=== PATIENT | male | born 1955 | race African-American/Black ===

== ENCOUNTER 2018-04-22 20:51 | Inpatient (IN) | payer OTHER ==
[~2018-04-22] VITALS: Ht 175.3 cm; Wt 61.2 kg
[~2018-04-22 20:51] MED LIST: METOPROLOL TART25 MG ORAL; UNOBMED
[2018-04-22 21:05] VITALS: BP 149/92
--- NOTE | 2018-04-22 21:06 | Emergency Room Report ---
History of Present Illness General Chief Complaint: Chest Pain Source: Medical Record, EMS Present Illness HPI This is a 63-year-old male with history of alcohol abuse. He is a very poor historian because of his intoxication. He said is not on any medication. Looking through medical records, he has a history of rapid A. fib before. He presents with chief complaint of chest pain. Said his been ongoing for a long time. Also complaining of diffuse body pain. Friends called 911. EMS gave him aspirin and nitroglycerin. No relief. Pain is 10 out of 10. Denies any nausea vomiting. Has been drinking heavily today. Denies any other complaint. Again history is limited because of his intoxication. Allergies: Coded Allergies: PENICILLIN (Verified Allergy, Severe, 06/19/17) NO KNOWN ALLERGIES (Unverified Allergy, Unknown, 04/02/15) Patient History Past Medical History: see triage record, old chart reviewed, AFib Past Surgical History: other Pertinent Family History: none Social History: Reports: alcohol use Immunizations: other Reviewed Nursing Documentation: PMH: Agreed; PSxH: Agreed Nursing Documentation-PMH Hx Cardiac Problems: Yes - chf Hx Hypertension: Yes Hx Diabetes: Yes Hx Seizures: Yes Review of Systems Cardiovascular: Reports: chest pain All Other Systems: limited - Secondary to intoxication Physical Exam Vital Signs Date Time Temp Pulse Resp B/P (MAP) Pulse Ox O2 Delivery O2 Flow Rate FiO2 04/22/18 20:48 98.6 144 26 137/107 98 Room Air vitals with tachycardia Sp02 EP Interpretation: reviewed, normal General Appearance: well appearing, no apparent distress, alert, other - Strong smell of alcoholic beverage on breath Head: normocephalic, atraumatic Eyes: bilateral eye PERRL, bilateral eye EOMI ENT: hearing grossly normal, normal pharynx Neck: full range of motion, supple, no meningismus Respiratory: chest non-tender, lungs clear, normal breath sounds Cardiovascular #1: no murmur, tachycardia Gastrointestinal: normal bowel sounds, non tender, no mass, no organomegaly, no bruit, non-distended Musculoskeletal: back normal, normal range of motion Neurologic: alert, oriented x3, grossly normal Psychiatric: anxious - Crying Skin: warm/dry Procedures Critical Care Time Critical Care Time Critical care is mandated in this patient who presented with rapid A. fib. Patient require my urgent intervention to attenuate the risks of metabolic collapse which may lead to cardiovascular collapse and . Critical care time is 35 minutes excluding any reportable procedure. Critical care time included evaluation, multiple reevaluation, looking at old charts, interpreting laboratory and diagnostic data, discussing case with patient and family and consultants, and charting. Medical Decision Making Diagnostic Impression: Primary Impression: Acute alcoholic intoxication Qualified Codes: F10.929 - Alcohol use, unspecified with intoxication, unspecified Additional Impressions: Chest pain Qualified Codes: R07.9 - Chest pain, unspecified Rapid atrial fibrillation Anxiety ER Course Patient presents with chest pain. This is most likely secondary to anxiety and alcohol intoxication. Is also chronic in nature. His A. fib is also chronic in nature. Patient is not on medication. Controlled with Cardizem. Troponin is negative. We'll admit for further workup. [facility] so he is approved for here. I discussed the case with and Sergo who will admit. Lab Results Impression labs with elevated alcohol level EKG Diagnostic Results Rate: tachycardiac Rhythm: other - Rapid atrial fibrillation ST Segments: other - Nonspecific changes Rhythm Strip Diag. Results Rhythm Strip Time: 21:06 EP Interpretation: yes Rate: 94 Rhythm: no PVC's, no ectopy, other - A. fib Chest X-Ray Diagnostic Results Chest X-Ray Diagnostic Results : Chest X-Ray Ordered: Yes # of Views/Limited/Complete: 1 View Indication: Chest Pain EP Interpretation: Yes Interpretation: no consolidation, no effusion, no pneumothorax, no acute cardiopulmonary disease Impression: No acute disease Electronically Signed by: Alex Larson MD Last Vital Signs Date Time Temp Pulse Resp B/P (MAP) Pulse Ox O2 Delivery O2 Flow Rate FiO2 04/22/18 20:48 98.6 144 26 137/107 98 Room Air Status: improved Disposition: ADMITTED INPATIENT Condition: Serious Alex Larson MD Apr 22, 2018 21:06
[2018-04-22] MEDS ORDERED: dilTIAZem HCl 25mg/5ml Inj IVP ONE ×2 (21:15→21:45)
[2018-04-22 21:16] VITALS: BP 121/72
[2018-04-22 21:24] LABS: BASOPHILS % (AUTO) 2.5 % (0.0-2.0); EOSINOPHILS % (AUTO) 1.2 % (0.0-3.0); HEMATOCRIT 51.8 % (42.0-52.0); HEMOGLOBIN 17.5 G/DL (14.2-18.0); LYMPHOCYTES % (AUTO) 48.9 % (20.0-45.0); MEAN CORPUSCULAR VOLUME 95 FL (80-99); MONOCYTES % (AUTO) 13.1 % (1.0-10.0); NEUTROPHILS % (AUTO) 34.4 % (45.0-75.0); PLATELET COUNT 294 K/UL (150-450); RED BLOOD COUNT 5.46 M/UL (4.70-6.10); RED CELL DISTRIBUTION WIDTH 12.4 % (11.6-14.8); WHITE BLOOD COUNT 5.8 K/UL (4.8-10.8)
[2018-04-22 21:34] LABS: INR 1.2 (0.9-1.1)
[2018-04-22 21:38] LABS: APPEARANCE,URINE CLEAR; BILIRUBIN, URINE NEGATIVE (NEGATIVE); COLOR,URINE PALE YELLOW; GLUCOSE, URINE (UA) NEGATIVE (NEGATIVE); KETONES,URINE NEGATIVE (NEGATIVE); LEUKOCYTE ESTERASE ,URINE NEGATIVE (NEGATIVE); NITRITE,URINE NEGATIVE (NEGATIVE); PH,URINE 5 (4.5-8.0); PROTEIN,URINE 4+ (NEGATIVE); UROBILINOGEN,URINE NORMAL MG/DL (0.0-1.0)
[2018-04-22 21:39] LABS: ANION GAP 14 mmol/L (5-15); BLOOD UREA NITROGEN 8 mg/dL (7-18); CALCIUM 8.9 MG/DL (8.5-10.1); CARBON DIOXIDE 23 MMOL/L (21-32); CHLORIDE 103 MMOL/L (98-107); CREATININE 1.3 MG/DL (0.55-1.30); POTASSIUM 4.3 MMOL/L (3.5-5.1); SODIUM 139 MMOL/L (136-145)
[2018-04-22 21:52] LABS: ALANINE AMINOTRANSFERASE 18 U/L (12-78); ALBUMIN 3.8 G/DL (3.4-5.0); ALBUMIN/GLOBULIN RATIO 0.6 (1.0-2.7); ALKALINE PHOSPHATASE 102 U/L (46-116); ASPARTATE AMINO TRANSFERASE 28 U/L (15-37); BILIRUBIN,TOTAL 0.3 MG/DL (0.2-1.0); CKMB 1.9 NG/ML (0.0-3.6); CREATINE KINASE 214 U/L (26-308)
[2018-04-22 22:03] VITALS: BP 128/83
[2018-04-23] VITALS (7 sets, daily range): BP systolic 100–151; BP diastolic 56–97
[2018-04-23] MEDS ORDERED: LORazepam Inj 2mg/ml 1ml IV PRN (01:45)
[2018-04-23] MEDS ORDERED: LORazepam 1mg tab ORAL PRN (01:45)
[2018-04-23] MEDS ORDERED: LORazepam 1mg tab ORAL ONE (02:00)
[2018-04-23] MEDS ORDERED: Metoprolol 25mg tab ORAL SCH (06:00)
[2018-04-23 06:40] LABS: BASOPHILS % (AUTO) 1.7 % (0.0-2.0); EOSINOPHILS % (AUTO) 1.4 % (0.0-3.0); HEMOGLOBIN 15.7 G/DL (14.2-18.0); MEAN CORPUSCULAR VOLUME 95 FL (80-99); MONOCYTES % (AUTO) 10.5 % (1.0-10.0); NEUTROPHILS % (AUTO) 52.4 % (45.0-75.0); PLATELET COUNT 225 K/UL (150-450); RED BLOOD COUNT 4.85 M/UL (4.70-6.10); RED CELL DISTRIBUTION WIDTH 12.5 % (11.6-14.8); WHITE BLOOD COUNT 4.8 K/UL (4.8-10.8)
[2018-04-23 07:01] LABS: ALANINE AMINOTRANSFERASE 11 U/L (12-78); ALBUMIN 3.3 G/DL (3.4-5.0); ALBUMIN/GLOBULIN RATIO 0.6 (1.0-2.7); ALKALINE PHOSPHATASE 89 U/L (46-116); ANION GAP 15 mmol/L (5-15); ASPARTATE AMINO TRANSFERASE 28 U/L (15-37); BILIRUBIN,TOTAL 0.3 MG/DL (0.2-1.0); BLOOD UREA NITROGEN 6 mg/dL (7-18); CALCIUM 8.4 MG/DL (8.5-10.1); CARBON DIOXIDE 22 MMOL/L (21-32); CHLORIDE 105 MMOL/L (98-107); CREATININE 1.1 MG/DL (0.55-1.30); PHOSPHORUS 3.2 MG/DL (2.5-4.9); POTASSIUM 4.3 MMOL/L (3.5-5.1); SODIUM 142 MMOL/L (136-145)
[2018-04-23 07:03] LABS: AMMONIA 20 umol/L (11-32)
[2018-04-23] MEDS: Heparin 5000 units/ml inj SUBQ SCH ×2 (08:20→20:58)
[2018-04-23] MEDS ORDERED: Metoprolol 5mg/5ml Inj IVP SCH (11:00)
--- NOTE | 2018-04-23 11:17 | Diagnostic Imaging Report ---
Indication: Chest pain Technique: One view of the chest Comparison: 12/15/2015 Findings: Calcific scarring is seen in the upper lungs bilaterally, left greater than right. There is associated volume loss in the left upper lobe, with upper retraction of the left pulmonary hilum. There is also pleural scarring on the left. The lungs are hyperinflated. Lungs and pleural spaces are otherwise clear. No acute infiltrates, effusions, or congestion. The heart size is normal. No significant interim change Impression: Chronic findings as described. No acute process
[2018-04-23] MEDS ORDERED: Digoxin 0.5mg/2ml Inj IVP SCH (12:40)
--- NOTE | 2018-04-23 12:44 | Consultation ---
History of Present Illness General Date patient seen: Apr 23, 2018 Chief Complaint: Chest Pain Present Illness HPI 63-year-old male with history of alcohol abuse, seizures, afib presented to ER with chief complaint of chest pain, ongoing for a long time. Also complaining of diffuse body pain. Friends called 911. EMS gave him aspirin and nitroglycerin. No relief. Pain is 10 out of 10. He has been drinking heavily today. His ETOH level turned out > 400. He is admitted to telemetry to rule out ACS and for rapid Afib. Currently pt is awake, at time crying because he missed the Thanksgiving dinner with his family. Allergies: Coded Allergies: PENICILLIN (Verified Allergy, Severe, 06/19/17) Medication History Scheduled Metoprolol Tartrate* (Metoprolol Tartrate*), Unknown Dose ORAL EVERY 12 HOURS, ( Reported) Miscellaneous Medications Unable to Obtain Medications (Unable To Obtain Meds), (Reported) Patient History Healthcare decision maker Resuscitation status Full Code Advanced Directive on File No Past Medical/Surgical History Past Medical/Surgical History: (1) ETOH abuse (2) Atrial fibrillation Review of Systems All Other Systems: negative except mentioned in HPI Physical Exam General Appearance: WD/WN Lines, tubes and drains: peripheral HEENT: normocephalic, atraumatic Neck: non-tender, normal alignment Respiratory/Chest: chest wall non-tender, lungs clear Breasts: no masses Cardiovascular/Chest: normal peripheral pulses, regular rhythm Abdomen: normal bowel sounds, non tender Genitourinary/Rectal: normal rectal exam Extremities: normal range of motion, non-tender Last 24 Hour Vital Signs Date Time Temp Pulse Resp B/P (MAP) Pulse Ox O2 Delivery O2 Flow Rate FiO2 04/23/18 11:19 150 157/84 04/23/18 09:00 Room Air 04/23/18 08:00 99.0 82 16 136/73 (94) 98 04/23/18 04:00 96 04/23/18 04:00 97.5 82 19 151/88 (109) 98 04/23/18 00:45 Room Air 04/23/18 00:12 98.6 86 20 117/79 (92) 96 04/23/18 00:05 98.2 90 16 100/56 92 Room Air 04/23/18 00:05 98.2 90 16 100/56 92 Room Air 04/23/18 00:00 95 04/22/18 22:03 98.2 83 21 128/83 99 Room Air 04/22/18 21:52 120 121/72 04/22/18 21:16 155 140/94 04/22/18 21:16 98.0 100 18 121/72 98 Room Air 04/22/18 21:05 155 24 04/22/18 21:05 98.0 155 16 149/92 98 Room Air 04/22/18 20:48 98.6 144 26 137/107 98 Room Air Intake and Output 04/22/18 04/23/18 19:00 07:00 Intake Total 500 ml Output Total 1000 ml Balance -500 ml IV Total 500 ml Output Urine Total 1000 ml # Voids 3 Laboratory Tests Test 04/22/18 21:12 04/23/18 05:20 White Blood Count 5.8 K/UL (4.8-10.8) 4.8 K/UL (4.8-10.8) Red Blood Count 5.46 M/UL (4.70-6.10) 4.85 M/UL (4.70-6.10) Hemoglobin 17.5 G/DL (14.2-18.0) 15.7 G/DL (14.2-18.0) Hematocrit 51.8 % (42.0-52.0) 46.0 % (42.0-52.0) Mean Corpuscular Volume 95 FL (80-99) 95 FL (80-99) Mean Corpuscular Hemoglobin 32.0 PG (27.0-31.0) H 32.3 PG (27.0-31.0) H Mean Corpuscular Hemoglobin Concent 33.7 G/DL (32.0-36.0) 34.2 G/DL (32.0-36.0) Red Cell Distribution Width 12.4 % (11.6-14.8) 12.5 % (11.6-14.8) Platelet Count 294 K/UL (150-450) 225 K/UL (150-450) Mean Platelet Volume 5.6 FL (6.5-10.1) L 5.4 FL (6.5-10.1) L Neutrophils (%) (Auto) 34.4 % (45.0-75.0) L 52.4 % (45.0-75.0) Lymphocytes (%) (Auto) 48.9 % (20.0-45.0) H 34.0 % (20.0-45.0) Monocytes (%) (Auto) 13.1 % (1.0-10.0) H 10.5 % (1.0-10.0) H Eosinophils (%) (Auto) 1.2 % (0.0-3.0) 1.4 % (0.0-3.0) Basophils (%) (Auto) 2.5 % (0.0-2.0) H 1.7 % (0.0-2.0) Prothrombin Time 12.2 SEC (9.30-11.50) H Prothromb Time International Ratio 1.2 (0.9-1.1) H Activated Partial Thromboplast Time 32 SEC (23-33) Urine Color Pale yellow Urine Appearance Clear Urine pH 5 (4.5-8.0) Urine Specific [place] 1.010 (1.005-1.035) Urine Protein 4+ (NEGATIVE) H Urine Glucose (UA) Negative (NEGATIVE) Urine Ketones Negative (NEGATIVE) Urine Blood 3+ (NEGATIVE) H Urine Nitrite Negative (NEGATIVE) Urine Bilirubin Negative (NEGATIVE) Urine Urobilinogen Normal MG/DL (0.0-1.0) Urine Leukocyte Esterase Negative (NEGATIVE) Urine RBC 0-2 /HPF (0 - 0) H Urine WBC 0-2 /HPF (0 - 0) Urine Squamous Epithelial Cells None /LPF (NONE/OCC) Urine Bacteria Occasional /HPF (NONE) Sodium Level 139 MMOL/L (136-145) 142 MMOL/L (136-145) Potassium Level 4.3 MMOL/L (3.5-5.1) 4.3 MMOL/L (3.5-5.1) Chloride Level 103 MMOL/L (98-107) 105 MMOL/L (98-107) Carbon Dioxide Level 23 MMOL/L (21-32) 22 MMOL/L (21-32) Anion Gap 14 mmol/L (5-15) 15 mmol/L (5-15) Blood Urea Nitrogen 8 mg/dL (7-18) 6 mg/dL (7-18) L Creatinine 1.3 MG/DL (0.55-1.30) 1.1 MG/DL (0.55-1.30) Estimat Glomerular Filtration Rate > 60 mL/min (>60) > 60 mL/min (>60) Glucose Level 98 MG/DL (74-106) 59 MG/DL (74-106) L Calcium Level 8.9 MG/DL (8.5-10.1) 8.4 MG/DL (8.5-10.1) L Total Bilirubin 0.3 MG/DL (0.2-1.0) 0.3 MG/DL (0.2-1.0) Aspartate Amino Transf (AST/SGOT) 28 U/L (15-37) 28 U/L (15-37) Alanine Aminotransferase (ALT/SGPT) 18 U/L (12-78) 11 U/L (12-78) L Alkaline Phosphatase 102 U/L (46-116) 89 U/L (46-116) Total Creatine Kinase 214 U/L (26-308) Creatine Kinase MB 1.9 NG/ML (0.0-3.6) Creatine Kinase MB Relative Index 0.8 Troponin I 0.000 ng/mL (0.000-0.056) Pro-B-Type Natriuretic Peptide 350 pg/mL (0-125) H Total Protein 9.9 G/DL (6.4-8.2) H 8.4 G/DL (6.4-8.2) H Albumin 3.8 G/DL (3.4-5.0) 3.3 G/DL (3.4-5.0) L Globulin 6.1 g/dL 5.1 g/dL Albumin/Globulin Ratio 0.6 (1.0-2.7) L 0.6 (1.0-2.7) L Lipase 230 U/L (73-393) Urine Opiates Screen Negative (NEGATIVE) Urine Barbiturates Screen Negative (NEGATIVE) Phencyclidine (PCP) Screen Negative (NEGATIVE) Urine Amphetamines Screen Negative (NEGATIVE) Urine Benzodiazepines Screen Negative (NEGATIVE) Urine Cocaine Screen Negative (NEGATIVE) Urine Marijuana (THC) Screen Positive (NEGATIVE) H Serum Alcohol 456 mg/dL Phosphorus Level 3.2 MG/DL (2.5-4.9) Magnesium Level 1.4 MG/DL (1.8-2.4) L Ammonia 20 umol/L (11-32) Height (Feet): 5 Height (Inches): 9.00 Weight (Pounds): 160 Medications Current Medications Medications (Trade) Dose Ordered Sig/Yara Route PRN Reason Start Time Stop Time Status Last Admin Dose Admin Digoxin (Lanoxin) 0.25 mg DAILY IVP 04/24/18 09:00 05/24/18 08:59 UNV Digoxin (Lanoxin) 0.5 mg ONCE ONCE IVP 04/23/18 12:30 04/23/18 12:31 UNV Famotidine (Pepcid) 20 mg BID ORAL 04/23/18 09:00 05/23/18 08:59 04/23/18 08:17 Folic Acid 1 mg/ Magnesium Sulfate 2000 mg/ Multivitamins 10 ml/Thiamine HCl 100 mg/Sodium Chloride 1,015.2 ml @ 125 mls/ hr Q24H IV 04/23/18 12:45 05/23/18 12:44 UNV Heparin Sodium (Porcine) (Heparin 5000 units/ml) 5,000 units EVERY 12 HOURS SUBQ 04/23/18 09:00 05/23/18 08:59 04/23/18 08:20 Lorazepam (Ativan 2mg/ml 1ml) 1 mg Q4H PRN IV For Seizures 04/23/18 01:45 04/30/18 01:44 Lorazepam (Ativan) 1 mg Q6H PRN ORAL Agitation 04/23/18 01:45 04/30/18 01:44 Metoprolol Tartrate (Lopressor) 25 mg Q6HR ORAL 04/23/18 06:00 05/23/18 05:59 UNV Assessment/Plan Problem List: (1) ACS (acute coronary syndrome) ICD Codes: I24.9 - Acute ischemic heart disease, unspecified SNOMED: 025170608 (2) Rapid atrial fibrillation ICD Codes: I48.91 - Unspecified atrial fibrillation SNOMED: 641682380 (3) Acute alcoholic intoxication ICD Codes: F10.129 - Alcohol abuse with intoxication, unspecified SNOMED: 13648697 Qualifiers: Qualified Codes: F10.929 - Alcohol use, unspecified with intoxication, unspecified Assessment/Plan serial ekg, troponin, cardiology to see\ Digoxin IV to control heart rate Banana bag echocardiogram might need anticoagulation, Ruy Trotter MD Apr 23, 2018 12:44
[2018-04-23] MEDS: Thiamine 100mg in D5W 55ml IVPB SCH (13:26)
--- NOTE | 2018-04-23 13:37 | History & Physical ---
History and Physical History & Physicial Dictated for Int Med-Dr Peng no. [id number]. John Harris MD Apr 23, 2018 13:37
[2018-04-23] MEDS: Folic Acid 1 MG, Magnesium Sulfate 2,000 MG, Multivitamin - 12 Injection 10 ML in NS 10... IV SCH (15:00)
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
--- NOTE | 2018-04-23 15:58 | Cardiac Electrophysiology PN ---
Subjective Subjective [id number] Objective Last 24 Hour Vital Signs Date Time Temp Pulse Resp B/P (MAP) Pulse Ox O2 Delivery O2 Flow Rate FiO2 04/23/18 13:25 129 04/23/18 11:19 150 157/84 04/23/18 09:00 Room Air 04/23/18 08:00 99.0 82 16 136/73 (94) 98 04/23/18 04:00 96 04/23/18 04:00 97.5 82 19 151/88 (109) 98 04/23/18 00:45 Room Air 04/23/18 00:12 98.6 86 20 117/79 (92) 96 04/23/18 00:05 98.2 90 16 100/56 92 Room Air 04/23/18 00:05 98.2 90 16 100/56 92 Room Air 04/23/18 00:00 95 04/22/18 22:03 98.2 83 21 128/83 99 Room Air 04/22/18 21:52 120 121/72 04/22/18 21:16 155 140/94 04/22/18 21:16 98.0 100 18 121/72 98 Room Air 04/22/18 21:05 155 24 04/22/18 21:05 98.0 155 16 149/92 98 Room Air 04/22/18 20:48 98.6 144 26 137/107 98 Room Air Intake and Output 04/22/18 04/23/18 19:00 07:00 Intake Total 500 ml Output Total 1000 ml Balance -500 ml IV Total 500 ml Output Urine Total 1000 ml # Voids 3 Laboratory Tests Test 04/22/18 21:12 04/23/18 05:20 04/23/18 13:20 White Blood Count 5.8 K/UL (4.8-10.8) 4.8 K/UL (4.8-10.8) Red Blood Count 5.46 M/UL (4.70-6.10) 4.85 M/UL (4.70-6.10) Hemoglobin 17.5 G/DL (14.2-18.0) 15.7 G/DL (14.2-18.0) Hematocrit 51.8 % (42.0-52.0) 46.0 % (42.0-52.0) Mean Corpuscular Volume 95 FL (80-99) 95 FL (80-99) Mean Corpuscular Hemoglobin 32.0 PG (27.0-31.0) H 32.3 PG (27.0-31.0) H Mean Corpuscular Hemoglobin Concent 33.7 G/DL (32.0-36.0) 34.2 G/DL (32.0-36.0) Red Cell Distribution Width 12.4 % (11.6-14.8) 12.5 % (11.6-14.8) Platelet Count 294 K/UL (150-450) 225 K/UL (150-450) Mean Platelet Volume 5.6 FL (6.5-10.1) L 5.4 FL (6.5-10.1) L Neutrophils (%) (Auto) 34.4 % (45.0-75.0) L 52.4 % (45.0-75.0) Lymphocytes (%) (Auto) 48.9 % (20.0-45.0) H 34.0 % (20.0-45.0) Monocytes (%) (Auto) 13.1 % (1.0-10.0) H 10.5 % (1.0-10.0) H Eosinophils (%) (Auto) 1.2 % (0.0-3.0) 1.4 % (0.0-3.0) Basophils (%) (Auto) 2.5 % (0.0-2.0) H 1.7 % (0.0-2.0) Prothrombin Time 12.2 SEC (9.30-11.50) H Prothromb Time International Ratio 1.2 (0.9-1.1) H Activated Partial Thromboplast Time 32 SEC (23-33) Urine Color Pale yellow Urine Appearance Clear Urine pH 5 (4.5-8.0) Urine Specific [place] 1.010 (1.005-1.035) Urine Protein 4+ (NEGATIVE) H Urine Glucose (UA) Negative (NEGATIVE) Urine Ketones Negative (NEGATIVE) Urine Blood 3+ (NEGATIVE) H Urine Nitrite Negative (NEGATIVE) Urine Bilirubin Negative (NEGATIVE) Urine Urobilinogen Normal MG/DL (0.0-1.0) Urine Leukocyte Esterase Negative (NEGATIVE) Urine RBC 0-2 /HPF (0 - 0) H Urine WBC 0-2 /HPF (0 - 0) Urine Squamous Epithelial Cells None /LPF (NONE/OCC) Urine Bacteria Occasional /HPF (NONE) Sodium Level 139 MMOL/L (136-145) 142 MMOL/L (136-145) Potassium Level 4.3 MMOL/L (3.5-5.1) 4.3 MMOL/L (3.5-5.1) Chloride Level 103 MMOL/L (98-107) 105 MMOL/L (98-107) Carbon Dioxide Level 23 MMOL/L (21-32) 22 MMOL/L (21-32) Anion Gap 14 mmol/L (5-15) 15 mmol/L (5-15) Blood Urea Nitrogen 8 mg/dL (7-18) 6 mg/dL (7-18) L Creatinine 1.3 MG/DL (0.55-1.30) 1.1 MG/DL (0.55-1.30) Estimat Glomerular Filtration Rate > 60 mL/min (>60) > 60 mL/min (>60) Glucose Level 98 MG/DL (74-106) 59 MG/DL (74-106) L Calcium Level 8.9 MG/DL (8.5-10.1) 8.4 MG/DL (8.5-10.1) L Total Bilirubin 0.3 MG/DL (0.2-1.0) 0.3 MG/DL (0.2-1.0) Aspartate Amino Transf (AST/SGOT) 28 U/L (15-37) 28 U/L (15-37) Alanine Aminotransferase (ALT/SGPT) 18 U/L (12-78) 11 U/L (12-78) L Alkaline Phosphatase 102 U/L (46-116) 89 U/L (46-116) Total Creatine Kinase 214 U/L (26-308) Creatine Kinase MB 1.9 NG/ML (0.0-3.6) Creatine Kinase MB Relative Index 0.8 Troponin I 0.000 ng/mL (0.000-0.056) 0.003 ng/mL (0.000-0.056) Pro-B-Type Natriuretic Peptide 350 pg/mL (0-125) H Total Protein 9.9 G/DL (6.4-8.2) H 8.4 G/DL (6.4-8.2) H Albumin 3.8 G/DL (3.4-5.0) 3.3 G/DL (3.4-5.0) L Globulin 6.1 g/dL 5.1 g/dL Albumin/Globulin Ratio 0.6 (1.0-2.7) L 0.6 (1.0-2.7) L Lipase 230 U/L (73-393) Urine Opiates Screen Negative (NEGATIVE) Urine Barbiturates Screen Negative (NEGATIVE) Phencyclidine (PCP) Screen Negative (NEGATIVE) Urine Amphetamines Screen Negative (NEGATIVE) Urine Benzodiazepines Screen Negative (NEGATIVE) Urine Cocaine Screen Negative (NEGATIVE) Urine Marijuana (THC) Screen Positive (NEGATIVE) H Serum Alcohol 456 mg/dL 100 mg/dL Phosphorus Level 3.2 MG/DL (2.5-4.9) Magnesium Level 1.4 MG/DL (1.8-2.4) L Ammonia 20 umol/L (11-32) Jose Carrasco MD Apr 23, 2018 15:58
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
[2018-04-23] MEDS: Metoprolol Tartrate 50mg tab ORAL SCH (20:57)
[2018-04-23] MEDS ORDERED: Zolpidem 5mg tab ORAL PRN (23:15)
[2018-04-24] VITALS: BP 140/84
[2018-04-24 04:00] VITALS: BP 132/85
[2018-04-24 07:52] LABS: BASOPHILS % (AUTO) 1.7 % (0.0-2.0); EOSINOPHILS % (AUTO) 2.2 % (0.0-3.0); HEMATOCRIT 45.5 % (42.0-52.0); HEMOGLOBIN 15.9 G/DL (14.2-18.0); LYMPHOCYTES % (AUTO) 21.8 % (20.0-45.0); MEAN CORPUSCULAR VOLUME 94 FL (80-99); MONOCYTES % (AUTO) 12.3 % (1.0-10.0); PLATELET COUNT 192 K/UL (150-450); RED BLOOD COUNT 4.85 M/UL (4.70-6.10); RED CELL DISTRIBUTION WIDTH 12.5 % (11.6-14.8); WHITE BLOOD COUNT 5.1 K/UL (4.8-10.8)
[2018-04-24 08:04] LABS: INR 1.1 (0.9-1.1)
[2018-04-24 08:12] VITALS: BP 126/92
[2018-04-24] MEDS: Heparin 5000 units/ml inj SUBQ SCH ×2 (08:23→20:57)
[2018-04-24] MEDS: Metoprolol Tartrate 50mg tab ORAL SCH ×2 (08:24→20:57)
[2018-04-24 08:36] LABS: ALANINE AMINOTRANSFERASE 13 U/L (12-78); ALBUMIN 3.4 G/DL (3.4-5.0); ALBUMIN/GLOBULIN RATIO 0.7 (1.0-2.7); ALKALINE PHOSPHATASE 98 U/L (46-116); ANION GAP 12 mmol/L (5-15); ASPARTATE AMINO TRANSFERASE 35 U/L (15-37); BILIRUBIN,TOTAL 0.9 MG/DL (0.2-1.0); BLOOD UREA NITROGEN 7 mg/dL (7-18); CALCIUM 9.2 MG/DL (8.5-10.1); CARBON DIOXIDE 25 MMOL/L (21-32); CHLORIDE 101 MMOL/L (98-107); CREATININE 1.2 MG/DL (0.55-1.30); PHOSPHORUS 2.5 MG/DL (2.5-4.9); POTASSIUM 4.1 MMOL/L (3.5-5.1); SODIUM 138 MMOL/L (136-145)
[2018-04-24] MEDS ORDERED: Digoxin 0.5mg/2ml Inj IVP SCH (09:00)
[2018-04-24 12:29] VITALS: BP 126/88
[2018-04-24] MEDS: Thiamine 100mg in D5W 55ml IVPB SCH (13:39)
--- NOTE | 2018-04-24 13:47 | Cardiology Report ---
APPROVED REPORT EXAM: Two-dimensional and M-mode echocardiogram with Doppler and color Doppler. INDICATION Chest Pain M-Mode DIMENSIONS IVSd1.1 (0.7-1.1cm)Left Atrium (MM)2.3 (1.6-4.0cm) LVDd4.2 (3.5-5.6cm)Aortic Root3.0 (2.0-3.7cm) PWd1.1 (0.7-1.1cm)Aortic Cusp Exc.1.8 (1.5-2.0cm) LVDs2.6 (2.5-4.0cm) PWs1.6 cm Technically difficult study due to poor acoustic windows. Study quality precludes accurate assessment of regional wall motion. Normal left ventricular chamber size and function to the extent visulaized Left ventricular ejection fraction estimated to be55-60% Borderline left ventricular hypertrophy. No evidence of pericardial effusion. All other cardiac chamber sizes are within normal limits. Mild focal aortic valve sclerosis with adequate cusp excursion. Mildly thickened mitral valve leaflets with normal excursion. Mild mitral annulus and aortic root calcification. Pulmonic valve not well visualized. Normal tricuspid valve structure. IVC is normal in size with physiological collapse. A color flow and spectral Doppler study was performed and revealed: No aortic insufficiency. Mild mitral regurgitation. Mitral diastolic velocities suggest mild left ventricular diastolic dysfunction (Grade I). Mild tricuspid regurgitation. Tricuspid systolic velocities suggests peak right ventricular systolic pressure of 21 mmHg. No pulmonic regurgitation present.
[2018-04-24] MEDS: Folic Acid 1 MG, Magnesium Sulfate 2,000 MG, Multivitamin - 12 Injection 10 ML in NS 10... IV SCH (14:22)
--- NOTE | 2018-04-24 14:39 | Internal Med Progress Note ---
Subjective Date of Service: Apr 24, 2018 Physician Name John Harris Attending Physician Rafael Peng MD Current Medications Medications (Trade) Dose Ordered Sig/Yara Route PRN Reason Start Time Stop Time Status Last Admin Dose Admin Digoxin (Lanoxin) 0.25 mg DAILY ORAL 04/24/18 09:00 05/24/18 08:59 04/24/18 08:23 Famotidine (Pepcid) 20 mg BID ORAL 04/23/18 09:00 05/23/18 08:59 04/24/18 08:23 Folic Acid 1 mg/ Magnesium Sulfate 2000 mg/ Multivitamins 10 ml/Sodium Chloride 1,014.2 ml @ 125 mls/ hr Q24H IV 04/23/18 14:00 05/23/18 13:59 04/24/18 14:22 Heparin Sodium (Porcine) (Heparin 5000 units/ml) 5,000 units EVERY 12 HOURS SUBQ 04/23/18 09:00 05/23/18 08:59 04/24/18 08:23 Levetiracetam (Keppra) 1,000 mg Q12HR ORAL 04/23/18 21:00 05/23/18 20:59 04/24/18 08:23 Lorazepam (Ativan 2mg/ml 1ml) 1 mg Q4H PRN IV For Seizures 04/23/18 01:45 04/30/18 01:44 Lorazepam (Ativan) 1 mg Q6H PRN ORAL Agitation 04/23/18 01:45 04/30/18 01:44 Metoprolol Tartrate (Lopressor) 50 mg Q12HR ORAL 04/23/18 21:00 05/23/18 20:59 04/24/18 08:24 Thiamine HCl 100 mg/Dextrose 56 ml @ 112 mls/hr Q24H IVPB 04/23/18 13:00 05/23/18 12:59 04/24/18 13:39 Zolpidem Tartrate (Ambien) 5 mg HSPRN PRN ORAL Insomnia 04/23/18 23:15 04/30/18 23:14 04/23/18 23:38 Allergies: Coded Allergies: PENICILLIN (Verified Allergy, Severe, 06/19/17) ROS Limited/Unobtainable: No Constitutional: Reports: no symptoms HEENT: Reports: no symptoms Cardiovascular: Reports: chest pain Respiratory: Reports: no symptoms Gastrointestinal/Abdominal: Reports: no symptoms Genitourinary: Reports: no symptoms Neurologic/Psychiatric: Reports: no symptoms Subjective 63 YO M admitted with chest pain. Now atrial fibrillation with rapid rate. Cover for Int [facility]-Dr Peng Objective Last Vital Signs Date Time Temp Pulse Resp B/P (MAP) Pulse Ox O2 Delivery O2 Flow Rate FiO2 04/24/18 12:29 98.8 76 18 126/88 (101) 98 04/24/18 09:00 Room Air General Appearance: no apparent distress, alert, thin EENT: PERRL/EOMI, normal ENT inspection Neck: non-tender, normal alignment, supple, normal inspection Cardiovascular: normal peripheral pulses, normal rate, regularly irregular, no gallop/murmur, irregularly irregular Respiratory/Chest: chest wall non-tender, lungs clear, normal breath sounds, no respiratory distress, no accessory muscle use Abdomen: normal bowel sounds, non tender, soft, no organomegaly, no mass Extremities: normal range of motion, non-tender 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, no motor/sensory deficits Skin: normal pigmentation, warm/dry Laboratory Tests Test 04/23/18 19:00 04/24/18 07:15 04/24/18 12:45 Troponin I 0.006 ng/mL (0.000-0.056) 0.007 ng/mL (0.000-0.056) 0.004 ng/mL (0.000-0.056) White Blood Count 5.1 K/UL (4.8-10.8) Red Blood Count 4.85 M/UL (4.70-6.10) Hemoglobin 15.9 G/DL (14.2-18.0) Hematocrit 45.5 % (42.0-52.0) Mean Corpuscular Volume 94 FL (80-99) Mean Corpuscular Hemoglobin 32.8 PG (27.0-31.0) H Mean Corpuscular Hemoglobin Concent 35.0 G/DL (32.0-36.0) Red Cell Distribution Width 12.5 % (11.6-14.8) Platelet Count 192 K/UL (150-450) Mean Platelet Volume 5.8 FL (6.5-10.1) L Neutrophils (%) (Auto) 62.0 % (45.0-75.0) Lymphocytes (%) (Auto) 21.8 % (20.0-45.0) Monocytes (%) (Auto) 12.3 % (1.0-10.0) H Eosinophils (%) (Auto) 2.2 % (0.0-3.0) Basophils (%) (Auto) 1.7 % (0.0-2.0) Erythrocyte Sedimentation Rate 15 MM/HR (0-20) Prothrombin Time 11.8 SEC (9.30-11.50) H Prothromb Time International Ratio 1.1 (0.9-1.1) Sodium Level 138 MMOL/L (136-145) Potassium Level 4.1 MMOL/L (3.5-5.1) Chloride Level 101 MMOL/L (98-107) Carbon Dioxide Level 25 MMOL/L (21-32) Anion Gap 12 mmol/L (5-15) Blood Urea Nitrogen 7 mg/dL (7-18) Creatinine 1.2 MG/DL (0.55-1.30) Estimat Glomerular Filtration Rate > 60 mL/min (>60) Glucose Level 80 MG/DL (74-106) Calcium Level 9.2 MG/DL (8.5-10.1) Phosphorus Level 2.5 MG/DL (2.5-4.9) Magnesium Level 1.9 MG/DL (1.8-2.4) Total Bilirubin 0.9 MG/DL (0.2-1.0) Aspartate Amino Transf (AST/SGOT) 35 U/L (15-37) Alanine Aminotransferase (ALT/SGPT) 13 U/L (12-78) Alkaline Phosphatase 98 U/L (46-116) Pro-B-Type Natriuretic Peptide 1191 pg/mL (0-125) H Total Protein 8.5 G/DL (6.4-8.2) H Albumin 3.4 G/DL (3.4-5.0) Globulin 5.1 g/dL Albumin/Globulin Ratio 0.7 (1.0-2.7) L Thyroid Stimulating Hormone (TSH) 1.829 uiU/mL (0.358-3.740) Free Thyroxine 1.03 NG/DL (0.76-1.46) Intake and Output 04/23/18 04/24/18 19:00 07:00 Intake Total 1092 ml Output Total 200 ml Balance 892 ml Intake Oral 480 ml IV Total 612 ml Output Urine Total 200 ml # Voids 1 3 Assessment/Plan Problem List: (1) Seizure disorder Assessment & Plan: continue keppra (2) Alcohol dependence Assessment & Plan: Conitnue prn ativan (3) Chest pain (4) Atrial fibrillation Assessment & Plan: Continue digoxin per cardiology (5) TACHYCARDIA (6) Acute alcoholic intoxication (7) Alcohol withdrawal John Harris MD Apr 24, 2018 14:39
--- NOTE | 2018-04-24 15:31 | Cardiac Electrophysiology PN ---
Assessment/Plan Assessment/Plan 1. Atrial fibrillation with rapid ventricular response. Digoxin level is less than0.2. Continue digoxin 0.25 mg daily and metoprolol 50 b.i.d. At this time, hold off on anticoagulation in view of the patient's syncope and risk of fall as well as seizure disorder. 2. Hypertension, on metoprolol. 3. Seizure disorder, on Keppra. Subjective Subjective Wants to go home. No CP or SOB Objective Last 24 Hour Vital Signs Date Time Temp Pulse Resp B/P (MAP) Pulse Ox O2 Delivery O2 Flow Rate FiO2 04/24/18 12:29 98.8 76 18 126/88 (101) 98 04/24/18 11:52 88 04/24/18 09:00 Room Air 04/24/18 08:24 90 126/92 04/24/18 08:23 88 04/24/18 08:12 98.8 90 18 126/92 (103) 98 04/24/18 07:53 89 04/24/18 04:00 77 04/24/18 04:00 96.9 76 18 132/85 (101) 98 04/24/18 00:00 67 04/24/18 00:00 97.9 77 18 140/84 (102) 97 04/23/18 21:00 Room Air 04/23/18 20:57 92 127/62 04/23/18 20:00 98.8 85 18 149/97 (114) 98 04/23/18 20:00 90 04/23/18 16:00 99.0 72 16 114/84 (94) 100 04/23/18 16:00 87 Intake and Output 04/23/18 04/24/18 19:00 07:00 Intake Total 1092 ml Output Total 200 ml Balance 892 ml Intake Oral 480 ml IV Total 612 ml Output Urine Total 200 ml # Voids 1 3 Laboratory Tests Test 04/23/18 19:00 04/24/18 07:15 04/24/18 12:45 Troponin I 0.006 ng/mL (0.000-0.056) 0.007 ng/mL (0.000-0.056) 0.004 ng/mL (0.000-0.056) White Blood Count 5.1 K/UL (4.8-10.8) Red Blood Count 4.85 M/UL (4.70-6.10) Hemoglobin 15.9 G/DL (14.2-18.0) Hematocrit 45.5 % (42.0-52.0) Mean Corpuscular Volume 94 FL (80-99) Mean Corpuscular Hemoglobin 32.8 PG (27.0-31.0) H Mean Corpuscular Hemoglobin Concent 35.0 G/DL (32.0-36.0) Red Cell Distribution Width 12.5 % (11.6-14.8) Platelet Count 192 K/UL (150-450) Mean Platelet Volume 5.8 FL (6.5-10.1) L Neutrophils (%) (Auto) 62.0 % (45.0-75.0) Lymphocytes (%) (Auto) 21.8 % (20.0-45.0) Monocytes (%) (Auto) 12.3 % (1.0-10.0) H Eosinophils (%) (Auto) 2.2 % (0.0-3.0) Basophils (%) (Auto) 1.7 % (0.0-2.0) Erythrocyte Sedimentation Rate 15 MM/HR (0-20) Prothrombin Time 11.8 SEC (9.30-11.50) H Prothromb Time International Ratio 1.1 (0.9-1.1) Sodium Level 138 MMOL/L (136-145) Potassium Level 4.1 MMOL/L (3.5-5.1) Chloride Level 101 MMOL/L (98-107) Carbon Dioxide Level 25 MMOL/L (21-32) Anion Gap 12 mmol/L (5-15) Blood Urea Nitrogen 7 mg/dL (7-18) Creatinine 1.2 MG/DL (0.55-1.30) Estimat Glomerular Filtration Rate > 60 mL/min (>60) Glucose Level 80 MG/DL (74-106) Calcium Level 9.2 MG/DL (8.5-10.1) Phosphorus Level 2.5 MG/DL (2.5-4.9) Magnesium Level 1.9 MG/DL (1.8-2.4) Total Bilirubin 0.9 MG/DL (0.2-1.0) Aspartate Amino Transf (AST/SGOT) 35 U/L (15-37) Alanine Aminotransferase (ALT/SGPT) 13 U/L (12-78) Alkaline Phosphatase 98 U/L (46-116) Pro-B-Type Natriuretic Peptide 1191 pg/mL (0-125) H Total Protein 8.5 G/DL (6.4-8.2) H Albumin 3.4 G/DL (3.4-5.0) Globulin 5.1 g/dL Albumin/Globulin Ratio 0.7 (1.0-2.7) L Thyroid Stimulating Hormone (TSH) 1.829 uiU/mL (0.358-3.740) Free Thyroxine 1.03 NG/DL (0.76-1.46) Objective HEAD AND NECK: Showed no JVD. LUNGS: Clear. CARDIOVASCULAR: Irregular S1 and S2 with no gallop or murmur. ABDOMEN: Soft. EXTREMITIES: No pitting edema. Jose Carrasco MD Apr 24, 2018 15:31
[2018-04-24 16:26] VITALS: BP 133/89
[2018-04-24 20:00] VITALS: BP 144/87
[2018-04-25] VITALS: BP 128/70
[2018-04-25 04:00] VITALS: BP 116/74
[2018-04-25 07:15] LABS: BASOPHILS % (AUTO) 1.2 % (0.0-2.0); EOSINOPHILS % (AUTO) 3.9 % (0.0-3.0); HEMOGLOBIN 14.6 G/DL (14.2-18.0); LYMPHOCYTES % (AUTO) 27.2 % (20.0-45.0); MEAN CORPUSCULAR VOLUME 94 FL (80-99); MONOCYTES % (AUTO) 9.6 % (1.0-10.0); NEUTROPHILS % (AUTO) 58.1 % (45.0-75.0); PLATELET COUNT 145 K/UL (150-450); RED BLOOD COUNT 4.56 M/UL (4.70-6.10); RED CELL DISTRIBUTION WIDTH 12.3 % (11.6-14.8); WHITE BLOOD COUNT 5.4 K/UL (4.8-10.8)
[2018-04-25 07:17] LABS: ANION GAP 7 mmol/L (5-15); BLOOD UREA NITROGEN 6 mg/dL (7-18); CALCIUM 8.9 MG/DL (8.5-10.1); CARBON DIOXIDE 25 MMOL/L (21-32); CHLORIDE 103 MMOL/L (98-107); CREATININE 1.1 MG/DL (0.55-1.30); POTASSIUM 3.8 MMOL/L (3.5-5.1); SODIUM 135 MMOL/L (136-145)
[2018-04-25 08:17] VITALS: BP 119/72
[2018-04-25] MEDS: Metoprolol Tartrate 50mg tab ORAL SCH (08:20)
[2018-04-25] MEDS: Heparin 5000 units/ml inj SUBQ SCH (08:23)
--- NOTE | 2018-04-25 11:59 | Cardiology Report ---
APPROVED REPORT EKG Measurement Heart [id number] Atrial fibrillation with rapid ventricular response Abnormal ECG
[2018-04-25 12:30] VITALS: BP 120/72
[2018-04-25] MEDS: Thiamine 100mg in D5W 55ml IVPB SCH (13:00)
--- NOTE | 2018-04-25 13:55 | Cardiac Electrophysiology PN ---
Assessment/Plan Assessment/Plan 1. Atrial fibrillation with rapid ventricular response. On digoxin 0.25 mg daily and metoprolol 50 b.i.d. Off anticoagulation in view of the patient's syncope and seizure disorder. 2. Hypertension, on metoprolol. 3. Seizure disorder, on Keppra. Patient eloped without signing AMA Subjective Subjective Remained in Atrial fib. Leaving AMA without signing paper Objective Last 24 Hour Vital Signs Date Time Temp Pulse Resp B/P (MAP) Pulse Ox O2 Delivery O2 Flow Rate FiO2 04/25/18 12:30 98.8 70 18 120/72 (88) 98 04/25/18 08:20 75 119/72 04/25/18 08:20 75 04/25/18 08:17 98.8 75 18 119/72 (88) 98 04/25/18 08:06 69 04/25/18 07:31 Room Air 04/25/18 04:00 98.2 90 20 116/74 (88) 98 04/25/18 04:00 66 04/25/18 00:00 62 04/25/18 00:00 98.7 61 20 128/70 (89) 98 04/24/18 21:00 Room Air 04/24/18 20:57 80 144/87 04/24/18 20:00 98.5 80 20 144/87 (106) 100 04/24/18 20:00 69 04/24/18 16:26 98.8 67 18 133/89 (104) 98 04/24/18 15:40 85 Intake and Output 04/24/18 04/25/18 19:00 07:00 Intake Total 892 ml 754.2 ml Balance 892 ml 754.2 ml Intake Oral 280 ml 240 ml IV Total 612 ml 514.2 ml # Voids 3 3 Laboratory Tests Test 04/25/18 06:40 04/25/18 12:50 White Blood Count 5.4 K/UL (4.8-10.8) Red Blood Count 4.56 M/UL (4.70-6.10) L Hemoglobin 14.6 G/DL (14.2-18.0) Hematocrit 43.0 % (42.0-52.0) Mean Corpuscular Volume 94 FL (80-99) Mean Corpuscular Hemoglobin 32.0 PG (27.0-31.0) H Mean Corpuscular Hemoglobin Concent 33.9 G/DL (32.0-36.0) Red Cell Distribution Width 12.3 % (11.6-14.8) Platelet Count 145 K/UL (150-450) L Mean Platelet Volume 6.5 FL (6.5-10.1) Neutrophils (%) (Auto) 58.1 % (45.0-75.0) Lymphocytes (%) (Auto) 27.2 % (20.0-45.0) Monocytes (%) (Auto) 9.6 % (1.0-10.0) Eosinophils (%) (Auto) 3.9 % (0.0-3.0) H Basophils (%) (Auto) 1.2 % (0.0-2.0) Sodium Level 135 MMOL/L (136-145) L Potassium Level 3.8 MMOL/L (3.5-5.1) Chloride Level 103 MMOL/L (98-107) Carbon Dioxide Level 25 MMOL/L (21-32) Anion Gap 7 mmol/L (5-15) Blood Urea Nitrogen 6 mg/dL (7-18) L Creatinine 1.1 MG/DL (0.55-1.30) Estimat Glomerular Filtration Rate > 60 mL/min (>60) Glucose Level 78 MG/DL (74-106) Calcium Level 8.9 MG/DL (8.5-10.1) Troponin I 0.003 ng/mL (0.000-0.056) 0.000 ng/mL (0.000-0.056) Jose Carrasco MD Apr 25, 2018 13:55
--- NOTE | 2018-04-25 14:14 | Internal Med Progress Note ---
Subjective Date of Service: Apr 25, 2018 Physician Name John Harris Attending Physician Rafael Peng MD Allergies: Coded Allergies: PENICILLIN (Verified Allergy, Severe, 06/19/17) ROS Limited/Unobtainable: No Subjective 63 YO M admitted with chest pain. Now atrial fibrillation with rapid rate. Cover for Int Med-Dr Peng Objective Last Vital Signs Date Time Temp Pulse Resp B/P (MAP) Pulse Ox O2 Delivery O2 Flow Rate FiO2 04/25/18 12:30 98.8 70 18 120/72 (88) 98 04/25/18 07:31 Room Air Laboratory Tests Test 04/25/18 06:40 04/25/18 12:50 White Blood Count 5.4 K/UL (4.8-10.8) Red Blood Count 4.56 M/UL (4.70-6.10) L Hemoglobin 14.6 G/DL (14.2-18.0) Hematocrit 43.0 % (42.0-52.0) Mean Corpuscular Volume 94 FL (80-99) Mean Corpuscular Hemoglobin 32.0 PG (27.0-31.0) H Mean Corpuscular Hemoglobin Concent 33.9 G/DL (32.0-36.0) Red Cell Distribution Width 12.3 % (11.6-14.8) Platelet Count 145 K/UL (150-450) L Mean Platelet Volume 6.5 FL (6.5-10.1) Neutrophils (%) (Auto) 58.1 % (45.0-75.0) Lymphocytes (%) (Auto) 27.2 % (20.0-45.0) Monocytes (%) (Auto) 9.6 % (1.0-10.0) Eosinophils (%) (Auto) 3.9 % (0.0-3.0) H Basophils (%) (Auto) 1.2 % (0.0-2.0) Sodium Level 135 MMOL/L (136-145) L Potassium Level 3.8 MMOL/L (3.5-5.1) Chloride Level 103 MMOL/L (98-107) Carbon Dioxide Level 25 MMOL/L (21-32) Anion Gap 7 mmol/L (5-15) Blood Urea Nitrogen 6 mg/dL (7-18) L Creatinine 1.1 MG/DL (0.55-1.30) Estimat Glomerular Filtration Rate > 60 mL/min (>60) Glucose Level 78 MG/DL (74-106) Calcium Level 8.9 MG/DL (8.5-10.1) Troponin I 0.003 ng/mL (0.000-0.056) 0.000 ng/mL (0.000-0.056) Intake and Output 04/24/18 04/25/18 19:00 07:00 Intake Total 892 ml 754.2 ml Balance 892 ml 754.2 ml Intake Oral 280 ml 240 ml IV Total 612 ml 514.2 ml # Voids 3 3 Objective General Appearance: no apparent distress, alert, thin EENT: PERRL/EOMI, normal ENT inspection Neck: non-tender, normal alignment, supple, normal inspection Cardiovascular: normal peripheral pulses, normal rate, regularly irregular, no gallop/murmur, irregularly irregular Respiratory/Chest: chest wall non-tender, lungs clear, normal breath sounds, no respiratory distress, no accessory muscle use Abdomen: normal bowel sounds, non tender, soft, no organomegaly, no mass Extremities: normal range of motion, non-tender 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 John Harris MD Apr 25, 2018 14:14
--- NOTE | 2018-04-26 08:36 | Discharge Summary ---
Discharge Summary Discharge Summary _ DATE OF ADMISSION: 04/22/2018 DATE OF DISCHARGE: 04/25/2018 . Patient left achiness medical advice REASON FOR ADMISSION: 63 years old male with history of alcohol abuse, hypertension, seizure disorder, presented to emergency room with the complaint of chest pain. Patient was intoxicated and unable to provide information. He complained of chest pain and diffuse body pain, and his friends called paramedics . Paramedics gave him aspirin and nitroglycerin without significant relief . No shortness of breath. No nausea, no vomiting . Patient apparently was drinking heavily on these days. Vital signs revealed tachycardia with heart rate 144, tachypnea with respiratory rate 26 ,blood pressure 137/107. Patient was afebrile, and pulse oximetry was stable on room air. Laboratory workup revealed no leukocytosis ,stable hemoglobin and hematocrit , troponin was negative. TSH within normal limits . Stable renal parameters and electrolytes. Serum alcohol 456. Urine toxicology screen was positive for marijuana. EKG revealed rapid atrial fibrillation. Chest x-ray revealed chronic findings, but no acute process. Patient admitted with diagnoses of acute alcohol intoxication ,chest pain , rapid atrial fibrillation, anxiety. CONSULTANTS: pointer machine operator Dr. Carrasco pulmonary Dr. Trotter [facility]: Patient admitted to telemetry floor. Patient started on IV fluids with vitamins supplements/ banana bag. Anxiolytics were on board as needed for anxiety and possible withdrawal symptoms. Initially IV Digoxin given for control of heart rate. Serial troponin were negative. Cardiology and pulmonology closely followed. Echocardiogram revealed preserved ejection fraction 55-60%. Normal left ventricular chamber size and function to the extent visualized. Patient continued to be in atrial fibrillation, however rate was controlled with current regimen/Digoxin and beta becky were started as per pointer machine operator recommendations. Cardiology did not recommend anticoagulation, given seizure disorder and history of heavy alcohol use. Blood pressure was managed with beta becky. DVT and GI prophylaxis provided. Seizure precautions were maintained. Patient was on Keppra. Chest pain resolved, likely was due to anxiety probably associated with alcohol withdrawal. Patient was counseled on abstinence from ETOH. Patient clinically improved and wanted to go home, but did not want to wait for attending physician to discharge him . Patient left AGAINST MEDICAL ADVICE. The risks and consequences of signing AGAINST MEDICAL ADVICE were discussed with patient in detail. Patient verbalized understanding, nevertheless left/ was picked up in a private vehicle. FINAL DIAGNOSES: Acute alcohol intoxication Atrial fibrillation with rapid ventricular response Alcohol dependency Hypertension Chest pain , likely secondary to anxiety probably due to alcohol withdrawal Seizure disorder I have been assigned to dictate discharge summary for this account. I was not involved in the patient's management. Faviola Khalil NP Apr 26, 2018 08:36
== END 2018-04-25 13:39 | disposition home or self-care (01) | DRG 897 ==
LOC: EDBD 20:51 → EMR 21:19 → 2E 22:52 → EDBEDREQ 23:18
DX: F10.239 Alcohol dependence with withdrawal, unspecified (principal); F10.229 Alcohol dependence with intoxication, unspecified; I48.91 Unspecified atrial fibrillation; I10 Essential (primary) hypertension; F41.9 Anxiety disorder, unspecified; R07.89 Other chest pain; G40.909 Epilepsy, unspecified, not intractable, without status epilepticus; T14.90XS Injury, unspecified, sequela; Y09 Assault by unspecified means; Z88.0 Allergy status to penicillin
CPT/HCPCS: 36415; 71045; 80048; 80053; 80162; 80299; 80307; 80329; 81003; 82140; 82550; 82553; 82962; 83690; 83735; 83880; 84100; 84439; 84443; 84484; 85025; 85610; 85651; 85730; 93005; 93306; 96374; 96375; 99291

== ENCOUNTER 2019-07-17 14:26 | Inpatient (IN) | payer OTHER ==
[~2019-07-17] VITALS: Ht 172.7 cm; Wt 63.0 kg
[~2019-07-17 14:26] MED LIST changes: +DIGOXIN250 MCG ORAL; +KEPPRA500 MG ORAL; +MELATONIN10 M2 ORAL; +METOPROLOL TAR100 M1 ORAL
--- NOTE | 2019-07-17 14:34 | Emergency Room Report ---
History of Present Illness General Chief Complaint: Chest Pain Source: EMS Present Illness HPI Disclaimer: Please note that this report is being documented using [employer] technology. This can lead to erroneous entry secondary to incorrect interpretation by the dictating instrument. HPI: 64-year-old male history of alcohol abuse and reported CAD presents for evaluation of chest pain alcohol intoxication. He arrives by EMS. EMS states that they know this patient while he does have some heart disease they are unsure of his actual diagnoses or medications he is taking. The patient does not provide any significant history because he is very emotional, tearful and visibly intoxicated. He states he has been on a "drinking binge" for many days. Cannot recall how much she has been drinking but states "a lot." Denies any drug use. Denies SI/HI. He is reporting diffuse chest wall pain. Denies difficulty breathing, cough. He is tangential and emotional and is difficult to obtain a full history. PMH: CAD, alcohol use PSH: Unknown Allergies: Penicillin listed Social Hx: Alcohol abuse Allergies: Coded Allergies: PENICILLIN (Verified Allergy, Severe, 06/19/17) PENICILLINS (Unverified Allergy, Unknown, 07/17/19) Nursing Documentation-PMH Hx Cardiac Problems: Yes - A FIB Hx Hypertension: Yes Hx Diabetes: Yes Hx Cancer: No Hx Gastrointestinal Problems: No Hx Neurological Problems: Yes - Seizures, ETOH Hx Seizures: Yes Review of Systems All Other Systems: limited - Due to intoxication Physical Exam Vital Signs Date Time Temp Pulse Resp B/P (MAP) Pulse Ox O2 Delivery O2 Flow Rate FiO2 07/17/19 14:22 98.4 145 24 140/84 (102) 100 Room Air General: Awake, appears intoxicated, tearful and emotional, crying HEENT: NC/AT. EOMI. injected sclera bilaterally. Moist mucous membranes Neck: Supple, trachea midline Chest Wall: No tenderness, no deformity Cardiovascular: Tachycardic. S1 and S2 normal. No murmur appreciated Resp: Normal work of breathing. No cough, wheezing or crackles appreciated Abdomen: Abdomen is soft, nondistended. Nontender Skin: Intact. No abrasions, laceration or rash over the exposed skin MSK: Normal tone and bulk. Moving all extremities. No obvious deformity. Neuro: Awake, appears intoxicated. Slurring his words. Moving all extremities. Tearful and emotional Medical Decision Making ER Course This is a 64-year-old male history of CAD, hypertension and alcohol abuse presenting for alcohol intoxication and complaining of chest pain. Review his medical chart shows that he has a history of rapid atrial fibrillation, seizure disorder and is supposed to be taking Keppra, digoxin and Lopressor. Patient is noncompliant with medication. He is vague about symptom onset of chest pain , quality, other symptoms. He is visibly intoxicated. Will obtain broad labs including troponins, EKG, chest x-ray and full toxicologic screen. Will order Keppra and other home medications. Laboratory Tests Test 07/17/19 15:00 07/17/19 16:48 White Blood Count 5.1 K/UL (4.8-10.8) Red Blood Count 4.40 M/UL (4.70-6.10) L Hemoglobin 13.0 G/DL (14.2-18.0) L Hematocrit 37.8 % (42.0-52.0) L Mean Corpuscular Volume 86 FL (80-99) Mean Corpuscular Hemoglobin 29.6 PG (27.0-31.0) Mean Corpuscular Hemoglobin Concent 34.5 G/DL (32.0-36.0) Red Cell Distribution Width 24.5 % (11.6-14.8) H Platelet Count 273 K/UL (150-450) Mean Platelet Volume 5.4 FL (6.5-10.1) L Neutrophils (%) (Auto) 50.0 % (45.0-75.0) Lymphocytes (%) (Auto) 35.1 % (20.0-45.0) Monocytes (%) (Auto) 10.8 % (1.0-10.0) H Eosinophils (%) (Auto) 1.0 % (0.0-3.0) Basophils (%) (Auto) 3.1 % (0.0-2.0) H Sodium Level 144 MMOL/L (136-145) Potassium Level 4.2 MMOL/L (3.5-5.1) Chloride Level 106 MMOL/L (98-107) Carbon Dioxide Level 19 MMOL/L (21-32) L Anion Gap 19 mmol/L (5-15) H Blood Urea Nitrogen 7 mg/dL (7-18) Creatinine 1.2 MG/DL (0.55-1.30) Estimate Glomerular Filtration Rate > 60 mL/min (>60) Glucose Level 95 MG/DL (74-106) Calcium Level 8.5 MG/DL (8.5-10.1) Total Bilirubin 0.2 MG/DL (0.2-1.0) Aspartate Amino Transferase (AST) 35 U/L (15-37) Alanine Aminotransferase (ALT) 22 U/L (12-78) Alkaline Phosphatase 96 U/L (46-116) Troponin I 0.003 ng/mL (0.000-0.056) Pro-B-Type Natriuretic Peptide 474 pg/mL (0-125) H Total Protein 8.1 G/DL (6.4-8.2) Albumin 3.7 G/DL (3.4-5.0) Globulin 4.4 g/dL Albumin/Globulin Ratio 0.8 (1.0-2.7) L Digoxin Level < 0.2 NG/ML (0.5-2.0) L Serum Alcohol 413 mg/dL Urine Color Pale yellow Urine Appearance Clear Urine pH 5 (4.5-8.0) Urine Specific [place] 1.010 (1.005-1.035) Urine Protein 2+ (NEGATIVE) H Urine Glucose (UA) Negative (NEGATIVE) Urine Ketones Negative (NEGATIVE) Urine Blood 1+ (NEGATIVE) H Urine Nitrite Negative (NEGATIVE) Urine Bilirubin Negative (NEGATIVE) Urine Urobilinogen Normal MG/DL (0.0-1.0) Urine Leukocyte Esterase Negative (NEGATIVE) Urine RBC 0-2 /HPF (0 - 0) H Urine WBC 0-2 /HPF (0 - 0) Urine Squamous Epithelial Cells None /LPF (NONE/OCC) Urine Bacteria Occasional /HPF (NONE) Urine Opiates Screen Negative (NEGATIVE) Urine Barbiturates Screen Negative (NEGATIVE) Phencyclidine (PCP) Screen Negative (NEGATIVE) Urine Amphetamines Screen Negative (NEGATIVE) Urine Benzodiazepines Screen Negative (NEGATIVE) Urine Cocaine Screen Negative (NEGATIVE) Urine Marijuana (THC) Screen Positive (NEGATIVE) H EKG Diagnostic Results EKG Time: 14:51 Rate: tachycardiac Other Impression Rapid atrial fibrillation, rate measured 134, irregularly irregular rhythm, rightward axis Rhythm Strip Diag. Results Rhythm Strip Time: 14:51 EP Interpretation: yes Rate: 130s Rhythm: other - Atrial fibrillation Chest X-Ray Diagnostic Results Chest X-Ray Diagnostic Results : Chest X-Ray Ordered: Yes # of Views/Limited/Complete: 1 View Indication: Chest Pain EP Interpretation: Yes Impression: No acute disease Electronically Signed by: Electronically signed by Dr. Kelton Donald Reevaluation Time: 17:00 Last Vital Signs Date Time Temp Pulse Resp B/P (MAP) Pulse Ox O2 Delivery O2 Flow Rate FiO2 07/17/19 14:22 98.4 145 24 140/84 (102) 100 Room Air Reevaluation Impression Labs including troponin are within normal limits. Alcohol elevated consistent with the patient's history. He is now rate controlled and was given oral Cardizem. He will be admitted for further care to panel physician. Disposition: ADMITTED INPATIENT Condition: Serious Kelton Donald MD Jul 17, 2019 14:33
[2019-07-17] MEDS ORDERED: Metoprolol Tartrate 100mg tab ORAL SCH (14:45)
[2019-07-17] MEDS ORDERED: levETIRAcetam 1,000mg/NS100ml 100 ML IVPB ONE (14:45)
[2019-07-17] MEDS ORDERED: Metoprolol Succinate XL 50mg tab ORAL ONE (14:45)
[2019-07-17] MEDS ORDERED: dilTIAZem HCl 25mg/5ml Inj IVP ONE (15:00)
[2019-07-17] MEDS ORDERED: dilTIAZem HCl 60mg tab ORAL ONE (15:30)
[2019-07-17 15:39] LABS: BASOPHILS % (AUTO) 3.1 % (0.0-2.0); HEMATOCRIT 37.8 % (42.0-52.0); LYMPHOCYTES % (AUTO) 35.1 % (20.0-45.0); MEAN CORPUSCULAR VOLUME 86 FL (80-99); MONOCYTES % (AUTO) 10.8 % (1.0-10.0); PLATELET COUNT 273 K/UL (150-450); RED CELL DISTRIBUTION WIDTH 24.5 % (11.6-14.8); WHITE BLOOD COUNT 5.1 K/UL (4.8-10.8)
--- NOTE | 2019-07-17 15:40 | NUR ---
ED Nurse Note:pt. was BIBA from home with c/o ETOH and chest incomfort, blood was sentm to labs, given IV meds, pt. was placed on diagnostic cardiac sonographer and resting now
[2019-07-17 15:41] VITALS: BP 127/80
[2019-07-17 15:48] LABS: ANION GAP 19 mmol/L (5-15); BLOOD UREA NITROGEN 7 mg/dL (7-18); CALCIUM 8.5 MG/DL (8.5-10.1); CARBON DIOXIDE 19 MMOL/L (21-32); CHLORIDE 106 MMOL/L (98-107); CREATININE 1.2 MG/DL (0.55-1.30); POTASSIUM 4.2 MMOL/L (3.5-5.1); SODIUM 144 MMOL/L (136-145)
[2019-07-17 16:01] LABS: ALANINE AMINOTRANSFERASE 22 U/L (12-78); ALBUMIN 3.7 G/DL (3.4-5.0); ALBUMIN/GLOBULIN RATIO 0.8 (1.0-2.7); ALKALINE PHOSPHATASE 96 U/L (46-116); ASPARTATE AMINO TRANSFERASE 35 U/L (15-37); BILIRUBIN,TOTAL 0.2 MG/DL (0.2-1.0)
[2019-07-17] MEDS: dilTIAZem HCl 25mg/5ml Inj IVP ONE ×2 (16:13→16:29)
[2019-07-17 16:14] VITALS: BP 102/64
[2019-07-17] MEDS ORDERED: Digoxin 0.125mg tab ORAL ONE (17:00)
[2019-07-17 17:20] LABS: APPEARANCE,URINE CLEAR; BILIRUBIN, URINE NEGATIVE (NEGATIVE); COLOR,URINE PALE YELLOW; GLUCOSE, URINE (UA) NEGATIVE (NEGATIVE); KETONES,URINE NEGATIVE (NEGATIVE); LEUKOCYTE ESTERASE ,URINE NEGATIVE (NEGATIVE); NITRITE,URINE NEGATIVE (NEGATIVE); PH,URINE 5 (4.5-8.0); PROTEIN,URINE 2+ (NEGATIVE); UROBILINOGEN,URINE NORMAL MG/DL (0.0-1.0)
[2019-07-17 18:16] VITALS: BP 96/68
--- NOTE | 2019-07-17 19:05 | NUR ---
ED Nurse Note: Report recieved from ENEIDA Westbrook. Pt resting in bed, VSS, no s/s of distress noted.
--- NOTE | 2019-07-17 19:10 | NUR ---
ED Nurse Note: Pt aao x 2-3, able to ambulate with steady gait.
[2019-07-17] MEDS ORDERED: Albuterol/Ipratropium 3ml neb HHN PRN (19:15)
[2019-07-17] MEDS ORDERED: Milk of Magnesia 30ml Ud ORAL PRN (19:15)
[2019-07-17] MEDS ORDERED: Nitroglycerin Subl 0.4mg tab SL PRN (19:15)
[2019-07-17] MEDS ORDERED: DiphenhydrAMINE 25mg Tab ORAL PRN (19:15)
[2019-07-17 19:27] VITALS: BP 105/77
[2019-07-17] MEDS ORDERED: LORazepam Inj 2mg/ml 1ml IVP PRN (19:30)
[2019-07-17] MEDS ORDERED: chlordiazePOXIDE 25mg Cap ORAL PRN (19:45)
[2019-07-17 21:35] VITALS: BP 107/76
--- NOTE | 2019-07-17 22:38 | History & Physical ---
History of Present Illness General Date patient seen: Jul 17, 2019 Time patient seen: 04:00 Reason for Hospitalization: Chest Pain Present Illness HPI This is a 64-year-old male with a past medical history of alcohol abuse and alcohol dependence who presents emergency room brought in by ambulance. Patient is very tearful during interview, keeps talking about the PTSD he experienced from being in the [employer] and witnessing his friends be killed and duty. Chart review reveals the patient was recently admitted to the hospital at which point he had an echocardiogram that showed an EF of 50%, and patient has a known history of atrial fibrillation l seizures. Today he presents again in atrial fibrillation with RVR was treated with digoxin and Cardizem the emergency room. Patient has no major lab abnormalities only anemia of chronic disease and an elevated lactic acid from alcohol abuse and intoxication, currently patient has an elevated blood alcohol level. He denies other symptoms, denies abdominal pain. It appears that during last hospital visit anticoagulation was considered however patient is definitely not a good candidate, and atrial fibrillation is likely all related to alcohol. Patient also was prescribed Keppra, however at this point patient is not clear if patient has an underlying epilepsy disorder or if these are all related to alcohol withdrawal seizures. He will be put on seizure protocol and monitored here in the hospital Allergies: Coded Allergies: PENICILLIN (Verified Allergy, Severe, 06/19/17) PENICILLINS (Unverified Allergy, Unknown, 07/17/19) Medication History Scheduled Digoxin* (Digoxin*), 0.25 MG ORAL DAILY Levetiracetam (Keppra), 750 MG ORAL Q12HR Metoprolol Tartrate* (Metoprolol Tartrate*), 100 MG ORAL EVERY 12 HOURS Patient History History Provided By: Patient Healthcare decision maker Resuscitation status Advanced Directive on File Review of Systems Review of Symptoms Review of systems is limited to patient's emotional state however he just states that he does not feel great and he feels tired and he is very emotional. He denies chest pain and abdominal pain to me when I interview him Physical Exam Physical Exam General appearance: Patient is emotional and crying Head: Normocephalic, without obvious abnormality, atraumatic Eyes: conjunctivae/corneas clear. PERRL, EOM's intact. Fundi benign Throat: Lips, mucosa, and tongue normal. Teeth and gums normal Neck: supple, symmetrical, trachea midline, no adenopathy, thyroid: not enlarged, symmetric, no tenderness/mass/nodules, no carotid bruit and no JVD Lungs: clear to auscultation bilaterally Heart: Currently in atrial fibrillation with rapid ventricular response Abdomen: soft, non-tender. Bowel sounds normal. No masses, no organomegaly Extremities: extremities normal, atraumatic, no cyanosis or edema Pulses: 2+ and symmetric Skin: Skin color, texture, turgor normal. No rashes or lesions Neurologic: Grossly normal, intoxicated Last 24 Hour Vital Signs Date Time Temp Pulse Resp B/P (MAP) Pulse Ox O2 Delivery O2 Flow Rate FiO2 07/17/19 19:27 98.4 76 20 105/77 97 Room Air 07/17/19 18:16 98.4 76 19 96/68 100 Room Air 07/17/19 17:00 76 07/17/19 16:29 130 102/64 07/17/19 16:15 79 24 Room Air 07/17/19 16:14 98.4 79 24 102/64 100 Room Air 07/17/19 15:41 98.4 93 24 127/80 100 Room Air 07/17/19 15:41 93 127/80 07/17/19 15:20 145 140/84 07/17/19 14:22 98.4 145 24 140/84 (102) 100 Room Air Laboratory Tests Test 07/17/19 15:00 07/17/19 16:48 07/17/19 21:15 White Blood Count 5.1 K/UL (4.8-10.8) Red Blood Count 4.40 M/UL (4.70-6.10) L Hemoglobin 13.0 G/DL (14.2-18.0) L Hematocrit 37.8 % (42.0-52.0) L Mean Corpuscular Volume 86 FL (80-99) Mean Corpuscular Hemoglobin 29.6 PG (27.0-31.0) Mean Corpuscular Hemoglobin Concent 34.5 G/DL (32.0-36.0) Red Cell Distribution Width 24.5 % (11.6-14.8) H Platelet Count 273 K/UL (150-450) Mean Platelet Volume 5.4 FL (6.5-10.1) L Neutrophils (%) (Auto) 50.0 % (45.0-75.0) Lymphocytes (%) (Auto) 35.1 % (20.0-45.0) Monocytes (%) (Auto) 10.8 % (1.0-10.0) H Eosinophils (%) (Auto) 1.0 % (0.0-3.0) Basophils (%) (Auto) 3.1 % (0.0-2.0) H Sodium Level 144 MMOL/L (136-145) Potassium Level 4.2 MMOL/L (3.5-5.1) Chloride Level 106 MMOL/L (98-107) Carbon Dioxide Level 19 MMOL/L (21-32) L Anion Gap 19 mmol/L (5-15) H Blood Urea Nitrogen 7 mg/dL (7-18) Creatinine 1.2 MG/DL (0.55-1.30) Estimat Glomerular Filtration Rate > 60 mL/min (>60) Glucose Level 95 MG/DL (74-106) Calcium Level 8.5 MG/DL (8.5-10.1) Total Bilirubin 0.2 MG/DL (0.2-1.0) Aspartate Amino Transf (AST/SGOT) 35 U/L (15-37) Alanine Aminotransferase (ALT/SGPT) 22 U/L (12-78) Alkaline Phosphatase 96 U/L (46-116) Troponin I 0.003 ng/mL (0.000-0.056) Pro-B-Type Natriuretic Peptide 474 pg/mL (0-125) H Total Protein 8.1 G/DL (6.4-8.2) Albumin 3.7 G/DL (3.4-5.0) Globulin 4.4 g/dL Albumin/Globulin Ratio 0.8 (1.0-2.7) L Digoxin Level < 0.2 NG/ML (0.5-2.0) L Serum Alcohol 413 mg/dL Urine Color Pale yellow Urine Appearance Clear Urine pH 5 (4.5-8.0) Urine Specific [place] 1.010 (1.005-1.035) Urine Protein 2+ (NEGATIVE) H Urine Glucose (UA) Negative (NEGATIVE) Urine Ketones Negative (NEGATIVE) Urine Blood 1+ (NEGATIVE) H Urine Nitrite Negative (NEGATIVE) Urine Bilirubin Negative (NEGATIVE) Urine Urobilinogen Normal MG/DL (0.0-1.0) Urine Leukocyte Esterase Negative (NEGATIVE) Urine RBC 0-2 /HPF (0 - 0) H Urine WBC 0-2 /HPF (0 - 0) Urine Squamous Epithelial Cells None /LPF (NONE/OCC) Urine Bacteria Occasional /HPF (NONE) Urine Opiates Screen Negative (NEGATIVE) Urine Barbiturates Screen Negative (NEGATIVE) Phencyclidine (PCP) Screen Negative (NEGATIVE) Urine Amphetamines Screen Negative (NEGATIVE) Urine Benzodiazepines Screen Negative (NEGATIVE) Urine Cocaine Screen Negative (NEGATIVE) Urine Marijuana (THC) Screen Positive (NEGATIVE) H Lactic Acid Level 3.70 mmol/L (0.4-2.0) H Height (Feet): 5 Height (Inches): 8.00 Weight (Pounds): 165 Medications Current Medications Medications (Trade) Dose Ordered Sig/Yara Route PRN Reason Start Time Stop Time Status Last Admin Dose Admin Acetaminophen (Tylenol) 650 mg Q4H PRN ORAL Mild Pain (Pain Scale 1-3) 07/17/19 19:15 08/16/19 19:14 Albuterol/ Ipratropium (Albuterol/ Ipratropium) 3 ml Q6H PRN HHN Shortness of Breath 07/17/19 19:15 07/22/19 19:14 Chlordiazepoxide (Librium) 25 mg Q6H PRN ORAL Agitation 07/17/19 19:45 07/24/19 19:44 Dextrose (Dextrose 50%) 25 ml Q30M PRN IV Hypoglycemia 07/17/19 19:15 08/16/19 19:14 Dextrose (Dextrose 50%) 50 ml Q30M PRN IV Hypoglycemia 07/17/19 19:15 08/16/19 19:14 Diltiazem HCl (Cardizem) 10 mg Q6HR PRN IVP Per rx protocol 07/17/19 19:30 08/16/19 19:29 UNV Diphenhydramine HCl (Benadryl) 25 mg Q6H PRN ORAL Itching/Pruritis 07/17/19 19:15 08/16/19 19:14 Docusate Sodium (Colace) 100 mg EVERY 12 HOURS ORAL 07/17/19 21:00 08/16/19 20:59 UNV Enoxaparin Sodium (Lovenox) 30 mg Q24H SUBQ 07/17/19 20:15 08/16/19 20:14 UNV Famotidine (Pepcid) 20 mg BID ORAL 07/18/19 09:00 08/17/19 08:59 UNV Folic Acid 1 mg/ Magnesium Sulfate 2000 mg/ Multivitamins 10 ml/Thiamine HCl 100 mg/Sodium Chloride 1,015.2 ml @ 100 mls/ hr [id number] ONCE IV 07/17/19 19:30 07/18/19 05:39 UNV Lorazepam (Ativan 2mg/ml 1ml) 2 mg Q1H PRN IVP Seizure 07/17/19 19:30 07/24/19 19:29 Magnesium Hydroxide (Mom) 30 ml HSPRN PRN ORAL Constipation 07/17/19 19:15 08/16/19 19:14 Nitroglycerin (Ntg) 0.4 mg Q5M PRN SL Prn Chest Pain 07/17/19 19:15 08/16/19 19:14 Ondansetron HCl (Zofran) 4 mg Q6H PRN IVP Nausea & Vomiting 07/17/19 19:15 08/16/19 19:14 Assessment/Plan Assessment/Plan: Assessment #Atrial fibrillation with rapid ventricular response, pending magnesium and phosphorus levels, patient is treated with digoxin and Cardizem in the emergency room #Alcohol intoxication, patient reportedly has a history of PTSD related to events 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 [employer]--> patient endorses drinking daily #Anemia of chronic disease #History of seizures, unclear patient has not had an epilepsy or alcohol withdrawal seizures Plan Status post Cardizem and digoxin, echocardiogram from past visit reveals an ejection fraction of 50%, do not feel patient is a good anticoagulation candidate Ativan as needed signs of withdrawal seizures, seizure protocol, chart review states the patient was seen by neurology during last hospital visit Librium 25 mg 4 times daily as needed signs of alcohol withdrawal, may need to be increased to 50 2/2 high tolerance Follow-up a.m. CMP to assess liver enzymes, consider abdominal ultrasound however at this point patient has no signs of ascites advanced liver disease Banana bag at 100 cc/h DVT and GI prophylaxis Diet as tolerated Patient would benefit from social work consult, counseling. He seems to have a good idea of what PTSD is and how it affects a person; sounds as though he is self-medicating [facility] Hospital declaration I spent 70 minutes on this patient's case, and 40 minutes was dedicated to counseling and/or care coordination. Tiffany Reyes D.O. Jul 17, 2019 22:38
--- NOTE | 2019-07-17 22:38 | NUR ---
ED Nurse Note: Pt resting in bed, VSS no s/s of distress noted.
[2019-07-17 23:46] VITALS: BP 105/72
[2019-07-18] VITALS (8 sets, daily range): BP systolic 107–146; BP diastolic 71–91
--- NOTE | 2019-07-18 00:02 | NUR ---
ED Nurse Note: Pt resting in bed, vss no s/s of distress noted.
[2019-07-18] MEDS ORDERED: dilTIAZem HCl 25mg/5ml Inj IVP PRN (01:30)
[2019-07-18 02:24] LABS: ALANINE AMINOTRANSFERASE 17 U/L (12-78); ALBUMIN 3.3 G/DL (3.4-5.0); ALBUMIN/GLOBULIN RATIO 0.8 (1.0-2.7); ALKALINE PHOSPHATASE 88 U/L (46-116); ANION GAP 15 mmol/L (5-15); ASPARTATE AMINO TRANSFERASE 32 U/L (15-37); BILIRUBIN,TOTAL 0.3 MG/DL (0.2-1.0); BLOOD UREA NITROGEN 6 mg/dL (7-18); CALCIUM 8.3 MG/DL (8.5-10.1); CARBON DIOXIDE 22 MMOL/L (21-32); CHLORIDE 108 MMOL/L (98-107); PHOSPHORUS 3.3 MG/DL (2.5-4.9); POTASSIUM 4.3 MMOL/L (3.5-5.1); SODIUM 145 MMOL/L (136-145)
--- NOTE | 2019-07-18 02:30 | NUR ---
ED Nurse Note: Report given to Dona Henaolaser machine operator unit.
[2019-07-18 02:37] LABS: HEMOGLOBIN 13.2 G/DL (14.2-18.0); MEAN CORPUSCULAR VOLUME 91 FL (80-99); RED BLOOD COUNT 4.18 M/UL (4.70-6.10); WHITE BLOOD COUNT 3.7 K/UL (4.8-10.8)
[2019-07-18 02:38] LABS: PLATELET COUNT 225 K/UL (150-450); RED CELL DISTRIBUTION WIDTH 13.8 % (11.6-14.8)
[2019-07-18] MEDS ORDERED: Morphine Sulfate 4mg/ml Inj (IV USE ONLY) IVP ONE (02:45)
--- NOTE | 2019-07-18 02:50 | NUR ---
ER DISCHARGE NOTE: Patient is cleared to be discharged to telemetry unit per ERMD, pt is aox4, on room air, with stable vital signs. pt was able to verbalize understanding. pt is able to ambulate with steady gait. pt took all belongings. Pt transferred to unit with MYRIAM guido and one RN; report given to ENEIDA Henao.
[2019-07-18] MEDS ORDERED: Folic Acid 1 MG, Magnesium Sulfate 2,000 MG, Multivitamin - 12 Injection 10 ML in Sodiu... IV ONE (03:00)
[2019-07-18] MEDS ORDERED: Thiamine 100mg in D5W 55ml IVPB SCH (03:00)
--- NOTE | 2019-07-18 03:00 | NUR ---
NURSE NOTES: Pt arrived via gurney from ER. Got report from Macario MONIQUE. Initial Assessment done. Pt is here for ETOH/Afib. Pt is A+Ox2-3 Confused. Pt denies any pain. Denies any n/v or SOB. Pt is unsteady gait. VSS BP:121/71 HR:83 T:97.9 R:18 O2:97% on room air. No skin issues noted. Pt is seizure precaution siderails padded. threat monitoring analyst placed on pt running afib on the monitor. Belongings list verified. Pt has R FA 18g patent. Pt resting in bed comfortably. Bed in low and locked position, call light within reach, bedside table within reach. Continue to monitor.
[2019-07-18] MEDS ORDERED: Folic Acid 1 MG, Magnesium Sulfate 2,000 MG, Multivitamin - 12 Injection 10 ML, Thiamin... IV ONE ×10 (04:15→08:00)
--- NOTE | 2019-07-18 07:16 | NUR ---
HAND-OFF: Report given to Min RN.
--- NOTE | 2019-07-18 07:17 | NUR ---
NURSE NOTES: Received report from Juliano MONIQUE. Pt in bed awake and orientedx1 and able to follow the simple direction. IV site in RFA 18G SL patent and asymptomatic. Bed in lowest position and locked. Side railsx3 up and padded for safety. Will continue plan of care.
[2019-07-18] MEDS ORDERED: Enoxaparin 40mg Inj SUBQ SCH (09:00)
[2019-07-18] MEDS ORDERED: Folic Acid 1 MG, Magnesium Sulfate 2,000 MG, Multivitamin - 12 Injection 10 ML in Sodiu... IV SCH (09:00)
[2019-07-18] MEDS: Thiamine 100mg in D5W 55ml IVPB SCH (09:04)
[2019-07-18] MEDS: Docusate 100mg cap ORAL SCH ×2 (09:04→20:35)
--- NOTE | 2019-07-18 10:15 | Diagnostic Imaging Report ---
Indication: Chest pain Technique: One view of the chest Comparison: 06/05/2019 Findings: Patient hand obscures left lung base. There are some calcifications in the left lung apex. There is also one in the right lung apex. There is a nodular opacity in the right midlung . There may be some smaller nodules well. The heart size is normal. No infiltrates. No definite effusions Impression: Limited exam, as described Right midlung nodule, not definitely calcified. Consider further evaluation with CT. This finding was discussed with patient's attending physician at approximately 9:30 AM Evidence of old granulomatous disease in the apices. No definite acute process
[2019-07-18] MEDS ORDERED: Metoprolol Tartrate 100mg tab ORAL SCH (10:45)
[2019-07-18] MEDS ORDERED: Omnipaque-300 100ml vial INJ SCH (10:45)
[2019-07-18] MEDS ORDERED: Heparin 5000 units/ml inj IV SCH (12:54)
[2019-07-18] MEDS ORDERED: Heparin 25,000u/D5W 500ml 500 ML IV SCH (12:55)
--- NOTE | 2019-07-18 14:21 | Cardiac Electrophysiology PN ---
Subjective Subjective [id number] Objective Last 24 Hour Vital Signs Date Time Temp Pulse Resp B/P (MAP) Pulse Ox O2 Delivery O2 Flow Rate FiO2 07/18/19 12:00 97.3 92 20 133/91 (105) 98 07/18/19 09:00 Room Air 07/18/19 08:00 81 07/18/19 08:00 98.0 88 18 129/91 (104) 99 07/18/19 04:16 Room Air 07/18/19 03:36 Room Air 07/18/19 03:30 77 07/18/19 03:30 97.9 83 16 121/71 (88) 97 07/18/19 03:23 98.4 07/18/19 03:00 97.9 83 16 121/71 (88) 97 07/18/19 02:50 98.4 78 14 120/77 97 Room Air 07/18/19 02:22 98.4 78 14 120/77 97 Room Air 07/18/19 01:45 98.4 80 16 107/74 97 Room Air 07/17/19 23:46 98.4 66 14 105/72 97 Room Air 07/17/19 21:35 98.4 72 14 107/76 97 Room Air 07/17/19 19:27 98.4 76 20 105/77 97 Room Air 07/17/19 18:16 98.4 76 19 96/68 100 Room Air 07/17/19 17:00 76 07/17/19 16:29 130 102/64 07/17/19 16:15 79 24 Room Air 07/17/19 16:14 98.4 79 24 102/64 100 Room Air 07/17/19 15:41 98.4 93 24 127/80 100 Room Air 07/17/19 15:41 93 127/80 07/17/19 15:20 145 140/84 07/17/19 14:22 98.4 145 24 140/84 (102) 100 Room Air Intake and Output 07/17/19 07/18/19 19:00 07:00 Intake Total 100 ml Balance 100 ml Intake Oral 100 ml # Voids 1 # Bowel Movements 2 Laboratory Tests Test 07/17/19 15:00 07/17/19 16:48 07/17/19 21:15 07/17/19 23:05 White Blood Count 5.1 K/UL (4.8-10.8) Red Blood Count 4.40 M/UL (4.70-6.10) L Hemoglobin 13.0 G/DL (14.2-18.0) L Hematocrit 37.8 % (42.0-52.0) L Mean Corpuscular Volume 86 FL (80-99) Mean Corpuscular Hemoglobin 29.6 PG (27.0-31.0) Mean Corpuscular Hemoglobin Concent 34.5 G/DL (32.0-36.0) Red Cell Distribution Width 24.5 % (11.6-14.8) H Platelet Count 273 K/UL (150-450) Mean Platelet Volume 5.4 FL (6.5-10.1) L Neutrophils (%) (Auto) 50.0 % (45.0-75.0) Lymphocytes (%) (Auto) 35.1 % (20.0-45.0) Monocytes (%) (Auto) 10.8 % (1.0-10.0) H Eosinophils (%) (Auto) 1.0 % (0.0-3.0) Basophils (%) (Auto) 3.1 % (0.0-2.0) H Sodium Level 144 MMOL/L (136-145) Potassium Level 4.2 MMOL/L (3.5-5.1) Chloride Level 106 MMOL/L (98-107) Carbon Dioxide Level 19 MMOL/L (21-32) L Anion Gap 19 mmol/L (5-15) H Blood Urea Nitrogen 7 mg/dL (7-18) Creatinine 1.2 MG/DL (0.55-1.30) Estimat Glomerular Filtration Rate > 60 mL/min (>60) Glucose Level 95 MG/DL (74-106) Calcium Level 8.5 MG/DL (8.5-10.1) Total Bilirubin 0.2 MG/DL (0.2-1.0) Aspartate Amino Transf (AST/SGOT) 35 U/L (15-37) Alanine Aminotransferase (ALT/SGPT) 22 U/L (12-78) Alkaline Phosphatase 96 U/L (46-116) Troponin I 0.003 ng/mL (0.000-0.056) Pro-B-Type Natriuretic Peptide 474 pg/mL (0-125) H Total Protein 8.1 G/DL (6.4-8.2) Albumin 3.7 G/DL (3.4-5.0) Globulin 4.4 g/dL Albumin/Globulin Ratio 0.8 (1.0-2.7) L Digoxin Level < 0.2 NG/ML (0.5-2.0) L Serum Alcohol 413 mg/dL Urine Color Pale yellow Urine Appearance Clear Urine pH 5 (4.5-8.0) Urine Specific [place] 1.010 (1.005-1.035) Urine Protein 2+ (NEGATIVE) H Urine Glucose (UA) Negative (NEGATIVE) Urine Ketones Negative (NEGATIVE) Urine Blood 1+ (NEGATIVE) H Urine Nitrite Negative (NEGATIVE) Urine Bilirubin Negative (NEGATIVE) Urine Urobilinogen Normal MG/DL (0.0-1.0) Urine Leukocyte Esterase Negative (NEGATIVE) Urine RBC 0-2 /HPF (0 - 0) H Urine WBC 0-2 /HPF (0 - 0) Urine Squamous Epithelial Cells None /LPF (NONE/OCC) Urine Bacteria Occasional /HPF (NONE) Urine Opiates Screen Negative (NEGATIVE) Urine Barbiturates Screen Negative (NEGATIVE) Phencyclidine (PCP) Screen Negative (NEGATIVE) Urine Amphetamines Screen Negative (NEGATIVE) Urine Benzodiazepines Screen Negative (NEGATIVE) Urine Cocaine Screen Negative (NEGATIVE) Urine Marijuana (THC) Screen Positive (NEGATIVE) H Lactic Acid Level 3.70 mmol/L (0.4-2.0) H 3.50 mmol/L (0.66-2.22) H Test 07/18/19 01:26 07/18/19 12:10 White Blood Count 3.7 K/UL (4.8-10.8) L Red Blood Count 4.18 M/UL (4.70-6.10) L Hemoglobin 13.2 G/DL (14.2-18.0) L Hematocrit 38.0 % (42.0-52.0) L Mean Corpuscular Volume 91 FL (80-99) Mean Corpuscular Hemoglobin 31.4 PG (27.0-31.0) H Mean Corpuscular Hemoglobin Concent 34.6 G/DL (32.0-36.0) Red Cell Distribution Width 13.8 % (11.6-14.8) Platelet Count 225 K/UL (150-450) Mean Platelet Volume 4.8 FL (6.5-10.1) L Neutrophils (%) (Auto) % (45.0-75.0) Lymphocytes (%) (Auto) % (20.0-45.0) Monocytes (%) (Auto) % (1.0-10.0) Eosinophils (%) (Auto) % (0.0-3.0) Basophils (%) (Auto) % (0.0-2.0) Sodium Level 145 MMOL/L (136-145) Potassium Level 4.3 MMOL/L (3.5-5.1) Chloride Level 108 MMOL/L (98-107) H Carbon Dioxide Level 22 MMOL/L (21-32) Anion Gap 15 mmol/L (5-15) Blood Urea Nitrogen 6 mg/dL (7-18) L Creatinine 1.0 MG/DL (0.55-1.30) Estimat Glomerular Filtration Rate > 60 mL/min (>60) Glucose Level 72 MG/DL (74-106) L Calcium Level 8.3 MG/DL (8.5-10.1) L Phosphorus Level 3.3 MG/DL (2.5-4.9) Magnesium Level 1.3 MG/DL (1.8-2.4) L Total Bilirubin 0.3 MG/DL (0.2-1.0) Aspartate Amino Transf (AST/SGOT) 32 U/L (15-37) Alanine Aminotransferase (ALT/SGPT) 17 U/L (12-78) Alkaline Phosphatase 88 U/L (46-116) Total Protein 7.3 G/DL (6.4-8.2) Albumin 3.3 G/DL (3.4-5.0) L Globulin 4.0 g/dL Albumin/Globulin Ratio 0.8 (1.0-2.7) L Activated Partial Thromboplast Time 34 SEC (23-33) H Lactic Acid Level 1.60 mmol/L (0.4-2.0) Troponin I 0.000 ng/mL (0.000-0.056) Jose Carrasco MD Jul 18, 2019 14:21
--- NOTE | 2019-07-18 14:29 | Diagnostic Imaging Report ---
Clinical Indication: Reason For Exam: MASS Technique: IV administration nonionic contrast. Spiral acquisition obtained through the chest. Multiplanar reconstructions generated. Total dose length product 177 mGycm. CTDIvol(s) 2, 94, 3 mGy. Dose reduction achieved using automated exposure control Comparison: No comparison CT scans. Reference made to chest radiograph 07/17/2019 Findings: The patient's right nipple corresponds in size and position to the nodular opacity demonstrated on recent chest radiograph. No definite pulmonary nodules are seen at the corresponding location. There are 2 calcified tiny nodules in the right lung apex.. Calcified nodules are seen in the inferior right upper lobe. There is a 3 mm diameter noncalcified nodule in the inferior right upper lobe, image 29 series 7, inferior to which is another calcified nodule. A noncalcified nodule is seen within the minor fissure on the right and presumably represents and intrafissural node. There is some scarring adjacent to the minor fissure. There is some scarring in the lateral right lower lobe. The right upper lobe demonstrates an area of cicatrization with traction bronchiectasis and some calcification extending from the hilum to the medial apex. There is another area of calcific scarring in the lateral apex, as well as multiple irregular calcified nodules. There is considerable left upper lobe volume loss. The left lower lobe demonstrates compensatory hyperinflation. No noncalcified nodules are seen in the left lung. Bilaterally, no infiltrates, effusions, or congestion. There is generalized mild hyperinflation. The heart size is normal. No pericardial effusion. No mediastinal or hilar mass or adenopathy. Unremarkable thyroid. No evidence of thoracic aortic aneurysm or dissection. No axillary or chest wall mass or adenopathy. There is gynecomastia bilaterally. The included upper abdominal anatomy demonstrates what appears to be left renal atrophy, with an eggshell calcification in the region of the residual upper pole. Impression: No definite right lung nodule seen to correspond to findings reported on recent chest radiograph. Most likely, this radiographic finding represented a right nipple shadow There is a noncalcified nodule in the anterior right upper lobe, probably not corresponding to the radiographic abnormality which measures 3 mm in diameter. If there is significant smoking history or other risk factors for lung carcinoma, this should be followed up in 6-12 months. Evidence of old granulomatous disease, with multiple calcified nodules bilaterally, cicatrization and scarring in the left upper lobe Mild COPD changes No definite acute pulmonary process Gynecomastia. Structure in the region of the left renal fossa, incompletely included, possibly representing an atrophic left kidney. There appears to be some dystrophic calcification at the superior aspect of this Incidental finding of degenerative spondylosis The CT scanner at [facility] is accredited by the [employer] and the scans are performed using protocols designed to limit radiation exposure to as low as reasonably achievable to attain images of sufficient resolution adequate for diagnostic evaluation.
--- NOTE | 2019-07-18 14:30 | NUR ---
*-* NO INSURANCE INFORMATION IN THE BAR UNABLE TO SEND CLINICALS OR REVIEWS *-*
--- NOTE | 2019-07-18 15:51 | General Progress Note ---
Assessment/Plan Assessment/Plan: Assessment #Atrial fibrillation with rapid ventricular response likely triggered by alcohol abuse. -Appreciate cardiology consultation: Dr. Carrasco -Start heparin drip -Replete mag and phosphorus and potassium -continue lopressor 100mg PO Q12hr -Holding home digoxin -Dilt PRN -Iv hydration - TTE - trend troponins #lactic acidosis, suspect 2/2 dehydration and alcohol abuse - IV fluids as above -No signs or symptoms of infection currently. 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 Patient is a poor historian and unclear if this is related to alcohol withdrawal or an underlying seizure disorder. #Alcohol withdrawal seizures -Appreciate psychiatry consult: Dr. Mejia -Neurology consult: Dr. Espinal -Keppra 750 mg p.o. twice daily -Seizure precautions -Avoid alcohol #Alcohol abuse -Social work consult -Banana bag -IV hydration #Hypomagnesemia -replete PRN #Anemia of chronic disease No signs of bleeding CTM #suspected pulmonary nodule -CT chest with contrast. D/w radiology FENPPX DVTPPX: lovenox Lines: none PT/OT: pending Code status: Full Dispo: 3-4 days Reason for Continued Hospitalization: Atrial fibrillation with RVR DVT and GI prophylaxis Diet as tolerated 39 minutes spent on this encounter. Discussed with Cardiology and RN. > 50% spent on counseling and care coordination. I spent an additional 32 minutes reviewing medical records including prior hospitalization notes, clinic notes, consultation notes, prior labs, and prior imaging. Time of note may not reflect time patient was seen. Subjective Date patient seen: Jul 18, 2019 Constitutional: Denies: chills, diaphoresis, fever, malaise, weakness, other HEENT: Denies: eye pain, blurred vision, tearing, double vision, ear pain, ear discharge, nose pain, nose congestion, throat pain, throat swelling, mouth pain , mouth swelling, other Cardiovascular: Reports: irregular heart rate; Denies: chest pain, edema, lightheadedness, palpitations, syncope, other Respiratory: Denies: cough, orthopnea, shortness of breath, SOB with excertion , SOB at rest, sputum, stridor, wheezing, other Gastrointestinal/Abdominal: Denies: abdomen distended, abdominal pain, black stools, tarry stools, blood in stool, constipated, diarrhea, difficulty swallowing, nausea, poor appetite, poor fluid intake, rectal bleeding, vomiting , other Genitourinary: Denies: burning, discharge, frequency, flank pain, hematuria, incontinence, pain, urgency, other Neurologic/Psychiatric: Denies: anxiety, depressed, emotional problems, headache, numbness, paresthesia, pre-existing deficit, seizure, tingling, tremors, weakness, other Endocrine: Denies: excessive sweating, flushing, intolerance to cold, intolerance to heat, increased hunger, increased thirst, increased urine, unexplained weight gain, unexplained weight loss, other Hematologic/Lymphatic: Denies: anemia, easy bleeding, easy bruising, other Allergies: Coded Allergies: PENICILLIN (Verified Allergy, Severe, 06/19/17) PENICILLINS (Unverified Allergy, Unknown, 07/17/19) Subjective No acute events overnight per nursing. Patient without signs of alcohol withdrawal. Heart rate better controlled. Patient states that last seizure was 2 days ago. States that he has a history of seizures dating back to 2009. He is not sure if he takes seizure medication. Chest x-ray showed pulmonary nodule, radiology recommended CT chest. Denies any cough, shortness of breath, fever, chills. Objective Last 24 Hour Vital Signs Date Time Temp Pulse Resp B/P (MAP) Pulse Ox O2 Delivery O2 Flow Rate FiO2 07/18/19 12:00 81 07/18/19 12:00 97.3 92 20 133/91 (105) 98 07/18/19 09:00 Room Air 07/18/19 08:00 81 07/18/19 08:00 98.0 88 18 129/91 (104) 99 07/18/19 04:16 Room Air 07/18/19 03:36 Room Air 07/18/19 03:30 77 07/18/19 03:30 97.9 83 16 121/71 (88) 97 07/18/19 03:23 98.4 07/18/19 03:00 97.9 83 16 121/71 (88) 97 07/18/19 02:50 98.4 78 14 120/77 97 Room Air 07/18/19 02:22 98.4 78 14 120/77 97 Room Air 07/18/19 01:45 98.4 80 16 107/74 97 Room Air 07/17/19 23:46 98.4 66 14 105/72 97 Room Air 07/17/19 21:35 98.4 72 14 107/76 97 Room Air 07/17/19 19:27 98.4 76 20 105/77 97 Room Air 07/17/19 18:16 98.4 76 19 96/68 100 Room Air 07/17/19 17:00 76 07/17/19 16:29 130 102/64 07/17/19 16:15 79 24 Room Air 07/17/19 16:14 98.4 79 24 102/64 100 Room Air 07/17/19 15:41 98.4 93 24 127/80 100 Room Air 07/17/19 15:41 93 127/80 Intake and Output 07/17/19 07/18/19 19:00 07:00 Intake Total 100 ml Balance 100 ml Intake Oral 100 ml # Voids 1 # Bowel Movements 2 Laboratory Tests 07/17/19 16:48: Urine Color Pale yellow, Urine Appearance Clear, Urine pH 5, Urine Specific Mar Lin 1.010, Urine Protein 2+H, Urine Glucose (UA) Negative, Urine Ketones Negative, Urine Blood 1+H, Urine Nitrite Negative, Urine Bilirubin Negative, Urine Urobilinogen Normal, Urine Leukocyte Esterase Negative, Urine RBC 0-2H, Urine WBC 0-2, Urine Squamous Epithelial Cells None, Urine Bacteria Occasional, Urine Opiates Screen Negative, Urine Barbiturates Screen Negative, Phencyclidine (PCP) Screen Negative, Urine Amphetamines Screen Negative, Urine Benzodiazepines Screen Negative, Urine Cocaine Screen Negative, Urine Marijuana (THC) Screen PositiveH 07/17/19 21:15: Lactic Acid Level 3.70H 07/17/19 23:05: Lactic Acid Level 3.50H 07/18/19 01:26: White Blood Count 3.7L, Red Blood Count 4.18L, Hemoglobin 13.2L, Hematocrit 38.0L, Mean Corpuscular Volume 91, Mean Corpuscular Hemoglobin 31.4H, Mean Corpuscular Hemoglobin Concent 34.6, Red Cell Distribution Width 13.8, Platelet Count 225, Mean Platelet Volume 4.8L, Neutrophils (%) (Auto) , Lymphocytes (%) ( Auto) , Monocytes (%) (Auto) , Eosinophils (%) (Auto) , Basophils (%) (Auto) , Sodium Level 145, Potassium Level 4.3, Chloride Level 108H, Carbon Dioxide Level 22, Anion Gap 15, Blood Urea Nitrogen 6L, Creatinine 1.0, Estimat Glomerular Filtration Rate > 60, Glucose Level 72L, Calcium Level 8.3L, Phosphorus Level 3.3, Magnesium Level 1.3L, Total Bilirubin 0.3, Aspartate Amino Transf (AST/SGOT) 32, Alanine Aminotransferase (ALT/SGPT) 17, Alkaline Phosphatase 88, Total Protein 7.3, Albumin 3.3L, Globulin 4.0, Albumin/Globulin Ratio 0.8L 07/18/19 12:10: Activated Partial Thromboplast Time 34H, Lactic Acid Level 1.60, Troponin I 0.000 Height (Feet): 5 Height (Inches): 8.00 Weight (Pounds): 136 Objective General: WDWN male in NAD, A&O x 4 HEENT: Normocephalic. Cephalic atraumatic, pupils equal round reactive to light and accommodation, nares patent and no symmetrical, no tonsillar exudates , mucous membranes moist CV: Regular rate regular rhythm, no murmurs, rubs, or gallops Pulm: Lungs clear to auscultation bilaterally. No wheezes, rhonchi, or rales GI: Soft, nontender, nondistended, bowel sounds present Neuro: CN 2-12 intact bilaterally, no focal signs. Ext: No lower extremity edema bilaterally Skin: no rashes lesions or ulcers Msk: Joints symmetrical in upper extremity and lower extremity bilaterally, no joint swelling. Lymph: No lymphadenopathy in upper extremity and lower extremity Irving Johnson D.O. Jul 18, 2019 15:51
--- NOTE | 2019-07-18 18:57 | NUR ---
CASE MANAGEMENT: REVIEW 64 YEAR OLD MALE BIBA FROM HOME CC: CHEST PAIN . ALCOHOL INTOXICATION . HX SEIZURE DISORDER SI: A-FIB w/RVR . CAD T 98.4 HR 145 RR 24 BP 140/84 SAT 100% ROOM AIR BNP 474 LACTIC ACID 3.70 DIG LEVEL <0.2 TOX SCREEN: +THC IS: NS IVF BOLUS X1 TOPROL XL 50MG X1 CARDIZEM 0.25MG IV X1 DIGOXIN 0.25 PO X1 PATIENT ADMITTED TO TELEMETRY UNIT 07/17/2019 DCP: PATIENT IS FROM HOME
--- NOTE | 2019-07-18 19:32 | NUR ---
HAND-OFF: Report given to ENEIDA Uribe. Endorsed plan of care.
--- NOTE | 2019-07-18 19:42 | NUR ---
NURSE NOTES: RECEIVED PATIENT RESTING IN BED, NO COMPLAINTS OF PAIN AT THIS TIME. HEPARIN DRIP AT 22.212 ML/HR. FALL AND SEIZURE PRECAUTIONS IN PLACE: CALL LIGHT, BEDSIDE TABLE AND URINAL WITHIN REACH, BED IN LOW POSITION AND BED ALARM ON; SIDE RAILS PADDED. PLAN OF CARE REVIEWED.
--- NOTE | 2019-07-18 20:03 | NUR ---
NURSE NOTES: PTT>150. HEPARIN DRIP STOPPED PER PHARMACIST AND HEPARIN DRIP PROTOCOL. WILL RESTART IN 1 OUR.
[2019-07-18] MEDS: LORazepam 1mg tab ORAL PRN (20:30)
[2019-07-18] MEDS: Metoprolol Tartrate 100mg tab ORAL SCH (20:30)
--- NOTE | 2019-07-18 20:45 | Consultation ---
DATE OF CONSULTATION: 07/18/2019 CARDIOLOGY CONSULTATION CONSULTING PHYSICIAN: Jose Carrasco M.D. REFERRING PHYSICIAN: Sean Houser M.D. REASON FOR CONSULTATION: Atrial fibrillation with rapid ventricular response. 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 The patient had an echocardiogram with EF of 50% when he was recently admitted a month ago. The patient also has history of atrial fibrillation as well as seizures. The patient presented to the emergency room with palpitation and was found again with atrial fibrillation with rapid ventricular response. The patient is treated with digoxin and Cardizem. The patient also had lactic acidosis, likely from alcohol abuse and intoxication. The patient was admitted and a Cardiology consultation was obtained for further evaluation. REVIEW OF SYSTEMS: Review of systems was negative other than what was mentioned in the history of present illness. PAST MEDICAL HISTORY: As mentioned above. FAMILY HISTORY: Noncontributory. SOCIAL HISTORY: He continues to drink alcohol, but does not use street drugs. PHYSICAL EXAMINATION: VITAL SIGNS: Blood pressure 132/91, pulse 92, respirations 18, and temperature 97.3. HEAD AND NECK: Shows no JVD. LUNGS: Decreased breath sounds. CARDIOVASCULAR: Shows irregular S1 and S2 with no gallop or murmur. ABDOMEN: Soft. EXTREMITIES: No pitting edema. LABORATORY DATA: Labs show white count of 3.7, hemoglobin of 13.2, hematocrit of 38, and platelets of 225,000. Sodium 141, potassium 4.3, BUN of 6, creatinine 1, and glucose of 72. Lactic acid was 3.7. Troponin is negative. ASSESSMENT AND PLAN: 1. Atrial fibrillation with rapid ventricular response. Likely due to noncompliance. The patient has not been taking his medication regularly. He is already ruled out for myocardial infarction. Digoxin level is less than 0.2. We will resume his digoxin and metoprolol and start him on anticoagulation if okay from Neurology perspective in view of his seizures. 2. History of hypertension. Continue metoprolol 25 mg b.i.d. 3. Heavy alcohol use, on thiamine and folate. 4. Seizures. On Keppra. Thank you very much for allowing me to participate in the care of this patient. Please do not hesitate to contact me for any questions regarding my evaluation. Jose Carrasco M.D. DR: SUPRIYA JOB#: [id number] CC:
[2019-07-18] MEDS: Heparin 25,000u/D5W 500ml 500 ML IV SCH (21:03)
--- NOTE | 2019-07-18 21:20 | NUR ---
NURSE NOTES: LACTIC ACID 3.[address] CHAMORRO.
--- NOTE | 2019-07-18 21:25 | NUR ---
NURSE NOTES: DR. WILL HART CALLED BACK, NO NEW ORDERS.
[2019-07-19] VITALS: BP 147/83
[2019-07-19 03:15] LABS: BASOPHILS % (AUTO) 1.4 % (0.0-2.0); EOSINOPHILS % (AUTO) 1.5 % (0.0-3.0); HEMATOCRIT 38.3 % (42.0-52.0); LYMPHOCYTES % (AUTO) 20.1 % (20.0-45.0); MEAN CORPUSCULAR VOLUME 92 FL (80-99); MONOCYTES % (AUTO) 9.6 % (1.0-10.0); NEUTROPHILS % (AUTO) 67.5 % (45.0-75.0); PLATELET COUNT 173 K/UL (150-450); RED BLOOD COUNT 4.18 M/UL (4.70-6.10); RED CELL DISTRIBUTION WIDTH 13.5 % (11.6-14.8); WHITE BLOOD COUNT 4.6 K/UL (4.8-10.8)
[2019-07-19 03:29] LABS: ANION GAP 8 mmol/L (5-15); BLOOD UREA NITROGEN 5 mg/dL (7-18); CALCIUM 8.5 MG/DL (8.5-10.1); CARBON DIOXIDE 25 MMOL/L (21-32); CHLORIDE 106 MMOL/L (98-107); PHOSPHORUS 2.1 MG/DL (2.5-4.9); POTASSIUM 4.1 MMOL/L (3.5-5.1); SODIUM 139 MMOL/L (136-145)
[2019-07-19 04:00] VITALS: BP 138/82
--- NOTE | 2019-07-19 04:48 | NUR ---
NURSE NOTES: PTT 94. PER HEPARIN DRIP PROTOCOL NO CHANGE IN PRESENT RATE. NEXT PTT TOMORROW AT 0400
--- NOTE | 2019-07-19 07:04 | NUR ---
NURSE NOTES: Received report from Jojo MONIQUE. Pt in bed awake and oriented x4 and able to make needs known. IV site RFA 18G running with NS @100ml/hr and LFA 22G running with Heparin drip with 14u/kg/hr @17.276ml/hr patent and asymptomatic. BED in lowest position and locked. Side rails x2 padded and up for safety. Urinal and call light easy to reach. Will continue to plan of care.
--- NOTE | 2019-07-19 07:04 | NUR ---
HAND-OFF: Report given to Marco STEIN RN. PATIENT RESTING IN BED, NO SIGNS OF DISTRESS NOTED.
[2019-07-19 08:00] VITALS: BP 129/77
[2019-07-19] MEDS ORDERED: Folic Acid 1 MG, Magnesium Sulfate 2,000 MG, Multivitamin - 12 Injection 10 ML in Sodiu... IV SCH (09:00)
[2019-07-19] MEDS: Docusate 100mg cap ORAL SCH ×2 (09:00→21:26)
[2019-07-19] MEDS: Aspirin Baby 81mg ORAL SCH (09:16)
[2019-07-19] MEDS: Metoprolol Tartrate 100mg tab ORAL SCH ×2 (09:16→21:29)
--- NOTE | 2019-07-19 09:23 | Cardiac Electrophysiology PN ---
Assessment/Plan Assessment/Plan 1. Atrial fibrillation with rapid ventricular response. Likely due to noncompliance. The patient has not been taking his medication regularly. He is already ruled out for myocardial infarction. Digoxin level is less than 0.2. On metoprolol 100 bid and heparin drip. Start Eliquis if okay from Neurology and Psych perspective EF 55-60% 2. History of hypertension. Continue metoprolol 100 mg b.i.d. 3. Heavy alcohol use, on thiamine and folate. 4. Seizures. On Keppra. GABRIELLA RN Subjective Subjective In atrial fib with controlled rate Objective Last 24 Hour Vital Signs Date Time Temp Pulse Resp B/P (MAP) Pulse Ox O2 Delivery O2 Flow Rate FiO2 07/19/19 09:16 81 129/77 07/19/19 09:00 Room Air 07/19/19 08:00 97.9 81 20 129/77 (94) 98 07/19/19 04:00 61 07/19/19 04:00 98.4 81 18 138/82 (100) 97 07/19/19 00:00 70 07/19/19 00:00 98.4 75 20 147/83 (104) 98 07/18/19 20:50 Room Air 07/18/19 20:30 77 146/89 07/18/19 20:00 79 07/18/19 20:00 98.4 77 18 146/89 (108) 100 07/18/19 16:00 97.9 100 20 128/76 (93) 98 07/18/19 16:00 83 07/18/19 12:00 81 07/18/19 12:00 97.3 92 20 133/91 (105) 98 Intake and Output 07/18/19 07/19/19 19:00 07:00 Intake Total 691.484 ml 1634.972 ml Output Total 450 ml 500 ml Balance 241.484 ml 1134.972 ml Intake Oral 436 ml 240 ml IV Total 255.484 ml 1394.972 ml Output Urine Total 450 ml 500 ml # Voids 2 3 # Bowel Movements 1 Laboratory Tests Test 07/18/19 12:10 07/18/19 18:50 07/18/19 23:10 07/19/19 03:00 Activated Partial Thromboplast Time 34 SEC (23-33) H > 150 SEC (23-33) *H 94 SEC (23-33) H Lactic Acid Level 1.60 mmol/L (0.4-2.0) 3.00 mmol/L (0.4-2.0) H 3.00 mmol/L (0.66-2.22) H 1.50 mmol/L (0.4-2.0) Troponin I 0.000 ng/mL (0.000-0.056) 0.009 ng/mL (0.000-0.056) White Blood Count 4.6 K/UL (4.8-10.8) L Red Blood Count 4.18 M/UL (4.70-6.10) L Hemoglobin 13.0 G/DL (14.2-18.0) L Hematocrit 38.3 % (42.0-52.0) L Mean Corpuscular Volume 92 FL (80-99) Mean Corpuscular Hemoglobin 31.1 PG (27.0-31.0) H Mean Corpuscular Hemoglobin Concent 34.0 G/DL (32.0-36.0) Red Cell Distribution Width 13.5 % (11.6-14.8) Platelet Count 173 K/UL (150-450) Mean Platelet Volume 5.5 FL (6.5-10.1) L Neutrophils (%) (Auto) 67.5 % (45.0-75.0) Lymphocytes (%) (Auto) 20.1 % (20.0-45.0) Monocytes (%) (Auto) 9.6 % (1.0-10.0) Eosinophils (%) (Auto) 1.5 % (0.0-3.0) Basophils (%) (Auto) 1.4 % (0.0-2.0) Sodium Level 139 MMOL/L (136-145) Potassium Level 4.1 MMOL/L (3.5-5.1) Chloride Level 106 MMOL/L (98-107) Carbon Dioxide Level 25 MMOL/L (21-32) Anion Gap 8 mmol/L (5-15) Blood Urea Nitrogen 5 mg/dL (7-18) L Creatinine 1.0 MG/DL (0.55-1.30) Estimat Glomerular Filtration Rate > 60 mL/min (>60) Glucose Level 96 MG/DL (74-106) Calcium Level 8.5 MG/DL (8.5-10.1) Phosphorus Level 2.1 MG/DL (2.5-4.9) L Magnesium Level 2.0 MG/DL (1.8-2.4) Objective HEAD AND NECK: no JVD. LUNGS: Decreased breath sounds. CARDIOVASCULAR: irregular S1 and S2 with no gallop or murmur. ABDOMEN: Soft. EXTREMITIES: No pitting edema. Jose Carrasco MD Jul 19, 2019 09:23
[2019-07-19] MEDS: Thiamine 100mg in D5W 55ml IVPB SCH (09:29)
--- NOTE | 2019-07-19 10:35 | NUR ---
*-* NO INSURANCE INFORMATION ON THE BAR UNABLE TO SEND CLINICALS OR REVIEWS *-*
[2019-07-19] MEDS ORDERED: Sodium Phosphate 15 MM in NS 275 ML IVPB ONE (11:00)
[2019-07-19 12:00] VITALS: BP 128/89
--- NOTE | 2019-07-19 12:20 | NUR ---
NURSE NOTES: Pt went to CT scan
[2019-07-19] MEDS: D5W IVPB SCH ×2 (12:23→21:40)
[2019-07-19] MEDS: THIAMINE HCL IVPB SCH ×2 (12:23→21:40)
--- NOTE | 2019-07-19 13:10 | NUR ---
NURSE NOTES: Pt returned back from CT
--- NOTE | 2019-07-19 13:16 | Diagnostic Imaging Report ---
Indications: Altered level of consciousness Technique: Spiral acquisitions obtained through the brain. Angled axial and coronal 5 x 5 mm slices were reconstructed. Total dose length product 1018 mGycm. CTDI vol(s) 53 mGy. Dose reduction achieved using automated exposure control Comparison: 06/05/2019 Findings: There is age-related enlargement of the ventricles and extra-axial CSF spaces. There is periventricular deep white matter low-attenuation, consistent with chronic microvascular ischemic changes. No acute intracranial hemorrhage or edema. No mass effect nor midline shift. The sinuses and mastoids are clear. The orbits are unremarkable. The calvarium is intact. No significant interim change Impression: Chronic and age-related changes. Negative for acute intracranial bleed or mass effect The CT scanner at [facility] is accredited by the [employer] and the scans are performed using protocols designed to limit radiation exposure to as low as reasonably achievable to attain images of sufficient resolution adequate for diagnostic evaluation.
--- NOTE | 2019-07-19 14:07 | NUR ---
NEUROSURGERY SPINE PHYSICIANHOOP MAKER HELPER MACHINE SI: AFIB WITH RVR T. 98.2 HR 75 RR 20 B/P 129/77 WBC 4.6 IS: THIAMINE IV IVF NS @ 100ML/HR HEPARIN GTT BANANA BAG IV NA PHOS IV SEIZURE PRECAUTIONS TELE STATUS
--- NOTE | 2019-07-19 14:09 | NUR ---
TECHNICAL PHOTOGRAPHER NOTES SPOKE WITH [facility] JODEE MADE AWARE OF PT TO BE TRANSFERRED INTO NETWORK. CLINICALS FAXED. WAITING FOR CALL BACK. PROVIDED ERFAIN WITH DR RUELAS-ROSSY NUMBER. [facility] [phone] (P) [phone] (F)
[2019-07-19] MEDS: Heparin 25,000u/D5W 500ml 500 ML IV SCH (15:35)
[2019-07-19 16:00] VITALS: BP 110/80
--- NOTE | 2019-07-19 16:30 | Consultation ---
DATE OF CONSULTATION: 07/19/2019 NEUROLOGIC EVALUATION CONSULTING PHYSICIAN: Desmond Espinal M.D. CHIEF COMPLAINT: This is at least the third [facility] admission for this 64-year-old right-handed man with a longstanding history of alcoholism. Also smoked for years, but only about 4 to 5 cigarettes a day according to him. He has a history of seizures. The patient was admitted on 07/17/2019 with a chief complaint of atrial fibrillation with rapid ventricular response. I was asked to see the patient because of withdrawal seizures. The patient was seen in the emergency room, was admitted to this hospital two other times for either alcoholic intoxication and/or seizure. He also has a history of rapid atrial fibrillation going back to 12/14/2015. The patient was admitted on 04/02/2015 for acute alcoholic intoxication. The patient was also admitted on 04/22/2018 with alcohol abuse and seizure and a chief complaint of chest pain. The patient was possibly discharged on 04/25/2018 with chest pain thought to be due to anxiety. He had atrial fibrillation with rapid ventricular response on that admission. The patient was again admitted on 06/05/2019 with atrial fibrillation with rapid ventricular response, uncontrolled hypertension and had a witnessed seizure and atypical chest pain. He admitted to ICU for telemetry. I saw the patient on 06/07/2019 for seizure probably alcohol withdrawal seizure. He therefore was started on Keppra and continued him on Keppra. Thought that he might go off on Keppra when he got out of the hospital. The patient had a head injury in either 1998 or 1994 he is unsure. He thinks his seizures started after that. His last seizure he tells me was 10 days ago. The patient was admitted to the hospital. His last CT scan of the brain was on 06/05/2019 revealing chronic and age-related changes. He has not had a CT on admission. The patient states that seizures only occurred at night when he is asleep. He has shaking all over before his seizure occurs and he is unconscious for an unknown amount of time. The longest he was unconscious was "for two days." He complains of past memory loss, but recently is "good." There is no headaches. There is a history of stroke. The language is . Denies any loss of smell or taste. No history of delirium tremens. He probably has alcohol addiction in the past. He complains of blurred vision. No diplopia. No hearing loss or tinnitus, but he has dizzy spells, which he cannot describe dysphagia. He smoked 4 to 5 cigarettes a day at least 30 years. He denies any illegal drug use. He is "weak all over" and has numbness in his feet, but no burning except in his stomach. He has some urinary frequency and urgency. He complains of leg, back, and shoulder pain after the seizures. The patient is adopted. PAST MEDICAL HISTORY/PAST MEDICAL ILLNESSES: 1. Hypertension. 2. Organic heart disease. 3. Drug dependent personality with alcoholism. SURGERIES: He has no surgeries. FAMILY HISTORY: Unavailable. ALLERGIES: Allergic to oxacillin and penicillin. MEDICATIONS: He is unsure of what medications he is on. SOCIAL HISTORY: He is still unmarried. He has no children. REVIEW OF SYSTEMS: He has lost weight losing 27 pounds over 5 years. He now states he is 143 pounds and 5 feet 8.5 inches tall.GASTROINTESTINAL: He complains of abdominal pain. PHYSICAL EXAMINATION: GENERAL: He is a well-developed, thin man, sitting on the toilet, trying to go to the bathroom, in no obvious distress. VITAL SIGNS: Blood pressure is 129/77, temperature is 97.9 degrees, pulse is 81 and regular, respiration rate is 20. HEENT: Examination of his head revealed he has arcus senilis and poor dentition. NECK: Supple. Carotids are +1. No bruits were appreciated. LUNGS: His breath sounds are decreased, but clear. CARDIOVASCULAR: PMI could not be felt. JVP was not visualized. The patient had an irregularly irregular heart beats. His heart tones were distant. ABDOMEN: He had diffuse tenderness in the abdomen. BACK: He has tenderness diffusely over his back. EXTREMITIES: Intact. NEUROLOGIC EXAMINATION: MENTAL STATUS: He was awake, basically alert. Judgment could not be tested. Affect was appropriate to his mood, which was irritable. Memory, past memory was intact to his birthday 1955. Immediate recall is 3/3 objects. Recent recall is 0/3 objects in 5 minutes. Intellect, similarities could not be done. Language function, spoken speech was fluent without paraphasias. There was no right left confusion or finger agnosia. He could spell world backwards and forwards. CRANIAL NERVE EXAMINATION: CRANIAL NERVE II: Visual garcía are difficult to test. CRANIAL NERVES III, IV, AND : Extraocular motility was full. Pupils are approximately 6 mm, round, light reactive. CRANIAL NERVE V: Facial and corneal sensation were intact to fine touch. CRANIAL NERVE VII: Facial strength was 5/5 bilaterally. CRANIAL NERVE VIII: Auditory acuity was intact bilaterally to whisper. CRANIAL NERVES IX AND X: Gag was intact bilaterally. CRANIAL NERVE XI: Sternocleidomastoid strength is 5/5. CRANIAL NERVE XII: Tongue protrudes in the midline without fasciculations or atrophy. MUSCLE EXAMINATION: Muscle bulk symmetrically decreased. Tone is normal to mild paratonia. Strength is 5/5 as best could be tested. There is no asterixis. There is a slight tremor in the right hand and arm with the hands extended. REFLEXES: +1 in the upper extremities, +2 at the knees, 0 at the ankles. COORDINATION: Trechd-dvbrvn-mthl was intact. GAIT AND STATION: Could not be tested. SENSORY EXAMINATION: Could not be tested at this time. IMPRESSION: This patient has alcohol withdrawal seizure. As far as putting him on anticoagulation is concerned, he will obviously at an increased risk for falls. He states his seizures only occur at night when he asleep, which is probably doubtful. The patient also states he has had seizures after 10 days of abstinence. This still could be a alcohol withdrawal seizures as well. However, I am not sure. The patient just had a propensity to fall, so it would be safer to leave him on anticoagulation and when falling getting subcutaneous hematoma. However, his risk is probably increased because of his alcohol abuse. Therefore, judgment. He states he had atrial fibrillation since his youth. Aspirin or other antiplatelet drugs may be an acceptable substitute. PLAN: 1. Continue Keppra as above. 2. Workup anemia. 3. I will speak to you about this case. Thank you for this interesting case. Desmond Espinal MD DR: GREGORY JOB#: [id number] CC:
--- NOTE | 2019-07-19 16:39 | General Progress Note ---
Assessment/Plan Assessment/Plan: Assessment #Atrial fibrillation with rapid ventricular response likely triggered by alcohol abuse. -Appreciate cardiology consultation: Dr. Carrasco -Continue heparin drip. Cardiology recommending anticoagulation if okay with neurology. Neurology recommending CT head to rule out cranial hemorrhage or subdural hematoma prior to initiating anticoagulation. CT head -Replete mag and phosphorus and potassium -continue lopressor 100mg PO Q12hr -Holding home digoxin -Dilt PRN -Iv hydration - TTE: EF 55-60% - trend troponins #lactic acidosis, suspect 2/2 dehydration and alcohol abuse - IV fluids as above -No signs or symptoms of infection currently. 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 #Deconditioning -Per physical therapy patient would benefit from SNF. Agreeable to SNF. [facility] only cover [facility] #Reported history of seizures since 2009. Patient is a poor historian and unclear if this is related to alcohol withdrawal or an underlying seizure disorder. #Alcohol withdrawal seizures -Appreciate psychiatry consult: Dr. Mejia -Neurology consult: Dr. Espinal -Keppra 750 mg p.o. twice daily -Seizure precautions -Avoid alcohol #Alcohol abuse -Social work consult -Banana bag -IV hydration #Hypomagnesemia -replete PRN #Anemia of chronic disease No signs of bleeding CTM #suspected pulmonary nodule #Tobacco dependence -CT chest with contrast. D/w radiology: Showed RUL nodule -Needs repeat imaging in 6 to 12 months (around 12/2019 or 07/2020) FENPPX DVTPPX: heparing GTT Lines: none PT/OT: pending Code status: Full Dispo: 3-4 days Reason for Continued Hospitalization: Atrial fibrillation with RVR DVT and GI prophylaxis Diet as tolerated 38 minutes spent on this encounter. Discussed with Cardiology and RN. > 50% spent on counseling and care coordination. Time of note may not reflect time patient was seen. Subjective Allergies: Coded Allergies: PENICILLIN (Verified Allergy, Severe, 06/19/17) PENICILLINS (Unverified Allergy, Unknown, 07/17/19) Subjective No acute events overnight per nursing. Patient without signs of alcohol withdrawal. Denies any cough, shortness of breath, fever, chills. Objective Last 24 Hour Vital Signs Date Time Temp Pulse Resp B/P (MAP) Pulse Ox O2 Delivery O2 Flow Rate FiO2 07/19/19 12:00 98.2 82 20 128/89 (102) 100 07/19/19 12:00 75 07/19/19 09:16 81 129/77 07/19/19 09:00 Room Air 07/19/19 08:00 97.9 81 20 129/77 (94) 98 07/19/19 08:00 89 07/19/19 04:00 61 07/19/19 04:00 98.4 81 18 138/82 (100) 97 07/19/19 00:00 70 07/19/19 00:00 98.4 75 20 147/83 (104) 98 07/18/19 20:50 Room Air 07/18/19 20:30 77 146/89 07/18/19 20:00 79 07/18/19 20:00 98.4 77 18 146/89 (108) 100 Intake and Output 07/18/19 07/19/19 19:00 07:00 Intake Total 691.484 ml 1634.972 ml Output Total 450 ml 500 ml Balance 241.484 ml 1134.972 ml Intake Oral 436 ml 240 ml IV Total 255.484 ml 1394.972 ml Output Urine Total 450 ml 500 ml # Voids 2 3 # Bowel Movements 1 Laboratory Tests 07/18/19 18:50: Activated Partial Thromboplast Time > 150*H, Lactic Acid Level 3.00H, Troponin I 0.009 07/18/19 23:10: Lactic Acid Level 3.00H 07/19/19 03:00: Activated Partial Thromboplast Time 94H, Lactic Acid Level 1.50, White Blood Count 4.6L, Red Blood Count 4.18L, Hemoglobin 13.0L, Hematocrit 38.3L, Mean Corpuscular Volume 92, Mean Corpuscular Hemoglobin 31.1H, Mean Corpuscular Hemoglobin Concent 34.0, Red Cell Distribution Width 13.5, Platelet Count 173, Mean Platelet Volume 5.5L, Neutrophils (%) (Auto) 67.5, Lymphocytes (%) (Auto) 20.1, Monocytes (%) (Auto) 9.6, Eosinophils (%) (Auto) 1.5, Basophils (%) (Auto ) 1.4, Sodium Level 139, Potassium Level 4.1, Chloride Level 106, Carbon Dioxide Level 25, Anion Gap 8, Blood Urea Nitrogen 5L, Creatinine 1.0, Estimat Glomerular Filtration Rate > 60, Glucose Level 96, Calcium Level 8.5, Phosphorus Level 2.1L, Magnesium Level 2.0, Methylmalonic Acid [Pending] Height (Feet): 5 Height (Inches): 8.00 Weight (Pounds): 136 Objective General: WDWN male in NAD, A&O x 4 HEENT: Normocephalic. Cephalic atraumatic, pupils equal round reactive to light and accommodation, nares patent and no symmetrical, no tonsillar exudates , mucous membranes moist CV: Irregular rate regular rhythm, no murmurs, rubs, or gallops Pulm: Lungs clear to auscultation bilaterally. No wheezes, rhonchi, or rales GI: Soft, nontender, nondistended, bowel sounds present Neuro: CN 2-12 intact bilaterally, no focal signs. Ext: No lower extremity edema bilaterally Skin: no rashes lesions or ulcers Msk: Joints symmetrical in upper extremity and lower extremity bilaterally, no joint swelling. Lymph: No lymphadenopathy in upper extremity and lower extremity Irving Johnson D.O. Jul 19, 2019 16:38
--- NOTE | 2019-07-19 19:30 | NUR ---
NURSE NOTES: Received patient from Min, patient AOx3, denies pain, IV sites on L FA and right FA g 22, asymptomatic, intact, patent, on heparin drip,bed low&locked, side rails upx3, call light within reach, will continue to monitor and reassess
--- NOTE | 2019-07-19 19:30 | NUR ---
HAND-OFF: Report given to Natalie MONIQUE. Pt remains stable.
[2019-07-19 20:00] VITALS: BP 140/98
--- NOTE | 2019-07-19 21:15 | Consultation ---
DATE OF CONSULTATION: 07/19/2019 CONSULTING PHYSICIAN: Melchor Mejia M.D. HISTORY OF PRESENT ILLNESS: The patient is a 64-year-old male with a history of AFib as well as alcohol dependence, PTSD, has been admitted to the hospital for medical stabilization. The patient presents with anxiety, depressed mood, difficulty sleeping, withdrawal symptoms. No suicidal or homicidal ideation. No psychotic or manic symptoms. PAST PSYCHIATRIC HISTORY: PTSD, anxiety, on psychotropic medication. PAST MEDICAL HISTORY: AFib as well as seizures, chest pain, hypertension. ALLERGIES: Penicillin. SUBSTANCE ABUSE HISTORY: As above. alcohol. MENTAL STATUS EXAMINATION: Alert, oriented times self, place, situation. Mood is anxious. Affect is constricted, congruent with mood. Thought process is concrete. Thought content, no suicidal or homicidal ideation. Cognition is intact. Insight and judgment is fair. ASSESSMENT: Slater I PTSD. Alcohol dependence. Alcohol withdrawal. Slater II Deferred. Slater III As above. Slater IV Low. Slater V 20. PLAN: 1. Ativan p.r.n. 2. Increase the Keppra to 750 mg b.i.d. 3. We will continue to follow and readjust the medications. Melchor Mejia M.D. DR: KAI JOB#: [id number] CC:
[2019-07-20] VITALS: BP 155/80
[2019-07-20] MEDS: LORazepam 1mg tab ORAL PRN (03:13)
[2019-07-20 04:00] VITALS: BP 137/84
[2019-07-20 04:23] LABS: BASOPHILS % (AUTO) 0.9 % (0.0-2.0); EOSINOPHILS % (AUTO) 2.4 % (0.0-3.0); HEMATOCRIT 36.2 % (42.0-52.0); LYMPHOCYTES % (AUTO) 17.9 % (20.0-45.0); MEAN CORPUSCULAR VOLUME 93 FL (80-99); MONOCYTES % (AUTO) 6.9 % (1.0-10.0); NEUTROPHILS % (AUTO) 71.8 % (45.0-75.0); PLATELET COUNT 140 K/UL (150-450); RED BLOOD COUNT 3.89 M/UL (4.70-6.10); RED CELL DISTRIBUTION WIDTH 13.8 % (11.6-14.8); WHITE BLOOD COUNT 6.4 K/UL (4.8-10.8)
[2019-07-20 04:42] LABS: ANION GAP 11 mmol/L (5-15); BLOOD UREA NITROGEN 5 mg/dL (7-18); CALCIUM 9.1 MG/DL (8.5-10.1); CARBON DIOXIDE 24 MMOL/L (21-32); CHLORIDE 104 MMOL/L (98-107); CREATININE 1.1 MG/DL (0.55-1.30); POTASSIUM 3.6 MMOL/L (3.5-5.1); SODIUM 139 MMOL/L (136-145)
[2019-07-20] MEDS ORDERED: Heparin 5000 units/ml inj IV ONE (04:45)
[2019-07-20] MEDS ORDERED: Heparin 25,000u/D5W 500ml 500 ML IV SCH ×2 (05:00→14:10)
[2019-07-20] MEDS: D5W IVPB SCH ×3 (05:53→22:31)
[2019-07-20] MEDS: THIAMINE HCL IVPB SCH ×3 (05:53→22:31)
--- NOTE | 2019-07-20 07:53 | NUR ---
HAND-OFF: Report given to Min RN, patient in stable condition,plan of care endorsed..
--- NOTE | 2019-07-20 07:53 | NUR ---
NURSE NOTES: Pt in bed awake and orientedx3 and able to make needs known. IV site in RFA 22G running with Heparin drip and LFA 22G running with NS 100ml/hr patent and asymptomatic. Side railsx2 and padded for seizure precaution. Denied SOB. Bed in lowest position and locked. Will continue to plan of care,
[2019-07-20 08:00] VITALS: BP 153/69
[2019-07-20] MEDS: Aspirin Baby 81mg ORAL SCH (08:30)
[2019-07-20] MEDS: Folic Acid 1 MG, Magnesium Sulfate 2,000 MG, Multivitamin - 12 Injection 10 ML in Sodiu... IV SCH (08:30)
[2019-07-20] MEDS: Metoprolol Tartrate 100mg tab ORAL SCH ×2 (08:30→22:40)
[2019-07-20] MEDS: Docusate 100mg cap ORAL SCH (08:31)
--- NOTE | 2019-07-20 10:58 | NUR ---
*-* DISCHARGE PLANNING *-* PATIENT HAS BEEN REFERRED TO: [facility] P: [phone] F; [phone] & [facility] P: [phone] F: [phone] EFAX: [phone]
--- NOTE | 2019-07-20 11:03 | Cardiac Electrophysiology PN ---
Assessment/Plan Assessment/Plan 1. Atrial fibrillation with rapid ventricular response. Likely due to noncompliance. The patient has not been taking his medication regularly. He is already ruled out for myocardial infarction. Digoxin level is less than 0.2. On metoprolol 100 bid and heparin drip. Change heparin to Eliquis if okay from Neurology and Psych perspective in view of seizure and ETOH use EF 55-60% 2. History of hypertension. Continue metoprolol 100 mg b.i.d. 3. Heavy alcohol use, on thiamine and folate. 4. Seizures. On Keppra. GABRIELLA RN Subjective Subjective In atrial fib with controlled rate but lowest 50. Objective Last 24 Hour Vital Signs Date Time Temp Pulse Resp B/P (MAP) Pulse Ox O2 Delivery O2 Flow Rate FiO2 07/20/19 09:00 Room Air 07/20/19 08:30 105 137/84 07/20/19 08:00 58 07/20/19 08:00 97.9 67 20 153/69 (97) 99 07/20/19 04:00 97.9 105 18 137/84 (101) 99 07/20/19 04:00 105 07/20/19 00:00 104 07/20/19 00:00 97.9 66 19 155/80 (105) 100 07/19/19 21:29 74 140/98 07/19/19 21:00 Room Air 07/19/19 20:00 76 07/19/19 20:00 97.3 74 20 140/98 (112) 99 07/19/19 16:00 102 07/19/19 16:00 98.0 90 20 110/80 (90) 100 07/19/19 12:00 98.2 82 20 128/89 (102) 100 07/19/19 12:00 75 Intake and Output 07/19/19 07/20/19 19:00 07:00 Intake Total 51675.760 ml 209.780 ml Output Total 800 ml Balance 68461.760 ml 209.780 ml Intake Oral 600 ml IV Total 76641.760 ml 209.780 ml Output Urine Total 800 ml # Voids 4 3 # Bowel Movements 4 1 Laboratory Tests Test 07/20/19 04:06 White Blood Count 6.4 K/UL (4.8-10.8) Red Blood Count 3.89 M/UL (4.70-6.10) L Hemoglobin 12.0 G/DL (14.2-18.0) L Hematocrit 36.2 % (42.0-52.0) L Mean Corpuscular Volume 93 FL (80-99) Mean Corpuscular Hemoglobin 30.8 PG (27.0-31.0) Mean Corpuscular Hemoglobin Concent 33.1 G/DL (32.0-36.0) Red Cell Distribution Width 13.8 % (11.6-14.8) Platelet Count 140 K/UL (150-450) L Mean Platelet Volume 6.7 FL (6.5-10.1) Neutrophils (%) (Auto) 71.8 % (45.0-75.0) Lymphocytes (%) (Auto) 17.9 % (20.0-45.0) L Monocytes (%) (Auto) 6.9 % (1.0-10.0) Eosinophils (%) (Auto) 2.4 % (0.0-3.0) Basophils (%) (Auto) 0.9 % (0.0-2.0) Activated Partial Thromboplast Time 55 SEC (23-33) H Sodium Level 139 MMOL/L (136-145) Potassium Level 3.6 MMOL/L (3.5-5.1) Chloride Level 104 MMOL/L (98-107) Carbon Dioxide Level 24 MMOL/L (21-32) Anion Gap 11 mmol/L (5-15) Blood Urea Nitrogen 5 mg/dL (7-18) L Creatinine 1.1 MG/DL (0.55-1.30) Estimat Glomerular Filtration Rate > 60 mL/min (>60) Glucose Level 83 MG/DL (74-106) Calcium Level 9.1 MG/DL (8.5-10.1) Phosphorus Level 3.0 MG/DL (2.5-4.9) Magnesium Level 1.6 MG/DL (1.8-2.4) L Vitamin B12 Level 492 PG/ML (193-986) Thyroid Stimulating Hormone (TSH) 1.804 uiU/mL (0.358-3.740) Objective HEAD AND NECK: No JVD. LUNGS: Decreased breath sounds. CARDIOVASCULAR: irregular S1 and S2 with no gallop or murmur. ABDOMEN: Soft. EXTREMITIES: No pitting edema. Jose Carrasco MD Jul 20, 2019 11:03
[2019-07-20 12:00] VITALS: BP 124/72
--- NOTE | 2019-07-20 12:33 | NUR ---
NURSE NOTES: [email or web address] aware of STAT PTT for heparin drip
--- NOTE | 2019-07-20 12:48 | NUR ---
NURSE NOTES: Made Saúl pharmacist aware of PTT not drawn by lab
--- NOTE | 2019-07-20 13:40 | NUR ---
NURSE NOTES: Heparin drip 16u/kr/hr stopped for APTT results. Will restart at 13u/kg/hr at 2:10pm
--- NOTE | 2019-07-20 13:51 | NUR ---
*-* INSURANCE *-* ALL CLINICALS AND REVIEWS HAVE BEEN FAXED TO: [place] FA[place] TO: [phone]
[2019-07-20] MEDS ORDERED: MELATONIN3 MG ORAL (15:13)
[2019-07-20] MEDS ORDERED: VENTOLIN HFA18 GM INH (15:13)
[2019-07-20] MEDS ORDERED: LISINOPRIL20 MG ORAL (15:13)
[2019-07-20] MEDS ORDERED: ERGOCALCIF8000 UNIT1 PO (15:13)
[2019-07-20] MEDS ORDERED: METOPROLOL TART25 MG ORAL (15:13)
[2019-07-20] MEDS ORDERED: FOLIC ACID1 MG ORAL (15:13)
[2019-07-20] MEDS ORDERED: MIRTAZAPINE15 M3 ORAL (15:18)
[2019-07-20 16:00] VITALS: BP 107/52
--- NOTE | 2019-07-20 16:30 | Progress Note ---
DATE: 07/20/2019 SUBJECTIVE: He is doing well. He denies any seizures. His last fall was before he came into the hospital. His CT scan of the brain reveals no bleeding. There is no evidence of old stroke on the CT scan. PHYSICAL EXAMINATION: MENTAL STATUS: The patient is alert and awake. Speech is fluent. IMPRESSION: As far as anticoagulation is concerned, there is a recent study showing low level falls in patients with a newer anticoagulants to not increase morbidity or mortality in older patients. Obviously, I cannot exclude the fact that he could have a head injury with a bleed. The patient's echocardiogram does not show an increased size in the left atrium. Therefore, it possibly could get away with using aspirin; however, I do not see that he has a total contraindication to the use of newer anticoagulants like Eliquis. PLAN: I will speak to you about the case. Desmond Espinal MD DR: GREGORY JOB#: [id number] CC:
--- NOTE | 2019-07-20 18:45 | NUR ---
HEARING AID SPECIALIST: REVIEW SI: A- FIB w/ RVR T 97.9 HR 105 RR 20 BP 107/52 SAT 97% ROOM AIR MAG 1.6 APTT 119 IS: THIAMINE IV @280ML/HR NS IVF @ 100ML/HR BANANA BAG IV @100ML/HR SEIZURE PRECAUTIONS TELEMETRY UNIT STATUS DCP: PATIENT IS FROM HOME
--- NOTE | 2019-07-20 19:15 | NUR ---
NURSE NOTES: Received patient from Min, patient AOx3, denies pain, IV sites on L FA and right FA g 22, asymptomatic, intact, patent, bed low&locked, side rails upx3, call light within reach, will continue to monitor and reassess
--- NOTE | 2019-07-20 19:15 | NUR ---
HAND-OFF: Report given to Natalie MONIQUE. Pt remains stable.
--- NOTE | 2019-07-20 19:51 | General Progress Note ---
Assessment/Plan Assessment/Plan: Assessment #Atrial fibrillation with rapid ventricular response likely triggered by alcohol abuse. -Appreciate cardiology consultation: Dr. Carrasco -Continue heparin drip. Cardiology recommending anticoagulation if okay with neurology. Neurology recommending CT head to rule out cranial hemorrhage or subdural hematoma prior to initiating anticoagulation. CT head negative. OK to start A/C per neurology and Cardiology - Start Eliquis 5mg PO BID. D continueiscussed risks/benefits with patient. All questions answered. 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 Agreeable to SNF. [facility] #lactic acidosis, suspect 2/2 dehydration and alcohol abuse- resolved - IV fluids as above -No signs or symptoms of infection currently. -Monitor off antibiotics -Continue to trend lactate #Reported history of seizures since 2009. Patient is a poor historian and unclear if this is related to alcohol withdrawal or an underlying seizure disorder. #Alcohol withdrawal seizures -Appreciate psychiatry consult: Dr. Mejia -Neurology consult: Dr. Espinal -Keppra 750 mg p.o. twice daily -Seizure precautions -Avoid alcohol #Alcohol abuse -Social work consult -Banana bag -IV hydration #Hypomagnesemia -replete PRN #Anemia of chronic disease No signs of bleeding CTM #suspected pulmonary nodule #Tobacco dependence -CT chest with contrast. D/w radiology: Showed RUL nodule -Needs repeat imaging in 6 to 12 months (around 12/2019 or 07/2020) FENPPX DVTPPX: eliquis Lines: none PT/OT: pending Code status: Full Dispo: 1-[address]. D/w case management. Currently looking for SNF Reason for Continued Hospitalization: Atrial fibrillation with RVR DVT and GI prophylaxis Diet as tolerated 40 minutes spent on this encounter. Discussed with Cardiology and RN. > 50% spent on counseling and care coordination. Time of note may not reflect time patient was seen. Subjective Allergies: Coded Allergies: PENICILLIN (Verified Allergy, Severe, 06/19/17) PENICILLINS (Unverified Allergy, Unknown, 07/17/19) Subjective No acute events overnight per nursing. Patient without signs of alcohol withdrawal or delerium tremens. Patient feels well overall. Denies any cough, shortness of breath, fever, chills. Review of systems: Constitutional: Denies: chills, diaphoresis, fever, malaise, weakness, other HEENT: Denies: eye pain, blurred vision, tearing, double vision, ear pain, ear discharge, nose pain, nose congestion, throat pain, throat swelling, mouth pain , mouth swelling, Cardiovascular: Denies: chest pain, edema, lightheadedness, palpitations, syncope, Respiratory: Denies: cough, orthopnea, shortness of breath, SOB with excertion , SOB at rest, sputum, stridor, wheezing, other Gastrointestinal/Abdominal: Denies: abdomen distended, abdominal pain, black stools, tarry stools, blood in stool, constipated, diarrhea, difficulty swallowing, nausea, poor appetite, poor fluid intake, rectal bleeding, vomiting , other Genitourinary: Denies: burning, discharge, frequency, flank pain, hematuria, incontinence, pain, urgency, other Neurologic/Psychiatric: Denies: anxiety, depressed, emotional problems, headache, numbness, paresthesia, pre-existing deficit, seizure, tingling, tremors, weakness, other Endocrine: Denies: excessive sweating, flushing, intolerance to cold, intolerance to heat, increased hunger, increased thirst, increased urine, unexplained weight gain, unexplained weight loss, other MSK: denies joint pains, swelling, stiffness Hematologic/Lymphatic: Denies: anemia, easy bleeding, easy bruising, other Objective Last 24 Hour Vital Signs Date Time Temp Pulse Resp B/P (MAP) Pulse Ox O2 Delivery O2 Flow Rate FiO2 07/20/19 16:00 97.9 67 18 107/52 (70) 97 07/20/19 16:00 65 07/20/19 12:00 65 07/20/19 12:00 97.9 91 20 124/72 (89) 99 07/20/19 09:00 Room Air 07/20/19 08:30 105 137/84 07/20/19 08:00 58 07/20/19 08:00 97.9 67 20 153/69 (97) 99 07/20/19 04:00 97.9 105 18 137/84 (101) 99 07/20/19 04:00 105 07/20/19 00:00 104 07/20/19 00:00 97.9 66 19 155/80 (105) 100 07/19/19 21:29 74 140/98 07/19/19 21:00 Room Air 07/19/19 20:00 76 07/19/19 20:00 97.3 74 20 140/98 (112) 99 Intake and Output 07/19/19 07/20/19 19:00 07:00 Intake Total 97362.760 ml 209.780 ml Output Total 800 ml Balance 73477.760 ml 209.780 ml Intake Oral 600 ml IV Total 98470.760 ml 209.780 ml Output Urine Total 800 ml # Voids 4 3 # Bowel Movements 4 1 Laboratory Tests 07/20/19 04:06: White Blood Count 6.4, Red Blood Count 3.89L, Hemoglobin 12.0L, Hematocrit 36.2L , Mean Corpuscular Volume 93, Mean Corpuscular Hemoglobin 30.8, Mean Corpuscular Hemoglobin Concent 33.1, Red Cell Distribution Width 13.8, Platelet Count 140L, Mean Platelet Volume 6.7, Neutrophils (%) (Auto) 71.8, Lymphocytes ( %) (Auto) 17.9L, Monocytes (%) (Auto) 6.9, Eosinophils (%) (Auto) 2.4, Basophils (%) (Auto) 0.9, Activated Partial Thromboplast Time 55H, Sodium Level 139, Potassium Level 3.6, Chloride Level 104, Carbon Dioxide Level 24, Anion Gap 11, Blood Urea Nitrogen 5L, Creatinine 1.1, Estimat Glomerular Filtration Rate > 60, Glucose Level 83, Calcium Level 9.1, Phosphorus Level 3.0, Magnesium Level 1.6L, Vitamin B12 Level 492, Thyroid Stimulating Hormone (TSH) 1.804 07/20/19 12:45: Activated Partial Thromboplast Time 119H Height (Feet): 5 Height (Inches): 8.00 Weight (Pounds): 135 Objective As of 07/20/19 General: WDWN male in NAD, A&O x 4 HEENT: Normocephalic. Cephalic atraumatic, pupils equal round reactive to light and accommodation, nares patent and no symmetrical, no tonsillar exudates , mucous membranes moist CV: Irregular rate regular rhythm, no murmurs, rubs, or gallops Pulm: Lungs clear to auscultation bilaterally. No wheezes, rhonchi, or rales GI: Soft, nontender, nondistended, bowel sounds present Neuro: CN 2-12 intact bilaterally, no focal signs. Ext: No lower extremity edema bilaterally Skin: no rashes lesions or ulcers Msk: Joints symmetrical in upper extremity and lower extremity bilaterally, no joint swelling. Lymph: No lymphadenopathy in upper extremity and lower extremity Irving Johnson D.O. Jul 20, 2019 19:51
[2019-07-20 20:00] VITALS: BP 150/91
[2019-07-20] MEDS: Eliquis 5mg tablet ORAL SCH (22:41)
[2019-07-21] VITALS: BP 155/80
--- NOTE | 2019-07-21 02:17 | Progress Note ---
DATE: 07/20/2019 SUBJECTIVE: The patient is not having anxiety. No behavior issues noted. The patient was seen by Neurology. No seizure, no anxiety, stable. Withdrawn. Depressed. MENTAL STATUS EXAMINATION: The patient is alert and oriented times, self, place, and situation. Mood is dysphoric. Affect is constricted. Congruent mood. Thought process is concrete. Thought content, no suicidal or homicidal ideation. ASSESSMENT: Stable. PLAN: 1. We will continue current medications. 2. Provide the patient with reality orientation and supportive therapy. Melchor Mejia M.D. DR: SHI JOB#: [id number] CC:
[2019-07-21 04:08] VITALS: BP 144/93
[2019-07-21] MEDS: Folic Acid 1 MG, Magnesium Sulfate 2,000 MG, Multivitamin - 12 Injection 10 ML in Sodiu... IV SCH (05:26)
[2019-07-21] MEDS: D5W IVPB SCH (05:27)
[2019-07-21] MEDS: THIAMINE HCL IVPB SCH (05:27)
--- NOTE | 2019-07-21 07:25 | NUR ---
HAND-OFF: Report given to ENEIDA Agarwal, patient in stable condition, plan of care endorsed.
[2019-07-21 07:34] LABS: BASOPHILS % (AUTO) 0.7 % (0.0-2.0); EOSINOPHILS % (AUTO) 4.1 % (0.0-3.0); HEMOGLOBIN 11.9 G/DL (14.2-18.0); LYMPHOCYTES % (AUTO) 23.1 % (20.0-45.0); MEAN CORPUSCULAR VOLUME 93 FL (80-99); MONOCYTES % (AUTO) 7.4 % (1.0-10.0); NEUTROPHILS % (AUTO) 64.7 % (45.0-75.0); PLATELET COUNT 106 K/UL (150-450); RED BLOOD COUNT 3.87 M/UL (4.70-6.10); RED CELL DISTRIBUTION WIDTH 13.8 % (11.6-14.8); WHITE BLOOD COUNT 6.4 K/UL (4.8-10.8)
--- NOTE | 2019-07-21 07:44 | NUR ---
NURSE NOTES: Pt in bed in low position, pt calm and cooperative and expressed wishes to go home, IV running banana bag, asymptomatic IV, no pain or redness or swelling, Ox4, denies pain, no s/s of distress or sob noted, call light at bedside, pt is able to use call light and makes wishes known.
[2019-07-21 08:05] VITALS: BP 144/82
[2019-07-21 08:25] LABS: ANION GAP 11 mmol/L (5-15); BLOOD UREA NITROGEN 4 mg/dL (7-18); CALCIUM 8.8 MG/DL (8.5-10.1); CARBON DIOXIDE 25 MMOL/L (21-32); CHLORIDE 105 MMOL/L (98-107); CREATININE 1.1 MG/DL (0.55-1.30); PHOSPHORUS 3.3 MG/DL (2.5-4.9); POTASSIUM 3.1 MMOL/L (3.5-5.1); SODIUM 140 MMOL/L (136-145)
[2019-07-21] MEDS: Eliquis 5mg tablet ORAL SCH ×2 (09:45→17:06)
[2019-07-21] MEDS: Metoprolol Tartrate 100mg tab ORAL SCH ×2 (09:46→21:08)
[2019-07-21 10:41] LABS: HEMATOCRIT 35.9 % (42.0-52.0); HEMOGLOBIN 11.9 G/DL (14.2-18.0); MEAN CORPUSCULAR VOLUME 93 FL (80-99); PLATELET COUNT 99 K/UL (150-450); RED BLOOD COUNT 3.84 M/UL (4.70-6.10); RED CELL DISTRIBUTION WIDTH 13.9 % (11.6-14.8); WHITE BLOOD COUNT 7.4 K/UL (4.8-10.8)
--- NOTE | 2019-07-21 11:05 | NUR ---
PT EVALUATION NOTE Patient seen for initial evaluation. Patient presents with generalized weakness and decreased balance which impairs patient's ability to perform mobility tasks safely. Patient requires SBA for bed mobility and transfers. Patient able to ambulate 60 ft with SBA, no assistive device. Gait ataxic, patient unsteady during ambulation however no loss of balance. Patient will benefit from skilled inpatient PT intervention to address strength, balance and safety for increased level of independence with functional mobility. Recommend discharge home with home PT once medically cleared by MD. DME needs to be determined based on patient's progress. Addendum: 07/21/19 at 1333 by CLYDE SCHNEIDER PT Amended: Links added.
[2019-07-21 12:00] VITALS: BP 143/76
--- NOTE | 2019-07-21 12:52 | Consultation ---
History of Present Illness General Chief Complaint: Chest Pain Present Illness Allergies: Coded Allergies: PENICILLIN (Verified Allergy, Severe, 06/19/17) PENICILLINS (Unverified Allergy, Unknown, 07/17/19) Medication History Scheduled Ergocalciferol (Vitamin D2) (Ergocalciferol), 5,000 UNIT PO ONCE A WEEK, ( Reported) Folic Acid* (Folic Acid*), 1 MG ORAL DAILY, (Reported) Lisinopril (Lisinopril*), 20 MG ORAL DAILY, (Reported) Melatonin (Melatonin), 6 MG ORAL BEDTIME, (Reported) Metoprolol Tartrate* (Metoprolol Tartrate*), 25 MG ORAL EVERY 12 HOURS, ( Reported) Scheduled PRN Albuterol Sulfate (Ventolin Hfa), 2 PUFFS INH EVERY 4 HOURS PRN for Shortness of Breath, (Reported) Mirtazapine* (Mirtazapine*), 15 MG ORAL BEDTIME PRN for INSOMNIA, (Reported) Patient History Healthcare decision maker Resuscitation status Advanced Directive on File Physical Exam Last 24 Hour Vital Signs Date Time Temp Pulse Resp B/P (MAP) Pulse Ox O2 Delivery O2 Flow Rate FiO2 07/21/19 12:00 98.2 62 22 143/76 (98) 100 62 07/21/19 09:46 59 144/82 07/21/19 08:12 Room Air 07/21/19 08:05 98.1 59 20 144/82 (102) 100 59 07/21/19 07:26 60 07/21/19 04:08 97.8 74 16 144/93 (110) 100 07/21/19 04:00 56 07/21/19 00:00 73 07/21/19 00:00 97.6 70 16 155/80 (105) 100 07/20/19 22:40 63 150/91 07/20/19 21:00 Room Air 07/20/19 20:00 97.6 63 16 150/91 (110) 100 07/20/19 20:00 78 07/20/19 16:00 97.9 67 18 107/52 (70) 97 07/20/19 16:00 65 Intake and Output 07/20/19 07/21/19 19:00 07:00 Intake Total 1981.960 ml Balance 1981.960 ml Intake Oral 600 ml IV Total 1381.960 ml # Voids 4 5 # Bowel Movements 2 Laboratory Tests Test 07/20/19 12:45 07/21/19 06:06 07/21/19 10:00 Activated Partial Thromboplast Time 119 SEC (23-33) H White Blood Count 6.4 K/UL (4.8-10.8) 7.4 K/UL (4.8-10.8) Red Blood Count 3.87 M/UL (4.70-6.10) L 3.84 M/UL (4.70-6.10) L Hemoglobin 11.9 G/DL (14.2-18.0) L 11.9 G/DL (14.2-18.0) L Hematocrit 36.0 % (42.0-52.0) L 35.9 % (42.0-52.0) L Mean Corpuscular Volume 93 FL (80-99) 93 FL (80-99) Mean Corpuscular Hemoglobin 30.7 PG (27.0-31.0) 31.1 PG (27.0-31.0) H Mean Corpuscular Hemoglobin Concent 33.0 G/DL (32.0-36.0) 33.3 G/DL (32.0-36.0) Red Cell Distribution Width 13.8 % (11.6-14.8) 13.9 % (11.6-14.8) Platelet Count 106 K/UL (150-450) L 99 K/UL (150-450) L Mean Platelet Volume 7.9 FL (6.5-10.1) 7.5 FL (6.5-10.1) Neutrophils (%) (Auto) 64.7 % (45.0-75.0) % (45.0-75.0) Lymphocytes (%) (Auto) 23.1 % (20.0-45.0) % (20.0-45.0) Monocytes (%) (Auto) 7.4 % (1.0-10.0) % (1.0-10.0) Eosinophils (%) (Auto) 4.1 % (0.0-3.0) H % (0.0-3.0) Basophils (%) (Auto) 0.7 % (0.0-2.0) % (0.0-2.0) Sodium Level 140 MMOL/L (136-145) Potassium Level 3.1 MMOL/L (3.5-5.1) L Chloride Level 105 MMOL/L (98-107) Carbon Dioxide Level 25 MMOL/L (21-32) Anion Gap 11 mmol/L (5-15) Blood Urea Nitrogen 4 mg/dL (7-18) L Creatinine 1.1 MG/DL (0.55-1.30) Estimat Glomerular Filtration Rate > 60 mL/min (>60) Glucose Level 87 MG/DL (74-106) Calcium Level 8.8 MG/DL (8.5-10.1) Phosphorus Level 3.3 MG/DL (2.5-4.9) Magnesium Level 1.7 MG/DL (1.8-2.4) L Differential Total Cells Counted 100 Neutrophils % (Manual) 75 % (45-75) Lymphocytes % (Manual) 16 % (20-45) L Monocytes % (Manual) 7 % (1-10) Eosinophils % (Manual) 2 % (0-3) Basophils % (Manual) 0 % (0-2) Band Neutrophils 0 % (0-8) Platelet Estimate Decreased L Platelet Morphology Normal Red Blood Cell Morphology Normal Height (Feet): 5 Height (Inches): 8.00 Weight (Pounds): 135 Medications Current Medications Medications (Trade) Dose Ordered Sig/Yara Route PRN Reason Start Time Stop Time Status Last Admin Dose Admin Acetaminophen (Tylenol) 650 mg Q4H PRN ORAL Mild Pain (Pain Scale 1-3) 07/17/19 19:15 08/16/19 19:14 07/19/19 02:27 Albuterol/ Ipratropium (Albuterol/ Ipratropium) 3 ml Q6H PRN HHN Shortness of Breath 07/17/19 19:15 07/22/19 19:14 Apixaban (Eliquis) 5 mg BID ORAL 07/20/19 21:00 08/19/19 20:59 07/21/19 09:45 Dextrose (Dextrose 50%) 25 ml Q30M PRN IV Hypoglycemia 07/17/19 19:15 08/16/19 19:14 Dextrose (Dextrose 50%) 50 ml Q30M PRN IV Hypoglycemia 07/17/19 19:15 08/16/19 19:14 Diltiazem HCl (Cardizem) 10 mg Q6HR PRN IVP Per rx protocol 07/18/19 01:30 08/17/19 01:29 Diphenhydramine HCl (Benadryl) 25 mg Q6H PRN ORAL Itching/Pruritis 07/17/19 19:15 08/16/19 19:14 07/20/19 22:30 Escitalopram Oxalate (Lexapro) 10 mg DAILY ORAL 07/20/19 09:00 08/19/19 08:59 07/21/19 09:46 Famotidine (Pepcid) 20 mg BID ORAL 07/18/19 09:00 08/17/19 08:59 07/21/19 09:46 Folic Acid 1 mg/ Magnesium Sulfate 2000 mg/ Multivitamins 10 ml/Sodium Chloride 1,014.2 ml @ 100 mls/ hr Q20H IV 07/20/19 09:00 08/19/19 08:59 07/21/19 05:26 Levetiracetam (Keppra) 750 mg Q12HR ORAL 07/18/19 10:45 08/17/19 10:44 07/21/19 09:46 Lorazepam (Ativan) 2 mg Q6H PRN ORAL For Anxiety 07/18/19 14:30 07/25/19 14:29 07/20/19 03:13 Magnesium Hydroxide (Mom) 30 ml HSPRN PRN ORAL Constipation 07/17/19 19:15 08/16/19 19:14 Metoprolol Tartrate (Lopressor) 100 mg EVERY 12 HOURS ORAL 07/18/19 21:00 08/17/19 20:59 07/21/19 09:46 Nitroglycerin (Ntg) 0.4 mg Q5M PRN SL Prn Chest Pain 07/17/19 19:15 08/16/19 19:14 Ondansetron HCl (Zofran) 4 mg Q6H PRN IVP Nausea & Vomiting 07/17/19 19:15 08/16/19 19:14 Potassium Chloride (K-Dur) 40 meq ONCE ORAL 07/21/19 13:30 07/21/19 14:30 Sodium Chloride 1,000 ml @ 100 mls/hr Q10H IV 07/20/19 23:00 08/18/19 18:00 Thiamine HCl 250 mg/Dextrose 112.5 ml @ 225 mls/hr Q24H IVPB 07/22/19 09:00 08/21/19 08:59 Assessment/Plan Assessment/Plan: Hematology Consultation RERodolfo SOLOMON: Elizabeth Houser Reason for Hospitalization: Chest Pain RFC: Thrombocytopenia, rapid development DOS: 07/21/19 Present Illness 64-year-old male with a past medical history of alcohol abuse and alcohol dependence who presents emergency room brought in by ambulance. Patient is very tearful during interview, keeps talking about the PTSD he experienced from being in the [employer] and witnessing his friends be killed and duty. Chart review reveals the patient was recently admitted to the hospital at which point he had an echocardiogram that showed an EF of 50%, and patient has a known history of atrial fibrillation l seizures. He presents again in atrial fibrillation with RVR was treated with digoxin and Cardizem the emergency room. Patient has no major lab abnormalities only anemia of chronic disease and an elevated lactic acid from alcohol abuse and intoxication, currently patient has an elevated blood alcohol level. He denies other symptoms, denies abdominal pain. It appears that during last hospital visit anticoagulation was considered however patient is definitely not a good candidate, and atrial fibrillation is likely all related to alcohol. Patient also was prescribed Keppra, however at this point patient is not clear if patient has an underlying epilepsy disorder or if these are all related to alcohol withdrawal seizures. He will be put on seizure protocol and monitored here in the hospital Allergies: PENICILLIN (Verified Allergy, Severe, 06/19/17) PENICILLINS (Unverified Allergy, Unknown, 07/17/19) Medication History Scheduled Digoxin* (Digoxin*), 0.25 MG ORAL DAILY Levetiracetam (Keppra), 750 MG ORAL Q12HR Metoprolol Tartrate* (Metoprolol Tartrate*), 100 MG ORAL EVERY 12 HOURS Patient History History Provided By: Patient Healthcare decision maker Resuscitation status Advanced Directive on File Review of Symptoms Review of systems is limited to patient's emotional state however he just states that he does not feel great and he feels tired and he is very emotional. Physical Exam General appearance: Patient is emotional and crying Head: Normocephalic, without obvious abnormality, atraumatic Eyes: conjunctivae/corneas clear. PERRL, EOM's intact. Fundi benign Throat: Lips, mucosa, and tongue normal. Teeth and gums normal Neck: supple, symmetrical, trachea midline, no adenopathy, thyroid Lungs: clear to auscultation bilaterally Heart: Currently in atrial fibrillation with rapid ventricular response Abdomen: soft, non-tender. Bowel sounds normal. No masses, no organomegaly Extremities: extremities normal, atraumatic, no cyanosis or edema Pulses: 2+ and symmetric Skin: Skin color, texture, turgor normal. No rashes or lesions Neurologic: Grossly normal, intoxicated Labs: noted Imaging: reviewed Assessment/Recs # Thrombocytopenia - potential causes multifactorial, in this case very likely is related to etoh cirrhosis and hsm --> will need a us to confirm also heparin gtt has been discontinued --> Hep panel and HIV ordered --> US abd to evaluate for cirrhosis and hsm ordered --> Peripheral smear ordered to evaluate for blasts /schistocytes -> none noted --> abx and other meds have been reviewed --> ok for ppx if plt >50k w/ either heparin or lovenox --> Transfuse if Plt < 20k and fever, or if Plt < 10k without fever # Hypercoagulable disorder -- atrial fibrillation with rapid ventricular response likely triggered by alcohol abuse. --> Appreciate cardiology consultation: Dr. Carrasco --> before on heparin gtt --> cardiology recommending anticoagulation if okay with neurology. Neurology recommending CT head negative. OK to start A/C per neurology and Cardiology --> Continue Eliquis 5mg PO BID. D continueiscussed risks/benefits with patient. All questions answered. 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 Agreeable to SNF. # Lactic acidosis, suspect 2/2 dehydration and alcohol abuse- resolved --> IV fluids as above --> abx as needed Appreciate consultation and dw RN #Reported history of seizures since 2009. Patient is a poor historian and unclear if this is related to alcohol withdrawal or an underlying seizure disorder. #Alcohol withdrawal seizures -Appreciate psychiatry consult: Dr. Mejia -Neurology consult: Dr. Espinal -Keppra 750 mg p.o. twice daily -Seizure precautions -Avoid alcohol #Alcohol abuse -Social work consult -Banana bag -IV hydration #Hypomagnesemia -replete PRN #Anemia of chronic disease No signs of bleeding CTM #suspected pulmonary nodule #Tobacco dependence -CT chest with contrast. D/w radiology: Showed RUL nodule -Needs repeat imaging in 6 to 12 months (around 12/2019 or 07/2020) FENPPX DVTPPX: eliquis Lines: none PT/OT: pending Code status: Full Eulalio Rodney MD Jul 21, 2019 12:52
--- NOTE | 2019-07-21 13:12 | NUR ---
CASE MANAGEMENT: REVIEW 07/21/2019 SI:Atrial fibrillation with rapid ventricular response likely triggered by alcohol abuse T 98.2 HR 62 RR 22 B/P 143/76 SATS 100% ON RA LABS: K 3.1 BUN 4 MG 1.7 IS:NS @ 100 ML/HR LOPRESSOR PO Q12H ELIQUIS PO BID LEXAPRO PO QD KDUR PO X1 KEPPRA PO Q12H BANANA BAG IV @ 100 mL/HR THIAMINE IV Q24H TELE PLAN OF CARE: US ABD PT EVAL HEP PANEL
--- NOTE | 2019-07-21 13:21 | NUR ---
CASE MANAGEMENT: DC NOTE PATIENT IS NOT SERVICE CONNECTED WITH THE [facility] IS NOT ACCEPTING
--- NOTE | 2019-07-21 13:25 | NUR ---
INSURANCE CLINICALS [facility] FA[facility] CLINIC[facility] TO: [phone]
[2019-07-21 16:05] VITALS: BP 144/84
--- NOTE | 2019-07-21 16:52 | Cardiac Electrophysiology PN ---
Assessment/Plan Assessment/Plan 1. Atrial fibrillation with rapid ventricular response. Likely due to noncompliance. The patient has not been taking his medication regularly. He is already ruled out for myocardial infarction. Digoxin level is less than 0.2. Continue metoprolol 100 bid and Eliquis 5 bid. EF 55-60% 2. History of hypertension. Continue metoprolol 100 mg b.i.d. 3. Heavy alcohol use, on thiamine and folate. 4. Seizures. On Keppra. GABRIELLA RN Subjective Subjective Remained in atrial fib with controlled rate. On Thiamine and folate. No CP Objective Last 24 Hour Vital Signs Date Time Temp Pulse Resp B/P (MAP) Pulse Ox O2 Delivery O2 Flow Rate FiO2 07/21/19 16:05 98.4 62 20 144/84 (104) 99 07/21/19 12:00 98.2 62 22 143/76 (98) 100 62 07/21/19 11:36 83 07/21/19 09:46 59 144/82 07/21/19 08:12 Room Air 07/21/19 08:05 98.1 59 20 144/82 (102) 100 59 07/21/19 07:26 60 07/21/19 04:08 97.8 74 16 144/93 (110) 100 07/21/19 04:00 56 07/21/19 00:00 73 07/21/19 00:00 97.6 70 16 155/80 (105) 100 07/20/19 22:40 63 150/91 07/20/19 21:00 Room Air 07/20/19 20:00 97.6 63 16 150/91 (110) 100 07/20/19 20:00 78 Intake and Output 07/20/19 07/21/19 19:00 07:00 Intake Total 1981.960 ml Balance 1981.960 ml Intake Oral 600 ml IV Total 1381.960 ml # Voids 4 5 # Bowel Movements 2 Laboratory Tests Test 07/21/19 06:06 07/21/19 10:00 White Blood Count 6.4 K/UL (4.8-10.8) 7.4 K/UL (4.8-10.8) Red Blood Count 3.87 M/UL (4.70-6.10) L 3.84 M/UL (4.70-6.10) L Hemoglobin 11.9 G/DL (14.2-18.0) L 11.9 G/DL (14.2-18.0) L Hematocrit 36.0 % (42.0-52.0) L 35.9 % (42.0-52.0) L Mean Corpuscular Volume 93 FL (80-99) 93 FL (80-99) Mean Corpuscular Hemoglobin 30.7 PG (27.0-31.0) 31.1 PG (27.0-31.0) H Mean Corpuscular Hemoglobin Concent 33.0 G/DL (32.0-36.0) 33.3 G/DL (32.0-36.0) Red Cell Distribution Width 13.8 % (11.6-14.8) 13.9 % (11.6-14.8) Platelet Count 106 K/UL (150-450) L 99 K/UL (150-450) L Mean Platelet Volume 7.9 FL (6.5-10.1) 7.5 FL (6.5-10.1) Neutrophils (%) (Auto) 64.7 % (45.0-75.0) % (45.0-75.0) Lymphocytes (%) (Auto) 23.1 % (20.0-45.0) % (20.0-45.0) Monocytes (%) (Auto) 7.4 % (1.0-10.0) % (1.0-10.0) Eosinophils (%) (Auto) 4.1 % (0.0-3.0) H % (0.0-3.0) Basophils (%) (Auto) 0.7 % (0.0-2.0) % (0.0-2.0) Sodium Level 140 MMOL/L (136-145) Potassium Level 3.1 MMOL/L (3.5-5.1) L Chloride Level 105 MMOL/L (98-107) Carbon Dioxide Level 25 MMOL/L (21-32) Anion Gap 11 mmol/L (5-15) Blood Urea Nitrogen 4 mg/dL (7-18) L Creatinine 1.1 MG/DL (0.55-1.30) Estimat Glomerular Filtration Rate > 60 mL/min (>60) Glucose Level 87 MG/DL (74-106) Calcium Level 8.8 MG/DL (8.5-10.1) Phosphorus Level 3.3 MG/DL (2.5-4.9) Magnesium Level 1.7 MG/DL (1.8-2.4) L Hepatitis A IgM Antibody Pending Hepatitis B Surface Antigen Pending Hepatitis B Core IgM Antibody Pending Hepatitis C Antibody Pending HIV (1&2) Antibody Rapid Negative (NEGATIVE) Differential Total Cells Counted 100 Neutrophils % (Manual) 75 % (45-75) Lymphocytes % (Manual) 16 % (20-45) L Monocytes % (Manual) 7 % (1-10) Eosinophils % (Manual) 2 % (0-3) Basophils % (Manual) 0 % (0-2) Band Neutrophils 0 % (0-8) Platelet Estimate Decreased L Platelet Morphology Normal Red Blood Cell Morphology Normal Objective HEAD AND NECK: No JVD. LUNGS: Decreased breath sounds. CARDIOVASCULAR: irregular S1 and S2 with no gallop or murmur. ABDOMEN: Soft. EXTREMITIES: No pitting edema. Jose Carrasco MD Jul 21, 2019 16:52
--- NOTE | 2019-07-21 18:27 | General Progress Note ---
Assessment/Plan Assessment/Plan: Assessment #Atrial fibrillation with rapid ventricular response likely triggered by alcohol abuse. -Appreciate cardiology consultation: Dr. Carrasco -Continue heparin drip. Cardiology recommending anticoagulation if okay with neurology. Neurology recommending CT head to rule out cranial hemorrhage or subdural hematoma prior to initiating anticoagulation. CT head negative. OK to start A/C per neurology and Cardiology - Continue Eliquis 5mg PO BID. Discussed risks/benefits with patient. All questions answered. - Ok to stop aspirin per Cardiology -Replete mag and phosphorus and potassium -continue lopressor 100mg PO Q12hr -Holding home digoxin -Dilt PRN -Iv hydration - TTE: EF 55-60% - trend troponins #Thrombocytopenia >Downward trend since admission. no signs of bleeding - repeat in citrated tube still low -Heme/onc consult: Dr. 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 #lactic acidosis, suspect 2/2 dehydration and alcohol abuse- resolved - IV fluids as above -No signs or symptoms of infection currently. -Monitor off antibiotics -Continue to trend lactate #Reported history of seizures since 2009. Patient is a poor historian and unclear if this is related to alcohol withdrawal or an underlying seizure disorder. #Alcohol withdrawal seizures -Appreciate psychiatry consult: Dr. Mejia -Neurology consult: Dr. Espinal -Keppra 750 mg p.o. twice daily -Seizure precautions -Avoid alcohol #Alcohol abuse -Social work consult -Banana bag -IV hydration #Hypomagnesemia #hypoklalemia -replete PRN #Anemia of chronic disease No signs of bleeding CTM #suspected pulmonary nodule #Tobacco dependence -CT chest with contrast. D/w radiology: Showed RUL nodule -Needs repeat imaging in 6 to 12 months (around 12/2019 or 07/2020) FENPPX DVTPPX: eliquis Lines: none PT/OT: pending Code status: Full Dispo: Home with home health. Pending stabilization and workup of thrombocytopenia Reason for Continued Hospitalization: Atrial fibrillation with RVR DVT and GI prophylaxis Diet as tolerated 38 minutes spent on this encounter. Discussed with Cardiology and RN. > 50% spent on counseling and care coordination. Time of note may not reflect time patient was seen. Subjective Date patient seen: Jul 21, 2019 Allergies: Coded Allergies: PENICILLIN (Verified Allergy, Severe, 06/19/17) PENICILLINS (Unverified Allergy, Unknown, 07/17/19) Subjective No acute events overnight per nursing. Diarrhea has resolved. patient feels much better. More alert and stronger. Denies any cough, shortness of breath, fever, chills. Review of systems: As of 07/21/19 Constitutional: Denies: chills, diaphoresis, fever, malaise, weakness, other HEENT: Denies: eye pain, blurred vision, tearing, double vision, ear pain, ear discharge, nose pain, nose congestion, throat pain, throat swelling, mouth pain , mouth swelling, Cardiovascular: Denies: chest pain, edema, lightheadedness, palpitations, syncope, Respiratory: Denies: cough, orthopnea, shortness of breath, SOB with excertion , SOB at rest, sputum, stridor, wheezing, other Gastrointestinal/Abdominal: Denies: abdomen distended, abdominal pain, black stools, tarry stools, blood in stool, constipated, diarrhea, difficulty swallowing, nausea, poor appetite, poor fluid intake, rectal bleeding, vomiting , other Genitourinary: Denies: burning, discharge, frequency, flank pain, hematuria, incontinence, pain, urgency, other Neurologic/Psychiatric: Denies: anxiety, depressed, emotional problems, headache, numbness, paresthesia, pre-existing deficit, seizure, tingling, tremors, weakness, other Endocrine: Denies: excessive sweating, flushing, intolerance to cold, intolerance to heat, increased hunger, increased thirst, increased urine, unexplained weight gain, unexplained weight loss, other MSK: denies joint pains, swelling, stiffness Hematologic/Lymphatic: Denies: anemia, easy bleeding, easy bruising, other Objective Last 24 Hour Vital Signs Date Time Temp Pulse Resp B/P (MAP) Pulse Ox O2 Delivery O2 Flow Rate FiO2 07/21/19 16:05 98.4 62 20 144/84 (104) 99 07/21/19 12:00 98.2 62 22 143/76 (98) 100 62 07/21/19 11:36 83 07/21/19 09:46 59 144/82 07/21/19 08:12 Room Air 07/21/19 08:05 98.1 59 20 144/82 (102) 100 59 07/21/19 07:26 60 07/21/19 04:08 97.8 74 16 144/93 (110) 100 07/21/19 04:00 56 07/21/19 00:00 73 07/21/19 00:00 97.6 70 16 155/80 (105) 100 07/20/19 22:40 63 150/91 07/20/19 21:00 Room Air 07/20/19 20:00 97.6 63 16 150/91 (110) 100 07/20/19 20:00 78 Intake and Output 07/20/19 07/21/19 19:00 07:00 Intake Total 1981.960 ml Balance 1981.960 ml Intake Oral 600 ml IV Total 1381.960 ml # Voids 4 5 # Bowel Movements 2 Laboratory Tests 07/21/19 06:06: White Blood Count 6.4, Red Blood Count 3.87L, Hemoglobin 11.9L, Hematocrit 36.0L , Mean Corpuscular Volume 93, Mean Corpuscular Hemoglobin 30.7, Mean Corpuscular Hemoglobin Concent 33.0, Red Cell Distribution Width 13.8, Platelet Count 106L, Mean Platelet Volume 7.9, Neutrophils (%) (Auto) 64.7, Lymphocytes ( %) (Auto) 23.1, Monocytes (%) (Auto) 7.4, Eosinophils (%) (Auto) 4.1H, Basophils (%) (Auto) 0.7, Sodium Level 140, Potassium Level 3.1L, Chloride Level 105, Carbon Dioxide Level 25, Anion Gap 11, Blood Urea Nitrogen 4L, Creatinine 1.1, Estimat Glomerular Filtration Rate > 60, Glucose Level 87, Calcium Level 8.8, Phosphorus Level 3.3, Magnesium Level 1.7L, Hepatitis A IgM Antibody [Pending], Hepatitis B Surface Antigen [Pending], Hepatitis B Core IgM Antibody [Pending], Hepatitis C Antibody [Pending], HIV (1&2) Antibody Rapid Negative 07/21/19 10:00: White Blood Count 7.4, Red Blood Count 3.84L, Hemoglobin 11.9L, Hematocrit 35.9L , Mean Corpuscular Volume 93, Mean Corpuscular Hemoglobin 31.1H, Mean Corpuscular Hemoglobin Concent 33.3, Red Cell Distribution Width 13.9, Platelet Count 99L, Mean Platelet Volume 7.5, Neutrophils (%) (Auto) , Lymphocytes (%) ( Auto) , Monocytes (%) (Auto) , Eosinophils (%) (Auto) , Basophils (%) (Auto) , Differential Total Cells Counted 100, Neutrophils % (Manual) 75, Lymphocytes % ( Manual) 16L, Monocytes % (Manual) 7, Eosinophils % (Manual) 2, Basophils % ( Manual) 0, Band Neutrophils 0, Platelet Estimate DecreasedL, Platelet Morphology Normal, Red Blood Cell Morphology Normal Height (Feet): 5 Height (Inches): 8.00 Weight (Pounds): 135 Objective As of 07/21/19 General: WDWN male in NAD, A&O x 4 HEENT: Normocephalic. Cephalic atraumatic, pupils equal round reactive to light and accommodation, nares patent and no symmetrical, no tonsillar exudates , mucous membranes moist CV: Irregular rate regular rhythm, no murmurs, rubs, or gallops Pulm: Lungs clear to auscultation bilaterally. No wheezes, rhonchi, or rales GI: Soft, nontender, nondistended, bowel sounds present Neuro: CN 2-12 intact bilaterally, no focal signs. Ext: No lower extremity edema bilaterally Skin: no rashes lesions or ulcers Msk: Joints symmetrical in upper extremity and lower extremity bilaterally, no joint swelling. Lymph: No lymphadenopathy in upper extremity and lower extremity Irving Johnson D.O. Jul 21, 2019 18:27
--- NOTE | 2019-07-21 18:56 | NUR ---
HAND-OFF: Report given to Srinivasa Carcamo.
--- NOTE | 2019-07-21 19:00 | NUR ---
NURSE NOTES: Got report from Stefano MONIQUE. Pt in stable condition. Denies any pain. No s/s of distress or discomfort noted. Pt resting in bed comfortably. Bed in low and locked position, call light within reach, bedside table within reach. Continue to monitor.
--- NOTE | 2019-07-21 19:34 | Diagnostic Imaging Report ---
Indication: Abdominal pain Technique: Whitley-scale and duplex images of the upper abdomen were obtained Comparison: Findings: Gallbladder is unremarkable, without stones, wall thickening, nor pericholecystic fluid. Sonographic Shah's sign is negative. Common bile duct measures mm in diameter. No intrahepatic biliary ductal dilatation. Liver demonstrates normal echogenicity, no focal abnormality. Portal vein and hepatic veins are patent. Pancreas is unremarkable. Spleen is unremarkable. Left kidney could not be visualized. Right kidney measures 10.5 cm length. . Right kidney demonstrates normal echogenicity There is no hydronephrosis. No focal abnormality . Non-aneurysmal abdominal aorta . Impression: Nonvisualized left kidney. Recent chest CT indicates absence, possibly due to atrophy or prior inflammation Negative for gallstones, dilated ducts, or other acute or significant abnormality
[2019-07-21 20:00] VITALS: BP 149/97
[2019-07-22] VITALS: BP 141/90
[2019-07-22] MEDS: Folic Acid 1 MG, Magnesium Sulfate 2,000 MG, Multivitamin - 12 Injection 10 ML in Sodiu... IV SCH (01:09)
[2019-07-22 04:00] VITALS: BP 135/89
--- NOTE | 2019-07-22 07:15 | NUR ---
HAND-OFF: Report given to Bebeto MONIQUE.
[2019-07-22 07:19] LABS: HEMATOCRIT 36.6 % (42.0-52.0); HEMOGLOBIN 12.2 G/DL (14.2-18.0); MEAN CORPUSCULAR VOLUME 93 FL (80-99); PLATELET COUNT 89 K/UL (150-450); RED BLOOD COUNT 3.94 M/UL (4.70-6.10); RED CELL DISTRIBUTION WIDTH 13.7 % (11.6-14.8); WHITE BLOOD COUNT 7.4 K/UL (4.8-10.8)
[2019-07-22 07:47] LABS: ANION GAP 14 mmol/L (5-15); BLOOD UREA NITROGEN 5 mg/dL (7-18); CARBON DIOXIDE 19 MMOL/L (21-32); CHLORIDE 107 MMOL/L (98-107); CREATININE 1.1 MG/DL (0.55-1.30); PHOSPHORUS 2.7 MG/DL (2.5-4.9); POTASSIUM 3.7 MMOL/L (3.5-5.1); SODIUM 140 MMOL/L (136-145)
[2019-07-22 08:00] VITALS: BP 152/82
--- NOTE | 2019-07-22 08:00 | NUR ---
NURSE NOTES: Pt awake/alert in bed, breathing easily on room air, denies SOB and denies pain at this time. VS stable with Afib @ 83 on monitor. IV access left fa with banana bag running. Right forearm access flushed with 10 ml NS and locked. Side rails padded. Bed left in low position, side rails uup x 2 and call light left near pt's hand.
[2019-07-22] MEDS ORDERED: THIAMINE HCL IVPB SCH (09:00)
[2019-07-22] MEDS ORDERED: D5W IVPB SCH (09:00)
--- NOTE | 2019-07-22 09:12 | Cardiac Electrophysiology PN ---
Assessment/Plan Assessment/Plan 1. Atrial fibrillation with rapid ventricular response. Likely due to noncompliance. The patient has not been taking his medication regularly. He is already ruled out for myocardial infarction. Continue metoprolol 100 bid and Eliquis 5 bid. EF 55-60% 2. History of hypertension. Continue metoprolol 100 mg b.i.d. 3. Heavy alcohol use, on thiamine and folate. 4. Seizures. On Keppra. GABRIELLA RN DC tele Subjective Subjective Remained in atrial fib with controlled rate 70s. No CP Objective Last 24 Hour Vital Signs Date Time Temp Pulse Resp B/P (MAP) Pulse Ox O2 Delivery O2 Flow Rate FiO2 07/22/19 04:00 97.3 72 16 135/89 (104) 95 07/22/19 04:00 60 07/22/19 00:00 98.0 68 18 141/90 (107) 96 07/22/19 00:00 75 07/21/19 21:08 66 149/97 07/21/19 21:00 Room Air 07/21/19 20:00 98.4 66 18 149/97 (114) 95 07/21/19 20:00 52 07/21/19 16:41 59 07/21/19 16:05 98.4 62 20 144/84 (104) 99 07/21/19 12:00 98.2 62 22 143/76 (98) 100 62 07/21/19 11:36 83 07/21/19 09:46 59 144/82 Intake and Output 07/21/19 07/22/19 19:00 07:00 Intake Total 360 ml Output Total 1450 ml 1200 ml Balance -1090 ml -1200 ml Intake Oral 360 ml Output Urine Total 1450 ml 1200 ml # Bowel Movements 1 Laboratory Tests Test 07/21/19 10:00 07/22/19 05:29 White Blood Count 7.4 K/UL (4.8-10.8) 7.4 K/UL (4.8-10.8) Red Blood Count 3.84 M/UL (4.70-6.10) L 3.94 M/UL (4.70-6.10) L Hemoglobin 11.9 G/DL (14.2-18.0) L 12.2 G/DL (14.2-18.0) L Hematocrit 35.9 % (42.0-52.0) L 36.6 % (42.0-52.0) L Mean Corpuscular Volume 93 FL (80-99) 93 FL (80-99) Mean Corpuscular Hemoglobin 31.1 PG (27.0-31.0) H 30.9 PG (27.0-31.0) Mean Corpuscular Hemoglobin Concent 33.3 G/DL (32.0-36.0) 33.3 G/DL (32.0-36.0) Red Cell Distribution Width 13.9 % (11.6-14.8) 13.7 % (11.6-14.8) Platelet Count 99 K/UL (150-450) L 89 K/UL (150-450) L Mean Platelet Volume 7.5 FL (6.5-10.1) 7.2 FL (6.5-10.1) Neutrophils (%) (Auto) % (45.0-75.0) % (45.0-75.0) Lymphocytes (%) (Auto) % (20.0-45.0) % (20.0-45.0) Monocytes (%) (Auto) % (1.0-10.0) % (1.0-10.0) Eosinophils (%) (Auto) % (0.0-3.0) % (0.0-3.0) Basophils (%) (Auto) % (0.0-2.0) % (0.0-2.0) Differential Total Cells Counted 100 100 Neutrophils % (Manual) 75 % (45-75) 74 % (45-75) Lymphocytes % (Manual) 16 % (20-45) L 16 % (20-45) L Monocytes % (Manual) 7 % (1-10) 6 % (1-10) Eosinophils % (Manual) 2 % (0-3) 4 % (0-3) H Basophils % (Manual) 0 % (0-2) 0 % (0-2) Band Neutrophils 0 % (0-8) 0 % (0-8) Platelet Estimate Decreased L Decreased L Platelet Morphology Normal Normal Red Blood Cell Morphology Normal Normal Sodium Level 140 MMOL/L (136-145) Potassium Level 3.7 MMOL/L (3.5-5.1) Chloride Level 107 MMOL/L (98-107) Carbon Dioxide Level 19 MMOL/L (21-32) L Anion Gap 14 mmol/L (5-15) Blood Urea Nitrogen 5 mg/dL (7-18) L Creatinine 1.1 MG/DL (0.55-1.30) Estimat Glomerular Filtration Rate > 60 mL/min (>60) Glucose Level 79 MG/DL (74-106) Calcium Level 9.0 MG/DL (8.5-10.1) Phosphorus Level 2.7 MG/DL (2.5-4.9) Magnesium Level 1.9 MG/DL (1.8-2.4) Objective HEAD AND NECK: No JVD. LUNGS: Decreased breath sounds. CARDIOVASCULAR: irregular S1 and S2 with no gallop or murmur. ABDOMEN: Soft. EXTREMITIES: No pitting edema. Jose Carrasco MD Jul 22, 2019 09:12
[2019-07-22] MEDS: Eliquis 5mg tablet ORAL SCH ×3 (09:23→18:00)
[2019-07-22] MEDS: Metoprolol Tartrate 100mg tab ORAL SCH ×2 (09:25→20:43)
--- NOTE | 2019-07-22 11:00 | Hematology/Onc Progress Note ---
Assessment/Plan Assessment/Plan Assessment/Recs # Thrombocytopenia - potential causes multifactorial, in this case very likely is related to etoh cirrhosis and hsm --> will need a us to confirm also heparin gtt has been discontinued --> Hep panel and HIV ordered ==> NEG --> US abd to evaluate for cirrhosis and hsm ordered --> doesn't show cirrhosis --> Peripheral smear ordered to evaluate for blasts /schistocytes -> none noted --> abx and other meds have been reviewed --> ok for ppx if plt >50k w/ either heparin or lovenox --> Transfuse if Plt < 20k and fever, or if Plt < 10k without fever # Hypercoagulable disorder -- atrial fibrillation with rapid ventricular response likely triggered by alcohol abuse. --> Appreciate cardiology consultation: Dr. Carrasco --> before on heparin gtt --> cardiology recommending anticoagulation if okay with neurology. Neurology recommending CT head negative. OK to start A/C per neurology and Cardiology --> Continue Eliquis 5mg PO BID. D continueiscussed risks/benefits with patient. All questions answered. 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 Agreeable to SNF. # Lactic acidosis, suspect 2/2 dehydration and alcohol abuse- resolved --> IV fluids as above --> abx as needed # Dvt ppx eliquis Appreciate consultation and que RN Subjective Constitutional: Denies: no symptoms, chills, fever, malaise, weakness, other HEENT: Denies: no symptoms, eye pain, blurred vision, tearing, double vision, ear pain, ear discharge, nose pain, nose congestion, throat pain, throat swelling, mouth pain, mouth swelling, other Cardiovascular: Denies: no symptoms, chest pain, edema, irregular heart rate, lightheadedness, palpitations, syncope, other Gastrointestinal/Abdominal: Denies: no symptoms, abdomen distended, abdominal pain, black stools, tarry stools, blood in stool, constipated, diarrhea, difficulty swallowing, nausea, poor appetite, poor fluid intake, rectal bleeding , vomiting, other Genitourinary: Denies: no symptoms, burning, discharge, frequency, flank pain, hematuria, incontinence, pain, urgency, other Neurologic/Psychiatric: Denies: no symptoms, anxiety, depressed, emotional problems, headache, numbness, paresthesia, pre-existing deficit, seizure, tingling, tremors, weakness, other Endocrine: Denies: no symptoms, excessive sweating, flushing, intolerance to cold, intolerance to heat, increased hunger, increased thirst, increased urine, unexplained weight gain, unexplained weight loss, other Allergies: Coded Allergies: PENICILLIN (Verified Allergy, Severe, 06/19/17) PENICILLINS (Unverified Allergy, Unknown, 07/17/19) Subjective 07/22: no bleeding, labs noted, plts lower, dw pcp, seen by cards Objective Objective Current Medications Medications (Trade) Dose Ordered Sig/Yara Route PRN Reason Start Time Stop Time Status Last Admin Dose Admin Acetaminophen (Tylenol) 650 mg Q4H PRN ORAL Mild Pain (Pain Scale 1-3) 07/17/19 19:15 08/16/19 19:14 07/19/19 02:27 Albuterol/ Ipratropium (Albuterol/ Ipratropium) 3 ml Q6H PRN HHN Shortness of Breath 07/17/19 19:15 07/22/19 19:14 Apixaban (Eliquis) 5 mg BID ORAL 07/20/19 21:00 08/19/19 20:59 07/22/19 09:23 Dextrose (Dextrose 50%) 25 ml Q30M PRN IV Hypoglycemia 07/17/19 19:15 08/16/19 19:14 Dextrose (Dextrose 50%) 50 ml Q30M PRN IV Hypoglycemia 07/17/19 19:15 08/16/19 19:14 Diltiazem HCl (Cardizem) 10 mg Q6HR PRN IVP Per rx protocol 07/18/19 01:30 08/17/19 01:29 Diphenhydramine HCl (Benadryl) 25 mg Q6H PRN ORAL Itching/Pruritis 07/17/19 19:15 08/16/19 19:14 07/20/19 22:30 Escitalopram Oxalate (Lexapro) 10 mg DAILY ORAL 07/20/19 09:00 08/19/19 08:59 07/22/19 09:25 Famotidine (Pepcid) 20 mg BID ORAL 07/18/19 09:00 08/17/19 08:59 07/22/19 09:25 Folic Acid 1 mg/ Magnesium Sulfate 2000 mg/ Multivitamins 10 ml/Sodium Chloride 1,014.2 ml @ 100 mls/ hr Q20H IV 07/20/19 09:00 08/19/19 08:59 07/22/19 01:09 Levetiracetam (Keppra) 750 mg Q12HR ORAL 07/18/19 10:45 08/17/19 10:44 07/21/19 21:09 Lorazepam (Ativan) 2 mg Q6H PRN ORAL For Anxiety 07/18/19 14:30 07/25/19 14:29 07/20/19 03:13 Magnesium Hydroxide (Mom) 30 ml HSPRN PRN ORAL Constipation 07/17/19 19:15 08/16/19 19:14 Metoprolol Tartrate (Lopressor) 100 mg EVERY 12 HOURS ORAL 07/18/19 21:00 08/17/19 20:59 07/22/19 09:25 Nitroglycerin (Ntg) 0.4 mg Q5M PRN SL Prn Chest Pain 07/17/19 19:15 08/16/19 19:14 Ondansetron HCl (Zofran) 4 mg Q6H PRN IVP Nausea & Vomiting 07/17/19 19:15 08/16/19 19:14 Sodium Chloride 1,000 ml @ 100 mls/hr Q10H IV 07/20/19 23:00 08/18/19 18:00 07/21/19 17:59 Thiamine HCl 250 mg/Dextrose 112.5 ml @ 225 mls/hr Q24H IVPB 07/22/19 09:00 08/21/19 08:59 07/22/19 09:00 Last 24 Hour Vital Signs Date Time Temp Pulse Resp B/P (MAP) Pulse Ox O2 Delivery O2 Flow Rate FiO2 07/22/19 09:25 60 135/89 07/22/19 04:00 97.3 72 16 135/89 (104) 95 07/22/19 04:00 60 07/22/19 00:00 98.0 68 18 141/90 (107) 96 07/22/19 00:00 75 07/21/19 21:08 66 149/97 07/21/19 21:00 Room Air 07/21/19 20:00 98.4 66 18 149/97 (114) 95 07/21/19 20:00 52 07/21/19 16:41 59 07/21/19 16:05 98.4 62 20 144/84 (104) 99 07/21/19 12:00 98.2 62 22 143/76 (98) 100 62 07/21/19 11:36 83 07/21/19 09:46 59 144/82 07/21/19 08:12 Room Air 07/21/19 08:05 98.1 59 20 144/82 (102) 100 59 07/21/19 07:26 60 07/21/19 04:08 97.8 74 16 144/93 (110) 100 07/21/19 04:00 56 07/21/19 00:00 73 07/21/19 00:00 97.6 70 16 155/80 (105) 100 07/20/19 22:40 63 150/91 07/20/19 21:00 Room Air 07/20/19 20:00 97.6 63 16 150/91 (110) 100 07/20/19 20:00 78 07/20/19 16:00 97.9 67 18 107/52 (70) 97 07/20/19 16:00 65 07/20/19 12:00 65 07/20/19 12:00 97.9 91 20 124/72 (89) 99 Intake and Output 07/21/19 07/22/19 19:00 07:00 Intake Total 360 ml Output Total 1450 ml 1200 ml Balance -1090 ml -1200 ml Intake Oral 360 ml Output Urine Total 1450 ml 1200 ml # Bowel Movements 1 Labs Test 07/20/19 04:06 07/20/19 12:45 07/21/19 06:06 07/21/19 10:00 White Blood Count 6.4 K/UL (4.8-10.8) 6.4 K/UL (4.8-10.8) 7.4 K/UL (4.8-10.8) Red Blood Count 3.89 M/UL (4.70-6.10) 3.87 M/UL (4.70-6.10) 3.84 M/UL (4.70-6.10) Hemoglobin 12.0 G/DL (14.2-18.0) 11.9 G/DL (14.2-18.0) 11.9 G/DL (14.2-18.0) Hematocrit 36.2 % (42.0-52.0) 36.0 % (42.0-52.0) 35.9 % (42.0-52.0) Mean Corpuscular Volume 93 FL (80-99) 93 FL (80-99) 93 FL (80-99) Mean Corpuscular Hemoglobin 30.8 PG (27.0-31.0) 30.7 PG (27.0-31.0) 31.1 PG (27.0-31.0) Mean Corpuscular Hemoglobin Concent 33.1 G/DL (32.0-36.0) 33.0 G/DL (32.0-36.0) 33.3 G/DL (32.0-36.0) Red Cell Distribution Width 13.8 % (11.6-14.8) 13.8 % (11.6-14.8) 13.9 % (11.6-14.8) Platelet Count 140 K/UL (150-450) 106 K/UL (150-450) 99 K/UL (150-450) Mean Platelet Volume 6.7 FL (6.5-10.1) 7.9 FL (6.5-10.1) 7.5 FL (6.5-10.1) Neutrophils (%) (Auto) 71.8 % (45.0-75.0) 64.7 % (45.0-75.0) % (45.0-75.0) Lymphocytes (%) (Auto) 17.9 % (20.0-45.0) 23.1 % (20.0-45.0) % (20.0-45.0) Monocytes (%) (Auto) 6.9 % (1.0-10.0) 7.4 % (1.0-10.0) % (1.0-10.0) Eosinophils (%) (Auto) 2.4 % (0.0-3.0) 4.1 % (0.0-3.0) % (0.0-3.0) Basophils (%) (Auto) 0.9 % (0.0-2.0) 0.7 % (0.0-2.0) % (0.0-2.0) Activated Partial Thromboplast Time 55 SEC (23-33) 119 SEC (23-33) Sodium Level 139 MMOL/L (136-145) 140 MMOL/L (136-145) Potassium Level 3.6 MMOL/L (3.5-5.1) 3.1 MMOL/L (3.5-5.1) Chloride Level 104 MMOL/L (98-107) 105 MMOL/L (98-107) Carbon Dioxide Level 24 MMOL/L (21-32) 25 MMOL/L (21-32) Anion Gap 11 mmol/L (5-15) 11 mmol/L (5-15) Blood Urea Nitrogen 5 mg/dL (7-18) 4 mg/dL (7-18) Creatinine 1.1 MG/DL (0.55-1.30) 1.1 MG/DL (0.55-1.30) Estimat Glomerular Filtration Rate > 60 mL/min (>60) > 60 mL/min (>60) Glucose Level 83 MG/DL (74-106) 87 MG/DL (74-106) Calcium Level 9.1 MG/DL (8.5-10.1) 8.8 MG/DL (8.5-10.1) Phosphorus Level 3.0 MG/DL (2.5-4.9) 3.3 MG/DL (2.5-4.9) Magnesium Level 1.6 MG/DL (1.8-2.4) 1.7 MG/DL (1.8-2.4) Vitamin B12 Level 492 PG/ML (193-986) Thyroid Stimulating Hormone (TSH) 1.804 uiU/mL (0.358-3.740) Hepatitis A IgM Antibody Negative (Negative) Hepatitis B Surface Antigen Negative (Negative) Hepatitis B Core IgM Antibody Negative (Negative) Hepatitis C Antibody <0.1 s/co ratio HIV (1&2) Antibody Rapid Negative (NEGATIVE) Differential Total Cells Counted 100 Neutrophils % (Manual) 75 % (45-75) Lymphocytes % (Manual) 16 % (20-45) Monocytes % (Manual) 7 % (1-10) Eosinophils % (Manual) 2 % (0-3) Basophils % (Manual) 0 % (0-2) Band Neutrophils 0 % (0-8) Platelet Estimate Decreased Platelet Morphology Normal Red Blood Cell Morphology Normal Test 07/22/19 05:29 White Blood Count 7.4 K/UL (4.8-10.8) Red Blood Count 3.94 M/UL (4.70-6.10) Hemoglobin 12.2 G/DL (14.2-18.0) Hematocrit 36.6 % (42.0-52.0) Mean Corpuscular Volume 93 FL (80-99) Mean Corpuscular Hemoglobin 30.9 PG (27.0-31.0) Mean Corpuscular Hemoglobin Concent 33.3 G/DL (32.0-36.0) Red Cell Distribution Width 13.7 % (11.6-14.8) Platelet Count 89 K/UL (150-450) Mean Platelet Volume 7.2 FL (6.5-10.1) Neutrophils (%) (Auto) % (45.0-75.0) Lymphocytes (%) (Auto) % (20.0-45.0) Monocytes (%) (Auto) % (1.0-10.0) Eosinophils (%) (Auto) % (0.0-3.0) Basophils (%) (Auto) % (0.0-2.0) Differential Total Cells Counted 100 Neutrophils % (Manual) 74 % (45-75) Lymphocytes % (Manual) 16 % (20-45) Monocytes % (Manual) 6 % (1-10) Eosinophils % (Manual) 4 % (0-3) Basophils % (Manual) 0 % (0-2) Band Neutrophils 0 % (0-8) Platelet Estimate Decreased Platelet Morphology Normal Red Blood Cell Morphology Normal Sodium Level 140 MMOL/L (136-145) Potassium Level 3.7 MMOL/L (3.5-5.1) Chloride Level 107 MMOL/L (98-107) Carbon Dioxide Level 19 MMOL/L (21-32) Anion Gap 14 mmol/L (5-15) Blood Urea Nitrogen 5 mg/dL (7-18) Creatinine 1.1 MG/DL (0.55-1.30) Estimat Glomerular Filtration Rate > 60 mL/min (>60) Glucose Level 79 MG/DL (74-106) Calcium Level 9.0 MG/DL (8.5-10.1) Phosphorus Level 2.7 MG/DL (2.5-4.9) Magnesium Level 1.9 MG/DL (1.8-2.4) Height (Feet): 5 Height (Inches): 8.00 Weight (Pounds): 135 Objective Physical Exam General appearance: Patient is emotional and crying Head: Normocephalic, without obvious abnormality, atraumatic Eyes: conjunctivae/corneas clear. PERRL, EOM's intact. Fundi benign Throat: Lips, mucosa, and tongue normal. Teeth and gums normal Neck: supple, symmetrical, trachea midline, no adenopathy, thyroid Lungs: clear to auscultation bilaterally Heart: Currently in atrial fibrillation with rapid ventricular response Abdomen: soft, non-tender. Bowel sounds normal. No masses, no organomegaly Extremities: extremities normal, atraumatic, no cyanosis or edema Pulses: 2+ and symmetric Skin: Skin color, texture, turgor normal. No rashes or lesions Neurologic: Grossly normal, intoxicated Eulalio Rodney MD Jul 22, 2019 11:00
--- NOTE | 2019-07-22 11:12 | NUR ---
*-*DISCHARGE PLANNING*-* PATIENT HAS BEEN REFERRED TO: [facility] P: [phone] F: [phone] *-*CLINICALS FAXED*-*
[2019-07-22 12:00] VITALS: BP 118/55
--- NOTE | 2019-07-22 12:30 | NUR ---
CASE MANAGEMENT:NOTE CM INFORMED BY ENEIDA LAKE THAT PATIENT HAS REQUESTED A MEDICARE DISCHARGE APPEAL D/T PATIENT NOT FEELING WELL ENOUGH FOR DISCHARGE AND CONTINUED COUGH Addendum: 07/22/19 at 1232 by KIRSTEN RIZO LVN LVN DISREGARD WRONG PATIENT
--- NOTE | 2019-07-22 12:33 | NUR ---
CASE MANAGEMENT:REVIEW SI;A-FIB. THROMBOCYTOPENIA. LACTIC ACIDOSIS. 97.1 72 20 158/82 95% ON RA IS;IVF NS @ 100 ML/HR KEPPRA PO Q12 HRS DUO NEB HHN Q6 HRS TELE STATUS DCP; HOME WITH HOME HEALTH ([facility])
--- NOTE | 2019-07-22 12:45 | NUR ---
NURSE NOTES: Patient brought to unit in hospital bed. Report received from Jsoé MONIQUE. Patient is awake and alert x 4. Patient is not recognized as a high fall risk. Endorsed that patient will call for help and has a steady gait with the use of a walker. Bed locked and in lowest position. Call light within reach. Patient verbalized that he will call when he needs help. Patient noted to have two IVs. 22 uday in right forearm, and 22 uday in left ac. Both patent and running fluids per MD orders. Patient noted not to have skin issues. Skin dry and intact. Patients belongings list reviewed, everything was transferred with patient. Was endorsed by previous nurse that patient is not taking seizure medications. MD aware. Side rails noted to be padded due to seizure history. Patients vital signs are stable. Patient denies chest pain and SOB. Does not appear to be in respiratory distress. Patient does not have any complaints at this time. Will continue to follow plan of care.
[2019-07-22] MEDS ORDERED: Albuterol/Ipratropium 3ml neb HHN PRN (13:30)
[2019-07-22] MEDS ORDERED: DiphenhydrAMINE 25mg Tab ORAL PRN (13:30)
[2019-07-22] MEDS ORDERED: Nitroglycerin Subl 0.4mg tab SL PRN (13:30)
[2019-07-22] MEDS: LORazepam 1mg tab ORAL PRN (14:28)
--- NOTE | 2019-07-22 14:29 | NUR ---
NURSE NOTES: Patient refused to take Keppra. Stated he says things that he always regrets when he takes the medication. Educated the benefits of taking the medication. Patient verbalized understanding, however, still will not take medication.
[2019-07-22 16:00] VITALS: BP 150/88
--- NOTE | 2019-07-22 16:01 | Diagnostic Imaging Report ---
Indication: Bilateral leg pain Technique: Grayscale and duplex images of the bilateral lower extremity veins Comparison: Findings: Bilaterally, grayscale and duplex images demonstrate no evidence of intraluminal thrombus. Normal phasic Doppler waveforms, demonstrating normal augmentation response and no evidence of valvular insufficiency. Greater saphenous vein(s) and tibial veins are patent. Normal compressibility. Impression: Negative for evidence of lower extremity deep venous thrombosis bilaterally
--- NOTE | 2019-07-22 16:06 | NUR ---
*-* INSURANCE *-* ALL CLINICALS AND REVIEWS HAVE BEEN FAXED TO: [facility] FAX CLINICALS TO: [phone]
--- NOTE | 2019-07-22 16:15 | Progress Note ---
DATE: 07/22/2019 SUBJECTIVE: The patient is doing well. No behavioral issues noted. The patient has anxiety. Appears calm. No acute distress. MENTAL STATUS EXAMINATION: The patient is alert and oriented times self, place, situation. Mood is anxious. Affect is constricted, congruent with mood. Thought process is concrete. Thought content, no suicidal, homicidal ideation. ASSESSMENT: Stable. PLAN: 1. We will continue current medications. 2. Provide the patient with reality orientation and supportive therapy. Melchor Mejia M.D. DR: KAI JOB#: [id number] CC:
--- NOTE | 2019-07-22 17:43 | General Progress Note ---
Assessment/Plan Assessment/Plan: Assessment #Atrial fibrillation with rapid ventricular response likely triggered by alcohol abuse. -Appreciate cardiology consultation: Dr. Carrasco -Continue heparin drip. Cardiology recommending anticoagulation if okay with neurology. Neurology recommending CT head to rule out cranial hemorrhage or subdural hematoma prior to initiating anticoagulation. CT head negative. OK to start A/C per neurology and Cardiology - Continue Eliquis 5mg PO BID. Discussed risks/benefits with patient. All questions answered. - Ok to stop aspirin per Cardiology -Replete mag and phosphorus and potassium -continue lopressor 100mg PO Q12hr -Holding home digoxin -Dilt PRN -Iv hydration - TTE: EF 55-60% - trend troponins #Acute Thrombocytopenia. Suspect medication induced. Continues to drop. Doubt ABE >Downward trend since admission. no signs of bleeding > repeat in citrated tube still low -Heme/onc consult: Dr. 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 #lactic acidosis, suspect 2/2 dehydration and alcohol abuse- resolved - IV fluids as above -No signs or symptoms of infection currently. -Monitor off antibiotics -Continue to trend lactate #Reported history of seizures since 2009. Patient is a poor historian and unclear if this is related to alcohol withdrawal or an underlying seizure disorder. #Alcohol withdrawal seizures -Appreciate psychiatry consult: Dr. Mejia -Neurology consult: Dr. Espinal -Keppra 750 mg p.o. twice daily -Seizure precautions -Avoid alcohol #Alcohol abuse -Social work consult -Banana bag -IV hydration #Hypomagnesemia #hypoklalemia -replete PRN #Anemia of chronic disease No signs of bleeding CTM #suspected pulmonary nodule #Tobacco dependence -CT chest with contrast. D/w radiology: Showed RUL nodule -Needs repeat imaging in 6 to 12 months (around 12/2019 or 07/2020) FENPPX DVTPPX: eliquis Lines: none PT/OT: pending Code status: Full Dispo: Home with home health. Pending stabilization and workup of thrombocytopenia Reason for Continued Hospitalization: Atrial fibrillation with RVR DVT and GI prophylaxis Diet as tolerated 39 minutes spent on this encounter. Discussed with Cardiology and RN. > 50% spent on counseling and care coordination. Time of note may not reflect time patient was seen. Subjective Date patient seen: Jul 22, 2019 Allergies: Coded Allergies: PENICILLIN (Verified Allergy, Severe, 06/19/17) PENICILLINS (Unverified Allergy, Unknown, 07/17/19) Subjective No acute events overnight per nursing. Patient feels well. Platelets continue to drop. Needs to continue to be monitored per Heme/Onc. Denies any cough, shortness of breath, fever, chills. Review of systems: As of 07/22/19 Constitutional: Denies: chills, diaphoresis, fever, malaise, weakness, other HEENT: Denies: eye pain, blurred vision, tearing, double vision, ear pain, ear discharge, nose pain, nose congestion, throat pain, throat swelling, mouth pain , mouth swelling, Cardiovascular: Denies: chest pain, edema, lightheadedness, palpitations, syncope, Respiratory: Denies: cough, orthopnea, shortness of breath, SOB with excertion , SOB at rest, sputum, stridor, wheezing, other Gastrointestinal/Abdominal: Denies: abdomen distended, abdominal pain, black stools, tarry stools, blood in stool, constipated, diarrhea, difficulty swallowing, nausea, poor appetite, poor fluid intake, rectal bleeding, vomiting , other Genitourinary: Denies: burning, discharge, frequency, flank pain, hematuria, incontinence, pain, urgency, other Neurologic/Psychiatric: Denies: anxiety, depressed, emotional problems, headache, numbness, paresthesia, pre-existing deficit, seizure, tingling, tremors, weakness, other Endocrine: Denies: excessive sweating, flushing, intolerance to cold, intolerance to heat, increased hunger, increased thirst, increased urine, unexplained weight gain, unexplained weight loss, other MSK: denies joint pains, swelling, stiffness Hematologic/Lymphatic: Denies: anemia, easy bleeding, easy bruising, other Objective Last 24 Hour Vital Signs Date Time Temp Pulse Resp B/P (MAP) Pulse Ox O2 Delivery O2 Flow Rate FiO2 07/22/19 12:00 97.1 69 20 118/55 (76) 100 07/22/19 09:25 60 135/89 07/22/19 09:00 Room Air 07/22/19 08:00 97.5 63 20 152/82 (105) 97 07/22/19 08:00 73 07/22/19 04:00 97.3 72 16 135/89 (104) 95 07/22/19 04:00 60 07/22/19 00:00 98.0 68 18 141/90 (107) 96 07/22/19 00:00 75 07/21/19 21:08 66 149/97 07/21/19 21:00 Room Air 07/21/19 20:00 98.4 66 18 149/97 (114) 95 07/21/19 20:00 52 Intake and Output 07/21/19 07/22/19 19:00 07:00 Intake Total 360 ml Output Total 1450 ml 1200 ml Balance -1090 ml -1200 ml Intake Oral 360 ml Output Urine Total 1450 ml 1200 ml # Bowel Movements 1 Laboratory Tests 07/22/19 05:29: White Blood Count 7.4, Red Blood Count 3.94L, Hemoglobin 12.2L, Hematocrit 36.6L , Mean Corpuscular Volume 93, Mean Corpuscular Hemoglobin 30.9, Mean Corpuscular Hemoglobin Concent 33.3, Red Cell Distribution Width 13.7, Platelet Count 89L, Mean Platelet Volume 7.2, Neutrophils (%) (Auto) , Lymphocytes (%) ( Auto) , Monocytes (%) (Auto) , Eosinophils (%) (Auto) , Basophils (%) (Auto) , Differential Total Cells Counted 100, Neutrophils % (Manual) 74, Lymphocytes % ( Manual) 16L, Monocytes % (Manual) 6, Eosinophils % (Manual) 4H, Basophils % ( Manual) 0, Band Neutrophils 0, Platelet Estimate DecreasedL, Platelet Morphology Normal, Red Blood Cell Morphology Normal, Sodium Level 140, Potassium Level 3.7, Chloride Level 107, Carbon Dioxide Level 19L, Anion Gap 14 , Blood Urea Nitrogen 5L, Creatinine 1.1, Estimat Glomerular Filtration Rate > 60, Glucose Level 79, Calcium Level 9.0, Phosphorus Level 2.7, Magnesium Level 1.9 Height (Feet): 5 Height (Inches): 8.00 Weight (Pounds): 135 Objective As of 07/22/19 General: WDWN male in NAD, A&O x 4 HEENT: Normocephalic. Cephalic atraumatic, pupils equal round reactive to light and accommodation, nares patent and no symmetrical, no tonsillar exudates , mucous membranes moist CV: Irregular rate regular rhythm, no murmurs, rubs, or gallops Pulm: Lungs clear to auscultation bilaterally. No wheezes, rhonchi, or rales GI: Soft, nontender, nondistended, bowel sounds present Neuro: CN 2-12 intact bilaterally, no focal signs. Ext: No lower extremity edema bilaterally Skin: no rashes lesions or ulcers Msk: Joints symmetrical in upper extremity and lower extremity bilaterally, no joint swelling. Lymph: No lymphadenopathy in upper extremity and lower extremity Irving Johnson D.O. Jul 22, 2019 17:43
--- NOTE | 2019-07-22 19:28 | NUR ---
HAND-OFF: Report given to Toddu RN.
--- NOTE | 2019-07-22 19:37 | NUR ---
NURSE NOTES: Patient awake and alert, breathing unlabored on room air without distress. Denies pain or discomfort. Eating dinner at this time. Sitting up on a chair, steady. Reminded to use the call light whenever he needs anything. Call light within reach. Bed placed at the lowest with alarm, brake, and siderails up for safety. Will continue to monitor and provide care as ordered. Addendum: 07/22/19 at 1939 by Chauncey Ty RN Sitting up on a bed.
[2019-07-22 20:00] VITALS: BP 144/94
[2019-07-22] MEDS ORDERED: Milk of Magnesia 30ml Ud ORAL PRN (21:00)
[2019-07-22] MEDS ORDERED: Folic Acid 1 MG, Magnesium Sulfate 2,000 MG, Multivitamin - 12 Injection 10 ML in Sodiu... IV SCH (21:00)
--- NOTE | 2019-07-22 21:00 | NUR ---
NURSE NOTES: Risk and benefit explained and educated x 3 but patient continues to refuse keppra. will continue to monitor.
[2019-07-23] VITALS: BP 140/92
[2019-07-23 04:00] VITALS: BP 148/70
--- NOTE | 2019-07-23 07:07 | NUR ---
HAND-OFF: Report given to ENEIDA Bhatia. Plan of care endorsed.
--- NOTE | 2019-07-23 07:08 | NUR ---
NURSE NOTES: Report received from Minsu RN. Patient is awake and alert x 4 sitting at bedside eating breakfast. Was endorsed that patient has a steady gait and is able to ambulate to the bathroom. Patient noted to have 22 uday IV in right forearm and a 22 uday IV in left AC. Both patent and in tact. Patient does not have any complaints at this time. Will continue to follow plan of care.
[2019-07-23 08:00] VITALS: BP 130/76
[2019-07-23] MEDS: Eliquis 5mg tablet ORAL SCH ×3 (09:00→17:13)
[2019-07-23 09:24] LABS: HEMATOCRIT 36.7 % (42.0-52.0); MEAN CORPUSCULAR VOLUME 94 FL (80-99); PLATELET COUNT 86 K/UL (150-450); RED BLOOD COUNT 3.91 M/UL (4.70-6.10); RED CELL DISTRIBUTION WIDTH 14.1 % (11.6-14.8); WHITE BLOOD COUNT 7.1 K/UL (4.8-10.8)
[2019-07-23 09:34] LABS: ANION GAP 10 mmol/L (5-15); BLOOD UREA NITROGEN 5 mg/dL (7-18); CALCIUM 9.3 MG/DL (8.5-10.1); CARBON DIOXIDE 26 MMOL/L (21-32); CHLORIDE 104 MMOL/L (98-107); CREATININE 1.1 MG/DL (0.55-1.30); POTASSIUM 4.3 MMOL/L (3.5-5.1); SODIUM 140 MMOL/L (136-145)
[2019-07-23] MEDS: Metoprolol Tartrate 100mg tab ORAL SCH ×2 (09:53→21:03)
[2019-07-23] MEDS: D5W IVPB SCH (09:55)
[2019-07-23] MEDS: THIAMINE HCL IVPB SCH (09:55)
[2019-07-23 12:00] VITALS: BP 129/82
--- NOTE | 2019-07-23 12:21 | NUR ---
NURSE NOTES: Spoke with Doctor Dasilva regarding patient not taking Keppra. Doctor Dasilva aware. Doctor Dasilva will discuss with Doctor Roberto. No new orders at this time.
--- NOTE | 2019-07-23 13:28 | Cardiac Electrophysiology PN ---
Assessment/Plan Assessment/Plan 1. Atrial fibrillation with RVR due to noncompliance as has not been taking his medication regularly. Ruled out for myocardial infarction. Continue metoprolol 100 bid and Eliquis 5 bid. EF 55-60% 2. History of hypertension. Continue metoprolol 100 mg b.i.d. 3. Heavy alcohol use, on thiamine and folate. 4. Seizures. On Keppra. GABRIELLA RN Subjective Subjective Remained in atrial fib with stable rate off tele. No CP or SOB Objective Last 24 Hour Vital Signs Date Time Temp Pulse Resp B/P (MAP) Pulse Ox O2 Delivery O2 Flow Rate FiO2 07/23/19 12:00 98.2 68 20 129/82 (98) 97 07/23/19 09:53 85 130/76 07/23/19 09:00 Room Air 07/23/19 08:00 97.2 85 20 130/76 (94) 98 07/23/19 04:00 98.3 87 19 148/70 (96) 95 07/23/19 00:00 97.8 73 21 140/92 (108) 96 07/22/19 21:00 Room Air 07/22/19 20:43 64 163/94 07/22/19 20:00 97.6 66 19 144/94 (111) 100 07/22/19 16:00 98.8 65 20 150/88 (108) 99 Intake and Output 07/22/19 07/23/19 19:00 07:00 Intake Total 240 ml Output Total 400 ml 500 ml Balance -160 ml -500 ml Intake Oral 240 ml Output Urine Total 400 ml 500 ml # Voids 1 Laboratory Tests Test 07/23/19 06:32 White Blood Count 7.1 K/UL (4.8-10.8) Red Blood Count 3.91 M/UL (4.70-6.10) L Hemoglobin 12.0 G/DL (14.2-18.0) L Hematocrit 36.7 % (42.0-52.0) L Mean Corpuscular Volume 94 FL (80-99) Mean Corpuscular Hemoglobin 30.8 PG (27.0-31.0) Mean Corpuscular Hemoglobin Concent 32.8 G/DL (32.0-36.0) Red Cell Distribution Width 14.1 % (11.6-14.8) Platelet Count 86 K/UL (150-450) L Mean Platelet Volume 6.4 FL (6.5-10.1) L Neutrophils (%) (Auto) % (45.0-75.0) Lymphocytes (%) (Auto) % (20.0-45.0) Monocytes (%) (Auto) % (1.0-10.0) Eosinophils (%) (Auto) % (0.0-3.0) Basophils (%) (Auto) % (0.0-2.0) Differential Total Cells Counted 100 Neutrophils % (Manual) 59 % (45-75) Lymphocytes % (Manual) 22 % (20-45) Monocytes % (Manual) 11 % (1-10) H Eosinophils % (Manual) 8 % (0-3) H Basophils % (Manual) 0 % (0-2) Band Neutrophils 0 % (0-8) Platelet Estimate Decreased L Platelet Morphology Normal Hypochromasia 1+ Anisocytosis 1+ Sodium Level 140 MMOL/L (136-145) Potassium Level 4.3 MMOL/L (3.5-5.1) Chloride Level 104 MMOL/L (98-107) Carbon Dioxide Level 26 MMOL/L (21-32) Anion Gap 10 mmol/L (5-15) Blood Urea Nitrogen 5 mg/dL (7-18) L Creatinine 1.1 MG/DL (0.55-1.30) Estimat Glomerular Filtration Rate > 60 mL/min (>60) Glucose Level 73 MG/DL (74-106) L Calcium Level 9.3 MG/DL (8.5-10.1) Objective HEAD AND NECK: No JVD. LUNGS: Decreased breath sounds. CARDIOVASCULAR: Irregular S1 and S2 with no gallop or murmur. ABDOMEN: Soft. EXTREMITIES: No pitting edema. Jose Carrasco MD Jul 23, 2019 13:28
[2019-07-23 16:00] VITALS: BP 145/90
--- NOTE | 2019-07-23 16:50 | NUR ---
P.T. NOTES S/P: APPROACHED PATIENT'S ROOM IN THE PM. PATIENT FOUND LYING IN A SEMI-ZAMORA'S POSITION IN BED UPON ARRIVAL. U/A TO WAKE PATIENT UP. PATIENT SOUND ASLEEP. RN AWARE OF PATIENT'S STATUS. WILL F/U NEXT TX.TIME AND CONT WITH P.T. PLAN. RSABADO.
--- NOTE | 2019-07-23 18:21 | General Progress Note ---
Assessment/Plan Assessment/Plan: #Atrial fibrillation with rapid ventricular response likely triggered by alcohol abuse. -Appreciate cardiology consultation: Dr. Carrasco -Continue heparin drip. Cardiology recommending anticoagulation if okay with neurology. Neurology recommending CT head to rule out cranial hemorrhage or subdural hematoma prior to initiating anticoagulation. CT head negative. OK to start A/C per neurology and Cardiology - Continue Eliquis 5mg PO BID. Discussed risks/benefits with patient. All questions answered. - Ok to stop aspirin per Cardiology -Replete mag and phosphorus and potassium -continue lopressor 100mg PO Q12hr -Holding home digoxin -Dilt PRN -Iv hydration - TTE: EF 55-60% - trend troponins #Acute Thrombocytopenia. Suspect medication induced. Continues to drop. Doubt ABE >Downward trend since admission. no signs of bleeding > repeat in citrated tube still low -Heme/onc consult: Dr. Rodney -HIV and Hepatitis Panel negative -Abdominal US to rule out underlying liver disease: negative -continue to trend and monitor for s/s bleeding - venous duplex US bilatearlly: negative - Per Heme/Onc: ok for DVT ppx if platelets >50K with heparin or lovenox, transfuse if plts <20k + Fever, or <10K. 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 #lactic acidosis, suspect 2/2 dehydration and alcohol abuse- resolved - IV fluids as above -No signs or symptoms of infection currently. -Monitor off antibiotics -Continue to trend lactate #Reported history of seizures since 2009. Patient is a poor historian and unclear if this is related to alcohol withdrawal or an underlying seizure disorder. #Alcohol withdrawal seizures -Appreciate psychiatry consult: Dr. Mejia -Neurology consult: Dr. Espinal -Keppra 750 mg p.o. twice daily, however pt has been refusing -Seizure precautions -Avoid alcohol #Alcohol abuse -Social work consult -Banana bag -IV hydration #Hypomagnesemia #hypoklalemia -replete PRN #Anemia of chronic disease No signs of bleeding CTM #suspected pulmonary nodule #Tobacco dependence -CT chest with contrast. D/w radiology: Showed RUL nodule -Needs repeat imaging in 6 to 12 months (around 12/2019 or 07/2020) FENPPX DVTPPX: eliquis Lines: none PT/OT: pending Code status: Full Dispo: Home with home health. Pending stabilization and workup of thrombocytopenia Reason for Continued Hospitalization: Atrial fibrillation with RVR DVT and GI prophylaxis Diet as tolerated 55 minutes spent on this encounter. > 50% spent on counseling and care coordination. Time of note may not reflect time patient was seen. Subjective Constitutional: Denies: no symptoms, chills, diaphoresis, fever, malaise, weakness, other HEENT: Denies: no symptoms, eye pain, blurred vision, tearing, double vision, ear pain, ear discharge, nose pain, nose congestion, throat pain, throat swelling, mouth pain, mouth swelling, other Respiratory: Denies: no symptoms, cough, orthopnea, shortness of breath, SOB with excertion, SOB at rest, sputum, stridor, wheezing, other Gastrointestinal/Abdominal: Denies: no symptoms, abdomen distended, abdominal pain, black stools, tarry stools, blood in stool, constipated, diarrhea, difficulty swallowing, nausea, poor appetite, poor fluid intake, rectal bleeding , vomiting, other Genitourinary: Denies: no symptoms, burning, discharge, frequency, flank pain, hematuria, incontinence, pain, urgency, other Neurologic/Psychiatric: Denies: no symptoms, anxiety, depressed, emotional problems, headache, numbness, paresthesia, pre-existing deficit, seizure, tingling, tremors, weakness, other Endocrine: Denies: no symptoms, excessive sweating, flushing, intolerance to cold, intolerance to heat, increased hunger, increased thirst, increased urine, unexplained weight gain, unexplained weight loss, other Allergies: Coded Allergies: PENICILLIN (Verified Allergy, Severe, 06/19/17) PENICILLINS (Unverified Allergy, Unknown, 07/17/19) Subjective No acute events overnight, pt remains in afib but rate controlled, denies CP, SOB, dizziness at this time. Pt refusing keppra as it makes him "feel weird", no seizure activity noted by nursing. Objective Last 24 Hour Vital Signs Date Time Temp Pulse Resp B/P (MAP) Pulse Ox O2 Delivery O2 Flow Rate FiO2 07/23/19 16:00 97.6 65 20 145/90 (108) 97 07/23/19 12:00 98.2 68 20 129/82 (98) 97 07/23/19 09:53 85 130/76 07/23/19 09:00 Room Air 07/23/19 08:00 97.2 85 20 130/76 (94) 98 07/23/19 04:00 98.3 87 19 148/70 (96) 95 07/23/19 00:00 97.8 73 21 140/92 (108) 96 07/22/19 21:00 Room Air 07/22/19 20:43 64 163/94 07/22/19 20:00 97.6 66 19 144/94 (111) 100 Intake and Output 07/22/19 07/23/19 19:00 07:00 Intake Total 240 ml Output Total 400 ml 500 ml Balance -160 ml -500 ml Intake Oral 240 ml Output Urine Total 400 ml 500 ml # Voids 1 Laboratory Tests 07/23/19 06:32: White Blood Count 7.1, Red Blood Count 3.91L, Hemoglobin 12.0L, Hematocrit 36.7L , Mean Corpuscular Volume 94, Mean Corpuscular Hemoglobin 30.8, Mean Corpuscular Hemoglobin Concent 32.8, Red Cell Distribution Width 14.1, Platelet Count 86L, Mean Platelet Volume 6.4L, Neutrophils (%) (Auto) , Lymphocytes (%) ( Auto) , Monocytes (%) (Auto) , Eosinophils (%) (Auto) , Basophils (%) (Auto) , Differential Total Cells Counted 100, Neutrophils % (Manual) 59, Lymphocytes % ( Manual) 22, Monocytes % (Manual) 11H, Eosinophils % (Manual) 8H, Basophils % ( Manual) 0, Band Neutrophils 0, Platelet Estimate DecreasedL, Platelet Morphology Normal, Hypochromasia 1+, Anisocytosis 1+, Sodium Level 140, Potassium Level 4.3, Chloride Level 104, Carbon Dioxide Level 26, Anion Gap 10, Blood Urea Nitrogen 5L, Creatinine 1.1, Estimat Glomerular Filtration Rate > 60 , Glucose Level 73L, Calcium Level 9.3 Height (Feet): 5 Height (Inches): 8.00 Weight (Pounds): 135 Objective General: WDWN male in NAD, A&O x 4 HEENT: Normocephalic. Cephalic atraumatic, pupils equal round reactive to light and accommodation, nares patent and no symmetrical, no tonsillar exudates , mucous membranes moist CV: Irregular rate regular rhythm, no murmurs, rubs, or gallops Pulm: Lungs clear to auscultation bilaterally. No wheezes, rhonchi, or rales GI: Soft, nontender, nondistended, bowel sounds present Neuro: CN 2-12 intact bilaterally, no focal signs. Ext: No lower extremity edema bilaterally Skin: no rashes lesions or ulcers Msk: Joints symmetrical in upper extremity and lower extremity bilaterally, no joint swelling. Lymph: No lymphadenopathy in upper extremity and lower extremity Car Dasilva M.D. Jul 23, 2019 18:21
--- NOTE | 2019-07-23 19:29 | NUR ---
HAND-OFF: Report given to Devika MONIQUE. Patient in stable condition.
--- NOTE | 2019-07-23 19:39 | NUR ---
NURSE NOTES: Received patient in bed, awake, alert, oriented x 4, able to verbalize his needs, IV sites are clean dry and intact, call light is within reach, bed is lowered, locked and alarm is on, will continue to monitor for comfort and safety.
[2019-07-23 20:00] VITALS: BP 127/77
[2019-07-24] VITALS: BP 128/87
--- NOTE | 2019-07-24 01:52 | Progress Note ---
DATE: 07/23/2019 SUBJECTIVE: The patient is doing well, no behavior issues noted, has depressed mood, anhedonia, worthlessness, hopelessness, decreased energy, compliant with medication. MENTAL STATUS EXAMINATION: The patient is alert and oriented times self, place, situation. Mood is depressed. Affect is constricted. Congruent with mood. Thought process is linear and goal oriented. Thought content, no suicidal or homicidal ideation. ASSESSMENT: Stable. PLAN: We will continue current medications. Melchor Mejia M.D. DR: Neptali JOB#: [id number] CC:
[2019-07-24 04:00] VITALS: BP 150/74
--- NOTE | 2019-07-24 07:15 | NUR ---
HAND-OFF: Report given to Delfino MONIQUE.
--- NOTE | 2019-07-24 07:39 | NUR ---
NURSE NOTES: received report from ENEIDA Fortune. patient in bed.sleeping. no respiratory distress noted. no facial grimacing. IV on LAC 22 sline martha. RFA 22g saline lock intact. bed in the lowest position and locked. call light within reach. will provide plan of care.
[2019-07-24 08:00] VITALS: BP 129/84
--- NOTE | 2019-07-24 08:43 | Hematology/Onc Progress Note ---
Assessment/Plan Assessment/Plan Assessment/Recs # Thrombocytopenia - potential causes multifactorial, in this case very likely is related to etoh cirrhosis and hsm --> will need a us to confirm also heparin gtt has been discontinued --> Hep panel and HIV ordered ==> NEG --> US abd to evaluate for cirrhosis and hsm ordered --> doesn't show cirrhosis --> Peripheral smear ordered to evaluate for blasts /schistocytes -> none noted --> abx and other meds have been reviewed --> ok for ppx if plt >50k w/ either heparin or lovenox --> Transfuse if Plt < 20k and fever, or if Plt < 10k without fever --> plt trend 140-->106-->89-->86 # Hypercoagulable disorder -- atrial fibrillation with rapid ventricular response likely triggered by alcohol abuse. --> Appreciate cardiology consultation: Dr. Carrasco --> before on heparin gtt --> cardiology recommending anticoagulation if okay with neurology. Neurology recommending CT head negative. OK to start A/C per neurology and Cardiology --> Continue Eliquis 5mg PO BID. D continueiscussed risks/benefits with patient. All questions answered. 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 Agreeable to SNF. # Lactic acidosis, suspect 2/2 dehydration and alcohol abuse- resolved --> IV fluids as above --> abx as needed # Dvt ppx eliquis Appreciate consultation and que RN Subjective Constitutional: Denies: no symptoms, chills, fever, malaise, weakness, other HEENT: Denies: no symptoms, eye pain, blurred vision, tearing, double vision, ear pain, ear discharge, nose pain, nose congestion, throat pain, throat swelling, mouth pain, mouth swelling, other Cardiovascular: Denies: no symptoms, chest pain, edema, irregular heart rate, lightheadedness, palpitations, syncope, other Respiratory: Denies: no symptoms, cough, shortness of breath, SOB with excertion, SOB at rest, sputum, wheezing, other Neurologic/Psychiatric: Denies: no symptoms, anxiety, depressed, emotional problems, headache, numbness, paresthesia, pre-existing deficit, seizure, tingling, tremors, weakness, other Endocrine: Denies: no symptoms, excessive sweating, flushing, intolerance to cold, intolerance to heat, increased hunger, increased thirst, increased urine, unexplained weight gain, unexplained weight loss, other Allergies: Coded Allergies: PENICILLIN (Verified Allergy, Severe, 06/19/17) PENICILLINS (Unverified Allergy, Unknown, 07/17/19) Subjective 07/22: no bleeding, labs noted, plts lower, dw pcp, seen by cards 07/24: labs reviewed, plts remains low, no bleeding or chills, que Mejia Objective Objective Current Medications Medications (Trade) Dose Ordered Sig/Yara Route PRN Reason Start Time Stop Time Status Last Admin Dose Admin Acetaminophen (Tylenol) 650 mg Q4H PRN ORAL Mild Pain (Pain Scale 1-3) 07/22/19 13:30 08/16/19 13:29 07/23/19 17:13 Apixaban (Eliquis) 5 mg BID ORAL 07/22/19 18:00 08/19/19 20:59 Dextrose (Dextrose 50%) 25 ml Q30M PRN IV Hypoglycemia 07/22/19 13:30 08/16/19 13:29 Dextrose (Dextrose 50%) 50 ml Q30M PRN IV Hypoglycemia 07/22/19 13:30 08/16/19 13:29 Diphenhydramine HCl (Benadryl) 25 mg Q6H PRN ORAL Itching/Pruritis 07/22/19 13:30 08/16/19 13:29 Escitalopram Oxalate (Lexapro) 10 mg DAILY ORAL 07/23/19 09:00 08/19/19 08:59 07/23/19 09:55 Famotidine (Pepcid) 20 mg BID ORAL 07/22/19 18:00 08/17/19 08:59 07/23/19 17:13 Levetiracetam (Keppra) 750 mg Q12HR ORAL 07/22/19 13:30 08/17/19 13:29 Lorazepam (Ativan) 2 mg Q6H PRN ORAL For Anxiety 07/22/19 13:30 07/25/19 13:29 07/22/19 14:28 Magnesium Hydroxide (Mom) 30 ml HSPRN PRN ORAL Constipation 07/22/19 21:00 08/16/19 20:59 Metoprolol Tartrate (Lopressor) 100 mg EVERY 12 HOURS ORAL 07/22/19 21:00 08/17/19 20:59 07/23/19 21:03 Nitroglycerin (Ntg) 0.4 mg Q5M PRN SL Prn Chest Pain 07/22/19 13:30 08/16/19 13:29 Ondansetron HCl (Zofran) 4 mg Q6H PRN IVP Nausea & Vomiting 07/22/19 13:30 08/16/19 13:29 Temazepam (RestoriL) 7.5 mg HSPRN PRN ORAL Insomnia 07/22/19 21:00 07/29/19 20:59 Thiamine HCl 250 mg/Dextrose 112.5 ml @ 225 mls/hr Q24H IVPB 07/23/19 09:00 08/21/19 08:59 07/23/19 09:55 Last 24 Hour Vital Signs Date Time Temp Pulse Resp B/P (MAP) Pulse Ox O2 Delivery O2 Flow Rate FiO2 07/24/19 04:00 97.4 87 18 150/74 (99) 98 07/24/19 00:00 97.8 79 18 128/87 (101) 97 79 07/23/19 21:55 Room Air 07/23/19 21:03 78 127/78 07/23/19 20:00 98.7 78 20 127/77 (94) 98 78 07/23/19 16:00 97.6 65 20 145/90 (108) 97 07/23/19 12:00 98.2 68 20 129/82 (98) 97 07/23/19 09:53 85 130/76 2/22/20 09:00 Room Air 07/23/19 08:00 97.2 85 20 130/76 (94) 98 07/23/19 04:00 98.3 87 19 148/70 (96) 95 07/23/19 00:00 97.8 73 21 140/92 (108) 96 07/22/19 21:00 Room Air 07/22/19 20:43 64 163/94 07/22/19 20:00 97.6 66 19 144/94 (111) 100 07/22/19 16:00 98.8 65 20 150/88 (108) 99 07/22/19 12:00 97.1 69 20 118/55 (76) 100 07/22/19 09:25 60 135/89 07/22/19 09:00 Room Air Intake and Output 07/23/19 07/24/19 19:00 07:00 Intake Total 592.5 ml Output Total 900 ml Balance -307.5 ml Intake Oral 480 ml IV Total 112.5 ml Output Urine Total 900 ml Labs Test 07/21/19 10:00 07/22/19 05:29 07/23/19 06:32 White Blood Count 7.4 K/UL (4.8-10.8) 7.4 K/UL (4.8-10.8) 7.1 K/UL (4.8-10.8) Red Blood Count 3.84 M/UL (4.70-6.10) 3.94 M/UL (4.70-6.10) 3.91 M/UL (4.70-6.10) Hemoglobin 11.9 G/DL (14.2-18.0) 12.2 G/DL (14.2-18.0) 12.0 G/DL (14.2-18.0) Hematocrit 35.9 % (42.0-52.0) 36.6 % (42.0-52.0) 36.7 % (42.0-52.0) Mean Corpuscular Volume 93 FL (80-99) 93 FL (80-99) 94 FL (80-99) Mean Corpuscular Hemoglobin 31.1 PG (27.0-31.0) 30.9 PG (27.0-31.0) 30.8 PG (27.0-31.0) Mean Corpuscular Hemoglobin Concent 33.3 G/DL (32.0-36.0) 33.3 G/DL (32.0-36.0) 32.8 G/DL (32.0-36.0) Red Cell Distribution Width 13.9 % (11.6-14.8) 13.7 % (11.6-14.8) 14.1 % (11.6-14.8) Platelet Count 99 K/UL (150-450) 89 K/UL (150-450) 86 K/UL (150-450) Mean Platelet Volume 7.5 FL (6.5-10.1) 7.2 FL (6.5-10.1) 6.4 FL (6.5-10.1) Neutrophils (%) (Auto) % (45.0-75.0) % (45.0-75.0) % (45.0-75.0) Lymphocytes (%) (Auto) % (20.0-45.0) % (20.0-45.0) % (20.0-45.0) Monocytes (%) (Auto) % (1.0-10.0) % (1.0-10.0) % (1.0-10.0) Eosinophils (%) (Auto) % (0.0-3.0) % (0.0-3.0) % (0.0-3.0) Basophils (%) (Auto) % (0.0-2.0) % (0.0-2.0) % (0.0-2.0) Differential Total Cells Counted 100 100 100 Neutrophils % (Manual) 75 % (45-75) 74 % (45-75) 59 % (45-75) Lymphocytes % (Manual) 16 % (20-45) 16 % (20-45) 22 % (20-45) Monocytes % (Manual) 7 % (1-10) 6 % (1-10) 11 % (1-10) Eosinophils % (Manual) 2 % (0-3) 4 % (0-3) 8 % (0-3) Basophils % (Manual) 0 % (0-2) 0 % (0-2) 0 % (0-2) Band Neutrophils 0 % (0-8) 0 % (0-8) 0 % (0-8) Platelet Estimate Decreased Decreased Decreased Platelet Morphology Normal Normal Normal Red Blood Cell Morphology Normal Normal Sodium Level 140 MMOL/L (136-145) 140 MMOL/L (136-145) Potassium Level 3.7 MMOL/L (3.5-5.1) 4.3 MMOL/L (3.5-5.1) Chloride Level 107 MMOL/L (98-107) 104 MMOL/L (98-107) Carbon Dioxide Level 19 MMOL/L (21-32) 26 MMOL/L (21-32) Anion Gap 14 mmol/L (5-15) 10 mmol/L (5-15) Blood Urea Nitrogen 5 mg/dL (7-18) 5 mg/dL (7-18) Creatinine 1.1 MG/DL (0.55-1.30) 1.1 MG/DL (0.55-1.30) Estimat Glomerular Filtration Rate > 60 mL/min (>60) > 60 mL/min (>60) Glucose Level 79 MG/DL (74-106) 73 MG/DL (74-106) Calcium Level 9.0 MG/DL (8.5-10.1) 9.3 MG/DL (8.5-10.1) Phosphorus Level 2.7 MG/DL (2.5-4.9) Magnesium Level 1.9 MG/DL (1.8-2.4) Hypochromasia 1+ Anisocytosis 1+ Height (Feet): 5 Height (Inches): 8.00 Weight (Pounds): 135 Objective Physical Exam General appearance: Patient is emotional and crying Head: Normocephalic, without obvious abnormality, atraumatic Eyes: conjunctivae/corneas clear. PERRL, EOM's intact. Fundi benign Throat: Lips, mucosa, and tongue normal. Teeth and gums normal Neck: supple, symmetrical, trachea midline, no adenopathy, thyroid Lungs: clear to auscultation bilaterally Heart: Currently in atrial fibrillation with rapid ventricular response Abdomen: soft, non-tender. Bowel sounds normal. No masses, no organomegaly Extremities: extremities normal, atraumatic, no cyanosis or edema Pulses: 2+ and symmetric Skin: Skin color, texture, turgor normal. No rashes or lesions Neurologic: Grossly normal, intoxicated Eulalio Rodney MD Jul 24, 2019 08:43
[2019-07-24] MEDS: Metoprolol Tartrate 100mg tab ORAL SCH ×2 (08:45→20:22)
[2019-07-24] MEDS: Eliquis 5mg tablet ORAL SCH ×2 (08:50→17:04)
--- NOTE | 2019-07-24 09:00 | NUR ---
NURSE NOTES: Held andres d/t low Plt 86, held dane d/t patient refused. explained risks and benefits. patient said that the keppra makes him feel sick. MD is aware.
[2019-07-24] MEDS: THIAMINE HCL IVPB SCH (09:51)
[2019-07-24] MEDS: D5W IVPB SCH (09:51)
[2019-07-24 12:00] VITALS: BP 146/84
--- NOTE | 2019-07-24 15:27 | General Progress Note ---
Assessment/Plan Assessment/Plan: #Atrial fibrillation with rapid ventricular response likely triggered by alcohol abuse - improved -CT head negative for cranial hemorrhage or subdural hematoma -OK to start A/C per neurology and Cardiology - Continue Eliquis 5mg PO BID. Discussed risks/benefits with patient. All questions answered. - Ok to stop aspirin per Cardiology -continue lopressor 100mg PO Q12hr -Holding home digoxin -Dilt PRN - TTE: EF 55-60% -Appreciate cardiology consultation: Dr. Carrasco #Acute Thrombocytopenia. Suspect medication induced. Continues to drop. Doubt ABE >Downward trend since admission. no signs of bleeding > repeat in citrated tube still low -Heme/onc consult: Dr. Rodney -HIV and Hepatitis Panel negative -Abdominal US to rule out underlying liver disease: negative -continue to trend and monitor for s/s bleeding - venous duplex US bilatearlly: negative - Per Heme/Onc: ok for DVT ppx if platelets >50K with heparin or lovenox, transfuse if plts <20k + Fever, or <10K. 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 #lactic acidosis, suspect 2/2 dehydration and alcohol abuse- resolved -Monitor off antibiotics #Reported history of seizures since 2009. Patient is a poor historian and unclear if this is related to alcohol withdrawal or an underlying seizure disorder. #Alcohol withdrawal seizures -Appreciate psychiatry consult: Dr. Mejia -Neurology consult: Dr. Espinal -Keppra 750 mg p.o. twice daily, however pt has been refusing -Seizure precautions -Avoid alcohol -had d/w Dr. Espinal, pt refuses to take keppra and unsure if seizures are 2/2 ETOH w/drawl. [facility] as [facility]/p for seizure medications #Alcohol abuse -Social work consult -Banana bag -IV hydration #Hypomagnesemia #hypoklalemia -replete PRN #Anemia of chronic disease No signs of bleeding CTM #suspected pulmonary nodule #Tobacco dependence -CT chest with contrast. D/w radiology: Showed RUL nodule -Needs repeat imaging in 6 to 12 months (around 12/2019 or 07/2020) FENPPX DVTPPX: eliquis Lines: none PT/OT: pending Code status: Full Dispo: Home with home health. Pending stabilization and workup of thrombocytopenia Reason for Continued Hospitalization: Atrial fibrillation with RVR DVT and GI prophylaxis Diet as tolerated 45 minutes spent on this encounter. > 50% spent on counseling and care coordination. Time of note may not reflect time patient was seen. Subjective Constitutional: Denies: no symptoms, chills, diaphoresis, fever, malaise, weakness, other HEENT: Denies: no symptoms, eye pain, blurred vision, tearing, double vision, ear pain, ear discharge, nose pain, nose congestion, throat pain, throat swelling, mouth pain, mouth swelling, other Cardiovascular: Denies: no symptoms, chest pain, edema, irregular heart rate, lightheadedness, palpitations, syncope, other Respiratory: Denies: no symptoms, cough, orthopnea, shortness of breath, SOB with excertion, SOB at rest, sputum, stridor, wheezing, other Gastrointestinal/Abdominal: Denies: no symptoms, abdomen distended, abdominal pain, black stools, tarry stools, blood in stool, constipated, diarrhea, difficulty swallowing, nausea, poor appetite, poor fluid intake, rectal bleeding , vomiting, other Genitourinary: Denies: no symptoms, burning, discharge, frequency, flank pain, hematuria, incontinence, pain, urgency, other Neurologic/Psychiatric: Denies: no symptoms, anxiety, depressed, emotional problems, headache, numbness, paresthesia, pre-existing deficit, seizure, tingling, tremors, weakness, other Endocrine: Denies: no symptoms, excessive sweating, flushing, intolerance to cold, intolerance to heat, increased hunger, increased thirst, increased urine, unexplained weight gain, unexplained weight loss, other Hematologic/Lymphatic: Denies: no symptoms, anemia, easy bleeding, easy bruising, other Allergies: Coded Allergies: PENICILLIN (Verified Allergy, Severe, 06/19/17) PENICILLINS (Unverified Allergy, Unknown, 07/17/19) Subjective No acute events overnight, denies CP, SOB, dizziness at this time. Pt cont. to refuse keppra as it causes a "mood disorder", no seizure activity noted by nursing. Objective Last 24 Hour Vital Signs Date Time Temp Pulse Resp B/P (MAP) Pulse Ox O2 Delivery O2 Flow Rate FiO2 07/24/19 12:00 98.2 64 18 146/84 (104) 98 07/24/19 09:00 Room Air 07/24/19 08:45 75 129/84 07/24/19 08:00 98.4 75 18 129/84 (99) 100 07/24/19 04:00 97.4 87 18 150/74 (99) 98 07/24/19 00:00 97.8 79 18 128/87 (101) 97 79 07/23/19 21:55 Room Air 07/23/19 21:03 78 127/78 07/23/19 20:00 98.7 78 20 127/77 (94) 98 78 07/23/19 16:00 97.6 65 20 145/90 (108) 97 Intake and Output 07/23/19 07/24/19 19:00 07:00 Intake Total 592.5 ml Output Total 900 ml Balance -307.5 ml Intake Oral 480 ml IV Total 112.5 ml Output Urine Total 900 ml Height (Feet): 5 Height (Inches): 8.00 Weight (Pounds): 135 Objective General: WDWN male in NAD, A&O x 4 HEENT: Normocephalic. Cephalic atraumatic, pupils equal round reactive to light and accommodation, nares patent and no symmetrical, no tonsillar exudates , mucous membranes moist CV: Irregular rate regular rhythm, no murmurs, rubs, or gallops Pulm: Lungs clear to auscultation bilaterally. No wheezes, rhonchi, or rales GI: Soft, nontender, nondistended, bowel sounds present Neuro: CN 2-12 intact bilaterally, no focal signs. Ext: No lower extremity edema bilaterally Skin: no rashes lesions or ulcers Msk: Joints symmetrical in upper extremity and lower extremity bilaterally, no joint swelling. Lymph: No lymphadenopathy in upper extremity and lower extremity Car Dasilva M.D. Jul 24, 2019 15:27
[2019-07-24 16:00] VITALS: BP 136/77
--- NOTE | 2019-07-24 19:26 | NUR ---
HAND-OFF: Report given to ENEIDA mcghee.
--- NOTE | 2019-07-24 19:30 | NUR ---
NURSE NOTES: received report from ENEIDA Saleh. patient in bed.sleeping. no respiratory distress noted. no facial grimacing. IV's both occluded, will reinsert. bed in the lowest position and locked. call light within reach. will provide plan of care.
[2019-07-24 20:08] VITALS: BP 137/90
[2019-07-24] MEDS: LORazepam 1mg tab ORAL PRN (20:26)
[2019-07-25] VITALS: BP 145/92
[2019-07-25 04:00] VITALS: BP 129/87
[2019-07-25 06:31] LABS: BASOPHILS % (AUTO) 1.3 % (0.0-2.0); EOSINOPHILS % (AUTO) 5.3 % (0.0-3.0); HEMATOCRIT 37.3 % (42.0-52.0); HEMOGLOBIN 12.3 G/DL (14.2-18.0); LYMPHOCYTES % (AUTO) 26.5 % (20.0-45.0); MEAN CORPUSCULAR VOLUME 92 FL (80-99); MONOCYTES % (AUTO) 17.4 % (1.0-10.0); NEUTROPHILS % (AUTO) 49.5 % (45.0-75.0); PLATELET COUNT 139 K/UL (150-450); RED BLOOD COUNT 4.04 M/UL (4.70-6.10); WHITE BLOOD COUNT 5.5 K/UL (4.8-10.8)
--- NOTE | 2019-07-25 07:10 | NUR ---
nurse notes received patient resting comfortably in bed , patient awake alert , oriented x4,no sign of distress,denies pain or discomfort, HL patent , on fall precaution, plan of care was discussed verbalized understanding 4 P's in progress call light w/n reach , will continue to monitor patient condition noel mariano
[2019-07-25 08:00] VITALS: BP 129/77
--- NOTE | 2019-07-25 08:02 | NUR ---
HAND-OFF: Report given to Janett MONIQUE
[2019-07-25] MEDS: D5W IVPB SCH (08:54)
[2019-07-25] MEDS: THIAMINE HCL IVPB SCH (08:54)
[2019-07-25] MEDS: Metoprolol Tartrate 100mg tab ORAL SCH ×2 (08:55→21:12)
[2019-07-25] MEDS: Eliquis 5mg tablet ORAL SCH ×2 (08:56→17:27)
--- NOTE | 2019-07-25 09:42 | Hematology/Onc Progress Note ---
Assessment/Plan Assessment/Plan Assessment/Recs # Thrombocytopenia - potential causes multifactorial, in this case very likely is related to etoh cirrhosis and hsm --> will need a us to confirm also heparin gtt has been discontinued --> Hep panel and HIV ordered ==> NEG --> US abd to evaluate for cirrhosis and hsm ordered --> doesn't show cirrhosis --> Peripheral smear ordered to evaluate for blasts /schistocytes -> none noted --> abx and other meds have been reviewed --> ok for ppx if plt >50k w/ either heparin or lovenox --> Transfuse if Plt < 20k and fever, or if Plt < 10k without fever --> plt trend 140-->106-->89-->86 # Hypercoagulable disorder -- atrial fibrillation with rapid ventricular response likely triggered by alcohol abuse. --> Appreciate cardiology consultation: Dr. Carrasco --> before on heparin gtt --> cardiology recommending anticoagulation if okay with neurology. Neurology recommending CT head negative. OK to start A/C per neurology and Cardiology --> Continue Eliquis 5mg PO BID. D continueiscussed risks/benefits with patient. All questions answered. 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 Agreeable to SNF. # Lactic acidosis, suspect 2/2 dehydration and alcohol abuse- resolved --> IV fluids as above --> abx as needed # Dvt ppx eliquis po bid Appreciate consultation and que RN Subjective HEENT: Denies: no symptoms, eye pain, blurred vision, tearing, double vision, ear pain, ear discharge, nose pain, nose congestion, throat pain, throat swelling, mouth pain, mouth swelling, other Cardiovascular: Denies: no symptoms, chest pain, edema, irregular heart rate, lightheadedness, palpitations, syncope, other Gastrointestinal/Abdominal: Denies: no symptoms, abdomen distended, abdominal pain, black stools, tarry stools, blood in stool, constipated, diarrhea, difficulty swallowing, nausea, poor appetite, poor fluid intake, rectal bleeding , vomiting, other Genitourinary: Denies: no symptoms, burning, discharge, frequency, flank pain, hematuria, incontinence, pain, urgency, other Neurologic/Psychiatric: Denies: no symptoms, anxiety, depressed, emotional problems, headache, numbness, paresthesia, pre-existing deficit, seizure, tingling, tremors, weakness, other Endocrine: Denies: no symptoms, excessive sweating, flushing, intolerance to cold, intolerance to heat, increased hunger, increased thirst, increased urine, unexplained weight gain, unexplained weight loss, other Hematologic/Lymphatic: Denies: no symptoms, anemia, easy bleeding, easy bruising, adenopathy, other Allergies: Coded Allergies: PENICILLIN (Verified Allergy, Severe, 06/19/17) PENICILLINS (Unverified Allergy, Unknown, 07/17/19) Subjective 07/22: no bleeding, labs noted, plts lower, dw pcp, seen by cards 07/24: labs reviewed, plts remains low, no bleeding or chills, que Mejia 07/25: labs noted, no night sweats, plt is better, on dvt ppx Objective Objective Current Medications Medications (Trade) Dose Ordered Sig/Yara Route PRN Reason Start Time Stop Time Status Last Admin Dose Admin Acetaminophen (Tylenol) 650 mg Q4H PRN ORAL Mild Pain (Pain Scale 1-3) 07/22/19 13:30 08/16/19 13:29 07/24/19 20:26 Apixaban (Eliquis) 5 mg BID ORAL 07/22/19 18:00 08/19/19 20:59 Dextrose (Dextrose 50%) 25 ml Q30M PRN IV Hypoglycemia 07/22/19 13:30 08/16/19 13:29 Dextrose (Dextrose 50%) 50 ml Q30M PRN IV Hypoglycemia 07/22/19 13:30 08/16/19 13:29 Diphenhydramine HCl (Benadryl) 25 mg Q6H PRN ORAL Itching/Pruritis 07/22/19 13:30 08/16/19 13:29 Escitalopram Oxalate (Lexapro) 10 mg DAILY ORAL 07/23/19 09:00 08/19/19 08:59 07/25/19 08:54 Famotidine (Pepcid) 20 mg BID ORAL 07/22/19 18:00 08/17/19 08:59 07/24/19 17:04 Levetiracetam (Keppra) 750 mg Q12HR ORAL 07/22/19 13:30 08/17/19 13:29 Lorazepam (Ativan) 2 mg Q6H PRN ORAL For Anxiety 07/22/19 13:30 07/25/19 13:29 07/24/19 20:26 Magnesium Hydroxide (Mom) 30 ml HSPRN PRN ORAL Constipation 07/22/19 21:00 08/16/19 20:59 Metoprolol Tartrate (Lopressor) 100 mg EVERY 12 HOURS ORAL 07/22/19 21:00 08/17/19 20:59 07/25/19 08:55 Nitroglycerin (Ntg) 0.4 mg Q5M PRN SL Prn Chest Pain 07/22/19 13:30 08/16/19 13:29 Ondansetron HCl (Zofran) 4 mg Q6H PRN IVP Nausea & Vomiting 07/22/19 13:30 08/16/19 13:29 Temazepam (RestoriL) 7.5 mg HSPRN PRN ORAL Insomnia 07/22/19 21:00 07/29/19 20:59 07/24/19 20:27 Thiamine HCl 250 mg/Dextrose 112.5 ml @ 225 mls/hr Q24H IVPB 07/23/19 09:00 08/21/19 08:59 07/25/19 08:54 Last 24 Hour Vital Signs Date Time Temp Pulse Resp B/P (MAP) Pulse Ox O2 Delivery O2 Flow Rate FiO2 07/25/19 09:00 Room Air 07/25/19 08:55 78 129/87 07/25/19 08:00 98.5 76 18 129/77 (94) 99 07/25/19 04:00 98.0 78 20 129/87 (101) 100 07/25/19 00:00 98.1 68 20 145/92 (109) 98 07/24/19 21:00 Room Air 07/24/19 20:22 74 137/90 07/24/19 20:08 99.0 69 20 137/90 (106) 98 07/24/19 16:00 98.1 80 18 136/77 (96) 99 07/24/19 12:00 98.2 64 18 146/84 (104) 98 07/24/19 09:00 Room Air 07/24/19 08:45 75 129/84 07/24/19 08:00 98.4 75 18 129/84 (99) 100 07/24/19 04:00 97.4 87 18 150/74 (99) 98 07/24/19 00:00 97.8 79 18 128/87 (101) 97 79 07/23/19 21:55 Room Air 07/23/19 21:03 78 127/78 07/23/19 20:00 98.7 78 20 127/77 (94) 98 78 07/23/19 16:00 97.6 65 20 145/90 (108) 97 07/23/19 12:00 98.2 68 20 129/82 (98) 97 07/23/19 09:53 85 130/76 Intake and Output 07/24/19 07/25/19 19:00 07:00 Intake Total 600 ml Output Total 400 ml 400 ml Balance 200 ml -400 ml Intake Oral 600 ml Output Urine Total 400 ml 400 ml Labs Test 07/23/19 06:32 07/25/19 05:32 White Blood Count 7.1 K/UL (4.8-10.8) 5.5 K/UL (4.8-10.8) Red Blood Count 3.91 M/UL (4.70-6.10) 4.04 M/UL (4.70-6.10) Hemoglobin 12.0 G/DL (14.2-18.0) 12.3 G/DL (14.2-18.0) Hematocrit 36.7 % (42.0-52.0) 37.3 % (42.0-52.0) Mean Corpuscular Volume 94 FL (80-99) 92 FL (80-99) Mean Corpuscular Hemoglobin 30.8 PG (27.0-31.0) 30.5 PG (27.0-31.0) Mean Corpuscular Hemoglobin Concent 32.8 G/DL (32.0-36.0) 33.1 G/DL (32.0-36.0) Red Cell Distribution Width 14.1 % (11.6-14.8) 14.0 % (11.6-14.8) Platelet Count 86 K/UL (150-450) 139 K/UL (150-450) Mean Platelet Volume 6.4 FL (6.5-10.1) 5.9 FL (6.5-10.1) Neutrophils (%) (Auto) % (45.0-75.0) 49.5 % (45.0-75.0) Lymphocytes (%) (Auto) % (20.0-45.0) 26.5 % (20.0-45.0) Monocytes (%) (Auto) % (1.0-10.0) 17.4 % (1.0-10.0) Eosinophils (%) (Auto) % (0.0-3.0) 5.3 % (0.0-3.0) Basophils (%) (Auto) % (0.0-2.0) 1.3 % (0.0-2.0) Differential Total Cells Counted 100 Neutrophils % (Manual) 59 % (45-75) Lymphocytes % (Manual) 22 % (20-45) Monocytes % (Manual) 11 % (1-10) Eosinophils % (Manual) 8 % (0-3) Basophils % (Manual) 0 % (0-2) Band Neutrophils 0 % (0-8) Platelet Estimate Decreased Platelet Morphology Normal Hypochromasia 1+ Anisocytosis 1+ Sodium Level 140 MMOL/L (136-145) Potassium Level 4.3 MMOL/L (3.5-5.1) Chloride Level 104 MMOL/L (98-107) Carbon Dioxide Level 26 MMOL/L (21-32) Anion Gap 10 mmol/L (5-15) Blood Urea Nitrogen 5 mg/dL (7-18) Creatinine 1.1 MG/DL (0.55-1.30) Estimat Glomerular Filtration Rate > 60 mL/min (>60) Glucose Level 73 MG/DL (74-106) Calcium Level 9.3 MG/DL (8.5-10.1) Height (Feet): 5 Height (Inches): 8.00 Weight (Pounds): 135 Objective Physical Exam General appearance: Patient is emotional and crying Head: Normocephalic, without obvious abnormality, atraumatic Eyes: conjunctivae/corneas clear. PERRL, EOM's intact. Fundi benign Throat: Lips, mucosa, and tongue normal. Teeth and gums normal Neck: supple, symmetrical, trachea midline, no adenopathy, thyroid Lungs: clear to auscultation bilaterally Heart: Currently in atrial fibrillation with rapid ventricular response Abdomen: soft, non-tender. Bowel sounds normal. No masses, no organomegaly Extremities: extremities normal, atraumatic, no cyanosis or edema Pulses: 2+ and symmetric Skin: Skin color, texture, turgor normal. No rashes or lesions Neurologic: Grossly normal, intoxicated Eulalio Rodney MD Jul 25, 2019 09:42
--- NOTE | 2019-07-25 10:29 | Cardiac Electrophysiology PN ---
Assessment/Plan Assessment/Plan 1. Atrial fibrillation with RVR due to noncompliance as has not been taking his medication regularly. Ruled out for myocardial infarction. Continue metoprolol 100 bid and Eliquis 5 bid. EF 55-60% 2. History of hypertension. Continue metoprolol 100 mg b.i.d. 3. Heavy alcohol use, on thiamine and folate. 4. Seizures. On Keppra. 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 No CP or SOB Objective Last 24 Hour Vital Signs Date Time Temp Pulse Resp B/P (MAP) Pulse Ox O2 Delivery O2 Flow Rate FiO2 07/25/19 09:00 Room Air 07/25/19 08:55 78 129/87 07/25/19 08:00 98.5 76 18 129/77 (94) 99 07/25/19 04:00 98.0 78 20 129/87 (101) 100 07/25/19 00:00 98.1 68 20 145/92 (109) 98 07/24/19 21:00 Room Air 07/24/19 20:22 74 137/90 07/24/19 20:08 99.0 69 20 137/90 (106) 98 07/24/19 16:00 98.1 80 18 136/77 (96) 99 07/24/19 12:00 98.2 64 18 146/84 (104) 98 Intake and Output 07/24/19 07/25/19 19:00 07:00 Intake Total 600 ml Output Total 400 ml 400 ml Balance 200 ml -400 ml Intake Oral 600 ml Output Urine Total 400 ml 400 ml Laboratory Tests Test 07/25/19 05:32 White Blood Count 5.5 K/UL (4.8-10.8) Red Blood Count 4.04 M/UL (4.70-6.10) L Hemoglobin 12.3 G/DL (14.2-18.0) L Hematocrit 37.3 % (42.0-52.0) L Mean Corpuscular Volume 92 FL (80-99) Mean Corpuscular Hemoglobin 30.5 PG (27.0-31.0) Mean Corpuscular Hemoglobin Concent 33.1 G/DL (32.0-36.0) Red Cell Distribution Width 14.0 % (11.6-14.8) Platelet Count 139 K/UL (150-450) L Mean Platelet Volume 5.9 FL (6.5-10.1) L Neutrophils (%) (Auto) 49.5 % (45.0-75.0) Lymphocytes (%) (Auto) 26.5 % (20.0-45.0) Monocytes (%) (Auto) 17.4 % (1.0-10.0) H Eosinophils (%) (Auto) 5.3 % (0.0-3.0) H Basophils (%) (Auto) 1.3 % (0.0-2.0) Objective HEAD AND NECK: No JVD. LUNGS: Decreased breath sounds. CARDIOVASCULAR: Irregular S1 and S2 with no gallop or murmur. ABDOMEN: Soft. EXTREMITIES: No pitting edema. Jose Carrasco MD Jul 25, 2019 10:29
[2019-07-25 11:58] VITALS: BP 113/66
--- NOTE | 2019-07-25 13:03 | General Progress Note ---
Assessment/Plan Assessment/Plan: #Atrial fibrillation with rapid ventricular response likely triggered by alcohol abuse - improved -CT head negative for cranial hemorrhage or subdural hematoma -Continue Eliquis -Ok to stop aspirin per Cardiology -continue lopressor 100mg PO Q12hr -Holding home digoxin -Dilt PRN -TTE: EF 55-60% -Appreciate cardiology consultation: Dr. Carrasco #Acute Thrombocytopenia. Suspect medication induced. Continues to drop. Doubt ABE >Downward trend since admission. no signs of bleeding > repeat in citrated tube still low -Heme/onc consult: Dr. Rodney -HIV and Hepatitis Panel negative -Abdominal US to rule out underlying liver disease: negative -continue to trend and monitor for s/s bleeding - venous duplex US bilatearlly: negative - Per Heme/Onc: ok for DVT ppx if platelets >50K with heparin or lovenox, transfuse if plts <20k + Fever, or <10K. 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 #lactic acidosis, suspect 2/2 dehydration and alcohol abuse- resolved -Monitor off antibiotics #Reported history of seizures since 2009. Patient is a poor historian and unclear if this is related to alcohol withdrawal or an underlying seizure disorder. #Alcohol withdrawal seizures -Appreciate psychiatry consult: Dr. Mejia -Neurology consult: Dr. Espinal -Keppra 750 mg p.o. twice daily, however pt has been refusing -Seizure precautions -Avoid alcohol -had d/w Dr. Espinal, pt refuses to take keppra and unsure if seizures are 2/2 ETOH w/drawl. [facility] for seizure medications #Alcohol abuse -Social work consult #Hypomagnesemia #hypoklalemia -replete PRN #Anemia of chronic disease No signs of bleeding CTM #suspected pulmonary nodule #Tobacco dependence -CT chest with contrast. D/w radiology: Showed RUL nodule -Needs repeat imaging in 6 to 12 months (around 12/2019 or 07/2020) FENPPX DVTPPX: eliquis Lines: none PT/OT: pending Code status: Full Dispo: Home with home health. Pending stabilization and workup of thrombocytopenia Reason for Continued Hospitalization: Atrial fibrillation with RVR DVT and GI prophylaxis Diet as tolerated Time of note may not reflect time patient was seen. Subjective Date patient seen: Jul 25, 2019 Time patient seen: 08:55 ROS Limited/Unobtainable: Yes Allergies: Coded Allergies: PENICILLIN (Verified Allergy, Severe, 06/19/17) PENICILLINS (Unverified Allergy, Unknown, 07/17/19) Subjective Follow up for medical management Patient not willing to speak to me or be examined by me today No overnight events per nursing. Objective Last 24 Hour Vital Signs Date Time Temp Pulse Resp B/P (MAP) Pulse Ox O2 Delivery O2 Flow Rate FiO2 07/25/19 11:58 97.8 74 18 113/66 (82) 99 07/25/19 09:00 Room Air 07/25/19 08:55 78 129/87 07/25/19 08:00 98.5 76 18 129/77 (94) 99 07/25/19 04:00 98.0 78 20 129/87 (101) 100 07/25/19 00:00 98.1 68 20 145/92 (109) 98 07/24/19 21:00 Room Air 07/24/19 20:22 74 137/90 07/24/19 20:08 99.0 69 20 137/90 (106) 98 07/24/19 16:00 98.1 80 18 136/77 (96) 99 Intake and Output 07/24/19 07/25/19 19:00 07:00 Intake Total 600 ml Output Total 400 ml 400 ml Balance 200 ml -400 ml Intake Oral 600 ml Output Urine Total 400 ml 400 ml Laboratory Tests 07/25/19 05:32: White Blood Count 5.5, Red Blood Count 4.04L, Hemoglobin 12.3L, Hematocrit 37.3L , Mean Corpuscular Volume 92, Mean Corpuscular Hemoglobin 30.5, Mean Corpuscular Hemoglobin Concent 33.1, Red Cell Distribution Width 14.0, Platelet Count 139L, Mean Platelet Volume 5.9L, Neutrophils (%) (Auto) 49.5, Lymphocytes (%) (Auto) 26.5, Monocytes (%) (Auto) 17.4H, Eosinophils (%) (Auto) 5.3H, Basophils (%) (Auto) 1.3 Height (Feet): 5 Height (Inches): 8.00 Weight (Pounds): 135 Pelvis: bimanual exam normal Nabeel Arriaga MD Jul 25, 2019 13:03
--- NOTE | 2019-07-25 15:21 | NUR ---
RD ASSESSMENT & RECOMMENDATIONS SEE CARE ACTIVITY FOR COMPLETE ASSESSMENT DAILY ESTIMATED NEEDS: Needs based on cardiac/ 64kg 25-30 kcals/kg 5293-9392 total kcals 1-1.2 g protein/kg 64-76 g total protein 25-30 mL/kg 6503-0144 total fluid mLs NUTRITION DIAGNOSIS: Altered nutrition related lab values R/T H/o alcohol and substance abuse as evidenced by + serum alcohol (413) and +THC upon adm. CURRENT DIET:LOW NA PO DIET RECOMMENDATIONS: Maintain LOW NA ADDITIONAL RECOMMENDATIONS: * Standing wt for accurate CBW * Continue thiamine supplement. Add MVI + Folate * Rec HS snack to prevent hypoglycemia in the AM
--- NOTE | 2019-07-25 15:26 | NUR ---
*-*DISCHARGE PLANNING*-* PATIENT HAS BEEN REFERRED TO: [facility] P: [phone] F: [phone] [facility] P: [phone] F: [phone] *-*CLINICALS FAXED*-* Addendum: 07/27/19 at 0951 by KENTON PAREKH CM SPOKE TO REED AT [facility] SHE STATED THEY HAVE TO DECLINE THE PATIENT SHE HAS SPOKEN TO THE [place] PATIENT IS NOT SERVICE CONNECTED AND THE ONLY WAY THEY WILL GIVE AN ADENIKE IF THE PATIENT IS AT [facility]. PATIENT HAS NO MEDICARE OR MEDICAL.
[2019-07-25 16:10] VITALS: BP 121/69
--- NOTE | 2019-07-25 19:45 | NUR ---
HAND-OFF: Report given to Ms Koffi RN resting comfortably in bed, needs met and anticipated will continue ENEIDA Arellano.
[2019-07-25 20:00] VITALS: BP 153/87
--- NOTE | 2019-07-25 20:02 | NUR ---
NURSE NOTES: Received report from ENEIDA Rowland. Sleeping in bed, on room air. IV sites intact and patent. No acute distress noted. Bed locked, alarm on, side rails padded and up, call light within reach. Will continue to monitor.
[2019-07-26] VITALS: BP 146/81
[2019-07-26 04:00] VITALS: BP_SYST 121; BP_SYST 136; BP_DIAS 76; BP_DIAS 79
--- NOTE | 2019-07-26 07:12 | NUR ---
HAND-OFF: Report given to ENEIDA Rowland.
--- NOTE | 2019-07-26 07:20 | NUR ---
nurse notes received patient sitting on the edge of the bed eating , patient awake alert , oriented x4,no sign of distress,denies pain or discomfort, HL patent , on fall precaution, plan of care was discussed verbalized understanding 4 P's in progress call light w/n reach , will continue to monitor patient condition noel mariano
[2019-07-26 07:59] LABS: HEMOGLOBIN 13.2 G/DL (14.2-18.0); MEAN CORPUSCULAR VOLUME 92 FL (80-99); PLATELET COUNT 180 K/UL (150-450); RED BLOOD COUNT 4.35 M/UL (4.70-6.10); RED CELL DISTRIBUTION WIDTH 15.2 % (11.6-14.8); WHITE BLOOD COUNT 6.1 K/UL (4.8-10.8)
[2019-07-26 08:00] VITALS: BP 113/73
[2019-07-26] MEDS: Eliquis 5mg tablet ORAL SCH ×2 (08:39→17:11)
[2019-07-26] MEDS: Metoprolol Tartrate 100mg tab ORAL SCH ×2 (08:39→21:05)
[2019-07-26] MEDS: THIAMINE HCL IVPB SCH (08:39)
[2019-07-26] MEDS: D5W IVPB SCH (08:39)
--- NOTE | 2019-07-26 09:19 | NUR ---
*-* INSURANCE *-* ALL CLINICALS AND REVIEWS HAVE BEEN FAXED TO: [place] FA[place] TO: [phone]
[2019-07-26 12:00] VITALS: BP 119/81
--- NOTE | 2019-07-26 12:32 | Cardiac Electrophysiology PN ---
Assessment/Plan Assessment/Plan 1. Atrial fibrillation with RVR due to noncompliance Ruled out for myocardial infarction. Continue metoprolol 100 bid and Eliquis 5 bid. EF 55-60% 2. History of hypertension. Continue metoprolol 100 mg b.i.d. 3. Heavy alcohol use, on thiamine and folate. 4. Seizures. On Keppra. GABRIELLA MONIQUE t Subjective Subjective Comfortable in NAD. No CP or SOB. Placement issue. Off tele Objective Last 24 Hour Vital Signs Date Time Temp Pulse Resp B/P (MAP) Pulse Ox O2 Delivery O2 Flow Rate FiO2 07/26/19 12:00 97.8 78 18 119/81 (94) 100 07/26/19 08:45 Room Air 07/26/19 08:39 75 136/79 07/26/19 08:00 98.4 70 17 113/73 (86) 100 07/26/19 04:00 98.2 75 20 136/79 (98) 100 07/26/19 00:00 98.3 72 17 146/81 (102) 98 07/25/19 21:12 69 153/87 07/25/19 21:00 Room Air 07/25/19 20:00 98.2 69 17 153/87 (109) 98 07/25/19 16:10 98.3 79 19 121/69 (86) 99 Intake and Output 07/25/19 07/26/19 19:00 07:00 Intake Total 900 ml Output Total 700 ml Balance 200 ml Other 900 ml Output Urine Total 700 ml Laboratory Tests Test 07/26/19 05:54 White Blood Count 6.1 K/UL (4.8-10.8) Red Blood Count 4.35 M/UL (4.70-6.10) L Hemoglobin 13.2 G/DL (14.2-18.0) L Hematocrit 40.0 % (42.0-52.0) L Mean Corpuscular Volume 92 FL (80-99) Mean Corpuscular Hemoglobin 30.3 PG (27.0-31.0) Mean Corpuscular Hemoglobin Concent 33.0 G/DL (32.0-36.0) Red Cell Distribution Width 15.2 % (11.6-14.8) H Platelet Count 180 K/UL (150-450) Mean Platelet Volume 6.0 FL (6.5-10.1) L Neutrophils (%) (Auto) % (45.0-75.0) Lymphocytes (%) (Auto) % (20.0-45.0) Monocytes (%) (Auto) % (1.0-10.0) Eosinophils (%) (Auto) % (0.0-3.0) Basophils (%) (Auto) % (0.0-2.0) Neutrophils % (Manual) Pending Lymphocytes % (Manual) Pending Platelet Estimate Pending Platelet Morphology Pending Objective HEAD AND NECK: No JVD. LUNGS: Decreased breath sounds. CARDIOVASCULAR: Irregular S1 and S2 with no gallop or murmur. ABDOMEN: Soft. EXTREMITIES: No pitting edema. Jose Carrasco MD Jul 26, 2019 12:32
--- NOTE | 2019-07-26 14:05 | General Progress Note ---
Assessment/Plan Assessment/Plan: #Atrial fibrillation with rapid ventricular response likely triggered by alcohol abuse - improved -CT head negative for cranial hemorrhage or subdural hematoma -Continue Eliquis -Ok to stop aspirin per Cardiology -continue lopressor 100mg PO Q12hr -Holding home digoxin -Dilt PRN -TTE: EF 55-60% -Appreciate cardiology consultation: Dr. Carrasco #Acute Thrombocytopenia. 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 #lactic acidosis, suspect 2/2 dehydration and alcohol abuse- resolved -Monitor off antibiotics #Reported history of seizures since 2009. Patient is a poor historian and unclear if this is related to alcohol withdrawal or an underlying seizure disorder. #Alcohol withdrawal seizures -Appreciate psychiatry consult: Dr. Mejia -Neurology consult: Dr. Espinal -Keppra 750 mg p.o. twice daily, however pt has been refusing -Seizure precautions -Avoid alcohol -had d/w Dr. Espinal, pt refuses to take keppra and unsure if seizures are 2/2 ETOH w/drawl. [facility] [place] [facility] for seizure medications #Alcohol abuse -Social work consult #Hypomagnesemia #hypoklalemia -replete PRN #Anemia of chronic disease No signs of bleeding CTM #suspected pulmonary nodule #Tobacco dependence -CT chest with contrast. D/w radiology: Showed RUL nodule -Needs repeat imaging in 6 to 12 months (around 12/2019 or 07/2020) FENPPX DVTPPX: eliquis Lines: none PT/OT: pending Code status: Full Dispo: Anticipate discharge home tomorrow Subjective Date patient seen: Jul 26, 2019 Time patient seen: 08:11 ROS Limited/Unobtainable: No Constitutional: Denies: fever Cardiovascular: Denies: chest pain Respiratory: Denies: cough Gastrointestinal/Abdominal: Denies: abdominal pain Neurologic/Psychiatric: Denies: anxiety, depressed Allergies: Coded Allergies: PENICILLIN (Verified Allergy, Severe, 06/19/17) PENICILLINS (Unverified Allergy, Unknown, 07/17/19) Subjective Follow up for medical management Mood is better today. Denies any complaints. Will go home tomorrow morning, asking for taxi ride home. Objective Last 24 Hour Vital Signs Date Time Temp Pulse Resp B/P (MAP) Pulse Ox O2 Delivery O2 Flow Rate FiO2 07/26/19 12:00 97.8 78 18 119/81 (94) 100 07/26/19 08:45 Room Air 07/26/19 08:39 75 136/79 07/26/19 08:00 98.4 70 17 113/73 (86) 100 07/26/19 04:00 98.2 75 20 136/79 (98) 100 07/26/19 00:00 98.3 72 17 146/81 (102) 98 07/25/19 21:12 69 153/87 07/25/19 21:00 Room Air 07/25/19 20:00 98.2 69 17 153/87 (109) 98 07/25/19 16:10 98.3 79 19 121/69 (86) 99 Intake and Output 07/25/19 07/26/19 19:00 07:00 Intake Total 900 ml Output Total 700 ml Balance 200 ml Other 900 ml Output Urine Total 700 ml Laboratory Tests 07/26/19 05:54: White Blood Count 6.1, Red Blood Count 4.35L, Hemoglobin 13.2L, Hematocrit 40.0L , Mean Corpuscular Volume 92, Mean Corpuscular Hemoglobin 30.3, Mean Corpuscular Hemoglobin Concent 33.0, Red Cell Distribution Width 15.2H, Platelet Count 180, Mean Platelet Volume 6.0L, Neutrophils (%) (Auto) , Lymphocytes (%) (Auto) , Monocytes (%) (Auto) , Eosinophils (%) (Auto) , Basophils (%) (Auto) , Neutrophils % (Manual) [Pending], Lymphocytes % (Manual) [Pending], Platelet Estimate [Pending], Platelet Morphology [Pending] Height (Feet): 5 Height (Inches): 8.00 Weight (Pounds): 135 General Appearance: no apparent distress, alert Neck: normal alignment, supple Cardiovascular: normal rate, regular rhythm Respiratory/Chest: lungs clear, normal breath sounds Abdomen: non tender, soft Nabeel Arriaga MD Jul 26, 2019 14:05
--- NOTE | 2019-07-26 14:40 | NUR ---
CASE MANAGEMENT:REVIEW 07/25/2019 SI;A-FIB W/RVR. TTE=EF 55-60%. 98.5 78 20 145/92 98% ON RA IS;LOPRESSOR PO Q12 HRS THIAMINE IV Q24 HRS ELIQUIS PO BID KEPPRA PO Q12 HRS DCP;FROM HOME
[2019-07-26 16:10] VITALS: BP 140/87
--- NOTE | 2019-07-26 16:57 | Hematology/Onc Progress Note ---
Assessment/Plan Assessment/Plan Assessment/Recs # Thrombocytopenia - potential causes multifactorial, in this case very likely is related to etoh cirrhosis and hsm --> will need a us to confirm also heparin gtt has been discontinued --> Hep panel and HIV ordered ==> NEG --> US abd to evaluate for cirrhosis and hsm ordered --> doesn't show cirrhosis --> Peripheral smear ordered to evaluate for blasts /schistocytes -> none noted --> abx and other meds have been reviewed --> ok for ppx if plt >50k w/ either heparin or lovenox --> Transfuse if Plt < 20k and fever, or if Plt < 10k without fever --> plt trend 140-->106-->89-->80-->180 # Hypercoagulable disorder -- atrial fibrillation with rapid ventricular response likely triggered by alcohol abuse. --> Appreciate cardiology consultation: Dr. Carrasco --> before on heparin gtt --> cardiology recommending anticoagulation if okay with neurology. Neurology recommending CT head negative. OK to start A/C per neurology and Cardiology --> Continue Eliquis 5mg PO BID. D continueiscussed risks/benefits with patient. All questions answered. 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 Agreeable to SNF. # Lactic acidosis, suspect 2/2 dehydration and alcohol abuse- resolved --> IV fluids as above --> abx as needed # Dvt ppx eliquis po bid Appreciate consultation and que RN Subjective Allergies: Coded Allergies: PENICILLIN (Verified Allergy, Severe, 06/19/17) PENICILLINS (Unverified Allergy, Unknown, 07/17/19) Subjective 07/22: no bleeding, labs noted, plts lower, dw pcp, seen by cards 07/24: labs reviewed, plts remains low, no bleeding or chills, que Mejia 07/25: labs noted, no night sweats, plt is better, on dvt ppx 07/26: awake and alert, no acute events, on room air, dc planning Objective Objective Current Medications Medications (Trade) Dose Ordered Sig/Yara Route PRN Reason Start Time Stop Time Status Last Admin Dose Admin Acetaminophen (Tylenol) 650 mg Q4H PRN ORAL Mild Pain (Pain Scale 1-3) 07/22/19 13:30 08/16/19 13:29 07/24/19 20:26 Apixaban (Eliquis) 5 mg BID ORAL 07/22/19 18:00 08/19/19 20:59 07/26/19 08:39 Dextrose (Dextrose 50%) 25 ml Q30M PRN IV Hypoglycemia 07/22/19 13:30 08/16/19 13:29 Dextrose (Dextrose 50%) 50 ml Q30M PRN IV Hypoglycemia 07/22/19 13:30 08/16/19 13:29 Diphenhydramine HCl (Benadryl) 25 mg Q6H PRN ORAL Itching/Pruritis 07/22/19 13:30 08/16/19 13:29 Escitalopram Oxalate (Lexapro) 10 mg DAILY ORAL 07/23/19 09:00 08/19/19 08:59 07/26/19 08:40 Famotidine (Pepcid) 20 mg BID ORAL 07/22/19 18:00 08/17/19 08:59 07/26/19 08:39 Levetiracetam (Keppra) 750 mg Q12HR ORAL 07/22/19 13:30 08/17/19 13:29 Magnesium Hydroxide (Mom) 30 ml HSPRN PRN ORAL Constipation 07/22/19 21:00 08/16/19 20:59 Metoprolol Tartrate (Lopressor) 100 mg EVERY 12 HOURS ORAL 07/22/19 21:00 08/17/19 20:59 07/26/19 08:39 Nitroglycerin (Ntg) 0.4 mg Q5M PRN SL Prn Chest Pain 07/22/19 13:30 08/16/19 13:29 Ondansetron HCl (Zofran) 4 mg Q6H PRN IVP Nausea & Vomiting 07/22/19 13:30 08/16/19 13:29 Temazepam (RestoriL) 7.5 mg HSPRN PRN ORAL Insomnia 07/22/19 21:00 07/29/19 20:59 07/24/19 20:27 Thiamine HCl 250 mg/Dextrose 112.5 ml @ 225 mls/hr Q24H IVPB 07/23/19 09:00 08/21/19 08:59 07/26/19 08:39 Last 24 Hour Vital Signs Date Time Temp Pulse Resp B/P (MAP) Pulse Ox O2 Delivery O2 Flow Rate FiO2 07/26/19 16:10 97.9 71 19 140/87 (104) 100 07/26/19 12:00 97.8 78 18 119/81 (94) 100 07/26/19 08:45 Room Air 07/26/19 08:39 75 136/79 07/26/19 08:00 98.4 70 17 113/73 (86) 100 07/26/19 04:00 98.2 75 20 136/79 (98) 100 07/26/19 00:00 98.3 72 17 146/81 (102) 98 07/25/19 21:12 69 153/87 07/25/19 21:00 Room Air 07/25/19 20:00 98.2 69 17 153/87 (109) 98 07/25/19 16:10 98.3 79 19 121/69 (86) 99 07/25/19 11:58 97.8 74 18 113/66 (82) 99 07/25/19 09:00 Room Air 07/25/19 08:55 78 129/87 07/25/19 08:00 98.5 76 18 129/77 (94) 99 07/25/19 04:00 98.0 78 20 129/87 (101) 100 07/25/19 00:00 98.1 68 20 145/92 (109) 98 07/24/19 21:00 Room Air 07/24/19 20:22 74 137/90 07/24/19 20:08 99.0 69 20 137/90 (106) 98 Intake and Output 2/24/20 2/25/20 19:00 07:00 Intake Total 900 ml Output Total 700 ml Balance 200 ml Other 900 ml Output Urine Total 700 ml Labs Test 07/25/19 05:32 07/26/19 05:54 White Blood Count 5.5 K/UL (4.8-10.8) 6.1 K/UL (4.8-10.8) Red Blood Count 4.04 M/UL (4.70-6.10) 4.35 M/UL (4.70-6.10) Hemoglobin 12.3 G/DL (14.2-18.0) 13.2 G/DL (14.2-18.0) Hematocrit 37.3 % (42.0-52.0) 40.0 % (42.0-52.0) Mean Corpuscular Volume 92 FL (80-99) 92 FL (80-99) Mean Corpuscular Hemoglobin 30.5 PG (27.0-31.0) 30.3 PG (27.0-31.0) Mean Corpuscular Hemoglobin Concent 33.1 G/DL (32.0-36.0) 33.0 G/DL (32.0-36.0) Red Cell Distribution Width 14.0 % (11.6-14.8) 15.2 % (11.6-14.8) Platelet Count 139 K/UL (150-450) 180 K/UL (150-450) Mean Platelet Volume 5.9 FL (6.5-10.1) 6.0 FL (6.5-10.1) Neutrophils (%) (Auto) 49.5 % (45.0-75.0) % (45.0-75.0) Lymphocytes (%) (Auto) 26.5 % (20.0-45.0) % (20.0-45.0) Monocytes (%) (Auto) 17.4 % (1.0-10.0) % (1.0-10.0) Eosinophils (%) (Auto) 5.3 % (0.0-3.0) % (0.0-3.0) Basophils (%) (Auto) 1.3 % (0.0-2.0) % (0.0-2.0) Differential Total Cells Counted 100 Neutrophils % (Manual) 49 % (45-75) Lymphocytes % (Manual) 28 % (20-45) Monocytes % (Manual) 17 % (1-10) Eosinophils % (Manual) 3 % (0-3) Basophils % (Manual) 3 % (0-2) Band Neutrophils 0 % (0-8) Platelet Estimate Adequate Platelet Morphology Normal Red Blood Cell Morphology Normal Height (Feet): 5 Height (Inches): 8.00 Weight (Pounds): 135 Objective Physical Exam General appearance: Patient is emotional and crying Head: Normocephalic, without obvious abnormality, atraumatic Eyes: conjunctivae/corneas clear. PERRL, EOM's intact. Fundi benign Throat: Lips, mucosa, and tongue normal. Teeth and gums normal Neck: supple, symmetrical, trachea midline, no adenopathy, thyroid Lungs: clear to auscultation bilaterally Heart: Currently in atrial fibrillation with rapid ventricular response Abdomen: soft, non-tender. Bowel sounds normal. No masses, no organomegaly Extremities: extremities normal, atraumatic, no cyanosis or edema Pulses: 2+ and symmetric Skin: Skin color, texture, turgor normal. No rashes or lesions Neurologic: Grossly normal, intoxicated Eulalio Rodney MD Jul 26, 2019 16:57
--- NOTE | 2019-07-26 19:24 | NUR ---
HAND-OFF: Report given to Mr Satinder RN Resting comfortably in bed, needs met and anticipated noel mariano
--- NOTE | 2019-07-26 19:30 | NUR ---
NURSE NOTES: Pt. received from ENEIDA Rowland. Pt. AAOx4, on room air, breathing is even and unlabored, no complaints of pain at this time. IV site right forearm 20g asymptomatic, intact, and patent; saline locked. IV site left forearm 22g, asymptomatic, intact, and patent; saline locked. Bed is low and locked, side rails x2 up and padded, and call light is in reach. Will continue to monitor.
--- NOTE | 2019-07-26 19:37 | NUR ---
NURSE NOTES: Discussed plan of care with pt. When reviewing upcoming medication, pt. stated "I don't take seizure medication. It messes with my head." Discussed risks and benefits of pt.'s scheduled medication, pt. acknowledged. Will continue plan of care.
[2019-07-26 20:00] VITALS: BP 126/76
[2019-07-27] VITALS: BP 132/74
[2019-07-27] MEDS ORDERED: Metoprolol Tartrate 100mg tab ORAL SCH
[2019-07-27 04:00] VITALS: BP 126/76
--- NOTE | 2019-07-27 04:15 | Progress Note ---
DATE: 07/27/2019 SUBJECTIVE: The patient is doing well. No behavior issues noted. The patient is having depressed mood, anhedonia, worthlessness, hopelessness, responding to antidepressant. No side effects noted. Compliant with medication. No behavior issues. MENTAL STATUS EXAMINATION: The patient is alert, oriented times self, place, situation. Mood is depressed. Affect is constricted, congruent with mood. Thought process, linear. Thought content, no suicidal or homicidal ideation. ASSESSMENT: 1. Major depressive disorder. 2. Anxiety disorder. PLAN: We will continue current medications. Melchor Mejia M.D. DR: ANTIONETTE JOB#: [id number] CC:
--- NOTE | 2019-07-27 07:18 | NUR ---
HAND-OFF: Report given to ENEDIA Melo.
[2019-07-27 07:24] LABS: BASOPHILS % (AUTO) 1.1 % (0.0-2.0); EOSINOPHILS % (AUTO) 4.4 % (0.0-3.0); HEMATOCRIT 39.3 % (42.0-52.0); HEMOGLOBIN 12.9 G/DL (14.2-18.0); LYMPHOCYTES % (AUTO) 23.8 % (20.0-45.0); MEAN CORPUSCULAR VOLUME 94 FL (80-99); MONOCYTES % (AUTO) 19.6 % (1.0-10.0); NEUTROPHILS % (AUTO) 51.2 % (45.0-75.0); PLATELET COUNT 203 K/UL (150-450); RED BLOOD COUNT 4.17 M/UL (4.70-6.10); RED CELL DISTRIBUTION WIDTH 14.5 % (11.6-14.8); WHITE BLOOD COUNT 6.3 K/UL (4.8-10.8)
[2019-07-27 08:00] VITALS: BP 129/71
[2019-07-27] MEDS: Eliquis 5mg tablet ORAL SCH (08:32)
[2019-07-27] MEDS: Metoprolol Tartrate 100mg tab ORAL SCH (08:33)
[2019-07-27] MEDS ORDERED: METOPROLOL TAR100 M1 ORAL (08:43)
[2019-07-27] MEDS ORDERED: LEXAPRO10 MG ORAL ×2 (08:43)
[2019-07-27] MEDS ORDERED: ELIQUIS5 MG ORAL (08:43)
--- NOTE | 2019-07-27 08:53 | Discharge Summary ---
Discharge Summary Hospital Course Date of Admission Jul 17, 2019 at 16:31 Date of Discharge 07/27/19 Admitting Diagnosis rapid AF HPI Tom Romero is a 64 year old male who was admitted on Jul 17, 2019 at 16: 31 for Rapid Atrial Fibrilation Consultations Cardiology Psychiatry Neurology Hematology Procedures None Hospital Course Patient was admitted to the medical service with acute alcohol intoxication with resultant rapid atrial fibrillation. Placed on monitor tech, seen by cardiology and metop increased to 100 mg bid with good rate control Also started on Eliquis for styroke prophylaxis. Seen by psychiatry, treated with Ativan as per CIWA for alcohol withdrawal. Question of history of seizure activity - seen by Neurology however it was unclear if he has epilepsy or withdrawal seizures. Patient declined to continue Keppra. He will be discharge home in good condition, [facility]. Time spent in preparin discharge including coordination with RN, welfare case worker, consulting MD was 38 minutes #Atrial fibrillation with rapid ventricular response likely triggered by alcohol abuse - improved -CT head negative for cranial hemorrhage or subdural hematoma -Continue Eliquis -Ok to stop aspirin per Cardiology -continue lopressor 100mg PO Q12hr -Holding home digoxin -Dilt PRN -TTE: EF 55-60% -Appreciate cardiology consultation: Dr. Carrasco #Acute Thrombocytopenia. 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 #lactic acidosis, suspect 2/2 dehydration and alcohol abuse- resolved -Monitor off antibiotics #Reported history of seizures since 2009. Patient is a poor historian and unclear if this is related to alcohol withdrawal or an underlying seizure disorder. #Alcohol withdrawal seizures -Appreciate psychiatry consult: Dr. Mejia -Neurology consult: Dr. Espinal -Keppra 750 mg p.o. twice daily, however pt has been refusing -Seizure precautions -Avoid alcohol -had d/w Dr. Espinal, pt refuses to take keppra and unsure if seizures are 2/2 ETOH w/drawl. [facility] #Alcohol abuse -Social work consult #Hypomagnesemia #hypoklalemia -replete PRN #Anemia of chronic disease No signs of bleeding #suspected pulmonary nodule #Tobacco dependence -CT chest with contrast. D/w radiology: Showed RUL nodule -Needs repeat imaging in 6 to 12 months (around 12/2019 or 07/2020) Discharge Medications New Medications: Apixaban (Eliquis) 5 Mg Tablet 5 MG ORAL BID for 30 Days, #60 TAB Escitalopram Oxalate* (Lexapro*) 10 Mg Tablet 10 MG ORAL DAILY for 30 Days, #30 TAB Metoprolol Tartrate* (Metoprolol Tartrate*) 100 Mg Tablet 100 MG ORAL EVERY 12 HOURS for 30 Days, #60 TAB Continued Medications: Albuterol Sulfate (Ventolin Hfa) 18 Gm Hfa.aer.ad 2 PUFFS INH EVERY 4 HOURS PRN for Shortness of Breath, #18 GM 0 Refills Ergocalciferol (Vitamin D2) (Ergocalciferol) 8,000 Unit/1 Ml Drops 5000 UNIT PO ONCE A WEEK for supplement, ML Folic Acid* (Folic Acid*) 1 Mg Tablet 1 MG ORAL DAILY for supplement, TAB Lisinopril (Lisinopril*) 20 Mg Tablet 20 MG ORAL DAILY for HTN, TAB Melatonin (Melatonin) 3 Mg Tablet 6 MG ORAL BEDTIME for SUPPLEMENT, TAB Mirtazapine* (Mirtazapine*) 15 Mg Tablet 15 MG ORAL BEDTIME PRN for INSOMNIA, TAB Discontinued Medications: Metoprolol Tartrate* (Metoprolol Tartrate*) 25 Mg Tablet 25 MG ORAL EVERY 12 HOURS for a-fib, TAB Discharge Condition Upon Discharge: stable Discharge Vital Signs Last Vital Signs Date Time Temp Pulse Resp B/P (MAP) Pulse Ox O2 Delivery O2 Flow Rate FiO2 07/27/19 08:33 67 129/71 07/27/19 08:00 98.5 18 99 07/26/19 21:00 Room Air Discharge Disposition Patient was discharged to home Discharge Diagnoses: (1) Acute alcoholic intoxication (2) Rapid atrial fibrillation (3) Alcohol dependence Nabeel Arriaga MD Jul 27, 2019 08:53
--- NOTE | 2019-07-27 09:03 | Cardiac Electrophysiology PN ---
Assessment/Plan Assessment/Plan 1. Atrial fibrillation with RVR due to noncompliance Ruled out for myocardial infarction. Continue metoprolol 100 bid and Eliquis 5 bid. EF 55-60% 2. History of hypertension. Continue metoprolol 100 mg b.i.d. 3. Heavy alcohol use, on thiamine and folate. 4. Seizures. On Keppra. GABRIELLA MONIQUE DC home today Subjective Subjective Comfortable in NAD. No CP or SOB. DC home today pending Objective Last 24 Hour Vital Signs Date Time Temp Pulse Resp B/P (MAP) Pulse Ox O2 Delivery O2 Flow Rate FiO2 07/27/19 08:33 67 129/71 07/27/19 08:00 98.5 67 18 129/71 (90) 99 07/27/19 04:00 97.5 63 20 126/76 (93) 99 07/27/19 00:00 97.7 72 21 132/74 (93) 100 07/26/19 21:05 79 126/76 07/26/19 21:00 Room Air 07/26/19 20:00 98.2 79 20 126/76 (93) 99 07/26/19 16:10 97.9 71 19 140/87 (104) 100 07/26/19 12:00 97.8 78 18 119/81 (94) 100 Intake and Output 07/26/19 07/27/19 19:00 07:00 Intake Total 1112.5 ml Output Total 750 ml Balance 1112.5 ml -750 ml Intake Oral 1000 ml IV Total 112.5 ml Output Urine Total 750 ml Laboratory Tests Test 07/27/19 05:54 White Blood Count 6.3 K/UL (4.8-10.8) Red Blood Count 4.17 M/UL (4.70-6.10) L Hemoglobin 12.9 G/DL (14.2-18.0) L Hematocrit 39.3 % (42.0-52.0) L Mean Corpuscular Volume 94 FL (80-99) Mean Corpuscular Hemoglobin 30.9 PG (27.0-31.0) Mean Corpuscular Hemoglobin Concent 32.7 G/DL (32.0-36.0) Red Cell Distribution Width 14.5 % (11.6-14.8) Platelet Count 203 K/UL (150-450) Mean Platelet Volume 5.8 FL (6.5-10.1) L Neutrophils (%) (Auto) 51.2 % (45.0-75.0) Lymphocytes (%) (Auto) 23.8 % (20.0-45.0) Monocytes (%) (Auto) 19.6 % (1.0-10.0) H Eosinophils (%) (Auto) 4.4 % (0.0-3.0) H Basophils (%) (Auto) 1.1 % (0.0-2.0) Objective HEAD AND NECK: No JVD. LUNGS: Decreased breath sounds. CARDIOVASCULAR: Irregular S1 and S2 with no gallop or murmur. ABDOMEN: Soft. EXTREMITIES: No pitting edema. Jose Carrasco MD Jul 27, 2019 09:03
[2019-07-27] MEDS: THIAMINE HCL IVPB SCH (09:46)
[2019-07-27] MEDS: D5W IVPB SCH (09:46)
--- NOTE | 2019-07-27 10:21 | NUR ---
NURSE NOTES: DISCHARGE ORDER NOTED. RN CLARIFIED WITH DR QUEZADA REGARDING DISCHARGE DISPOSITION. PER MD, HE WILL BE DISCHARGED HOME. PT STATES HE HAS IN HOME SUPPORTIVE SERVICES, [facility] TO HELP WITH DAILY ACTIVITIES. SENT ELECTRONIC FAX OF PRESCRIPTIONS TO [facility]. PER CRN, SHE CONFIRMED RECEIPT OF ELECTRONIC PRESCRIPTIONS RECEIVED BY PHARMACY. PT MADE AWARE AND AGREES TO DISCHARGE. PT IN NO APPARENT DISTRESS AT THIS TIME. WILL CONTINUE TO MONITOR.
--- NOTE | 2019-07-27 11:15 | NUR ---
NURSE NOTES: RN SPOKE TO DISCHARGE RN AT [facility]. WITHOUT PT'S INSURANCE CARD, UNABLE TO FIND COVERAGE FOR MEDICATIONS. PT CAN GET FREE TRIAL OF ELIQUIS. RN SPOKE WITH PT AND PT DOES NOT HAVE HIS INSURANCE CARD AND YELLS "[facility]!". PT UNABLE TO TELL RN WHICH VA. PT YELLS, "I GO TO ANY [facility]!". PT STATES HE CANNOT PAY $50 FOR THE METOPROLOL AND LEXAPRO PRESCRIPTIONS. RN SPOKE TO DR QUEZADA AND MADE AWARE. PER MD, SPEAK TO CASE MANAGEMENT TO SEE IF THEY CAN HELP WITH PRESCRIPTIONS. RN LEFT MESSAGE FOR [facility]. PT ANXIOUS TO GO HOME.
--- NOTE | 2019-07-27 11:32 | NUR ---
NURSE NOTES: PT CALLED RN TO THE ROOM. PT IS IRRITATED AND ANGRY. PER PT, HE JUST WANTS TO GO HOME AND DOESN'T WANT THE PRESCRIPTIONS ANYMORE. PT THEN STATED "I HAVE THE RIGHT TO CHOOSE WHETHER I WANT TO TAKE THESE MEDICATIONS". RN EDUCATED PT ON THE REASONS WHY MD ORDERED NEW PRESCRIPTIONS AND RISKS OF NOT TKAING THEM. RN RECOMMENDED THAT PT FOLLOW UP WITH HIS PRIMARY MD SOON POSSIBLE AND DISCUSS THE NEW PRESCRIPTIONS THAT WERE ORDERED AND SEE IF PRIMARY MD WOULD LIKE TO CONTINUE THEM. PRESCRIPTIONS ARE AT [facility] AND THEY CAN BE TRANSFERRED TO THE PHARMACY PT VISITS. PT VERBALIZED UNDERSTANDING. RN PROVIDED PT WITH [facility]S CONTACT INFORMATION. RN REQUESTED FOR [facility] FOR TRANSPORTATION HOME.
[2019-07-27 12:00] VITALS: BP 103/70
--- NOTE | 2019-07-27 12:49 | NUR ---
NURSE NOTES: DR QUEZADA MADE AWARE PT UNABLE TO OBTAIN NEW PRESCRIPTIONS. PER MD, CANCEL DISCHARGE IF PT UNABLE TO HAVE MEDS BEFORE HE LEAVES. MD ORDERED FOR RN TO HAVE HOSPITAL PROVIDE MEDICATIONS UPON DISCHARGE. CRN MADE AWARE. RN SPOKE TO KIRSTEN PT IS NOT COVERED BY [place]. RN SPOKE TO JIM EDWARD, TO SEE IF HOSPITAL CAN PROVIDE DISCHARGE MEDICATIONS. CHEYANNE WILL ASK REYNA (PHARMACIST) AND CALL RN. PT MADE AWARE AND PT BECAME VERY ANGRY AND STARTED YELLING AT RN. PT YELLED "I DON'T HAVE TO TAKE THE MEDICATION. THE DOCTOR CAN'T FORCE ME TO TAKE IT!".
--- NOTE | 2019-07-27 13:14 | NUR ---
NURSE NOTES: PT STATED "I'M GONNA GT OUT OF HERE! YOU CAN'T FORCE ME TO STAY HERE!". PT DEMANDED TO PROVIDE HIM WITH TRANSPORTATION. RN BROUGHT PT AGAINST MEDICAL ADVICE FORM AND INFORMED PT WE ARE UNABLE TO PROVIDE TRANSPORTATION IF PT SIGNS OUT AMA. PT STATES HE NEEDS TRANSPORTATION AND YELLED AT NURSE TO FIND WHAT IS NEEDED TO GET HIM OUT OF THE HOSPITAL. RN INFORMED PT [employer] RECEIVER ARE WORKING ON TRYING TO GET PRESCRIBED MEDICATIONS TO PT. PT PROVIDED NUMBERS TO HIS SOCIAL WORKERS: TOR FISHMAN EDDIE SINGH , [id number]
--- NOTE | 2019-07-27 16:01 | NUR ---
NURSE NOTES: PHARMACY PROVIDED 3 DAY SUPPLY OF METOPROLOL TARTRATE AND LEXAPRO. PT WAS EDUCATED ON NEW PRESCRIPTIONS AT BEDSIDE, INCLUDING USE, FREQUENCY, AND SIDE EFFECTS. PT VERBALIZED UNDERSTANDING. RN SPOKE TO DR QUEZADA AND MADE AWARE HOSPITAL WAS ONLY ABLE TO SUPPLY 3 DAY SUPPLY OF METOPROLOL AND LEXAPRO. PT HAS 30 DAY SUPPLY OF ELIQUIS. PER DR QUEZADA WITH ORDER OK TO DISCHARGE. PT EDUCATED TO FOLLOW UP WITH PRIMARY MD ANDREWS DUE TO ONLY 3 DAY SUPPLY OF NEW MEDICATIONS. PT VERBALIZED UNDERSTANDING. PT WAS DISCHARGED VIA [facility]. BELONGINGS CHECKED AT BEDSIDE AND ALL ACCOUNTED. IV ACCESSES DISCONTINUED. PT WAS DISCHARGED IN STABLE CONDITION.
--- NOTE | 2019-07-27 18:25 | Hematology/Onc Progress Note ---
Assessment/Plan Assessment/Plan Assessment/Recs # Thrombocytopenia - potential causes multifactorial, in this case very likely is related to etoh cirrhosis and hsm --> will need a us to confirm also heparin gtt has been discontinued --> Hep panel and HIV ordered ==> NEG --> US abd to evaluate for cirrhosis and hsm ordered --> doesn't show cirrhosis --> Peripheral smear ordered to evaluate for blasts /schistocytes -> none noted --> abx and other meds have been reviewed --> ok for ppx if plt >50k w/ either heparin or lovenox --> Transfuse if Plt < 20k and fever, or if Plt < 10k without fever --> plt trend 140-->106-->89-->80-->180 # Hypercoagulable disorder -- atrial fibrillation with rapid ventricular response likely triggered by alcohol abuse. --> Appreciate cardiology consultation: Dr. Carrasco --> before on heparin gtt --> cardiology recommending anticoagulation if okay with neurology. Neurology recommending CT head negative. OK to start A/C per neurology and Cardiology --> Continue Eliquis 5mg PO BID. D continueiscussed risks/benefits with patient. All questions answered. 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 Agreeable to SNF. # Lactic acidosis, suspect 2/2 dehydration and alcohol abuse- resolved --> IV fluids as above --> abx as needed # Dvt ppx eliquis po bid Appreciate consultation and que RN Subjective Allergies: Coded Allergies: PENICILLIN (Verified Allergy, Severe, 06/19/17) PENICILLINS (Unverified Allergy, Unknown, 07/17/19) Subjective 07/22: no bleeding, labs noted, plts lower, dw pcp, seen by cards 07/24: labs reviewed, plts remains low, no bleeding or chills, que Mejia 07/25: labs noted, no night sweats, plt is better, on dvt ppx 07/26: awake and alert, no acute events, on room air, dc planning 07/27: alert, no overnight events, stable for dc Objective Objective Last 24 Hour Vital Signs Date Time Temp Pulse Resp B/P (MAP) Pulse Ox O2 Delivery O2 Flow Rate FiO2 07/27/19 12:00 97.3 73 18 103/70 (81) 100 07/27/19 09:00 Room Air 07/27/19 08:33 67 129/71 07/27/19 08:00 98.5 67 18 129/71 (90) 99 07/27/19 04:00 97.5 63 20 126/76 (93) 99 07/27/19 00:00 97.7 72 21 132/74 (93) 100 07/26/19 21:05 79 126/76 07/26/19 21:00 Room Air 07/26/19 20:00 98.2 79 20 126/76 (93) 99 07/26/19 16:10 97.9 71 19 140/87 (104) 100 07/26/19 12:00 97.8 78 18 119/81 (94) 100 07/26/19 08:45 Room Air 07/26/19 08:39 75 136/79 07/26/19 08:00 98.4 70 17 113/73 (86) 100 07/26/19 04:00 98.2 75 20 136/79 (98) 100 07/26/19 00:00 98.3 72 17 146/81 (102) 98 07/25/19 21:12 69 153/87 07/25/19 21:00 Room Air 07/25/19 20:00 98.2 69 17 153/87 (109) 98 Intake and Output 07/26/19 07/27/19 19:00 07:00 Intake Total 1112.5 ml Output Total 750 ml Balance 1112.5 ml -750 ml Intake Oral 1000 ml IV Total 112.5 ml Output Urine Total 750 ml Labs Test 07/25/19 05:32 07/26/19 05:54 07/27/19 05:54 White Blood Count 5.5 K/UL (4.8-10.8) 6.1 K/UL (4.8-10.8) 6.3 K/UL (4.8-10.8) Red Blood Count 4.04 M/UL (4.70-6.10) 4.35 M/UL (4.70-6.10) 4.17 M/UL (4.70-6.10) Hemoglobin 12.3 G/DL (14.2-18.0) 13.2 G/DL (14.2-18.0) 12.9 G/DL (14.2-18.0) Hematocrit 37.3 % (42.0-52.0) 40.0 % (42.0-52.0) 39.3 % (42.0-52.0) Mean Corpuscular Volume 92 FL (80-99) 92 FL (80-99) 94 FL (80-99) Mean Corpuscular Hemoglobin 30.5 PG (27.0-31.0) 30.3 PG (27.0-31.0) 30.9 PG (27.0-31.0) Mean Corpuscular Hemoglobin Concent 33.1 G/DL (32.0-36.0) 33.0 G/DL (32.0-36.0) 32.7 G/DL (32.0-36.0) Red Cell Distribution Width 14.0 % (11.6-14.8) 15.2 % (11.6-14.8) 14.5 % (11.6-14.8) Platelet Count 139 K/UL (150-450) 180 K/UL (150-450) 203 K/UL (150-450) Mean Platelet Volume 5.9 FL (6.5-10.1) 6.0 FL (6.5-10.1) 5.8 FL (6.5-10.1) Neutrophils (%) (Auto) 49.5 % (45.0-75.0) % (45.0-75.0) 51.2 % (45.0-75.0) Lymphocytes (%) (Auto) 26.5 % (20.0-45.0) % (20.0-45.0) 23.8 % (20.0-45.0) Monocytes (%) (Auto) 17.4 % (1.0-10.0) % (1.0-10.0) 19.6 % (1.0-10.0) Eosinophils (%) (Auto) 5.3 % (0.0-3.0) % (0.0-3.0) 4.4 % (0.0-3.0) Basophils (%) (Auto) 1.3 % (0.0-2.0) % (0.0-2.0) 1.1 % (0.0-2.0) Differential Total Cells Counted 100 Neutrophils % (Manual) 49 % (45-75) Lymphocytes % (Manual) 28 % (20-45) Monocytes % (Manual) 17 % (1-10) Eosinophils % (Manual) 3 % (0-3) Basophils % (Manual) 3 % (0-2) Band Neutrophils 0 % (0-8) Platelet Estimate Adequate Platelet Morphology Normal Red Blood Cell Morphology Normal Height (Feet): 5 Height (Inches): 8.00 Weight (Pounds): 139 Objective Physical Exam General appearance: Patient is emotional and crying Head: Normocephalic, without obvious abnormality, atraumatic Eyes: conjunctivae/corneas clear. PERRL, EOM's intact. Fundi benign Throat: Lips, mucosa, and tongue normal. Teeth and gums normal Neck: supple, symmetrical, trachea midline, no adenopathy, thyroid Lungs: clear to auscultation bilaterally Heart: Currently in atrial fibrillation with rapid ventricular response Abdomen: soft, non-tender. Bowel sounds normal. No masses, no organomegaly Extremities: extremities normal, atraumatic, no cyanosis or edema Pulses: 2+ and symmetric Skin: Skin color, texture, turgor normal. No rashes or lesions Neurologic: Grossly normal, intoxicated Eulalio Rodney MD Jul 27, 2019 18:25
--- NOTE | 2019-07-28 01:45 | Progress Note ---
DATE: 07/27/2019 SUBJECTIVE: The patient is doing well. No behavior issues noted. Depressed, anhedonia, worthlessness, and hopelessness. The patient being discharged today. The patient is not having any suicidal or homicidal ideation. Compliant with medications. MENTAL STATUS EXAMINATION: Alert and oriented times self, place, and situation. Mood is depressed. Affect is constricted, congruent with mood. Thought process is linear and goal oriented. Thought content, no suicidal or homicidal ideation. ASSESSMENT: Stable. PLAN: 1. We will continue current medications. 2. Provide the patient with reality orientation and supportive therapy. Melchor Mejia M.D. DR: MARY JOB#: [id number] CC:
--- NOTE | 2019-07-28 16:45 | NUR ---
*-* INSURANCE *-* ALL CLINICALS AND REVIEWS HAVE BEEN FAXED TO: [place] FAX CLINICALS TO: [phone]
--- NOTE | 2019-07-29 13:27 | NUR ---
*-* INSURANCE *-* UNABLE TO SEND DISCHARGE SUMMARY NOT IN SYSTEM
== END 2019-07-27 15:36 | disposition home or self-care (01) | DRG 309 ==
LOC: EDBD 14:26 → EMR 16:30 → OBSVTOIN 16:31 → INTOOBSV 16:31 → 2E 16:31 → EDBEDREQ 07-18 02:14 → 4E 07-22 12:38
DX: I48.91 Unspecified atrial fibrillation (principal); F10.239 Alcohol dependence with withdrawal, unspecified; E87.2 Acidosis; G40.89 Other seizures; N18.9 Chronic kidney disease, unspecified; D63.1 Anemia in chronic kidney disease; Z88.0 Allergy status to penicillin; F43.10 Post-traumatic stress disorder, unspecified; D63.8 Anemia in other chronic diseases classified elsewhere; D69.6 Thrombocytopenia, unspecified; E83.42 Hypomagnesemia; R91.1 Solitary pulmonary nodule; I10 Essential (primary) hypertension; I51.9 Heart disease, unspecified; Z91.14 Patient's other noncompliance with medication regimen; E86.0 Dehydration; E87.6 Hypokalemia; F17.200 Nicotine dependence, unspecified, uncomplicated; F32.9 Major depressive disorder, single episode, unspecified; F41.9 Anxiety disorder, unspecified
CPT/HCPCS: 36415; 70450; 71045; 71260; 76700; 80048; 80053; 80162; 80299; 80307; 81003; 82607; 83605; 83735; 83880; 83921; 84100; 84443; 84484; 85007; 85025; 85730; 86703; 86705; 86709; 86803; 87340; 93005; 93306; 93970; 96374; 96375; 96376; 99285; G0480; J7030; J8499

== ENCOUNTER 2019-08-15 02:47 | Inpatient (IN) | payer OTHER ==
[~2019-08-15] VITALS: Ht 175.3 cm; Wt 64.4 kg
[2019-08-15] VITALS (8 sets, daily range): BP systolic 112–152; BP diastolic 61–99
[~2019-08-15 02:47] MED LIST changes: +ELIQUIS5 MG ORAL; +ERGOCALCIF8000 UNIT1 PO; +FOLIC ACID1 MG ORAL; +LEXAPRO10 MG ORAL; +LISINOPRIL20 MG ORAL; +MELATONIN3 MG ORAL; +MIRTAZAPINE15 M3 ORAL; +VENTOLIN HFA18 GM INH
[2019-08-15] MEDS ORDERED: LORazepam Inj 2mg/ml 1ml IV ONE (03:00)
--- NOTE | 2019-08-15 03:00 | NUR ---
ED Nurse Note: Recieved pt BIBA from home, here with c/o chest pain with palpitations, pt also has been drinking alcohol, is oriented x 3 and awake, pt has no sob or labored breathing, has hx f afib and placed on cardiac monitoring, heart rate is 146, MD immediately informed, pt was given nitro in ambulance, not effective, willr esume care as ordered and closely monitor.
[2019-08-15] MEDS ORDERED: Morphine Sulfate 4mg/ml Inj (IV USE ONLY) IVP ONE (03:15)
[2019-08-15] MEDS ORDERED: dilTIAZem HCl 25mg/5ml Inj IVP ONE ×2 (03:30→05:30)
[2019-08-15 03:35] LABS: BASOPHILS % (AUTO) 1.7 % (0.0-2.0); EOSINOPHILS % (AUTO) 1.1 % (0.0-3.0); HEMATOCRIT 41.2 % (42.0-52.0); LYMPHOCYTES % (AUTO) 43.4 % (20.0-45.0); MEAN CORPUSCULAR VOLUME 88 FL (80-99); MONOCYTES % (AUTO) 12.6 % (1.0-10.0); NEUTROPHILS % (AUTO) 41.2 % (45.0-75.0); PLATELET COUNT 232 K/UL (150-450); RED BLOOD COUNT 4.69 M/UL (4.70-6.10); RED CELL DISTRIBUTION WIDTH 14.2 % (11.6-14.8); WHITE BLOOD COUNT 5.4 K/UL (4.8-10.8)
[2019-08-15 03:44] LABS: ANION GAP 15 mmol/L (5-15); BLOOD UREA NITROGEN 9 mg/dL (7-18); CALCIUM 7.8 MG/DL (8.5-10.1); CARBON DIOXIDE 20 MMOL/L (21-32); CHLORIDE 105 MMOL/L (98-107); CREATININE 1.1 MG/DL (0.55-1.30); POTASSIUM 4.6 MMOL/L (3.5-5.1); SODIUM 140 MMOL/L (136-145)
[2019-08-15 03:49] LABS: ALANINE AMINOTRANSFERASE 21 U/L (12-78); ALBUMIN 3.3 G/DL (3.4-5.0); ALBUMIN/GLOBULIN RATIO 0.8 (1.0-2.7); ALKALINE PHOSPHATASE 83 U/L (46-116); ASPARTATE AMINO TRANSFERASE 45 U/L (15-37); BILIRUBIN,TOTAL 0.3 MG/DL (0.2-1.0); CREATINE KINASE 374 U/L (26-308)
[2019-08-15] MEDS ORDERED: Digoxin 0.5mg/2ml Inj IVP ONE (04:15)
--- NOTE | 2019-08-15 04:15 | NUR ---
ED Nurse Note: Pt medicated x 2 for pain, meds effective after morphine, heart rate remains elevated, pt being medicated for rate, IV site patent, pt being admitted, will continue to closely monitor and prepare for hospital admission.
--- NOTE | 2019-08-15 04:19 | NUR ---
exchange contacted-left our call back number.
--- NOTE | 2019-08-15 04:22 | Emergency Room Report ---
History of Present Illness General Chief Complaint: Chest Pain Source: Patient Present Illness HPI Patient presents with complaints of chest pain and palpitations reports that he has history of irregular heart rate otherwise appears inebriated and cannot Provide significant input Patient denies any vomiting or diarrhea he does also complain of palpitation sensation Reports that he has been noncompliant with his medications however he does take a blood thinner denies any recent travel or trauma COVID-19 risk:Travel to affect: No Allergies: Coded Allergies: PENICILLIN (Verified Allergy, Severe, 06/19/17) PENICILLINS (Unverified Allergy, Unknown, 07/17/19) Patient History Past Medical History: see triage record Reviewed Nursing Documentation: PMH: Agreed; PSxH: Agreed Nursing Documentation-PMH Hx Cardiac Problems: Yes - A FIB Hx Hypertension: Yes Hx Diabetes: Yes Hx Cancer: No Hx Gastrointestinal Problems: No History Of Psychiatric Problem: Yes Hx Neurological Problems: Yes - Seizures, ETOH Hx Seizures: Yes Review of Systems All Other Systems: negative except mentioned in HPI Physical Exam Vital Signs Date Time Temp Pulse Resp B/P (MAP) Pulse Ox O2 Delivery O2 Flow Rate FiO2 08/15/19 02:49 98.4 148 18 141/100 (114) 97 Room Air Sp02 EP Interpretation: reviewed, normal General Appearance: mild distress - Appears uncomfortable tearful Head: normocephalic, atraumatic Eyes: bilateral eye PERRL, bilateral eye EOMI ENT: hearing grossly normal, EOM grossly intact Neck: supple Respiratory: lungs clear, no respiratory distress, no retraction Cardiovascular #1: tachycardia, irregularly irregular Gastrointestinal: non tender, soft Musculoskeletal: normal inspection Neurologic: alert, oriented x3 Psychiatric: other - Tearful Skin: no rash Lymphatic: no adenopathy Procedures Critical Care Time Critical Care Time 40 minutes for multiple re-evaluations critical presentation concerning for cardiopulmonary arrest not including any procedural times Medical Decision Making Diagnostic Impression: Primary Impression: Rapid atrial fibrillation Additional Impression: Alcohol dependence ER Course Patient is a fairly complex patient with multiple differential to consideration including but not limited to cardiac cardiopulmonary and vascular emergencies Patient remained fairly tachycardic received IV hydration Ativan on review of medical records patient does have history of atrial fibrillation And had recent hospitalization for similar Patient was given further medications for rate control continues to do significantly better and heart rate has improved down to 70-80 heart rate With blood pressure of 120 patient's alcohol level was also elevated X-ray was normal and patient admitted for further inpatient care Labs Test 08/15/19 03:30 White Blood Count 5.4 K/UL (4.8-10.8) Red Blood Count 4.69 M/UL (4.70-6.10) Hemoglobin 14.0 G/DL (14.2-18.0) Hematocrit 41.2 % (42.0-52.0) Mean Corpuscular Volume 88 FL (80-99) Mean Corpuscular Hemoglobin 29.8 PG (27.0-31.0) Mean Corpuscular Hemoglobin Concent 34.0 G/DL (32.0-36.0) Red Cell Distribution Width 14.2 % (11.6-14.8) Platelet Count 232 K/UL (150-450) Mean Platelet Volume 4.8 FL (6.5-10.1) Neutrophils (%) (Auto) 41.2 % (45.0-75.0) Lymphocytes (%) (Auto) 43.4 % (20.0-45.0) Monocytes (%) (Auto) 12.6 % (1.0-10.0) Eosinophils (%) (Auto) 1.1 % (0.0-3.0) Basophils (%) (Auto) 1.7 % (0.0-2.0) Prothrombin Time 10.9 SEC (9.30-11.50) Prothromb Time International Ratio 1.0 (0.9-1.1) Sodium Level 140 MMOL/L (136-145) Potassium Level 4.6 MMOL/L (3.5-5.1) Chloride Level 105 MMOL/L (98-107) Carbon Dioxide Level 20 MMOL/L (21-32) Anion Gap 15 mmol/L (5-15) Blood Urea Nitrogen 9 mg/dL (7-18) Creatinine 1.1 MG/DL (0.55-1.30) Estimat Glomerular Filtration Rate > 60 mL/min (>60) Glucose Level 87 MG/DL (74-106) Calcium Level 7.8 MG/DL (8.5-10.1) Total Bilirubin 0.3 MG/DL (0.2-1.0) Aspartate Amino Transf (AST/SGOT) 45 U/L (15-37) Alanine Aminotransferase (ALT/SGPT) 21 U/L (12-78) Alkaline Phosphatase 83 U/L (46-116) Total Creatine Kinase 374 U/L (26-308) Troponin I 0.018 ng/mL (0.000-0.056) Total Protein 7.7 G/DL (6.4-8.2) Albumin 3.3 G/DL (3.4-5.0) Globulin 4.4 g/dL Albumin/Globulin Ratio 0.8 (1.0-2.7) Lipase 175 U/L (73-393) Serum Alcohol 372 mg/dL EKG Diagnostic Results Rate: tachycardiac Rhythm: other - Irregularly irregular ST Segments: other - nonspecific ST changes Rhythm Strip Diag. Results EP Interpretation: yes Rate: 110 Rhythm: no PVC's, no ectopy, other - Atrial fibrillation rapid ventricular rate nonspecific ST changes Chest X-Ray Diagnostic Results Chest X-Ray Diagnostic Results : Chest X-Ray Ordered: Yes # of Views/Limited/Complete: 1 View Indication: Chest Pain EP Interpretation: Yes Interpretation: no consolidation, no effusion, no pneumothorax Impression: No acute disease Electronically Signed by: Antonella Collier DO Last Vital Signs Date Time Temp Pulse Resp B/P (MAP) Pulse Ox O2 Delivery O2 Flow Rate FiO2 08/15/19 03:33 140 132/89 08/15/19 03:15 98.4 18 97 Room Air Status: improved Disposition: ADMITTED INPATIENT Condition: Serious Referrals: NOT CHOSEN IPA/,REFERRING (PCP) Antonella Collier DO Aug 15, 2019 04:22
[2019-08-15] MEDS ORDERED: Metoprolol Succinate XL 50mg tab ORAL ONE (04:45)
[2019-08-15] MEDS ORDERED: Enoxaparin 80mg Inj SUBQ ONE (05:30)
--- NOTE | 2019-08-15 05:55 | NUR ---
ED Nurse Note: Pt has room for admission, report called to floor nurse ENEIDA Nunez, all pertinent info given, pt is awake and alert, IV site patent, belongings list completed, pt being taken to unit via gurchristiana and ACLS protocols with RN and ER-Tech.
--- NOTE | 2019-08-15 06:51 | NUR ---
NURSE NOTES: Received patient report from ENEIDA Acosta from ER. Patient transported without incident. Shows no signs of distress or pain. Patient still shows signs of intoxication. IV checked no signs of infiltration, erythema, or bleeding. Patient on amf mechanic. Bed in the lowest position, seizure precaution implemented, bed alarm on, brakes on, and call light within reach.
--- NOTE | 2019-08-15 07:20 | NUR ---
NURSE NOTES: Nurse report given by ENEIDA Nunez. Patient's in stable condition, no s/s of distress or SOB, no s/s of pain, AO x 2, patient could not complete answering nurse questions and stated he's tired and wanted to sleep. Unable to obtain medical records. Bed low and locked, call light within reach, side rails x 3, bed alarm's armed, side rails padded for seizure precaution, suction equipment present. IV is saline locked, patent and asymptomatic. Called Dr. Houser's office and asked for admission orders. Spoke to Irineo, office staff and he stated he will page admitting doctor regarding the admission. Awaiting for response. Will continue to monitor closely.
--- NOTE | 2019-08-15 07:29 | NUR ---
HAND-OFF: Report given to ENEIDA Young. Patient asleep. No signs of distress noted at this time. Endorsed plan of care.
--- NOTE | 2019-08-15 08:20 | Diagnostic Imaging Report ---
Indication: Chest pain Technique: One view of the chest Comparison: 07/17/2019 Findings: Persistent left apical pleural and parenchymal scarring, retraction of the left hilum, left upper lobe calcific densities. No acute infiltrates, effusions, or congestion. Normal heart size. Impression: Unchanged findings as described. No definite acute process
--- NOTE | 2019-08-15 08:46 | Consultation ---
History of Present Illness General Date patient seen: Aug 15, 2019 Time patient seen: 20:47 Chief Complaint: Chest Pain Present Illness ESTEFANI Romero is a 64 year old, homeless male, with hx of HTN, DM, a fib, alcoholism , alcohol-related seizure disorder, presenting with palpitations, recent seizures, found to have a fib RVR. Last seizure 3 days ago. He is uncertain what medications he takes. No chest pain or SOB no fevers no hx of NE. Allergies: Coded Allergies: PENICILLIN (Verified Allergy, Severe, 06/19/17) PENICILLINS (Unverified Allergy, Unknown, 07/17/19) Medication History Scheduled Apixaban (Eliquis), 5 MG ORAL BID Ergocalciferol (Vitamin D2) (Ergocalciferol), 5,000 UNIT PO ONCE A WEEK, ( Reported) Escitalopram Oxalate* (Lexapro*), 10 MG ORAL DAILY Folic Acid* (Folic Acid*), 1 MG ORAL DAILY, (Reported) Lisinopril (Lisinopril*), 20 MG ORAL DAILY, (Reported) Melatonin (Melatonin), 6 MG ORAL BEDTIME, (Reported) Metoprolol Tartrate* (Metoprolol Tartrate*), 100 MG ORAL EVERY 12 HOURS Scheduled PRN Albuterol Sulfate (Ventolin Hfa), 2 PUFFS INH EVERY 4 HOURS PRN for Shortness of Breath, (Reported) Mirtazapine* (Mirtazapine*), 15 MG ORAL BEDTIME PRN for INSOMNIA, (Reported) Patient History Healthcare decision maker Resuscitation status Advanced Directive on File Review of Systems Constitutional: Reports: no symptoms Eye: Reports: no symptoms ENT: Reports: no symptoms Respiratory: Reports: no symptoms Cardiovascular: Reports: palpitations Gastrointestinal: Reports: no symptoms Genitourinary: Reports: no symptoms Musculoskeletal: Reports: no symptoms Skin: Reports: no symptoms Psychiatric: Reports: no symptoms Neurological: Reports: seizure Endocrine: Reports: no symptoms Hematologic/Lymphatic: Reports: no symptoms Physical Exam General Appearance: no apparent distress, alert Lines, tubes and drains: peripheral HEENT: normocephalic, atraumatic, anicteric, mucous membranes moist, PERRL Neck: non-tender, normal alignment, supple, normal inspection Respiratory/Chest: chest wall non-tender, lungs clear, normal breath sounds, no respiratory distress, no accessory muscle use, respiratory distress Cardiovascular/Chest: regularly irregular, tachycardia Abdomen: normal bowel sounds, non tender, no organomegaly, no mass Extremities: normal range of motion, non-tender, normal inspection, no calf tenderness, normal capillary refill, non-pitting Skin Exam: normal pigmentation, warm/dry, cyanotic Neurologic: overlock operator II-XII grossly normal, no motor/sensory deficits Last 24 Hour Vital Signs Date Time Temp Pulse Resp B/P (MAP) Pulse Ox O2 Delivery O2 Flow Rate FiO2 08/15/19 06:48 77 08/15/19 06:45 97.2 113 20 128/99 (109) 96 08/15/19 06:10 98.4 82 16 112/61 100 Room Air 08/15/19 06:00 98.4 82 16 112/61 100 Room Air 08/15/19 05:14 140 132/89 08/15/19 05:00 98.4 96 16 129/67 98 Room Air 08/15/19 04:21 140 08/15/19 04:00 98.4 126 16 141/79 99 Room Air 08/15/19 03:56 98.4 08/15/19 03:33 140 132/89 08/15/19 03:15 98.4 140 18 132/89 97 Room Air 08/15/19 03:00 148 18 Room Air 08/15/19 02:49 98.4 148 18 141/100 (114) 97 Room Air Laboratory Tests Test 08/15/19 03:30 08/15/19 05:20 White Blood Count 5.4 K/UL (4.8-10.8) Red Blood Count 4.69 M/UL (4.70-6.10) L Hemoglobin 14.0 G/DL (14.2-18.0) L Hematocrit 41.2 % (42.0-52.0) L Mean Corpuscular Volume 88 FL (80-99) Mean Corpuscular Hemoglobin 29.8 PG (27.0-31.0) Mean Corpuscular Hemoglobin Concent 34.0 G/DL (32.0-36.0) Red Cell Distribution Width 14.2 % (11.6-14.8) Platelet Count 232 K/UL (150-450) Mean Platelet Volume 4.8 FL (6.5-10.1) L Neutrophils (%) (Auto) 41.2 % (45.0-75.0) L Lymphocytes (%) (Auto) 43.4 % (20.0-45.0) Monocytes (%) (Auto) 12.6 % (1.0-10.0) H Eosinophils (%) (Auto) 1.1 % (0.0-3.0) Basophils (%) (Auto) 1.7 % (0.0-2.0) Prothrombin Time 10.9 SEC (9.30-11.50) Prothromb Time International Ratio 1.0 (0.9-1.1) Sodium Level 140 MMOL/L (136-145) Potassium Level 4.6 MMOL/L (3.5-5.1) Chloride Level 105 MMOL/L (98-107) Carbon Dioxide Level 20 MMOL/L (21-32) L Anion Gap 15 mmol/L (5-15) Blood Urea Nitrogen 9 mg/dL (7-18) Creatinine 1.1 MG/DL (0.55-1.30) Estimat Glomerular Filtration Rate > 60 mL/min (>60) Glucose Level 87 MG/DL (74-106) Calcium Level 7.8 MG/DL (8.5-10.1) L Total Bilirubin 0.3 MG/DL (0.2-1.0) Aspartate Amino Transf (AST/SGOT) 45 U/L (15-37) H Alanine Aminotransferase (ALT/SGPT) 21 U/L (12-78) Alkaline Phosphatase 83 U/L (46-116) Total Creatine Kinase 374 U/L (26-308) H Troponin I 0.018 ng/mL (0.000-0.056) Total Protein 7.7 G/DL (6.4-8.2) Albumin 3.3 G/DL (3.4-5.0) L Globulin 4.4 g/dL Albumin/Globulin Ratio 0.8 (1.0-2.7) L Lipase 175 U/L (73-393) Serum Alcohol 372 mg/dL Urine Opiates Screen Negative (NEGATIVE) Urine Barbiturates Screen Negative (NEGATIVE) Phencyclidine (PCP) Screen Negative (NEGATIVE) Urine Amphetamines Screen Negative (NEGATIVE) Urine Benzodiazepines Screen Negative (NEGATIVE) Urine Cocaine Screen Negative (NEGATIVE) Urine Marijuana (THC) Screen Positive (NEGATIVE) H Height (Feet): 5 Height (Inches): 11.00 Weight (Pounds): 150 Medications Current Medications Medications (Trade) Dose Ordered Sig/Yara Route PRN Reason Start Time Stop Time Status Last Admin Dose Admin Apixaban (Eliquis) 5 mg BID ORAL 08/15/19 09:00 09/14/19 08:59 UNV Dextrose (Dextrose 50%) 25 ml Q30M PRN IV Hypoglycemia 08/15/19 08:00 09/14/19 07:59 Dextrose (Dextrose 50%) 50 ml Q30M PRN IV Hypoglycemia 08/15/19 08:00 09/14/19 07:59 Heparin Sodium (Porcine) (Heparin 5000 units/ml) 5,000 units EVERY 12 HOURS SUBQ 08/15/19 09:00 09/29/19 08:59 UNV Ondansetron HCl (Zofran) 4 mg Q6H PRN IVP Nausea & Vomiting 08/15/19 08:00 09/14/19 07:59 Sodium Chloride 1,000 ml @ 75 mls/hr [id number] IVLG 08/15/19 08:30 09/14/19 08:29 Assessment/Plan Status: stable Assessment/Plan: Assessment/Plan Hypertension Alcohol Abuse Atrial fibrillation paroxysmal Seizures PLAN: ECHOCARDIOGRAM Anticoagulation with eliquis (CHADS score 1) Continue metoprolol Hold amiodarone given hx of alcohol abuse, monitor LFT Monitor telemetry D/c with [facility] Outpatient stress test EEG per neurology Marino Davidson MD Aug 15, 2019 08:46
[2019-08-15] MEDS ORDERED: Heparin 5000 units/ml inj SUBQ SCH (09:00)
--- NOTE | 2019-08-15 10:04 | NUR ---
*-* NO INSURANCE INFORMATION ON THE BAR UNABLE TO SEND CLINICALS OR REVIEWS *-*
[2019-08-15] MEDS: Eliquis 5mg tablet ORAL SCH ×2 (10:48→17:28)
--- NOTE | 2019-08-15 10:53 | Consultation ---
Consult Note Consult Note NEUROLOGY CONSULTATION HISTORY: Mr. Sami Romero is a 64-year-old, right-handed, black gentleman, who does have a past history of hypertension, diabetes mellitus, atrial fibrillation, alcoholism, alcohol- related seizure disorder, and possibly depression. He recently reduced his alcoholic intake and started to feel anxious, short of breath, and had palpitations. As a result of that he was brought into the [facility] emergency room and has since been admitted. He tells me that he has had problems with alcohol since he was 9 years old. He has tried to stop drinking numerous times but is unable to do so. With regards to his seizures he tells me that he has generalized tonic-clonic seizures without any warning. The seizures usually occur when he is coming off alcohol. His last seizure was approximately 3 days ago. He is unable to tell me if he takes any medicine for his seizures. He denies any weakness on one side of the other, numbness on one side or the other, problems with speech, problems with language, problems with vision. PAST HISTORY: Hypertension, diabetes mellitus, atrial fibrillation, alcoholism, alcohol-related seizure disorder, and possibly depression. FAMILY HISTORY: There is no family history of seizures or other neurological problems but high blood pressure and diabetes run in the family. PERSONAL HISTORY: Home: He lives alone at home but his girlfriend lives close to him. 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 He has not worked for numerous years. Habits: He smokes approximately half a pack of cigarettes per day and in the past used to smoke large quantities. He drinks 3 cans of 32 ounces of beer almost every day. He smokes marijuana whenever he can get it. PHYSICAL EXAMINATION: GENERAL: He is a well-developed, well-nourished, tearful, black gentleman, sitting up at the edge of his bed in no acute distress. VITAL SIGNS: Pulse 77/min Blood pressure 128/99 mmHg. Respirations 20/min. Temperature 97.2 degrees. HEAD: Normocephalic and atraumatic. NECK: No neck rigidity was observed. EENT: Benign. NEUROLOGICAL EXAMINATION: MENTAL STATUS EXAMINATION: The patient was alert and awake. The patient was oriented to self and July 2019. He did not know the exact date of the name of the hospital. The patient was able to recall 3/3 words immediately after 1 minute and after 3 minutes on the second trial.. The patient was able to remember Presidents Keri to Iyer Dipak. The patient's mathematical skills were impaired. His visuospatial function was preserved. SPEECH: No dysarthria was noted. LANGUAGE: He had an anomia for low-frequency words. CRANIAL NERVE EXAMINATION: II: The visual garcía were intact on confrontation testing. III, IV, and : Extraocular movements were full. Pupils were 3 mm in diameter equal, round, regular, and reactive to light. V: Facial sensations were normal, and the temporales, masseters, and pterygoids functioned normally. VII: Facial expressions were normal and no facial asymmetry was noted. VIII: Hearing was normal bilaterally and no nystagmus was observed. IX: The palate moved symmetrically on phonation. X: No hoarseness of voice was observed. XI: The sternocleidomastoids and trapezii functioned normally. XII: The tongue was in the midline without any fasciculations or atrophy. MOTOR SYSTEM: The tone was normal in all four extremities. Examination of muscle mass revealed no focal wasting. Examination of power revealed G 5/5 power in all muscle groups. SENSORY EXAMINATION: Sensations to pin prick, light touch, and graphesthesia were normal. REFLEXES: 1+ and bilaterally symmetrical at the biceps, triceps, brachioradialis and knees. 0 at both ankles. The plantar responses were flexor bilaterally. COORDINATION: Cyyllm-gx-ddan and sznu-zt-[id number] testing were performed well. On Romberg test he swayed but did not fall to one side of the other. STANCE: He had a wide-based stance with contact-guard. GAIT: He walks with a wide-based gait with contact-guard. DIAGNOSTIC IMPRESSION: 1. Mr. Sami Romero is a 64-year-old, right-handed, black gentleman, who does have a past history of hypertension, diabetes mellitus, atrial fibrillation, alcoholism, alcohol- related seizure disorder, and possibly depression. 2. He recently reduced his alcoholic intake and started to feel anxious, short of breath, and had palpitations. As a result of that he was brought into the [facility] emergency room and has since been admitted. 3. With regards to his seizures he tells me that he has generalized tonic-clonic seizures without any warning. The seizures usually occur when he is coming off alcohol. His last seizure was approximately 3 days ago. He is unable to tell me if he takes any medicine for his seizures. 4. On neurological examination, at this time, he is disoriented to the name of the hospital and exact date. He also has mild problems with recent and remote memory and higher cognitive function. He does not demonstrate any focal or lateralizing neurological findings but his deep tendon reflexes are globally diminished. He stands and walks with a wide-based stance and gait. 5. The patient's seizure disorder is most probably an alcohol-related seizure disorder with both alcohol associated seizures and alcohol withdrawal seizures. RECOMMENDATIONS: 1. An EEG will be ordered to evaluate the patient for the underlying propensity to have seizures. 2. The patient was instructed on the basics of seizure hygiene and was told to follow the rules to prevent further seizures. 3. The patient is interested in getting into a detoxification program to help him with his alcoholism. 4. The patient will be observed closely and depending on how he fares further recommendations will be given. Thank you for entrusting me with the care of Mr. Romero. I shall follow him with you. Yovanny Ramos M.D., M.S.P.H. Neurologist & Clinical Neurophysiologist Yovanny Ramos MD Aug 15, 2019 10:53
--- NOTE | 2019-08-15 12:14 | NUR ---
NURSE NOTES: patient's off to MRI. Patient's stable, off tele ordered.
[2019-08-15] MEDS ORDERED: LORazepam 1mg tab ORAL SCH (12:30)
--- NOTE | 2019-08-15 12:46 | NUR ---
NURSE NOTES: Patient came back from MRI. Patient tolerated well.
--- NOTE | 2019-08-15 13:27 | Diagnostic Imaging Report ---
Indication: Seizures Technique: sagittal T1 fast spin echo, axial T1 FLAIR, axial T2 FLAIR, axial T2 FS PROPELLER, axial T2* GRE, axial diffusion weighted images. ADC and exponential ADC maps generated Comparison: No comparison MRI scans. Reference made to brain CT dated 07/19/2019 Findings: No abnormal areas of restricted diffusion to suggest acute infarction. No acute hemorrhage or edema. No mass effect nor midline shift. There is mild age-related enlargement of ventricles and extra-axial CSF spaces. There is some periventricular deep white matter high T2 signal, consistent with chronic microvascular ischemic change. Visualized orbits and sinuses are unremarkable. Impression: Chronic and age-related changes. Negative for acute intracranial bleed, mass effect, or infarct. Given stated clinical history of seizure disorder, post contrast images should be considered if this has not been worked up previously.
[2019-08-15] MEDS ORDERED: HYDROcodone/Acetamin 5/325 tab ORAL PRN (13:30)
[2019-08-15] MEDS: HYDROcodone/Acetamin 10/325 tab ORAL PRN ×2 (13:42→19:41)
--- NOTE | 2019-08-15 14:12 | NUR ---
*-*DISCHARGE PLANN*-* PATIENT HAS BEEN REFERRED TO: [facility] P: [phone] F: [phone]
--- NOTE | 2019-08-15 16:22 | NUR ---
CASE MANAGEMENT:REVIEW 64 YR OLD MALE BIBA FROM HOME CC: CHEST AND BODY PAIN SI: AFIB W/RVR. ALCOHOL DEPENDENCE 98.4 148 18 141/100 97% ON RA TCK+374 URINE(+) POSITIVE IS: 1L NS BOLUS IV ATIVAN IV CARDIZEM IV MORPHINE IV ZOFRAN : TO TELEMETRY
--- NOTE | 2019-08-15 17:22 | History and Physical ---
History of Present Illness General Date patient seen: Aug 15, 2019 Reason for Hospitalization: Chest Pain Present Illness HPI Mr. Romero is a 64 year old, homeless male, with hx of HTN, DM, a fib, alcoholism, alcohol-related seizure disorder, presenting with palpitations, recent seizures, found to have a fib RVR. Last seizure 3 days ago Allergies: Coded Allergies: PENICILLIN (Verified Allergy, Severe, 06/19/17) PENICILLINS (Unverified Allergy, Unknown, 07/17/19) Medication History Scheduled Apixaban (Eliquis), 5 MG ORAL BID Ergocalciferol (Vitamin D2) (Ergocalciferol), 5,000 UNIT PO ONCE A WEEK, ( Reported) Escitalopram Oxalate* (Lexapro*), 10 MG ORAL DAILY Folic Acid* (Folic Acid*), 1 MG ORAL DAILY, (Reported) Lisinopril (Lisinopril*), 20 MG ORAL DAILY, (Reported) Melatonin (Melatonin), 6 MG ORAL BEDTIME, (Reported) Metoprolol Tartrate* (Metoprolol Tartrate*), 100 MG ORAL EVERY 12 HOURS Scheduled PRN Albuterol Sulfate (Ventolin Hfa), 2 PUFFS INH EVERY 4 HOURS PRN for Shortness of Breath, (Reported) Mirtazapine* (Mirtazapine*), 15 MG ORAL BEDTIME PRN for INSOMNIA, (Reported) Patient History Healthcare decision maker Resuscitation status Full Code Advanced Directive on File Review of Systems Constitutional: Denies: no symptoms, see HPI, chills, sweats, fever, malaise, weakness, other Eye: Denies: no symptoms, see HPI, eye pain, blurred vision, tearing, double vision, nose pain, nose congestion, acuity changes, discharge, other ENT: Denies: no symptoms, see HPI, ear pain, ear discharge, nose pain, nose congestion, throat pain, throat swelling, mouth pain, hearing loss, nasal discharge, other Respiratory: Denies: no symptoms, see HPI, cough, orthopnea, shortness of breath, stridor, wheezing, AARON, sputum, other Cardiovascular: Denies: no symptoms, see HPI, chest pain, edema, palpitations, syncope, PND, other Gastrointestinal: Denies: no symptoms, see HPI, abdominal pain, constipation, diarrhea, nausea, vomiting, melena, hematemesis, other Genitourinary: Denies: no symptoms, see HPI, discharge, dysuria, frequency, hematuria, pain, retention, incontinence, urgency, vag bleed/dc, other Musculoskeletal: Denies: no symptoms, see HPI, back pain, gout, joint pain, joint swelling, muscle pain, muscle stiffness, other Skin: Denies: no symptoms, see HPI, rash, change in color, change in hair/nails , dryness, lesions, other Psychiatric: Denies: no symptoms, see HPI, prior hx, anxiety, depressed feelings, emotional problems, SI, HI, hallucinations, other Neurological: Denies: no symptoms, see HPI, headache, numbness, paresthesia, seizure, tingling, tremors, focal weakness, syncope, dizziness, other Endocrine: Denies: no symptoms, see HPI, excessive sweating, flushing, intolerance to temperature, increased thirst, increased urine, unexplained weight loss, other Hematologic/Lymphatic: Denies: no symptoms, see HPI, anemia, blood clots, easy bleeding, easy bruising, swollen glands, diathesis, other Physical Exam General Appearance: no apparent distress, alert HEENT: normocephalic, atraumatic Neck: supple Respiratory/Chest: lungs clear, normal breath sounds, no respiratory distress Cardiovascular/Chest: normal rate, regular rhythm Abdomen: non tender, soft Neurologic: alert, oriented x 3 Last 24 Hour Vital Signs Date Time Temp Pulse Resp B/P (MAP) Pulse Ox O2 Delivery O2 Flow Rate FiO2 08/15/19 16:00 89 08/15/19 14:12 97.2 08/15/19 12:00 91 08/15/19 12:00 96.6 79 18 118/75 (89) 96 08/15/19 09:00 Room Air 08/15/19 08:00 74 08/15/19 06:48 77 08/15/19 06:45 97.2 113 20 128/99 (109) 96 08/15/19 06:44 Room Air 08/15/19 06:10 98.4 82 16 112/61 100 Room Air 08/15/19 06:00 98.4 82 16 112/61 100 Room Air 08/15/19 05:14 140 132/89 08/15/19 05:00 98.4 96 16 129/67 98 Room Air 08/15/19 04:21 140 08/15/19 04:00 98.4 126 16 141/79 99 Room Air 08/15/19 03:56 98.4 08/15/19 03:33 140 132/89 08/15/19 03:15 98.4 140 18 132/89 97 Room Air 08/15/19 03:00 148 18 Room Air 08/15/19 02:49 98.4 148 18 141/100 (114) 97 Room Air Laboratory Tests Test 08/15/19 03:30 08/15/19 05:20 White Blood Count 5.4 K/UL (4.8-10.8) Red Blood Count 4.69 M/UL (4.70-6.10) L Hemoglobin 14.0 G/DL (14.2-18.0) L Hematocrit 41.2 % (42.0-52.0) L Mean Corpuscular Volume 88 FL (80-99) Mean Corpuscular Hemoglobin 29.8 PG (27.0-31.0) Mean Corpuscular Hemoglobin Concent 34.0 G/DL (32.0-36.0) Red Cell Distribution Width 14.2 % (11.6-14.8) Platelet Count 232 K/UL (150-450) Mean Platelet Volume 4.8 FL (6.5-10.1) L Neutrophils (%) (Auto) 41.2 % (45.0-75.0) L Lymphocytes (%) (Auto) 43.4 % (20.0-45.0) Monocytes (%) (Auto) 12.6 % (1.0-10.0) H Eosinophils (%) (Auto) 1.1 % (0.0-3.0) Basophils (%) (Auto) 1.7 % (0.0-2.0) Prothrombin Time 10.9 SEC (9.30-11.50) Prothromb Time International Ratio 1.0 (0.9-1.1) Sodium Level 140 MMOL/L (136-145) Potassium Level 4.6 MMOL/L (3.5-5.1) Chloride Level 105 MMOL/L (98-107) Carbon Dioxide Level 20 MMOL/L (21-32) L Anion Gap 15 mmol/L (5-15) Blood Urea Nitrogen 9 mg/dL (7-18) Creatinine 1.1 MG/DL (0.55-1.30) Estimat Glomerular Filtration Rate > 60 mL/min (>60) Glucose Level 87 MG/DL (74-106) Calcium Level 7.8 MG/DL (8.5-10.1) L Total Bilirubin 0.3 MG/DL (0.2-1.0) Aspartate Amino Transf (AST/SGOT) 45 U/L (15-37) H Alanine Aminotransferase (ALT/SGPT) 21 U/L (12-78) Alkaline Phosphatase 83 U/L (46-116) Total Creatine Kinase 374 U/L (26-308) H Troponin I 0.018 ng/mL (0.000-0.056) Total Protein 7.7 G/DL (6.4-8.2) Albumin 3.3 G/DL (3.4-5.0) L Globulin 4.4 g/dL Albumin/Globulin Ratio 0.8 (1.0-2.7) L Lipase 175 U/L (73-393) Serum Alcohol 372 mg/dL Urine Opiates Screen Negative (NEGATIVE) Urine Barbiturates Screen Negative (NEGATIVE) Phencyclidine (PCP) Screen Negative (NEGATIVE) Urine Amphetamines Screen Negative (NEGATIVE) Urine Benzodiazepines Screen Negative (NEGATIVE) Urine Cocaine Screen Negative (NEGATIVE) Urine Marijuana (THC) Screen Positive (NEGATIVE) H Height (Feet): 5 Height (Inches): 9.00 Weight (Pounds): 150 Medications Current Medications Medications (Trade) Dose Ordered Sig/Yara Route PRN Reason Start Time Stop Time Status Last Admin Dose Admin Acetaminophen/ Hydrocodone Bitart ([place] 10/325) 1 tab Q4H PRN ORAL Moderate Pain (Pain Scale 4-6) 08/15/19 13:30 08/22/19 13:29 08/15/19 13:42 Acetaminophen/ Hydrocodone Bitart ([place] 5/325) 1 tab Q4H PRN ORAL Mild Pain (Pain Scale 1-3) 08/15/19 13:30 08/22/19 13:29 Apixaban (Eliquis) 5 mg BID ORAL 08/15/19 10:00 09/14/19 09:59 08/15/19 10:48 Dextrose (Dextrose 50%) 25 ml Q30M PRN IV Hypoglycemia 08/15/19 08:00 09/14/19 07:59 Dextrose (Dextrose 50%) 50 ml Q30M PRN IV Hypoglycemia 08/15/19 08:00 09/14/19 07:59 Morphine Sulfate (Morphine Sulfate) 2 mg Q4H PRN IVP Severe Pain (Pain Scale 7-10) 08/15/19 13:30 08/22/19 13:29 Ondansetron HCl (Zofran) 4 mg Q6H PRN IVP Nausea & Vomiting 08/15/19 08:00 09/14/19 07:59 08/15/19 13:42 Sodium Chloride 1,000 ml @ 75 mls/hr [id number] IVLG 08/15/19 08:30 09/14/19 08:29 08/15/19 09:10 Assessment/Plan Status: stable Diagnosis [place] I: MR. Romero is a 64 yo M, homeless, with hx of HTN, alcoholism, alcohol- induced seizure disorder, presenting with a fib RVR. #A fib RVR - resolved Likely induced by excessive alcohol intake. -cardiology consult. -NS 75 mL/hr -Eliquis 5 mg BID. -s/p digoxin, dilt 10 mg IV x2 in ED. -Metoprolol 100 mg XL x1 in ED. #Alcohol use disorder #Homelessness -Social work consult. -Alcohol level elevated. -CIWA protocol. -prn ativan #Seizure disorder, alcohol induced. -Neurology consult . -EEG Time of note doesn't reflect time of encounter. Di Garrison M.D. Aug 15, 2019 17:22
[2019-08-15] MEDS: Morphine Sulfate 2mg/ml Inj(IV/IM USE ONLY) IVP PRN (17:29)
--- NOTE | 2019-08-15 19:10 | NUR ---
HAND-OFF: Report given to ENEIDA Lemons. Patient's stable, plan of care endorsed.
--- NOTE | 2019-08-15 19:30 | NUR ---
NURSE NOTES: Received patient from Hannah RN. Patient in bed, on room air, no signs of respiratory distress. NS infusing via left forearm 20gauge iv. Bed in low position, locked, bed alarm on, call light within reach.
--- NOTE | 2019-08-15 23:00 | NUR ---
NURSE NOTES: Patient c/o n/v. Zofran was given earlier. Notified Dr. Quezada covering for Dr. Houser and informed him that patient has a history of seizures, not on any seizure medications, came to the hospital drunk according to the ER notes. Received orders for mylanta and zofran x1. Dr. Quezada states he will look through the chart and get back to me.
[2019-08-15] MEDS ORDERED: Mylanta II UD 30ml ORAL PRN (23:30)
[2019-08-16] VITALS: BP 144/93
--- NOTE | 2019-08-16 01:54 | NUR ---
NURSE NOTES: Patient still restless, visible tremors. Left message for Dr. Phipps.
--- NOTE | 2019-08-16 02:14 | NUR ---
NURSE NOTES: Received orders from Dr. Phipps to give reglan 10mg ivp x1 and ativan 2mg ivp x1.
[2019-08-16] MEDS ORDERED: Metoclopramide 10mg/2ml Inj IVP SCH (02:15)
[2019-08-16] MEDS ORDERED: LORazepam Inj 2mg/ml 1ml IV SCH (02:15)
--- NOTE | 2019-08-16 02:36 | NUR ---
NURSE NOTES: Ativan 2mg ivp and reglan 10mg ivp administered. Will continue to monitor for withdrawal.
[2019-08-16 04:00] VITALS: BP 135/73
[2019-08-16 07:09] LABS: BASOPHILS % (AUTO) 2.1 % (0.0-2.0); EOSINOPHILS % (AUTO) 1.2 % (0.0-3.0); HEMATOCRIT 44.3 % (42.0-52.0); HEMOGLOBIN 14.9 G/DL (14.2-18.0); LYMPHOCYTES % (AUTO) 25.2 % (20.0-45.0); MEAN CORPUSCULAR VOLUME 90 FL (80-99); MONOCYTES % (AUTO) 12.4 % (1.0-10.0); NEUTROPHILS % (AUTO) 59.1 % (45.0-75.0); PLATELET COUNT 192 K/UL (150-450); RED BLOOD COUNT 4.92 M/UL (4.70-6.10); RED CELL DISTRIBUTION WIDTH 14.6 % (11.6-14.8); WHITE BLOOD COUNT 5.3 K/UL (4.8-10.8)
--- NOTE | 2019-08-16 07:10 | NUR ---
NURSE NOTES: Nurse report given by ENEIDA Lemons. Per endorsing nurse, he's been restless all night and shaking, showing signs of alcohol withdrawal. Patient's asleep at this time, no s/s of pain, no s/s of distress or SOB, breathing regular and unlabored. Bed low and locked, call light within reach, side rails x 2 and padded for seizure precaution. IV is running fluid, no s/s of tenderness or infiltration. Will monitor closely.
[2019-08-16 07:43] LABS: ALANINE AMINOTRANSFERASE 19 U/L (12-78); ALBUMIN 3.6 G/DL (3.4-5.0); ALBUMIN/GLOBULIN RATIO 0.8 (1.0-2.7); ALKALINE PHOSPHATASE 100 U/L (46-116); ANION GAP 17 mmol/L (5-15); ASPARTATE AMINO TRANSFERASE 29 U/L (15-37); BILIRUBIN,TOTAL 0.6 MG/DL (0.2-1.0); BLOOD UREA NITROGEN 11 mg/dL (7-18); CARBON DIOXIDE 21 MMOL/L (21-32); CHLORIDE 103 MMOL/L (98-107); CREATININE 1.2 MG/DL (0.55-1.30); POTASSIUM 4.4 MMOL/L (3.5-5.1); SODIUM 140 MMOL/L (136-145)
[2019-08-16 08:00] VITALS: BP 147/92
--- NOTE | 2019-08-16 09:05 | Cardiology Progress Note ---
Assessment/Plan Status: stable Assessment/Plan Assessment/Plan Hypertension Alcohol Abuse Atrial fibrillation paroxysmal Seizures PLAN: ECHOCARDIOGRAM Anticoagulation with eliquis (CHADS score 1) Continue metoprolol Hold amiodarone given hx of alcohol abuse, monitor LFT - currently back in NSR Monitor telemetry D/c with [facility] Outpatient stress test EEG per neurology Librium for alcohol withdrawal - monitor QTC and for arrhythmias Subjective Cardiovascular: Reports: no symptoms Respiratory: Reports: no symptoms Gastrointestinal/Abdominal: Reports: no symptoms Genitourinary: Reports: no symptoms Subjective Patient remains in NSR, having withdrawal symptoms all night with chills and shakes, no fevers Objective Last 24 Hour Vital Signs Date Time Temp Pulse Resp B/P (MAP) Pulse Ox O2 Delivery O2 Flow Rate FiO2 08/16/19 08:00 98.1 73 21 147/92 (110) 99 08/16/19 04:00 79 08/16/19 04:00 97.9 88 16 135/73 (93) 95 08/16/19 00:00 85 08/16/19 00:00 98.1 76 16 144/93 (110) 97 08/15/19 21:00 Room Air 08/15/19 20:00 85 08/15/19 20:00 98.1 92 16 152/90 (110) 96 08/15/19 17:59 97.2 08/15/19 16:00 98.1 69 20 119/68 (85) 100 08/15/19 16:00 89 08/15/19 14:12 97.2 08/15/19 12:00 91 08/15/19 12:00 96.6 79 18 118/75 (89) 96 General Appearance: WD/WN, mild distress, lethargic EENT: PERRL/EOMI, normal ENT inspection, TMs normal, pharynx normal Neck: non-tender, normal alignment, supple, normal inspection, no JVD Rhythm: NSR Cardiovascular: normal peripheral pulses, normal rate, regular rhythm Respiratory/Chest: chest wall non-tender, lungs clear, normal breath sounds Abdomen: normal bowel sounds, non tender, soft, no organomegaly, no mass, abnormal bowel sounds Extremities: normal range of motion, non-tender, normal inspection, no calf tenderness, no swelling 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, no motor/sensory deficits Intake and Output 08/15/19 08/16/19 19:00 07:00 Intake Total 210 ml 240 ml Output Total 600 ml Balance 210 ml -360 ml Intake Oral 210 ml 240 ml Output Urine Total 600 ml # Voids 3 # Bowel Movements 1 Laboratory Tests Test 08/16/19 06:30 White Blood Count 5.3 K/UL (4.8-10.8) Red Blood Count 4.92 M/UL (4.70-6.10) Hemoglobin 14.9 G/DL (14.2-18.0) Hematocrit 44.3 % (42.0-52.0) Mean Corpuscular Volume 90 FL (80-99) Mean Corpuscular Hemoglobin 30.4 PG (27.0-31.0) Mean Corpuscular Hemoglobin Concent 33.7 G/DL (32.0-36.0) Red Cell Distribution Width 14.6 % (11.6-14.8) Platelet Count 192 K/UL (150-450) Mean Platelet Volume 5.3 FL (6.5-10.1) L Neutrophils (%) (Auto) 59.1 % (45.0-75.0) Lymphocytes (%) (Auto) 25.2 % (20.0-45.0) Monocytes (%) (Auto) 12.4 % (1.0-10.0) H Eosinophils (%) (Auto) 1.2 % (0.0-3.0) Basophils (%) (Auto) 2.1 % (0.0-2.0) H Sodium Level 140 MMOL/L (136-145) Potassium Level 4.4 MMOL/L (3.5-5.1) Chloride Level 103 MMOL/L (98-107) Carbon Dioxide Level 21 MMOL/L (21-32) Anion Gap 17 mmol/L (5-15) H Blood Urea Nitrogen 11 mg/dL (7-18) Creatinine 1.2 MG/DL (0.55-1.30) Estimat Glomerular Filtration Rate > 60 mL/min (>60) Glucose Level 95 MG/DL (74-106) Calcium Level 9.0 MG/DL (8.5-10.1) Total Bilirubin 0.6 MG/DL (0.2-1.0) Aspartate Amino Transf (AST/SGOT) 29 U/L (15-37) Alanine Aminotransferase (ALT/SGPT) 19 U/L (12-78) Alkaline Phosphatase 100 U/L (46-116) Total Protein 8.2 G/DL (6.4-8.2) Albumin 3.6 G/DL (3.4-5.0) Globulin 4.6 g/dL Albumin/Globulin Ratio 0.8 (1.0-2.7) L Marino Davidson MD Aug 16, 2019 09:05
[2019-08-16] MEDS: Eliquis 5mg tablet ORAL SCH ×2 (09:07→17:03)
[2019-08-16] MEDS: Morphine Sulfate 2mg/ml Inj(IV/IM USE ONLY) IVP PRN ×2 (09:08→17:03)
--- NOTE | 2019-08-16 11:04 | NUR ---
PT NOTE Received MD order for PT evaluation. Attempted to see patient, patient sleeping. Hannah MONIQUE requesting not to wake patient as patient did not sleep well last night. Will follow up tomorrow.
[2019-08-16 12:00] VITALS: BP 143/95
--- NOTE | 2019-08-16 13:18 | General Progress Note ---
Assessment/Plan Status: stable Assessment/Plan: MR. Romero is a 64 yo M, homeless, with hx of HTN, alcoholism, alcohol- induced seizure disorder, presenting with a fib RVR. #A fib RVR -cardiology consult appreciated -cont NS -cont Eliquis 5 mg BID. -cont metoprolol #Alcohol use disorder #Homelessness -Social work consult. -Alcohol level elevated -prn ativan per CIWA -Thiamine, Folate, MVI #Seizure disorder, alcohol induced. -cont supportive care Time spent on encounter: 35 mins, >50% on pt counseling, coordination of care. I spent an additional 35 minutes on review of medical records including prior outside hospital records, consult notes, progress notes, procedures, imaging, labs, hemodynamics, and other clinical documentation. Time of note doesn't reflect time of encounter. Subjective Date patient seen: Aug 16, 2019 Time patient seen: 12:21 ROS Limited/Unobtainable: Yes Constitutional: Denies: chills Cardiovascular: Denies: chest pain Respiratory: Denies: cough Gastrointestinal/Abdominal: Reports: nausea; Denies: abdomen distended, abdominal pain Genitourinary: Denies: burning Allergies: Coded Allergies: PENICILLIN (Verified Allergy, Severe, 06/19/17) PENICILLINS (Unverified Allergy, Unknown, 07/17/19) Subjective Follow up for uncontrolled atrial fibrillation, alcoholism No new complaints. Midl tremor. Objective Last 24 Hour Vital Signs Date Time Temp Pulse Resp B/P (MAP) Pulse Ox O2 Delivery O2 Flow Rate FiO2 08/16/19 12:00 81 08/16/19 12:00 97.7 76 20 143/95 (111) 98 08/16/19 09:38 98.1 08/16/19 09:00 Room Air 08/16/19 08:00 98.1 73 21 147/92 (110) 99 08/16/19 08:00 74 08/16/19 04:00 79 08/16/19 04:00 97.9 88 16 135/73 (93) 95 08/16/19 00:00 85 08/16/19 00:00 98.1 76 16 144/93 (110) 97 08/15/19 21:00 Room Air 08/15/19 20:00 85 08/15/19 20:00 98.1 92 16 152/90 (110) 96 08/15/19 16:00 98.1 69 20 119/68 (85) 100 08/15/19 16:00 89 08/15/19 14:12 97.2 Intake and Output 08/15/19 08/16/19 19:00 07:00 Intake Total 210 ml 240 ml Output Total 600 ml Balance 210 ml -360 ml Intake Oral 210 ml 240 ml Output Urine Total 600 ml # Voids 3 # Bowel Movements 1 Laboratory Tests 08/16/19 06:30: White Blood Count 5.3, Red Blood Count 4.92, Hemoglobin 14.9, Hematocrit 44.3, Mean Corpuscular Volume 90, Mean Corpuscular Hemoglobin 30.4, Mean Corpuscular Hemoglobin Concent 33.7, Red Cell Distribution Width 14.6, Platelet Count 192, Mean Platelet Volume 5.3L, Neutrophils (%) (Auto) 59.1, Lymphocytes (%) (Auto) 25.2, Monocytes (%) (Auto) 12.4H, Eosinophils (%) (Auto) 1.2, Basophils (%) ( Auto) 2.1H, Sodium Level 140, Potassium Level 4.4, Chloride Level 103, Carbon Dioxide Level 21, Anion Gap 17H, Blood Urea Nitrogen 11, Creatinine 1.2, Estimat Glomerular Filtration Rate > 60, Glucose Level 95, Calcium Level 9.0, Total Bilirubin 0.6, Aspartate Amino Transf (AST/SGOT) 29, Alanine Aminotransferase (ALT/SGPT) 19, Alkaline Phosphatase 100, Total Protein 8.2, Albumin 3.6, Globulin 4.6, Albumin/Globulin Ratio 0.8L Height (Feet): 5 Height (Inches): 9.00 Weight (Pounds): 150 General Appearance: no apparent distress, alert Neck: normal alignment, supple Cardiovascular: normal rate, irregularly irregular Respiratory/Chest: lungs clear, normal breath sounds Abdomen: non tender, soft 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
[2019-08-16] MEDS ORDERED: LORazepam Inj 2mg/ml 1ml IV PRN (13:30)
[2019-08-16] MEDS: Thiamine 100mg tab ORAL SCH (13:44)
[2019-08-16] MEDS: Metoprolol Tartrate 100mg tab ORAL SCH ×2 (13:45→20:53)
--- NOTE | 2019-08-16 13:49 | Neurology Progress Note ---
Interim History Interim History Interim History Mr. Sami Romero is a 64-year-old, right-handed, black gentleman, who does have a past history of hypertension, diabetes mellitus, atrial fibrillation, alcoholism, alcohol- related seizure disorder, and possibly depression. He recently reduced his alcoholic intake and started to feel anxious, short of breath, and had palpitations. As a result of that he was brought into the [facility] emergency room and has since been admitted. With regards to his seizures he tells me that he has generalized tonic-clonic seizures without any warning. The seizures usually occur when he is coming off alcohol. His last seizure was approximately 3 days ago. He is unable to tell me if he takes any medicine for his seizures. He feels better today. He has had no further seizures. He did have a mild headache last night and as a result of that refused his EEG. He denies any new neurological symptoms. He does feel a little anxious and tremulous. Review of Systems Neuro Review of Systems Benign. Objective Physical Exam Last Vital Signs Date Time Temp Pulse Resp B/P (MAP) Pulse Ox O2 Delivery O2 Flow Rate FiO2 08/16/19 12:00 81 08/16/19 12:00 97.7 20 143/95 (111) 98 08/16/19 09:00 Room Air Laboratory Tests Test 08/16/19 06:30 White Blood Count 5.3 K/UL (4.8-10.8) Red Blood Count 4.92 M/UL (4.70-6.10) Hemoglobin 14.9 G/DL (14.2-18.0) Hematocrit 44.3 % (42.0-52.0) Mean Corpuscular Volume 90 FL (80-99) Mean Corpuscular Hemoglobin 30.4 PG (27.0-31.0) Mean Corpuscular Hemoglobin Concent 33.7 G/DL (32.0-36.0) Red Cell Distribution Width 14.6 % (11.6-14.8) Platelet Count 192 K/UL (150-450) Mean Platelet Volume 5.3 FL (6.5-10.1) L Neutrophils (%) (Auto) 59.1 % (45.0-75.0) Lymphocytes (%) (Auto) 25.2 % (20.0-45.0) Monocytes (%) (Auto) 12.4 % (1.0-10.0) H Eosinophils (%) (Auto) 1.2 % (0.0-3.0) Basophils (%) (Auto) 2.1 % (0.0-2.0) H Sodium Level 140 MMOL/L (136-145) Potassium Level 4.4 MMOL/L (3.5-5.1) Chloride Level 103 MMOL/L (98-107) Carbon Dioxide Level 21 MMOL/L (21-32) Anion Gap 17 mmol/L (5-15) H Blood Urea Nitrogen 11 mg/dL (7-18) Creatinine 1.2 MG/DL (0.55-1.30) Estimat Glomerular Filtration Rate > 60 mL/min (>60) Glucose Level 95 MG/DL (74-106) Calcium Level 9.0 MG/DL (8.5-10.1) Total Bilirubin 0.6 MG/DL (0.2-1.0) Aspartate Amino Transf (AST/SGOT) 29 U/L (15-37) Alanine Aminotransferase (ALT/SGPT) 19 U/L (12-78) Alkaline Phosphatase 100 U/L (46-116) Total Protein 8.2 G/DL (6.4-8.2) Albumin 3.6 G/DL (3.4-5.0) Globulin 4.6 g/dL Albumin/Globulin Ratio 0.8 (1.0-2.7) L Neurologic Exam Objective PHYSICAL EXAMINATION: GENERAL: He is a well-developed, well-nourished, black gentleman, sitting up at the edge of his bed in no acute distress. HEAD: Normocephalic and atraumatic. NECK: No neck rigidity was observed. EENT: Benign. NEUROLOGICAL EXAMINATION: MENTAL STATUS EXAMINATION: The patient was alert and awake. The patient was oriented to self and August 16, 2019. He did not know the name of the hospital. He was able to recall 3/3 words immediately after 1 minute and after 3 minutes on the second trial. The patient was able to remember Presidents Trump through Iyer Dipak. The patient's mathematical skills were impaired. His visuospatial function was preserved. SPEECH: No dysarthria was noted. LANGUAGE: He had an anomia for low-frequency words. CRANIAL NERVE EXAMINATION: II: The visual garcía were intact on confrontation testing. III, IV, and : Extraocular movements were full. Pupils were 3 mm in diameter equal, round, regular, and reactive to light. V: Facial sensations were normal, and the temporales, masseters, and pterygoids functioned normally. VII: Facial expressions were normal and no facial asymmetry was noted. VIII: Hearing was normal bilaterally and no nystagmus was observed. IX: The palate moved symmetrically on phonation. X: No hoarseness of voice was observed. XI: The sternocleidomastoids and trapezii functioned normally. XII: The tongue was in the midline without any fasciculations or atrophy. MOTOR SYSTEM: The tone was normal in all four extremities. Examination of muscle mass revealed no focal wasting. Examination of power revealed G 5/5 power in all muscle groups. SENSORY EXAMINATION: Sensations to pin prick, light touch, and graphesthesia were normal. REFLEXES: 1+ and bilaterally symmetrical at the biceps, triceps, brachioradialis and knees. 0 at both ankles. The plantar responses were flexor bilaterally. COORDINATION: Pmyssf-va-bptx and euoe-qb-qaxv testing were performed well. On Romberg test he swayed but did not fall to one side of the other. STANCE: He had a wide-based stance with contact-guard. GAIT: He walks with a wide-based gait with contact-guard. Impression/Recommendations Diagnostic Impression DIAGNOSTIC IMPRESSION: 1. Mr. Sami Romero is a 64-year-old, right-handed, black gentleman, who does have a past history of hypertension, diabetes mellitus, atrial fibrillation, alcoholism, alcohol- related seizure disorder, and possibly depression. 2. He recently reduced his alcoholic intake and started to feel anxious, short of breath, and had palpitations. As a result of that he was brought into the [facility] emergency room and has since been admitted. 3. With regards to his seizures he tells me that he has generalized tonic-clonic seizures without any warning. The seizures usually occur when he is coming off alcohol. His last seizure was approximately 3 days ago. He is unable to tell me if he takes any medicine for his seizures. 4. He feels better today. He has had no further seizures. He did have a mild headache last night and as a result of that refused his EEG. He denies any new neurological symptoms. He does feel a little anxious and tremulous. 5. On neurological examination, at this time, he is disoriented to the name of the hospital. He also has mild problems with recent and remote memory and higher cognitive function. He does not demonstrate any focal or lateralizing neurological findings but his deep tendon reflexes are globally diminished. He stands and walks with a wide-based stance and gait. 6. An MRI scan of the brain reveals atrophy and deep white matter changes but no acute pathology. 7. The patient's seizure disorder is most probably an alcohol-related seizure disorder with both alcohol associated seizures and alcohol withdrawal seizures. Recommendations RECOMMENDATIONS: 1. The patient was given explanation of the above-mentioned findings. 2. Await EEG to evaluate the patient for an underlying propensity to have seizures. 3. The patient was again instructed on the basics of seizure hygiene and was told to follow the rules to prevent further seizures. 4. The patient is interested in getting into a detoxification program to help him with his alcoholism. 5. The patient will be observed closely and depending on how he fares further recommendations will be given. Yovanny Ramos M.D., M.S.P.H. Neurologist & Clinical Neurophysiologist Yovanny Ramos MD Aug 16, 2019 13:48
--- NOTE | 2019-08-16 15:02 | NUR ---
CASE MANAGEMENT:REVIEW 08/16/19 SI: AFIB W/RVR ALCOHOL INDUCED SEIZURE DISORDER 97.7 76 20 143/95 98% ON RA IS: THIAMINE PO QD LOPRESSOR PO Q12 ELIQUIS PO BID IVF@75/HR : TELEMETRY PLAN: EEG COMPLETED ~ RESULTS PENDING
--- NOTE | 2019-08-16 15:09 | NUR ---
[facility]CHAR[facility] AND SPOKE WITH KATE LOVE, IF PATIENT IS DISCHARGING IN 1-2 DAYS THERE IS NO NEED TO TRANSFER TO THE [facility] T: [phone] F: [phone] Addendum: 08/16/19 at 1518 by JORGE LUIS MONROY LVN LVN UPDATED CLINICALS FAXED TO [facility]
--- NOTE | 2019-08-16 15:52 | NUR ---
*-* INSURANCE *-* ALL CLINICALS AND REVIEWS HAVE BEEN FAXED TO: [facility]#[phone] EXT [phone] FAX# [phone] REVIEWS/CLINICALS
[2019-08-16 16:00] VITALS: BP 141/92
--- NOTE | 2019-08-16 19:15 | NUR ---
NURSE NOTES: Received pt and report from ENEIDA Marie. Observed pt resting in bed with both eyes open and cardiac technologist at bedside. Pt is A/Ox4. manager monitoring is in placed; pt is in A. Fib (HR 66). IV site intact, asymptomatic, and patent; running NS at 75cc/hr. Seizure precaution noted; side rails padded, oxygen and suction at bedside. Bed is in the lowest position and locked. Call light and bedside table is within reach. No signs/symptoms of acute distress noted at this time. Will continue plan of care.
--- NOTE | 2019-08-16 19:22 | NUR ---
HAND-OFF: Report given to ENEIDA Reeves. Patient's stable, plan of care endorsed.
[2019-08-16 20:00] VITALS: BP 150/99
[2019-08-17] VITALS: BP 136/84
[2019-08-17 04:00] VITALS: BP 145/94
[2019-08-17 06:35] LABS: BASOPHILS % (AUTO) 0.8 % (0.0-2.0); EOSINOPHILS % (AUTO) 3.4 % (0.0-3.0); HEMATOCRIT 42.2 % (42.0-52.0); HEMOGLOBIN 14.1 G/DL (14.2-18.0); LYMPHOCYTES % (AUTO) 22.5 % (20.0-45.0); MEAN CORPUSCULAR VOLUME 90 FL (80-99); MONOCYTES % (AUTO) 8.2 % (1.0-10.0); NEUTROPHILS % (AUTO) 65.1 % (45.0-75.0); PLATELET COUNT 158 K/UL (150-450); RED BLOOD COUNT 4.71 M/UL (4.70-6.10); RED CELL DISTRIBUTION WIDTH 14.3 % (11.6-14.8); WHITE BLOOD COUNT 6.3 K/UL (4.8-10.8)
[2019-08-17 06:55] LABS: ANION GAP 9 mmol/L (5-15); BLOOD UREA NITROGEN 8 mg/dL (7-18); CALCIUM 8.7 MG/DL (8.5-10.1); CARBON DIOXIDE 26 MMOL/L (21-32); CHLORIDE 102 MMOL/L (98-107); CREATININE 1.2 MG/DL (0.55-1.30); POTASSIUM 3.9 MMOL/L (3.5-5.1); SODIUM 137 MMOL/L (136-145)
--- NOTE | 2019-08-17 07:36 | NUR ---
HAND-OFF: Report given to ENEIDA Martin. Plan of care endorsed.
[2019-08-17 08:00] VITALS: BP 135/82
--- NOTE | 2019-08-17 08:00 | NUR ---
NURSE NOTES: Received patient from Lala RN. sitting in bed and having breakfast. Patient is on room air, denies any pain at this time, no signs of respiratory distress noted. NS infusing via left forearm 20gauge IV. Bed in low position, locked, bed alarm on, call light within reach. Will continue with the plan of care.
[2019-08-17] MEDS: Metoprolol Tartrate 100mg tab ORAL SCH ×2 (08:47→21:48)
[2019-08-17] MEDS: Eliquis 5mg tablet ORAL SCH ×2 (08:48→17:03)
[2019-08-17] MEDS: Thiamine 100mg tab ORAL SCH (08:51)
--- NOTE | 2019-08-17 09:10 | NUR ---
PT EVALUATION NOTE Patient seen for initial evaluation. Patient presents with generalized weakness, impaired balance and impaired functional mobility. Patient requires CGA for transfers. Patient able to ambulate 80 ft with CGA and FWW, unsteady gait with slowed pace. Patient also c/o LBP rated at 8/10. Patient will benefit from skilled inpatient PT intervention to address strength, balance and safety for improved level of independence in functional mobility. Discharge recommendation to be determined based on patient's progress. Patient has FWW at home. Addendum: 08/17/19 at 1009 by CLYDE SCHNEIDER PT Amended: Links added.
--- NOTE | 2019-08-17 10:22 | Cardiology Progress Note ---
Assessment/Plan Status: stable Assessment/Plan Assessment/Plan Hypertension Alcohol Abuse Atrial fibrillation paroxysmal Seizures PLAN: ECHOCARDIOGRAM Anticoagulation with eliquis (CHADS score 1) Continue metoprolol Hold amiodarone given hx of alcohol abuse, monitor LFT - currently back in NSR Monitor telemetry D/c with [facility] stress test EEG per neurology Librium for alcohol withdrawal - monitor QTC and for arrhythmias Subjective Cardiovascular: Reports: no symptoms Respiratory: Reports: no symptoms Genitourinary: Reports: no symptoms Subjective Patient remains in NSR, having withdrawal symptoms all night with chills and shakes, no fevers, [place] completed, no distress this morning, vitals stable Objective Last 24 Hour Vital Signs Date Time Temp Pulse Resp B/P (MAP) Pulse Ox O2 Delivery O2 Flow Rate FiO2 08/17/19 08:47 80 135/82 08/17/19 08:00 98.8 80 20 135/82 (99) 97 08/17/19 04:00 88 08/17/19 04:00 98.2 78 18 145/94 (111) 98 08/17/19 00:00 63 08/17/19 00:00 98.4 82 17 136/84 (101) 97 08/16/19 21:00 Room Air 08/16/19 20:53 77 150/99 08/16/19 20:00 66 08/16/19 20:00 98.1 79 17 150/99 (116) 100 08/16/19 17:42 98.2 08/16/19 16:00 98.2 83 20 141/92 (108) 100 08/16/19 16:00 66 08/16/19 13:45 81 143/95 08/16/19 12:00 81 08/16/19 12:00 97.7 76 20 143/95 (111) 98 General Appearance: no apparent distress, alert EENT: PERRL/EOMI, normal ENT inspection, TMs normal, pharynx normal Neck: non-tender, normal alignment, supple, normal inspection, no JVD Rhythm: NSR Cardiovascular: normal peripheral pulses, normal rate, regular rhythm Respiratory/Chest: chest wall non-tender, lungs clear, normal breath sounds, no respiratory distress, no accessory muscle use Abdomen: normal bowel sounds, non tender, soft, no organomegaly, no mass Extremities: normal inspection, no calf tenderness, no swelling Neurologic: 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 II-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 grossly normal, no motor/sensory deficits Intake and Output 08/16/19 08/17/19 19:00 07:00 Intake Total 390 ml Output Total 400 ml 300 ml Balance -10 ml -300 ml Intake Oral 390 ml Output Urine Total 400 ml 300 ml # Bowel Movements 1 Laboratory Tests Test 08/17/19 06:11 White Blood Count 6.3 K/UL (4.8-10.8) Red Blood Count 4.71 M/UL (4.70-6.10) Hemoglobin 14.1 G/DL (14.2-18.0) L Hematocrit 42.2 % (42.0-52.0) Mean Corpuscular Volume 90 FL (80-99) Mean Corpuscular Hemoglobin 29.9 PG (27.0-31.0) Mean Corpuscular Hemoglobin Concent 33.4 G/DL (32.0-36.0) Red Cell Distribution Width 14.3 % (11.6-14.8) Platelet Count 158 K/UL (150-450) Mean Platelet Volume 5.4 FL (6.5-10.1) L Neutrophils (%) (Auto) 65.1 % (45.0-75.0) Lymphocytes (%) (Auto) 22.5 % (20.0-45.0) Monocytes (%) (Auto) 8.2 % (1.0-10.0) Eosinophils (%) (Auto) 3.4 % (0.0-3.0) H Basophils (%) (Auto) 0.8 % (0.0-2.0) Sodium Level 137 MMOL/L (136-145) Potassium Level 3.9 MMOL/L (3.5-5.1) Chloride Level 102 MMOL/L (98-107) Carbon Dioxide Level 26 MMOL/L (21-32) Anion Gap 9 mmol/L (5-15) Blood Urea Nitrogen 8 mg/dL (7-18) Creatinine 1.2 MG/DL (0.55-1.30) Estimat Glomerular Filtration Rate > 60 mL/min (>60) Glucose Level 81 MG/DL (74-106) Calcium Level 8.7 MG/DL (8.5-10.1) Magnesium Level 1.2 MG/DL (1.8-2.4) Marino Block MD Aug 17, 2019 10:22
--- NOTE | 2019-08-17 11:10 | NUR ---
CASE MANAGEMENT:REVIEW 08/17/19 SI: AFIB W/RVR ALCOHOL INDUCED SEIZURE DISORDER. WITHDRAWAL SYNDROME 98.8 80 20 135/82 97% ON RA HGB-14.1 MAG-1.2 IS: IV MAG SULFATE Q1HRS X4 BAGS THIAMINE PO QD LOPRESSOR PO Q12 ELIQUIS PO BID IVF@75/HR : TELEMETRY PLAN: EEG COMPLETED ~ RESULTS PENDING AMBULATING 80FT W/FWW ~ UNSTEADY GAIT RECOMMENDATION IS FOR SNF PLACEMENT ON DISCHARGE FOR PHYSICAL THERAPY
[2019-08-17 12:00] VITALS: BP 148/80
--- NOTE | 2019-08-17 12:08 | General Progress Note ---
Assessment/Plan Status: stable Assessment/Plan: MR. Romero is a 64 yo M, homeless, with hx of HTN, alcoholism, alcohol- induced seizure disorder, presenting with a fib RVR. #A fib RVR, now back in sinus -cardiology consult appreciated -cont Eliquis 5 mg BID. -cont metoprolol #Alcohol use disorder without significant withdrawal symptoms or signs #Hypomagnesemia #Homelessness -Psychiatry eval -Replete with IV Mag -prn ativan per [facility]WA -Thiamine, Folate, MVI #Seizure disorder, alcohol induced. -cont supportive care #Recent fall, back pain -check LS spine XR Time spent on encounter: 35 mins, >50% on pt counseling, coordination of care. Time of note doesn't reflect time of encounter. Subjective Date patient seen: Aug 17, 2019 Time patient seen: 11:00 ROS Limited/Unobtainable: No Constitutional: Denies: chills, fever Cardiovascular: Denies: chest pain Respiratory: Denies: cough Gastrointestinal/Abdominal: Denies: abdominal pain Neurologic/Psychiatric: Denies: anxiety Endocrine: Denies: excessive sweating, flushing Allergies: Coded Allergies: PENICILLIN (Verified Allergy, Severe, 06/19/17) PENICILLINS (Unverified Allergy, Unknown, 07/17/19) Subjective Follow up for uncontrolled atrial fibrillation, alcoholism Mild tremor and global weakness Nausea improved, tolerating oral intake. Back pain reported Objective Last 24 Hour Vital Signs Date Time Temp Pulse Resp B/P (MAP) Pulse Ox O2 Delivery O2 Flow Rate FiO2 08/17/19 09:00 Room Air 08/17/19 08:47 80 135/82 08/17/19 08:00 110 08/17/19 08:00 98.8 80 20 135/82 (99) 97 08/17/19 04:00 88 08/17/19 04:00 98.2 78 18 145/94 (111) 98 08/17/19 00:00 63 08/17/19 00:00 98.4 82 17 136/84 (101) 97 08/16/19 21:00 Room Air 08/16/19 20:53 77 150/99 08/16/19 20:00 66 08/16/19 20:00 98.1 79 17 150/99 (116) 100 08/16/19 17:42 98.2 08/16/19 16:00 98.2 83 20 141/92 (108) 100 08/16/19 16:00 66 08/16/19 13:45 81 143/95 Intake and Output 08/16/19 08/17/19 19:00 07:00 Intake Total 390 ml Output Total 400 ml 300 ml Balance -10 ml -300 ml Intake Oral 390 ml Output Urine Total 400 ml 300 ml # Bowel Movements 1 Laboratory Tests 08/17/19 06:11: White Blood Count 6.3, Red Blood Count 4.71, Hemoglobin 14.1L, Hematocrit 42.2, Mean Corpuscular Volume 90, Mean Corpuscular Hemoglobin 29.9, Mean Corpuscular Hemoglobin Concent 33.4, Red Cell Distribution Width 14.3, Platelet Count 158, Mean Platelet Volume 5.4L, Neutrophils (%) (Auto) 65.1, Lymphocytes (%) (Auto) 22.5, Monocytes (%) (Auto) 8.2, Eosinophils (%) (Auto) 3.4H, Basophils (%) (Auto ) 0.8, Sodium Level 137, Potassium Level 3.9, Chloride Level 102, Carbon Dioxide Level 26, Anion Gap 9, Blood Urea Nitrogen 8, Creatinine 1.2, Estimat Glomerular Filtration Rate > 60, Glucose Level 81, Calcium Level 8.7, Magnesium Level 1.2L Height (Feet): 5 Height (Inches): 9.00 Weight (Pounds): 142 General Appearance: no apparent distress, alert Neck: normal alignment, supple, normal inspection Cardiovascular: normal rate, regular rhythm Respiratory/Chest: lungs clear, normal breath sounds, no respiratory distress Abdomen: non tender, soft, no organomegaly Nabeel Arriaga MD Aug 17, 2019 12:07
--- NOTE | 2019-08-17 15:06 | Diagnostic Imaging Report ---
Indication: Back pain Comparison: None Findings: 3 views of the lumbar spine were obtained. Multilevel narrowing of intervertebral disks and associated endplate and facet osteophytes are present. No malalignment identified. No acute fracture definitely seen. Aorta is moderately calcified. Impression: Moderate spondylosis. No acute injury appreciated.
--- NOTE | 2019-08-17 15:38 | NUR ---
REGISTERED PHLEBOTOMIST PART TIME CONSULT SW received a consult for homelessness and substance abuse. SW met w/ pt and discussed such topics. Pt presents as A&o 4x. Pt reports he resides alone at [address] [address], [place] [address]. Pt pays the rent $320/mo. Pt has a dog, currently watched by his neighbor. Pt is single, has no children and has no family in contact. Pt plans to return home upon DC. Pt does not have POA/AD. RUDS positive for THC and ETOH level was 325 prior to admission. Pt reports his father was an alcoholic, and his first time of drinking was at age 9. PT has been drinking 3 cans of beers every day. Pt has hx of substance abuse rehab program and pt reported the experience was "not good". Pt has been abusing THC since his service at [employer]. PT currently does not have PCP/counselor. Pt is aware that ETOH abuse has been a "serious problem" for him. SW encouraged pt to contact [facility] for rehab assistance but pt refused and stated that he does not trust various services provided by [facility]. Pt reports to this SW that he will try to quit w/o participating substance abuse rehab program. Meanwhile, this SW provided the list of substance abuse rehab programs. SW encouraged pt to utilize such programs when needed. Pt verbalized understanding. SW to F/U as needed. Signed: 08/17/19 at 1545 by ED VIERA <Co-Signature Required>
[2019-08-17 16:00] VITALS: BP 140/87
--- NOTE | 2019-08-17 17:15 | Electroencephalogram ---
DATE OF PROCEDURE: 08/16/2019 REQUESTING PHYSICIAN: Sean Houser M.D. READING PHYSICIAN: Yovanny Ramos M.D. PROCEDURE PERFORMED: Electroencephalogram. HISTORY: This EEG was performed on a 64-year-old gentleman, who was hospitalized for multiple medical problems including seizures. The patient seizures are usually alcohol related. The purpose of this EEG was to better delineate the type of seizure disorder. TECHNICAL NOTE: This EEG was performed on [employer] [facility] with electrodes placed on the scalp according to the International 10-20 system. [id number] and hedel-dt-cjt montages were used. The EEG was technically satisfactory and was performed in the awake and drowsy states. OBSERVATIONS: In the reportedly awake state, the background activity consisted of 9-10 Hz posteriorly predominant alpha activity. A large amount of EMG artifact was seen throughout the tracing. Drowsiness was characterized by dissolution of the alpha rhythm and the appearance of slow frequencies in the 5-6 Hz theta range. No focal abnormalities or epileptiform discharges were seen. IMPRESSION: Normal awake and drowsy EEG. COMMENT: A normal EEG does not rule out a seizure disorder. However, the absence of interictal discharges make the likelihood of having further seizures less so. Yovanny Ramos M.D., M.S.P.H. Clinical Neurophysiologist DR: PATRICK JOB#: [id number] CC: SEDRICK
--- NOTE | 2019-08-17 17:25 | Neurology Progress Note ---
Interim History Interim History Interim History Mr. Sami Romero is a 64-year-old, right-handed, black gentleman, who does have a past history of hypertension, diabetes mellitus, atrial fibrillation, alcoholism, alcohol- related seizure disorder, and possibly depression. He recently reduced his alcoholic intake and started to feel anxious, short of breath, and had palpitations. As a result of that he was brought into the [facility] emergency room and has since been admitted. With regards to his seizures he tells me that he has generalized tonic-clonic seizures without any warning. The seizures usually occur when he is coming off alcohol. His last seizure was approximately 3 days prior to admission. He is unable to tell me if he takes any medicine for his seizures. He continues to feel much better. He has had no further seizures. He denies any new neurological symptoms. He does feel a little anxious but the tremulousness has resolved. He is eager to go home. Review of Systems Neuro Review of Systems Benign. Objective Physical Exam Last Vital Signs Date Time Temp Pulse Resp B/P (MAP) Pulse Ox O2 Delivery O2 Flow Rate FiO2 08/17/19 16:00 98.4 79 20 140/87 (104) 96 08/17/19 09:00 Room Air Laboratory Tests Test 08/17/19 06:11 White Blood Count 6.3 K/UL (4.8-10.8) Red Blood Count 4.71 M/UL (4.70-6.10) Hemoglobin 14.1 G/DL (14.2-18.0) L Hematocrit 42.2 % (42.0-52.0) Mean Corpuscular Volume 90 FL (80-99) Mean Corpuscular Hemoglobin 29.9 PG (27.0-31.0) Mean Corpuscular Hemoglobin Concent 33.4 G/DL (32.0-36.0) Red Cell Distribution Width 14.3 % (11.6-14.8) Platelet Count 158 K/UL (150-450) Mean Platelet Volume 5.4 FL (6.5-10.1) L Neutrophils (%) (Auto) 65.1 % (45.0-75.0) Lymphocytes (%) (Auto) 22.5 % (20.0-45.0) Monocytes (%) (Auto) 8.2 % (1.0-10.0) Eosinophils (%) (Auto) 3.4 % (0.0-3.0) H Basophils (%) (Auto) 0.8 % (0.0-2.0) Sodium Level 137 MMOL/L (136-145) Potassium Level 3.9 MMOL/L (3.5-5.1) Chloride Level 102 MMOL/L (98-107) Carbon Dioxide Level 26 MMOL/L (21-32) Anion Gap 9 mmol/L (5-15) Blood Urea Nitrogen 8 mg/dL (7-18) Creatinine 1.2 MG/DL (0.55-1.30) Estimat Glomerular Filtration Rate > 60 mL/min (>60) Glucose Level 81 MG/DL (74-106) Calcium Level 8.7 MG/DL (8.5-10.1) Magnesium Level 1.2 MG/DL (1.8-2.4) L Neurologic Exam Objective PHYSICAL EXAMINATION: GENERAL: He is a well-developed, well-nourished, black gentleman, sitting up at the edge of his bed in no acute distress. HEAD: Normocephalic and atraumatic. NECK: No neck rigidity was observed. EENT: Benign. NEUROLOGICAL EXAMINATION: MENTAL STATUS EXAMINATION: The patient was alert and awake. The patient was oriented to person place and time. He was able to recall 3/3 words immediately after 1 minute and after 3 minutes on the second trial. The patient was able to remember Presidents Trump through Iyer Dipak. The patient's mathematical skills were impaired. His visuospatial function was preserved. SPEECH: No dysarthria was noted. LANGUAGE: He had an anomia for low-frequency words. CRANIAL NERVE EXAMINATION: II: The visual garcía were intact on confrontation testing. III, IV, and : Extraocular movements were full. Pupils were 3 mm in diameter equal, round, regular, and reactive to light. V: Facial sensations were normal, and the temporales, masseters, and pterygoids functioned normally. VII: Facial expressions were normal and no facial asymmetry was noted. VIII: Hearing was normal bilaterally and no nystagmus was observed. IX: The palate moved symmetrically on phonation. X: No hoarseness of voice was observed. XI: The sternocleidomastoids and trapezii functioned normally. XII: The tongue was in the midline without any fasciculations or atrophy. MOTOR SYSTEM: The tone was normal in all four extremities. Examination of muscle mass revealed no focal wasting. Examination of power revealed G 5/5 power in all muscle groups. SENSORY EXAMINATION: Sensations to pin prick, light touch, and graphesthesia were normal. REFLEXES: 1+ and bilaterally symmetrical at the biceps, triceps, brachioradialis and knees. 0 at both ankles. The plantar responses were flexor bilaterally. COORDINATION: Ujczmz-pv-frna and xwjy-gm-mvvt testing were performed well. On Romberg test he swayed but did not fall to one side of the other. STANCE: He had a wide-based stance with contact-guard. GAIT: He walked with a wide-based gait with contact-guard. Impression/Recommendations Diagnostic Impression DIAGNOSTIC IMPRESSION: 1. Mr. Sami Romero is a 64-year-old, right-handed, black gentleman, who does have a past history of hypertension, diabetes mellitus, atrial fibrillation, alcoholism, alcohol- related seizure disorder, and possibly depression. 2. He recently reduced his alcoholic intake and started to feel anxious, short of breath, and had palpitations. As a result of that he was brought into the [facility] emergency room and has since been admitted. 3. With regards to his seizures he tells me that he has generalized tonic-clonic seizures without any warning. The seizures usually occur when he is coming off alcohol. His last seizure was approximately 3 days prior to admission. He is unable to tell me if he takes any medicine for his seizures. 4. He continues to feel much better. He has had no further seizures. He denies any new neurological symptoms. He does feel a little anxious but the tremulousness has resolved. He is eager to go home. 5. On neurological examination, at this time, he is fully oriented. He does have mild problems with recent and remote memory and higher cognitive function. He does not demonstrate any focal or lateralizing neurological findings but his deep tendon reflexes are globally diminished. He stands and walks with a wide-based stance and gait. 6. An MRI scan of the brain reveals atrophy and deep white matter changes but no acute pathology. 7. The EEG performed on 08/16/2019 was normal in the awake and drowsy states. 8. The patient's seizure disorder is most probably an alcohol-related seizure disorder with both alcohol associated seizures and alcohol withdrawal seizures. Recommendations RECOMMENDATIONS: 1. The patient was given explanation of the above-mentioned findings. 2. The patient was again instructed on the basics of seizure hygiene and was told to follow the rules to prevent further seizures. 3. The patient is interested in getting into a detoxification program to help him with his alcoholism. 4. No further neurological interventions are required at this point in time. Yovanny Ramos M.D., M.S.P.H. Neurologist & Clinical Neurophysiologist Yovanny Ramos MD Aug 17, 2019 17:25
--- NOTE | 2019-08-17 19:15 | NUR ---
NURSE NOTES: Received pt and report from ENEIDA Martin. Observed pt resting in bed and eating dinner. Pt is A/Ox4. quality assurance supervisor trim is in placed. IV site intact, asymptomatic, and patent. Bed is in the lowest position and locked. Call light and bedside table is within reach. No signs/symptoms of acute distress noted at this time. Will continue plan of care.
--- NOTE | 2019-08-17 19:29 | NUR ---
HAND-OFF: Report given to ENEIDA Reeves. Patient is in stable condition.
[2019-08-17 20:00] VITALS: BP 139/79
--- NOTE | 2019-08-17 21:35 | NUR ---
Received report from nurse JOSE RAUL RN, for continuity of care. Pt. on bed and in no distress. V/S stable and monitor shows afib with a heart rate of 80's. Denies c/o pain nor other discomfort. Will continue to monitor pt.
--- NOTE | 2019-08-17 21:45 | NUR ---
HAND-OFF: Report given to ENEIDA Lindo. Plan of care endorsed.
[2019-08-18] VITALS: BP 136/76
[2019-08-18] MEDS ORDERED: LORazepam 0.5mg tab ORAL PRN (00:15)
[2019-08-18] MEDS ORDERED: LORazepam Inj 2mg/ml 1ml IV PRN (01:30)
[2019-08-18 04:00] VITALS: BP 138/80
--- NOTE | 2019-08-18 04:15 | Consultation ---
DATE OF CONSULTATION: 08/17/2019 CONSULTING PHYSICIAN: Melchor Mejia M.D. HISTORY OF PRESENT ILLNESS: The patient is 64-year-old male with a history of multiple medical issues including seizure, head injury, AFib, alcohol dependence, alcohol withdrawal, hypertension who has been admitted to the hospital for medical stabilization. The patient is presenting with anxiety and difficulty sleeping. No suicidal or homicidal ideation. PAST PSYCHIATRIC HISTORY: Significant for depression and anxiety. PAST MEDICAL HISTORY: As above. ALLERGIES: Penicillin. SUBSTANCE ABUSE HISTORY: Includes alcohol. MENTAL STATUS EXAMINATION: The patient is alert and oriented times self, place, and situation. Mood is anxious. Affect is constricted, congruent with mood. Thought process is concrete. Thought content, no suicidal or homicidal ideations. Cognition is intact. Insight and judgment are fair. ASSESSMENT: [place] I Anxiety disorder. Alcohol dependence. [place] II Deferred. [place] III Seizure. [place] IV Poor. [place] V 20 PLAN: 1. We will start the patient on Prozac 20 mg in the morning. 2. Remeron p.r.n. 3. Ativan will be changed to p.o. 4. Folate. 5. Thiamine. 6. Continue to follow and readjust the medications. Melchor Mejia M.D. DR: JAYLA JOB#: [id number] CC: SEDRICK
--- NOTE | 2019-08-18 07:15 | NUR ---
NURSE NOTES: Received patient from ENEIDA Montez in bed resting. Patient is on room air, denies any pain at this time, no signs of respiratory distress noted. IV is intact and patent. Bed in low position, locked, bed alarm on, call light within reach. Will continue with the plan of care.
--- NOTE | 2019-08-18 07:52 | Discharge Summary ---
Discharge Summary Hospital Course Date of Admission Aug 15, 2019 at 04:06 Date of Discharge 08/18/19 Admitting Diagnosis afib Rapid Ventricular Responce HPI Tom Romero is a 64 year old male who was admitted on Aug 15, 2019 at 04: 06 for Atrial Fibrilation/Rapid Ventricular Response Consultations Cardiology, Psychiatry Procedures None Hospital Course MR. Romero is a 64 yo M, homeless, with hx of HTN, alcoholism, alcohol- induced seizure disorder, presenting with a fib RVR. Admitted to telemetry, resumed metoprolol and Eliquis as per Cardiology recs with conversion to NSR. Patient without evidence of significant withdrawal, did not require Ativan as per CIWA, He will be discharged home in stable condition, instructed to avoid alcohol consumption Discharge Dx #A fib RVR, now back in sinus #Alcohol use disorder without significant withdrawal symptoms or signs #Hypomagnesemia #Seizure disorder, alcohol induced. #Recent fall, back pain Time spent preparing discharge was 39 mins, includes coordination with RN, case reviewer, consulting MDs Discharge Medications Continued Medications: Apixaban (Eliquis) 5 Mg Tablet 5 MG ORAL BID for 30 Days, #60 TAB Ergocalciferol (Vitamin D2) (Ergocalciferol) 8,000 Unit/1 Ml Drops 5000 UNIT PO ONCE A WEEK for supplement, ML Folic Acid* (Folic Acid*) 1 Mg Tablet 1 MG ORAL DAILY for supplement, TAB Lisinopril (Lisinopril*) 20 Mg Tablet 20 MG ORAL DAILY for HTN, TAB Melatonin (Melatonin) 3 Mg Tablet 30 MG ORAL BEDTIME for SUPPLEMENT, TAB Metoprolol Tartrate* (Metoprolol Tartrate*) 100 Mg Tablet 100 MG ORAL EVERY 12 HOURS for 30 Days, #60 TAB Discharge Discharge Vital Signs Last Vital Signs Date Time Temp Pulse Resp B/P (MAP) Pulse Ox O2 Delivery O2 Flow Rate FiO2 08/18/19 04:00 98.1 83 16 138/80 (99) 98 08/17/19 21:00 Room Air Discharge Disposition Patient was discharged to Home Discharge Diagnoses: (1) Rapid atrial fibrillation (2) Alcohol dependence (3) Seizure disorder Nabeel Arriaga MD Aug 18, 2019 07:52
[2019-08-18 08:00] VITALS: BP 128/89
[2019-08-18] MEDS: Metoprolol Tartrate 100mg tab ORAL SCH (08:43)
[2019-08-18] MEDS: Thiamine 100mg tab ORAL SCH (08:44)
[2019-08-18] MEDS: Eliquis 5mg tablet ORAL SCH (08:44)
--- NOTE | 2019-08-18 09:42 | NUR ---
*-*DISCHARGE PLANNING*-* DISCHARGE ORDER NOTED. PER SOCIAL SERVICE'S NOTE, PATIENT WILL BE RETURNING HOME UPON DISCHARGE. NURSING WILL COORDINATE DISCHARGE.
--- NOTE | 2019-08-18 10:35 | NUR ---
*-* INSURANCE *-* UPDATED CLINICALS AND REVIEWS HAVE BEEN FAXED TO: [facility]#[phone] EXT [id number] FAX# [phone] REVIEWS/CLINICALS
--- NOTE | 2019-08-18 11:31 | Cardiology Progress Note ---
Assessment/Plan Assessment/Plan Assessment/Plan Hypertension Alcohol Abuse Atrial fibrillation paroxysmal Seizures PLAN: Patient stable for discharge Continue anticoagulation for AFIB Continue metoprolol Outpatient stress test Discussed alcohol cessation Subjective Cardiovascular: Reports: no symptoms Respiratory: Reports: no symptoms Gastrointestinal/Abdominal: Reports: no symptoms Subjective Patient remains in NSR, back to baseline, for d/c today Objective Last 24 Hour Vital Signs Date Time Temp Pulse Resp B/P (MAP) Pulse Ox O2 Delivery O2 Flow Rate FiO2 08/18/19 09:00 Room Air 08/18/19 08:43 85 128/89 08/18/19 08:00 98.6 95 20 128/89 (102) 99 08/18/19 08:00 95 08/18/19 04:00 98.1 83 16 138/80 (99) 98 08/18/19 04:00 76 08/18/19 00:00 98.2 78 18 136/76 (96) 97 08/18/19 00:00 121 08/17/19 21:48 80 133/79 08/17/19 21:00 Room Air 08/17/19 20:00 100.1 85 16 139/79 (99) 98 08/17/19 20:00 92 08/17/19 16:00 98.4 79 20 140/87 (104) 96 08/17/19 16:00 79 08/17/19 12:00 78 08/17/19 12:00 98.9 78 20 148/80 (102) 96 General Appearance: no apparent distress, alert EENT: PERRL/EOMI, normal ENT inspection, TMs normal, pharynx normal Neck: non-tender, normal alignment, supple, normal inspection, no JVD Rhythm: NSR Cardiovascular: normal peripheral pulses, normal rate Respiratory/Chest: chest wall non-tender, lungs clear, normal breath sounds, no respiratory distress Abdomen: normal bowel sounds, non tender, soft, no organomegaly, no mass Extremities: normal range of motion, non-tender, no swelling Intake and Output 08/17/19 08/18/19 19:00 07:00 Intake Total 270 ml 350 ml Balance 270 ml 350 ml Intake Oral 270 ml Other 350 ml # Voids 4 4 # Bowel Movements 3 4 Marino Davidson MD Aug 18, 2019 11:31
[2019-08-18 12:00] VITALS: BP 131/86
--- NOTE | 2019-08-18 13:31 | NUR ---
NURSE NOTES: Patient's is discharged home per MD order. All discharge protocols followed and documented. IV removed and patient tolerated well, no bleeding, no infiltration noted. playground monitor removed, patients ID band removed and shredded. Patient belongings acknowledged and signed by nurse and patient. Patient is in stable condition.
--- NOTE | 2019-08-18 20:20 | Psych Consult Progress Note ---
Psychiatry Progress Note Psychiatry Progress Note Neurological/Psychiatric: Reports: anxiety, depressed, emotional problems Allergies: Coded Allergies: PENICILLIN (Verified Allergy, Severe, 06/19/17) PENICILLINS (Unverified Allergy, Unknown, 07/17/19) Objective Data Height (Feet): 5 Height (Inches): 9.00 Weight (Pounds): 142 Additional Comments: alert and oriented times self, place, and situation. Mood is anxious. Affect is constricted, congruent with mood. Thought process is concrete. Thought content, no suicidal or homicidal ideations. Cognition is intact. Insight and judgment are fair. ASSESSMENT: [place] I Anxiety disorder. Alcohol dependence. PLAN: 1. We will start the patient on Prozac 20 mg in the morning. 2. Remeron p.r.n. 3. Ativan will be changed to p.o. 4. Folate. 5. Thiamine. 6. Continue to follow and readjust the medications. Melchor Mejia MD Aug 18, 2019 20:20
== END 2019-08-18 13:48 | disposition home or self-care (01) | DRG 309 ==
LOC: EDBD 02:47 → EDUNIT# 02:47 → EMR 03:00 → 2E 04:06 → EDBEDREQ 04:38
DX: I48.0 Paroxysmal atrial fibrillation (principal); G40.89 Other seizures; F10.20 Alcohol dependence, uncomplicated; Z88.0 Allergy status to penicillin; E83.42 Hypomagnesemia; F17.200 Nicotine dependence, unspecified, uncomplicated; F41.9 Anxiety disorder, unspecified; Z59.0 Homelessness; I10 Essential (primary) hypertension
CPT/HCPCS: 36415; 70551; 71045; 72020; 80048; 80053; 80307; 82550; 83690; 83735; 84484; 85025; 85610; 93005; 95819; 96361; 96372; 96374; 96375; 99291; G0480; J2405; J2765; J7030

== ENCOUNTER 2019-12-26 09:18 | Inpatient (IN) | payer MEDICAID, OTHER ==
[~2019-12-26] VITALS: Ht 165.1 cm; Wt 62.6 kg
[2019-12-26] VITALS (7 sets, daily range): BP systolic 101–132; BP diastolic 75–87
--- NOTE | 2019-12-26 09:20 | NUR ---
ED Nurse Note: Pt arrived with RA 26 from home due to midsternal chest pain x few days. PT does not recall how many days chest has been hurting. pt appears to be facial grimacing, tears noted on face, pt is restless. IV sites established per EMS; patent and intact. Blood specimen obtained. Pt placed on surveillance system monitor; EKG completed
[2019-12-26] MEDS ORDERED: DILANTIN100 MG ORAL ×2 (09:21→12:44)
[2019-12-26] MEDS ORDERED: ASPIRIN EC81 MG ORAL ×2 (09:21→12:44)
--- NOTE | 2019-12-26 09:36 | Emergency Room Report ---
History of Present Illness General Chief Complaint: Chest Pain Source: Patient, EMS Present Illness HPI This patient is well-known to [facility]. He has a history of alcohol abuse. He also has atrial fibrillation and has presented with Rajani garcia with RVR in the past. He is noncompliant with his outpatient therapy. He presents today for a few days of chest pain. He feels like his heart is coming out of his chest. He denies recent illness. He denies fever chills. He denies cough or congestion. He admits to drinking a lot of alcohol. He has no other complaints. Allergies: Coded Allergies: PENICILLIN (Verified Allergy, Severe, 06/19/17) PENICILLINS (Unverified Allergy, Unknown, 07/17/19) COVID-19 Screening Contact w/high risk pt: No Experienced COVID-19 symptoms?: No COVID-[address] MONITOR: No Patient History Past Medical History: DM, HTN, DE, CAD, AFib, seizures Social History: Reports: alcohol use; Denies: smoking, drug use Reviewed Nursing Documentation: PMH: Agreed; PSxH: Agreed Nursing Documentation-PMH Hx Cardiac Problems: Yes - A FIB Hx Hypertension: Yes Hx Diabetes: Yes Hx Cancer: No Hx Gastrointestinal Problems: No Hx Neurological Problems: No Hx Seizures: Yes Review of Systems All Other Systems: negative except mentioned in HPI Physical Exam Vital Signs Date Time Temp Pulse Resp B/P (MAP) Pulse Ox O2 Delivery O2 Flow Rate FiO2 12/26/19 09:12 98.8 142 16 127/86 (100) 98 Room Air Sp02 EP Interpretation: reviewed, normal General Appearance: no apparent distress, alert, GCS 15, non-toxic Head: normocephalic, atraumatic Eyes: bilateral eye normal inspection, bilateral eye PERRL ENT: hearing grossly normal, normal pharynx, no angioedema, normal voice Neck: full range of motion, supple/symm/no masses Respiratory: chest non-tender, lungs clear, normal breath sounds, no respiratory distress, no retraction, no accessory muscle use, speaking full sentences Cardiovascular #1: no edema, tachycardia, irregularly irregular Gastrointestinal: normal bowel sounds, non tender, soft, non-distended, no guarding, no rebound Rectal: deferred Musculoskeletal: back normal, normal range of motion, non-tender Neurologic: alert, motor strength/tone normal, oriented x3, sensory intact, responsive, speech normal Psychiatric: judgement/insight normal, memory normal, mood/affect normal, no suicidal/homicidal ideation Skin: no rash Medical Decision Making Diagnostic Impression: Primary Impression: Atrial fibrillation with RVR Additional Impressions: Non compliance w medication regimen ETOH abuse ER Course This patient presents with A. fib with RVR. He is noncompliant with his medication regimen. This includes all of his medications. Patient is also intoxicated. I did control the patient's heart rate. I will re-prescribe all of the patient's regular medications that he had been discharged home with. He wanted to stay in the emergency department, however, I told him that he either had to be admitted to the hospital or go home. He stated that he would like to go home instead of being admitted to the hospital. He was educated on the dangers of medication noncompliance. He is given close return precautions and follow-up instructions. This patient was evaluated in the context of the global COVID-19 pandemic, which necessitated consideration that the patient might be at risk for infection with the [id number] virus that causes COVID-19. Institutional protocols and algorithms that pertain to the evaluation of patients at risk for COVID-19 and the state of rapid change based on information released by multiple regulatory bodies including the CDC and federal and state organizations. These policies and algorithms were followed during the patient' s care in the ED. Laboratory Tests Test 12/26/19 09:20 12/26/19 09:38 White Blood Count 5.0 K/UL (4.8-10.8) Red Blood Count 4.39 M/UL (4.70-6.10) L Hemoglobin 13.5 G/DL (14.2-18.0) L Hematocrit 41.9 % (42.0-52.0) L Mean Corpuscular Volume 95 FL (80-99) Mean Corpuscular Hemoglobin 30.6 PG (27.0-31.0) Mean Corpuscular Hemoglobin Concent 32.1 G/DL (32.0-36.0) Red Cell Distribution Width 16.8 % (11.6-14.8) H Platelet Count 182 K/UL (150-450) Mean Platelet Volume 5.4 FL (6.5-10.1) L Neutrophils (%) (Auto) 30.4 % (45.0-75.0) L Lymphocytes (%) (Auto) 46.7 % (20.0-45.0) H Monocytes (%) (Auto) 17.3 % (1.0-10.0) H Eosinophils (%) (Auto) 2.7 % (0.0-3.0) Basophils (%) (Auto) 2.8 % (0.0-2.0) H Prothrombin Time 11.6 SEC (9.30-11.50) H Prothrombin Time INR 1.1 (0.9-1.1) Activated Partial Thromboplast Time 29 SEC (23-33) Sodium Level 139 MMOL/L (136-145) Potassium Level 4.8 MMOL/L (3.5-5.1) Chloride Level 105 MMOL/L (98-107) Carbon Dioxide Level 20 MMOL/L (21-32) L Anion Gap 14 mmol/L (5-15) Blood Urea Nitrogen 10 mg/dL (7-18) Creatinine 1.3 MG/DL (0.55-1.30) Estimated Glomerular Filtration Rate > 60 mL/min (>60) Glucose Level 97 MG/DL (74-106) Calcium Level 8.7 MG/DL (8.5-10.1) Total Bilirubin 0.3 MG/DL (0.2-1.0) Aspartate Amino Transferase (AST) 32 U/L (15-37) Alanine Aminotransferase (ALT) 14 U/L (12-78) Alkaline Phosphatase 89 U/L (46-116) Troponin I 0.000 ng/mL (0.000-0.056) Total Protein 8.6 G/DL (6.4-8.2) H Albumin 4.0 G/DL (3.4-5.0) Globulin 4.6 g/dL Albumin/Globulin Ratio 0.9 (1.0-2.7) L Phenytoin (Dilantin) Level < 0.5 ug/mL (10-20) L Serum Alcohol 371 mg/dL Urine Color Pale yellow Urine Appearance Clear Urine pH 5 (4.5-8.0) Urine Specific [place] 1.015 (1.005-1.035) Urine Protein 3+ (NEGATIVE) H Urine Glucose (UA) Negative (NEGATIVE) Urine Ketones Negative (NEGATIVE) Urine Blood Negative (NEGATIVE) Urine Nitrite Negative (NEGATIVE) Urine Bilirubin Negative (NEGATIVE) Urine Urobilinogen Normal MG/DL (0.0-1.0) Urine Leukocyte Esterase Negative (NEGATIVE) Urine RBC 0 /HPF (0 - 0) Urine WBC 0 /HPF (0 - 0) Urine Squamous Epithelial Cells Occasional /LPF Urine Bacteria Occasional /HPF (NONE) Urine Opiates Screen Negative (NEGATIVE) Urine Barbiturates Screen Negative (NEGATIVE) Phencyclidine (PCP) Screen Negative (NEGATIVE) Urine Amphetamines Screen Negative (NEGATIVE) Urine Benzodiazepines Screen Negative (NEGATIVE) Urine Cocaine Screen Negative (NEGATIVE) Urine Marijuana (THC) Screen Positive (NEGATIVE) H Microbiology Date/Time Source Procedure Growth Status 12/26/19 09:40 Nasopharynx SARS-CoV-2 RdRp Gene Assay - Final Complete EKG Diagnostic Results Rate: tachycardiac Rhythm: other - A.fib w/ RVR ST Segments: no acute changes Rhythm Strip Diag. Results EP Interpretation: yes Rate: 100's Rhythm: other - A.fib Chest X-Ray Diagnostic Results Chest X-Ray Diagnostic Results : Chest X-Ray Ordered: Yes # of Views/Limited/Complete: 1 View Indication: Other EP Interpretation: Yes Interpretation: no consolidation, no effusion, no pneumothorax, no acute cardiopulmonary disease Impression: No acute disease Electronically Signed by: Rose Mary Horta DO Last Vital Signs Date Time Temp Pulse Resp B/P (MAP) Pulse Ox O2 Delivery O2 Flow Rate FiO2 12/26/19 09:24 98.8 135 23 117/87 100 Room Air Status: improved Disposition: HOME, SELF-CARE Condition: Improved Rose Mary Horta DO Dec 26, 2019 09:36
[2019-12-26 09:40] LABS: BASOPHILS % (AUTO) 2.8 % (0.0-2.0); EOSINOPHILS % (AUTO) 2.7 % (0.0-3.0); HEMATOCRIT 41.9 % (42.0-52.0); HEMOGLOBIN 13.5 G/DL (14.2-18.0); LYMPHOCYTES % (AUTO) 46.7 % (20.0-45.0); MEAN CORPUSCULAR VOLUME 95 FL (80-99); MONOCYTES % (AUTO) 17.3 % (1.0-10.0); NEUTROPHILS % (AUTO) 30.4 % (45.0-75.0); PLATELET COUNT 182 K/UL (150-450); RED BLOOD COUNT 4.39 M/UL (4.70-6.10); RED CELL DISTRIBUTION WIDTH 16.8 % (11.6-14.8)
[2019-12-26 09:45] LABS: ANION GAP 14 mmol/L (5-15); BLOOD UREA NITROGEN 10 mg/dL (7-18); CALCIUM 8.7 MG/DL (8.5-10.1); CARBON DIOXIDE 20 MMOL/L (21-32); CHLORIDE 105 MMOL/L (98-107); CREATININE 1.3 MG/DL (0.55-1.30); POTASSIUM 4.8 MMOL/L (3.5-5.1); SODIUM 139 MMOL/L (136-145)
[2019-12-26] MEDS ORDERED: dilTIAZem HCl 25mg/5ml Inj IVP ONE ×2 (09:45→10:45)
[2019-12-26 09:50] LABS: INR 1.1 (0.9-1.1)
[2019-12-26 09:51] LABS: ALANINE AMINOTRANSFERASE 14 U/L (12-78); ALBUMIN/GLOBULIN RATIO 0.9 (1.0-2.7); ALKALINE PHOSPHATASE 89 U/L (46-116); ASPARTATE AMINO TRANSFERASE 32 U/L (15-37); BILIRUBIN,TOTAL 0.3 MG/DL (0.2-1.0)
--- NOTE | 2019-12-26 09:59 | NUR ---
ED Nurse Note: Pt urine specimen obtained via, urinal bottle. XRAY at bedside.
[2019-12-26 10:06] LABS: APPEARANCE,URINE CLEAR; BILIRUBIN, URINE NEGATIVE (NEGATIVE); COLOR,URINE PALE YELLOW; GLUCOSE, URINE (UA) NEGATIVE (NEGATIVE); KETONES,URINE NEGATIVE (NEGATIVE); LEUKOCYTE ESTERASE ,URINE NEGATIVE (NEGATIVE); NITRITE,URINE NEGATIVE (NEGATIVE); PH,URINE 5 (4.5-8.0); PROTEIN,URINE 3+ (NEGATIVE); UROBILINOGEN,URINE NORMAL MG/DL (0.0-1.0)
--- NOTE | 2019-12-26 10:35 | NUR ---
ED Nurse Note: Pt reports drinking 4 Large bottles of beer
[2019-12-26] MEDS ORDERED: Phenytoin 1,000 MG in NS 275 ML IVPB ONE (11:15)
--- NOTE | 2019-12-26 11:30 | NUR ---
ED Nurse Note: Pt has been speaking loudly continously restless. pt attempts to get out of bed. pt able to reorient with verbal reassurance. lights dimmed and provided pt with two additional blankets to increase comfort. pt reports history of anxiety.
--- NOTE | 2019-12-26 11:31 | Diagnostic Imaging Report ---
Procedure: XRAY Chest 1v Reason for study: Chest pain Comparison films: None. FINDINGS: A single one view chest is obtained. Vascularity is normal. Left upper lobe calcifications and left apical pleural parenchymal thickening unchanged since 2018. There is no acute alveolar process. Cardiac and mediastinal silhouette are within normal limits. CP angles are sharp. The bony thorax appear unremarkable. IMPRESSION: Stable postinflammatory changes. No acute alveolar disease.
--- NOTE | 2019-12-26 12:00 | NUR ---
ED Nurse Note: Pt in bed alseep
--- NOTE | 2019-12-26 12:34 | NUR ---
ED Nurse Note: ERMD at bedside; pt vss. IV site removed. pt pending Dc
[2019-12-26] MEDS ORDERED: METOPROLOL TAR100 M1 ORAL (12:44)
[2019-12-26] MEDS ORDERED: LISINOPRIL20 MG ORAL (12:44)
[2019-12-26] MEDS ORDERED: Morphine Sulfate 4mg/ml Inj (IV USE ONLY) IVP ONE (13:00)
--- NOTE | 2019-12-26 13:00 | NUR ---
ED Nurse Note: Per Dr Horta pt refused to be admitted, pt's Equity Research Analyst Janeth is at the bedside trying to convince the pt to stay in the hospital. Still insisted, given discharge information to pt. RX provided instructed to take his medications follow up with pmd. [facility].
--- NOTE | 2019-12-26 13:15 | NUR ---
ED Nurse Note: Pt stated " my heart stopped beating!". placed pt back to monitor, notified Dr Horta and decided to admit the pt. Spoke with pt and agreed to stay, Cancelled [facility], continue to process admission. provided sandwich alcides well,will cont to monitor.
[2019-12-26] MEDS: LORazepam 1mg tab ORAL ONE ×2 (13:40→13:42)
--- NOTE | 2019-12-26 13:40 | NUR ---
TRANSFER TO FLOOR: Patient transferred to TELE as ordered, per ERMD. Report given to ENEIDA VORA Belongings given to pt.
--- NOTE | 2019-12-26 13:42 | NUR ---
ED Nurse Note: PT reports allergy to Ativan, ERMD notified. 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
--- NOTE | 2019-12-26 14:23 | NUR ---
NURSE NOTES: Received pt from UROLOGY SURGEON Minerva, all admission assessments and instructions done and pt verbally confirmed to understand all. pt is awake and alert, pt is very anxious, pt is on RA, no SOB or acute respiratory distress noted. pt has intact iv access LAC 20G SL. Pt is on continues heart monitoring HR 123 Aflutter RVR, skin is intact, Dr Mederos is aware about admission and V/S and lab results and HR 123 Aflutter RVR, waiting to call back. all belongings checked with ANDREW Agarwal and are with pt. all needs attended, bed is locked and is in the lowest position, call light within easy reach, will continue to monitor.
--- NOTE | 2019-12-26 15:10 | NUR ---
NURSE NOTES: Dr Contreras and Roberto are aware about consult and ECG done and sent to Dr Contreras, waiting to call back. will continue to monitor.
[2019-12-26] MEDS: D5 1/2NS 1,000 ML IV SCH (15:19)
--- NOTE | 2019-12-26 16:02 | NUR ---
NURSE NOTES: Dr Contreras visited pt and he saw ECG strips and ordered to given metoprolol 100mg now, noted and carried out. will continue to monitor.
--- NOTE | 2019-12-26 16:12 | Cardiac Electrophysiology PN ---
Subjective Subjective [id number] Objective Last 24 Hour Vital Signs Date Time Temp Pulse Resp B/P (MAP) Pulse Ox O2 Delivery O2 Flow Rate FiO2 12/26/19 14:23 123 12/26/19 13:40 98.3 109 19 127/69 100 Room Air 12/26/19 13:15 98.1 125 22 132/78 98 Room Air 12/26/19 12:00 98.6 76 19 121/84 96 Room Air 12/26/19 10:41 104 131/85 12/26/19 09:39 135 117/87 12/26/19 09:24 98.8 135 23 117/87 100 Room Air 12/26/19 09:24 135 23 Room Air 12/26/19 09:12 98.8 142 16 127/86 (100) 98 Room Air Laboratory Tests Test 12/26/19 09:20 12/26/19 09:38 12/26/19 15:15 White Blood Count 5.0 K/UL (4.8-10.8) Red Blood Count 4.39 M/UL (4.70-6.10) L Hemoglobin 13.5 G/DL (14.2-18.0) L Hematocrit 41.9 % (42.0-52.0) L Mean Corpuscular Volume 95 FL (80-99) Mean Corpuscular Hemoglobin 30.6 PG (27.0-31.0) Mean Corpuscular Hemoglobin Concent 32.1 G/DL (32.0-36.0) Red Cell Distribution Width 16.8 % (11.6-14.8) H Platelet Count 182 K/UL (150-450) Mean Platelet Volume 5.4 FL (6.5-10.1) L Neutrophils (%) (Auto) 30.4 % (45.0-75.0) L Lymphocytes (%) (Auto) 46.7 % (20.0-45.0) H Monocytes (%) (Auto) 17.3 % (1.0-10.0) H Eosinophils (%) (Auto) 2.7 % (0.0-3.0) Basophils (%) (Auto) 2.8 % (0.0-2.0) H Prothrombin Time 11.6 SEC (9.30-11.50) H Prothromb Time International Ratio 1.1 (0.9-1.1) Activated Partial Thromboplast Time 29 SEC (23-33) Sodium Level 139 MMOL/L (136-145) Potassium Level 4.8 MMOL/L (3.5-5.1) Chloride Level 105 MMOL/L (98-107) Carbon Dioxide Level 20 MMOL/L (21-32) L Anion Gap 14 mmol/L (5-15) Blood Urea Nitrogen 10 mg/dL (7-18) Creatinine 1.3 MG/DL (0.55-1.30) Estimat Glomerular Filtration Rate > 60 mL/min (>60) Glucose Level 97 MG/DL (74-106) Calcium Level 8.7 MG/DL (8.5-10.1) Total Bilirubin 0.3 MG/DL (0.2-1.0) Aspartate Amino Transf (AST/SGOT) 32 U/L (15-37) Alanine Aminotransferase (ALT/SGPT) 14 U/L (12-78) Alkaline Phosphatase 89 U/L (46-116) Troponin I 0.000 ng/mL (0.000-0.056) 0.000 ng/mL (0.000-0.056) Total Protein 8.6 G/DL (6.4-8.2) H Albumin 4.0 G/DL (3.4-5.0) Globulin 4.6 g/dL Albumin/Globulin Ratio 0.9 (1.0-2.7) L Phenytoin (Dilantin) Level < 0.5 ug/mL (10-20) L Serum Alcohol 371 mg/dL Urine Color Pale yellow Urine Appearance Clear Urine pH 5 (4.5-8.0) Urine Specific Hollis 1.015 (1.005-1.035) Urine Protein 3+ (NEGATIVE) H Urine Glucose (UA) Negative (NEGATIVE) Urine Ketones Negative (NEGATIVE) Urine Blood Negative (NEGATIVE) Urine Nitrite Negative (NEGATIVE) Urine Bilirubin Negative (NEGATIVE) Urine Urobilinogen Normal MG/DL (0.0-1.0) Urine Leukocyte Esterase Negative (NEGATIVE) Urine RBC 0 /HPF (0 - 0) Urine WBC 0 /HPF (0 - 0) Urine Squamous Epithelial Cells Occasional /LPF Urine Bacteria Occasional /HPF (NONE) Urine Opiates Screen Negative (NEGATIVE) Urine Barbiturates Screen Negative (NEGATIVE) Phencyclidine (PCP) Screen Negative (NEGATIVE) Urine Amphetamines Screen Negative (NEGATIVE) Urine Benzodiazepines Screen Negative (NEGATIVE) Urine Cocaine Screen Negative (NEGATIVE) Urine Marijuana (THC) Screen Positive (NEGATIVE) H Microbiology Date/Time Source Procedure Growth Status 12/26/19 09:40 Nasopharynx SARS-CoV-2 RdRp Gene Assay - Final Complete Jose Carrasco MD Dec 26, 2019 16:12
[2019-12-26] MEDS ORDERED: Metoprolol Tartrate 100mg tab ORAL SCH (16:15)
[2019-12-26] MEDS: Eliquis 5mg tablet ORAL SCH (17:27)
--- NOTE | 2019-12-26 18:30 | Consultation ---
DATE OF CONSULTATION: 12/26/2019 CARDIOLOGY CONSULTATION REASON FOR CONSULTATION: Chest pain and atrial fibrillation with rapid ventricular response. HISTORY OF PRESENT ILLNESS: The patient is a 64-year-old gentleman who I am quite familiar with from previous admission. The patient has a history of hypertension, chronic atrial fibrillation, history of alcohol use, who presented to the emergency room with atrial fibrillation with rapid ventricular response. He has not been compliant with his medication and came with chest pain, palpitation, feeling that his heart is coming out of his chest. The patient admits to drink a lot of alcohol. Denies any drug use. The patient was admitted for atrial fibrillation with rapid ventricular response and chest pain. A cardiology consultation was obtained for further evaluation. REVIEW OF SYSTEMS: Negative other than what is mentioned in history of present illness. PAST MEDICAL HISTORY: Hypertension, diabetes, coronary artery disease, atrial fibrillation, seizures, and alcoholism. FAMILY HISTORY: Noncontributory. SOCIAL HISTORY: He drinks alcohol heavily and does not smoke or use drugs. PHYSICAL EXAMINATION: VITAL SIGNS: Blood pressure of 101/85, pulse is 124, respirations 18, temperature 96.4. NECK: No JVD. LUNGS: Coarse rhonchi. CARDIOVASCULAR: Irregular S1 and S2 with no gallop or murmur and tachycardic. ABDOMEN: Soft. EXTREMITIES: No pitting edema. LABORATORY DATA: White count of 5, hemoglobin 13, hematocrit of 42, and platelet count of 182. Sodium 139, potassium 4.8, BUN of 10, creatinine 1.3. Troponin negative x2. ASSESSMENT AND PLAN: 1. Chest pain due to atrial fibrillation with rapid ventricular response. His troponin is negative. 2. Atrial fibrillation with rapid ventricular response due to alcohol use and noncompliance with medication. Resume the patient's metoprolol 100 mg b.i.d. and Eliquis 5 mg b.i.d. for anticoagulation. 3. Hypertension, on metoprolol 100 mg b.i.d. Add lisinopril 20 mg daily. 4. History of heavy alcohol use, on folic acid and thiamine. 5. History of seizure disorder, on Dilantin. Thank you very much for allowing me to participate in the care of this patient. Please do not hesitate to contact me for any questions regarding my evaluation. The case was discussed with the nurse and the charge nurse at the bedside. Jose Carrasco M.D. DR: ISA JOB#: [id number] CC:
--- NOTE | 2019-12-26 19:12 | NUR ---
NURSE NOTES: Received report from Dona Gaona, pt. in bed awake, Appears to be be A/O x's4- able to make needs known, no signs or symptoms of acute cardiac or respiratory distress noted, bed alarm on, side rails up x's 3 and safety brakes engaged, pt. appears to be sating well on room air- no distress noted, side rails padded for seizure precautions- no seizure activity noted upon assessment, pt. aware to ask for assist when ambulating-pt. acknowledges, urinal at bedside and within easy reach, LAC 20G IV intact running D5 1/2NS at 60cc/hr, and patent, safety measures continued, will continue with plan of care.
--- NOTE | 2019-12-26 19:13 | NUR ---
HAND-OFF: Report given to ENEIDA Laughlin. pt is sleeping, pt is calm and no stress noted, endorsed plan of care. HR 88.
[2019-12-26] MEDS: Metoprolol Tartrate 100mg tab ORAL SCH (20:09)
[2019-12-26] MEDS: Phenytoin 100mg cap ORAL SCH (21:11)
[2019-12-26] MEDS: Morphine Sulfate 2mg/ml Inj(IV/IM USE ONLY) IVP PRN (23:05)
--- NOTE | 2019-12-26 23:43 | NUR ---
NURSE NOTES: reassessed pt. after Morphine administration- pt. appears to be resting comfortably in bed sleeping- will continue to monitor pt. and with plan of care.
[2019-12-27] VITALS (7 sets, daily range): BP systolic 103–136; BP diastolic 71–89
[2019-12-27] MEDS: D5 1/2NS 1,000 ML IV SCH ×2 (02:34→18:53)
[2019-12-27] MEDS: Morphine Sulfate 2mg/ml Inj(IV/IM USE ONLY) IVP PRN ×3 (03:05→22:05)
--- NOTE | 2019-12-27 04:15 | Consultation ---
DATE OF CONSULTATION: 12/26/2019 HISTORY OF PRESENT ILLNESS: The patient is a 64-year-old male with a history of alcohol dependence who has been admitted to the hospital for alcohol withdrawal. The patient stated that he is drinking beer throughout the day and he is having shakes. He is currently withdrawing. Has headaches, nausea, very irritable. Stated "I want to be left alone." PAST PSYCHIATRIC HISTORY: Depression and anxiety. PAST MEDICAL HISTORY: Nonsignificant. ALLERGIES: Penicillin and lorazepam. PAST SUBSTANCE HISTORY: Significant for alcohol. MENTAL STATUS EXAMINATION: The patient is oriented times self, place, and situation. Mood is anxious. Affect is flat. Thought process is concrete. Thought content, no suicidal or homicidal ideation. Cognition is intact. Insight and judgment is impaired. ASSESSMENT: [place] I Alcohol dependence. Alcohol withdrawal. [place] II Deferred. [place] III abd pain News[place] IV Moderate. [place] V 50. PLAN: 1. Valium 10 mg p.r n. 2. To provide the patient with reality orientation and supportive therapy. We will continue to follow and readjust the medications. Melchor Mejia M.D. DR: ANDRADE JOB#: [id number] CC: SEDRICK
[2019-12-27] MEDS: Phenytoin 100mg cap ORAL SCH ×3 (05:00→22:05)
[2019-12-27 06:30] LABS: BASOPHILS % (AUTO) 1.4 % (0.0-2.0); EOSINOPHILS % (AUTO) 2.2 % (0.0-3.0); HEMOGLOBIN 13.2 G/DL (14.2-18.0); LYMPHOCYTES % (AUTO) 17.1 % (20.0-45.0); MEAN CORPUSCULAR VOLUME 97 FL (80-99); MONOCYTES % (AUTO) 13.6 % (1.0-10.0); NEUTROPHILS % (AUTO) 65.7 % (45.0-75.0); PLATELET COUNT 157 K/UL (150-450); RED BLOOD COUNT 4.36 M/UL (4.70-6.10); RED CELL DISTRIBUTION WIDTH 16.3 % (11.6-14.8); WHITE BLOOD COUNT 6.1 K/UL (4.8-10.8)
[2019-12-27 06:38] LABS: ANION GAP 8 mmol/L (5-15); BLOOD UREA NITROGEN 7 mg/dL (7-18); CALCIUM 8.5 MG/DL (8.5-10.1); CARBON DIOXIDE 26 MMOL/L (21-32); CHLORIDE 103 MMOL/L (98-107); CREATININE 1.2 MG/DL (0.55-1.30); POTASSIUM 4.4 MMOL/L (3.5-5.1); SODIUM 137 MMOL/L (136-145)
--- NOTE | 2019-12-27 07:11 | NUR ---
NURSE NOTES: Received report from ENEIDA Aragon. Pt in bed awake and orientedx4. No c/o pain. Denied SOB on room air. IV site in LAC 20G running with D5 1/2NS@60ml/hr patent and asymptomatic. Side railsx3 up for safety. Urinal in easy each. Call light within easy reach. Will continue plan of care.
--- NOTE | 2019-12-27 07:11 | NUR ---
HAND-OFF: Report given to Melony RN, pt. remains stable and no signs of distress noted- nurse aware to f/u on any abnormal am labs.
[2019-12-27] MEDS: Lisinopril 20mg tab ORAL SCH (08:36)
[2019-12-27] MEDS: Aspirin EC 81mg tab ORAL SCH (08:36)
[2019-12-27] MEDS: Metoprolol Tartrate 100mg tab ORAL SCH ×2 (08:36→22:04)
[2019-12-27] MEDS: Eliquis 5mg tablet ORAL SCH ×2 (08:36→17:04)
--- NOTE | 2019-12-27 09:51 | Cardiac Electrophysiology PN ---
Assessment/Plan Assessment/Plan 1. Chest pain due to atrial fibrillation with rapid ventricular response. Ruled out for NM 2. Atrial fibrillation with rapid ventricular response due to alcohol use and noncompliance with medication. On metoprolol 100 mg b.i.d. and Eliquis 5 mg b.i.d. for anticoagulation. Echo is pending 3. Hypertension, on metoprolol 100 mg bid, lisinopril 20 mg daily. 4. History of heavy alcohol use, on folic acid and thiamine. 5. History of seizure disorder, on Dilantin. GABRIELLA RN Subjective Subjective No more VT overnight. Alert Objective Last 24 Hour Vital Signs Date Time Temp Pulse Resp B/P (MAP) Pulse Ox O2 Delivery O2 Flow Rate FiO2 12/27/19 08:36 72 136/81 12/27/19 08:36 136/81 12/27/19 08:00 72 12/27/19 08:00 98.2 81 20 136/81 (99) 100 12/27/19 04:00 98.6 79 18 136/84 (101) 97 12/27/19 03:45 102 12/27/19 03:35 98.4 12/27/19 02:33 92 115/89 (98) 12/27/19 00:00 98.4 77 18 127/78 (94) 98 12/26/19 23:39 90 12/26/19 23:03 101 129/83 (98) 12/26/19 21:00 Room Air 12/26/19 20:09 85 107/75 12/26/19 20:00 96.9 85 18 107/75 (86) 97 12/26/19 19:05 87 12/26/19 16:20 92 122/77 12/26/19 16:00 99.5 92 20 122/77 (92) 100 12/26/19 15:18 102 12/26/19 14:30 Room Air 12/26/19 14:30 96.5 124 19 101/85 (90) 100 12/26/19 14:23 123 12/26/19 13:40 98.3 109 19 127/69 100 Room Air 12/26/19 13:15 98.1 125 22 132/78 98 Room Air 12/26/19 12:00 98.6 76 19 121/84 96 Room Air 12/26/19 10:41 104 131/85 Intake and Output 7/27/20 7/28/20 19:00 07:00 Intake Total 1460 ml 686 ml Output Total 0 ml 825 ml Balance 1460 ml -139 ml Intake Oral 240 ml IV Total 1220 ml 686 ml Output Urine Total 0 ml 825 ml # Voids 1 # Bowel Movements 1 Laboratory Tests Test 12/26/19 15:15 12/27/19 06:00 Troponin I 0.000 ng/mL (0.000-0.056) White Blood Count 6.1 K/UL (4.8-10.8) Red Blood Count 4.36 M/UL (4.70-6.10) L Hemoglobin 13.2 G/DL (14.2-18.0) L Hematocrit 42.0 % (42.0-52.0) Mean Corpuscular Volume 97 FL (80-99) Mean Corpuscular Hemoglobin 30.4 PG (27.0-31.0) Mean Corpuscular Hemoglobin Concent 31.5 G/DL (32.0-36.0) L Red Cell Distribution Width 16.3 % (11.6-14.8) H Platelet Count 157 K/UL (150-450) Mean Platelet Volume 5.7 FL (6.5-10.1) L Neutrophils (%) (Auto) 65.7 % (45.0-75.0) Lymphocytes (%) (Auto) 17.1 % (20.0-45.0) L Monocytes (%) (Auto) 13.6 % (1.0-10.0) H Eosinophils (%) (Auto) 2.2 % (0.0-3.0) Basophils (%) (Auto) 1.4 % (0.0-2.0) Sodium Level 137 MMOL/L (136-145) Potassium Level 4.4 MMOL/L (3.5-5.1) Chloride Level 103 MMOL/L (98-107) Carbon Dioxide Level 26 MMOL/L (21-32) Anion Gap 8 mmol/L (5-15) Blood Urea Nitrogen 7 mg/dL (7-18) Creatinine 1.2 MG/DL (0.55-1.30) Estimat Glomerular Filtration Rate > 60 mL/min (>60) Glucose Level 105 MG/DL (74-106) Calcium Level 8.5 MG/DL (8.5-10.1) Microbiology Date/Time Source Procedure Growth Status 12/26/19 09:40 Nasopharynx SARS-CoV-2 RdRp Gene Assay - Final Complete Objective NECK: No JVD. LUNGS: Coarse rhonchi. CARDIOVASCULAR: Irregular S1 and S2 with no gallop or murmur and tachycardic. ABDOMEN: Soft. EXTREMITIES: No pitting edema. Jose Carrasco MD Dec 27, 2019 09:51
--- NOTE | 2019-12-27 10:14 | NUR ---
RD ASSESSMENT & RECOMMENDATIONS SEE CARE ACTIVITY FOR COMPLETE ASSESSMENT DAILY ESTIMATED NEEDS: Needs based on cardiac/ 63kg 25-30 kcals/kg 8833-4561 total kcals 1-1.3 g protein/kg 63-82 g total protein 25-30 mL/kg 7463-7366 total fluid mLs NUTRITION DIAGNOSIS: Decreased sodium intake needs R/T cardiac hx as evidenced by dx of atrial fibrillation with rapid ventricular response and HTN, on hypotensive meds. CURRENT DIET:REGULAR PO DIET RECOMMENDATIONS: LOW NA ADDITIONAL RECOMMENDATIONS: * Standing wt for accurate CBW * H/o ETOH abuse- continue folate add MVI + Thiamine * Monitor PO intake closely, need for additional snacks/HPN * Check A1C: h/o DM note, BGs wnl
--- NOTE | 2019-12-27 12:54 | NUR ---
CASE MANAGEMENT:REVIEW 64 YR OLD MALE BIBA FROM HOME CC: CHEST PAIN SI: AFIB W/RVR. ETOH ABUSE 98.7 142 16 127/86 98% ON RA H/H-13.5/41.9 ALCOHOL+371 URINE(+) THC IS: ASA PO SILK OPENER NITRO PO SILK OPENER 1L NS BOLUS IV CARDIZEM X2 IV DILANTIN IV MORPHINE COVID SWAB CHEST XRAY : TO TELEMETRY DCP: FROM HOME
--- NOTE | 2019-12-27 16:06 | NUR ---
DRUM PRINTER NOTE SW met w/ pt to evaluate home safety. PT resides alone at [id number], [place] [address]. There is an elevator in the building and pt resides on the second floor. Pt does not receive IHSS service. 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 PT uses reading glasses. Pt has been hiring his neighbor Ainsley, who is living [id number] and she has been providing assistance/supervision including cooking, transportation and bathing. Pt reports such assistance is sufficient. Pt shares he has a walker at home. Pt has been using a walker. Pt reports he twisted his lower back post-seizure 3 days ago and he was unable to ambulate w/ walker since then. PT to evaluate pt's mobility. RUDs positive for THC and ETOH level was 371 prior to admission. Pt reports drinking 1-2 24 oz cans per day. Pt shares he used to drink hard liquor, 6 packs of beers. Pt shares he has been cutting his drinking and slowly improving. PT does not consider IP/OP substance abuse program. SW provided brief support.
--- NOTE | 2019-12-27 16:30 | History and Physical Report ---
DATE OF ADMISSION: 12/26/2019 DATE AND TIME SEEN: 12/27/2019 at 1 p.m. CONSULTANTS: 1. Jose Carrasco MD. 2. Melchor Mejia MD. 3. Martinez Ansari MD. CHIEF COMPLAINT: Atrial fibrillation, weakness, alcohol abuse. BRIEF HISTORY: This is a 64-year-old male, who lives at home, presents with increased fluttering feeling in the chest, came to [place], diagnosed with AFib RVR, history of alcohol abuse and low back pain, admitted to telemetry for further care. Currently, calm in bed. No complaint. No chest pain. Slight short of breath. No nausea, vomiting, or diarrhea. PAST MEDICAL HISTORY: Includes CHF. PAST SURGICAL HISTORY: None. MEDICATIONS: Include aspirin, folic acid, lisinopril, diazepam, phenytoin, metoprolol, apixaban. ALLERGIES: Penicillin, lorazepam. SOCIAL HISTORY: Positive smoke. Positive alcohol. No intravenous drug abuse. He has not drunk for three days, but prior to that drank copiously. OBJECTIVE: GENERAL: Slightly anxious in bed, oriented x3, no acute distress. VITAL SIGNS: Temperature 99, pulse , respirations 20, blood pressure 169/83. CARDIOVASCULAR: No murmurs. LUNGS: Poor air exchange. ABDOMEN: Slightly distended. EXTREMITIES: Show no cyanosis or edema. NEUROLOGIC: The patient moves all extremities, slightly weak. LABORATORY AND DIAGNOSTIC DATA: Labs at this time show hemoglobin 13 and hematocrit 42, otherwise CBC is normal. BMP, initially CO2 is 29. BMP is normal. Troponin 0.00. INR is 1.1. Urinalysis, 3+ protein. Urine tox positive for marijuana. ASSESSMENT: 1. AFib with RVR. 2. Alcohol abuse. 3. Low back pain. PLAN: Cardiology followup. Detox, pain control. Dietary followup. PT and dietary evaluation. CBC and BMP in the morning. Psych treatment. Joshua Mederos D.O. DR: FRANCISCO JOB#: [id number] CC:
--- NOTE | 2019-12-27 19:46 | NUR ---
HAND-OFF: Report given to ENEIDA Henao. Pt remains stable.
--- NOTE | 2019-12-27 19:49 | NUR ---
NURSE NOTES: Received report from Min RN. Pt in stable condition. Denies any pain. Denies any n/v or SOB. Pt is A+Ox2-3 Forgetful. Pt has L FA 22g w/D51/2 NS @60. No skin issues noted. panel monitor running Afib/Aflutter. Pt on room air sating 98%. Pt resting in bed comfortably. Bed in low and locked position, call light within reach, bedside table within reach. Continue to monitor.
--- NOTE | 2019-12-27 21:18 | Psych Consult Progress Note ---
Psychiatry Progress Note Psychiatry Progress Note Subjective the pt is irritable and anxious Medications Current Medications Medications (Trade) Dose Ordered Sig/Yara Route PRN Reason Start Time Stop Time Status Last Admin Dose Admin Apixaban (Eliquis) 5 mg BID ORAL 12/26/19 18:00 03/25/20 17:59 12/27/19 17:04 Aspirin (Ecotrin) 81 mg DAILY ORAL 12/27/19 09:00 02/10/20 08:59 12/27/19 08:36 Dextrose/Sodium Chloride 1,000 ml @ 60 mls/hr [id number] IV 12/26/19 14:42 01/25/20 14:41 12/27/19 18:53 Diazepam (Valium) 10 mg Q4H PRN ORAL Shivering 12/26/19 16:47 01/02/20 16:46 12/26/19 17:00 Diazepam (Valium) 10 mg TID ORAL 12/27/19 09:00 01/03/20 08:59 12/27/19 17:04 Folic Acid (Folate) 1 mg DAILY ORAL 12/27/19 09:00 01/26/20 08:59 12/27/19 08:36 Lisinopril (PriniviL) 20 mg DAILY ORAL 12/27/19 09:00 01/26/20 08:59 12/27/19 08:36 Metoprolol Tartrate (Lopressor) 100 mg EVERY 12 HOURS ORAL 12/26/19 21:00 03/25/20 20:59 12/27/19 08:36 Morphine Sulfate (Morphine Sulfate) 2 mg Q4H PRN IVP For Pain 12/26/19 14:45 01/02/20 14:44 12/27/19 16:47 Phenytoin (Dilantin) 100 mg Q8HR ORAL 12/26/19 22:00 02/09/20 21:59 12/27/19 14:52 Neurological/Psychiatric: Reports: anxiety, depressed, emotional problems Allergies: Coded Allergies: PENICILLIN (Verified Allergy, Severe, 06/19/17) LORAZEPAM (Verified Allergy, Unknown, 12/26/19) PENICILLINS (Unverified Allergy, Unknown, 07/17/19) Objective Data Height (Feet): 5 Height (Inches): 5.00 Weight (Pounds): 130 General Appearance: WD/WN, no apparent distress, alert, alert oriented x3 Additional Comments: oriented times self, place, and situation. Mood is anxious. Affect is flat. Thought process is concrete. Thought content, no suicidal or homicidal ideation. Cognition is intact. Insight and judgment is impaired. ASSESSMENT: [place] Alcohol dependence. Alcohol withdrawal. [place] Deferred. [place] III matthews [place] IV Moderate. [place] 50. PLAN: 1. Valium 10 mg p.r n. 2. To provide the patient with reality orientation and supportive therapy. We will continue to follow and readjust the medications. Melchor Mejia MD Dec 27, 2019 21:18
[2019-12-28] VITALS: BP 119/84
[2019-12-28 04:00] VITALS: BP 112/71
[2019-12-28] MEDS: Phenytoin 100mg cap ORAL SCH ×3 (05:48→22:27)
[2019-12-28 07:12] LABS: ANION GAP 6 mmol/L (5-15); BLOOD UREA NITROGEN 5 mg/dL (7-18); CALCIUM 8.6 MG/DL (8.5-10.1); CARBON DIOXIDE 27 MMOL/L (21-32); CHLORIDE 102 MMOL/L (98-107); CREATININE 1.2 MG/DL (0.55-1.30); POTASSIUM 3.7 MMOL/L (3.5-5.1); SODIUM 135 MMOL/L (136-145)
[2019-12-28 07:16] LABS: BASOPHILS % (AUTO) 0.8 % (0.0-2.0); EOSINOPHILS % (AUTO) 3.8 % (0.0-3.0); HEMATOCRIT 40.5 % (42.0-52.0); HEMOGLOBIN 13.1 G/DL (14.2-18.0); LYMPHOCYTES % (AUTO) 22.8 % (20.0-45.0); MEAN CORPUSCULAR VOLUME 95 FL (80-99); MONOCYTES % (AUTO) 10.7 % (1.0-10.0); NEUTROPHILS % (AUTO) 61.9 % (45.0-75.0); PLATELET COUNT 145 K/UL (150-450); RED BLOOD COUNT 4.25 M/UL (4.70-6.10)
--- NOTE | 2019-12-28 07:29 | NUR ---
HAND-OFF: Report given to Jeanne MONIQUE.
--- NOTE | 2019-12-28 07:30 | NUR ---
NURSE NOTES: Received report from ENEIDA Henao. Patient AAO x3, denies pain. No acute distress. Breathing regular and unlabored. IV intact infusing well, no redness or infiltration. Fall and seizure precautions in place.
[2019-12-28 08:00] VITALS: BP 109/74
[2019-12-28] MEDS: Metoprolol Tartrate 100mg tab ORAL SCH ×2 (08:47→22:26)
[2019-12-28] MEDS: Aspirin EC 81mg tab ORAL SCH (08:47)
[2019-12-28] MEDS: Eliquis 5mg tablet ORAL SCH ×2 (08:47→17:31)
[2019-12-28] MEDS: Lisinopril 20mg tab ORAL SCH (08:47)
--- NOTE | 2019-12-28 08:53 | General Progress Note ---
Assessment/Plan Problem List: (1) CHF (congestive heart failure) ICD Codes: I50.9 - Heart failure, unspecified SNOMED: 88306905 (2) Afib ICD Codes: I48.91 - Unspecified atrial fibrillation SNOMED: 09101635 (3) Alcohol dependence ICD Codes: F10.20 - Alcohol dependence, uncomplicated SNOMED: 24269109 Status: stable, progressing Assessment/Plan: pt diet cardio f/u cbc bmp am dc plan Subjective Constitutional: Reports: weakness Allergies: Coded Allergies: PENICILLIN (Verified Allergy, Severe, 06/19/17) LORAZEPAM (Verified Allergy, Unknown, 12/26/19) PENICILLINS (Unverified Allergy, Unknown, 07/17/19) All Systems: reviewed and negative except above Subjective calm in bed Objective Last 24 Hour Vital Signs Date Time Temp Pulse Resp B/P (MAP) Pulse Ox O2 Delivery O2 Flow Rate FiO2 12/28/19 08:47 94 109/74 12/28/19 08:47 109/74 12/28/19 08:00 94 12/28/19 08:00 96.9 88 18 109/74 (86) 100 12/28/19 04:00 97.7 67 18 112/71 (85) 98 12/28/19 04:00 71 12/28/19 00:00 74 12/28/19 00:00 97.5 84 18 119/84 (96) 98 12/27/19 22:38 98.9 12/27/19 22:04 79 103/71 12/27/19 21:00 Room Air 12/27/19 20:00 85 12/27/19 20:00 97.9 79 18 103/71 (82) 98 12/27/19 16:00 78 12/27/19 16:00 98.9 76 20 123/78 (93) 100 12/27/19 12:00 99.1 73 20 116/83 (94) 100 12/27/19 12:00 77 12/27/19 09:00 Room Air Intake and Output 12/27/19 12/28/19 19:00 07:00 Intake Total 960 ml 60 ml Output Total 1000 ml Balance -40 ml 60 ml Intake Oral 300 ml IV Total 660 ml 60 ml Output Urine Total 1000 ml # Voids 5 2 Laboratory Tests 12/28/19 05:40: White Blood Count 6.0, Red Blood Count 4.25L, Hemoglobin 13.1L, Hematocrit 40.5L , Mean Corpuscular Volume 95, Mean Corpuscular Hemoglobin 30.8, Mean Corpuscular Hemoglobin Concent 32.3, Red Cell Distribution Width 16.0H, Platelet Count 145L, Mean Platelet Volume 6.2L, Neutrophils (%) (Auto) 61.9, Lymphocytes (%) (Auto) 22.8, Monocytes (%) (Auto) 10.7H, Eosinophils (%) (Auto) 3.8H, Basophils (%) (Auto) 0.8, Sodium Level 135L, Potassium Level 3.7, Chloride Level 102, Carbon Dioxide Level 27, Anion Gap 6, Blood Urea Nitrogen 5L , Creatinine 1.2, Estimat Glomerular Filtration Rate > 60, Glucose Level 104, Calcium Level 8.6 Height (Feet): 5 Height (Inches): 5.00 Weight (Pounds): 138 General Appearance: lethargic EENT: normal ENT inspection Neck: normal alignment Cardiovascular: normal peripheral pulses, normal rate, regularly irregular Respiratory/Chest: chest wall non-tender, lungs clear, normal breath sounds Abdomen: normal bowel sounds, non tender, soft Extremities: normal inspection Edema: no edema noted Arm (L), no edema noted Arm (R), no edema noted Leg (L), no edema noted Leg (R), no edema noted Pedal (L), no edema noted Pedal (R), no edema noted Generalized Neurologic: abnormal valet service attendant II-XII Skin: normal pigmentation, warm/dry Joshua Mederos DO Dec 28, 2019 08:53
[2019-12-28 12:00] VITALS: BP 104/72
--- NOTE | 2019-12-28 12:08 | NUR ---
NURSE NOTES: Per Pharmacist Yamini, there is potential for cross-sensitivity from diazepam with allergy to lorazepam. Pt. clarified that he does not experience signs of anaphylaxis when taking lorazepam, but gives pt. upset stomach. Per Yamini, ok to proceed with administration of diazepam as pt. has received in the past and has not demonstrated signs of allergic reaction. Also, pt. does not experience true allergic symptoms when taking ativan.
--- NOTE | 2019-12-28 12:19 | NUR ---
HAND REAMER NOTE SW spoke w/ pt's [place] SW, Janeth Alvarez [phone] requesting pt to be evaluated to get the prescription for Naltrexone. SW relayed information to assigned RN. Assigned RN informed this SW that it is unlikely as pt has no psych consult.
--- NOTE | 2019-12-28 13:02 | NUR ---
NURSE NOTES: Reached out to Dr. Carrasco regarding d/c. updated that Dr. Mederos intends to d/c pt. once cleared by cardiology. Awaiting response.
[2019-12-28] MEDS: D5 1/2NS 1,000 ML IV SCH (13:33)
[2019-12-28] MEDS: Morphine Sulfate 2mg/ml Inj(IV/IM USE ONLY) IVP PRN (14:18)
--- NOTE | 2019-12-28 15:10 | NUR ---
P.T Note: P.T evaluation completed and tx initiated. Please refer to P.T evaluation for current functional status. Pt is alert, O x 4 . Pt reports c/o pain in lower back 8/10 with movement and certain positioning. Pt also reports c/o feeling weak and generally fatigued which affect his balance and mobility performance. Pt currently requires SBA X 1 for bed mobilities and MIN A x 1 for Transfers and gait/ambulation activities using the FWW. Skilled P.T service is warranted to improve strength, balance and endurance to facilitate increase in mobility independence and safety. P.T recommend SNF VS for short term rehab intervention VS home P.T.Thank you for this referral.
[2019-12-28 15:13] VITALS: BP 110/70
--- NOTE | 2019-12-28 16:53 | NUR ---
AXLE INSPECTOR NOTES SPOKE WITH CHEN PT'S RU [place] UTILITY LOCATOR W/VA, MADE AWARE OF DC STATUS. PER CHEN SHE IS APPLYING FOR IHSS FOR THE PATIENT AND WILL CONTINUE TO FOLLOW THIS PT UPON DC.PER CHEN THE PLAN IS TO START A SUBSTANCE ABUSE TREATMENT PLAN. CHEN [phone]
--- NOTE | 2019-12-28 17:44 | Cardiac Electrophysiology PN ---
Assessment/Plan Assessment/Plan 1. Chest pain due to atrial fibrillation with rapid ventricular response. Ruled out for [place] 2. Atrial fibrillation with rapid ventricular response due to alcohol use and noncompliance with medication. On metoprolol 100 mg bid and Eliquis 5 mg b.i.d. for anticoagulation. Echo EF 55% 3. Hypertension, on metoprolol 100 mg bid, lisinopril 20 mg daily. 4. History of heavy alcohol use, on folic acid and thiamine. 5. History of seizure disorder, on Dilantin. DW RN OK to DC Subjective Subjective No more VT overnight.In atrial fib in 90s. Alert Objective Last 24 Hour Vital Signs Date Time Temp Pulse Resp B/P (MAP) Pulse Ox O2 Delivery O2 Flow Rate FiO2 12/28/19 16:00 80 12/28/19 15:13 98.6 82 18 110/70 (83) 98 12/28/19 12:00 87 12/28/19 12:00 98.8 99 20 104/72 (83) 99 12/28/19 08:47 94 109/74 12/28/19 08:47 109/74 12/28/19 08:40 Room Air 12/28/19 08:00 94 12/28/19 08:00 96.9 88 18 109/74 (86) 100 12/28/19 04:00 97.7 67 18 112/71 (85) 98 12/28/19 04:00 71 12/28/19 00:00 74 12/28/19 00:00 97.5 84 18 119/84 (96) 98 12/27/19 22:38 98.9 12/27/19 22:04 79 103/71 12/27/19 21:00 Room Air 12/27/19 20:00 85 12/27/19 20:00 97.9 79 18 103/71 (82) 98 Intake and Output 12/27/19 12/28/19 19:00 07:00 Intake Total 960 ml 60 ml Output Total 1000 ml Balance -40 ml 60 ml Intake Oral 300 ml IV Total 660 ml 60 ml Output Urine Total 1000 ml # Voids 5 2 Laboratory Tests Test 12/28/19 05:40 White Blood Count 6.0 K/UL (4.8-10.8) Red Blood Count 4.25 M/UL (4.70-6.10) L Hemoglobin 13.1 G/DL (14.2-18.0) L Hematocrit 40.5 % (42.0-52.0) L Mean Corpuscular Volume 95 FL (80-99) Mean Corpuscular Hemoglobin 30.8 PG (27.0-31.0) Mean Corpuscular Hemoglobin Concent 32.3 G/DL (32.0-36.0) Red Cell Distribution Width 16.0 % (11.6-14.8) H Platelet Count 145 K/UL (150-450) L Mean Platelet Volume 6.2 FL (6.5-10.1) L Neutrophils (%) (Auto) 61.9 % (45.0-75.0) Lymphocytes (%) (Auto) 22.8 % (20.0-45.0) Monocytes (%) (Auto) 10.7 % (1.0-10.0) H Eosinophils (%) (Auto) 3.8 % (0.0-3.0) H Basophils (%) (Auto) 0.8 % (0.0-2.0) Sodium Level 135 MMOL/L (136-145) L Potassium Level 3.7 MMOL/L (3.5-5.1) Chloride Level 102 MMOL/L (98-107) Carbon Dioxide Level 27 MMOL/L (21-32) Anion Gap 6 mmol/L (5-15) Blood Urea Nitrogen 5 mg/dL (7-18) L Creatinine 1.2 MG/DL (0.55-1.30) Estimat Glomerular Filtration Rate > 60 mL/min (>60) Glucose Level 104 MG/DL (74-106) Calcium Level 8.6 MG/DL (8.5-10.1) Microbiology Date/Time Source Procedure Growth Status 12/26/19 09:40 Nasopharynx SARS-CoV-2 RdRp Gene Assay - Final Complete Objective NECK: No JVD. LUNGS: Coarse rhonchi. CARDIOVASCULAR: Irregular S1 and S2 with no gallop or murmur and tachycardic. ABDOMEN: Soft. EXTREMITIES: No pitting edema. Jose Carrasco MD Dec 28, 2019 17:44
--- NOTE | 2019-12-28 17:49 | NUR ---
NURSE NOTES: Huddled with Dr. Carrasco at bedside. Pt. is cleared by cardiology for discharge.
--- NOTE | 2019-12-28 19:10 | NUR ---
NURSE NOTES: Report given to ENEIDA Henao.
--- NOTE | 2019-12-28 19:11 | NUR ---
NURSE NOTES: Received report from Jeanne MONIQUE. Pt in stable condition. Denies any pain. Denies any n/v or SOB. Pt is A+Ox2-3 Forgetful. Pt has L FA 22g w/D51/2 NS @60. No skin issues noted. awake overnight monitor running Afib/Aflutter. Pt on room air sating 98%. Pt resting in bed comfortably. Bed in low and locked position, call light within reach, bedside table within reach. Continue to monitor.
[2019-12-28 20:00] VITALS: BP 104/69
[2019-12-29] VITALS: BP 110/71
[2019-12-29 04:00] VITALS: BP 103/66
[2019-12-29] MEDS: Morphine Sulfate 2mg/ml Inj(IV/IM USE ONLY) IVP PRN (04:00)
--- NOTE | 2019-12-29 04:15 | NUR ---
NURSE NOTES: V/S ARE FOLLOWS PRIOR TO MORPHINE ADMINISTRATION: BP 110/70, HR 80, RR 18.
[2019-12-29] MEDS: Phenytoin 100mg cap ORAL SCH (05:43)
[2019-12-29 06:37] LABS: BASOPHILS % (AUTO) 0.6 % (0.0-2.0); EOSINOPHILS % (AUTO) 3.9 % (0.0-3.0); HEMATOCRIT 44.1 % (42.0-52.0); HEMOGLOBIN 14.1 G/DL (14.2-18.0); LYMPHOCYTES % (AUTO) 18.3 % (20.0-45.0); MEAN CORPUSCULAR VOLUME 97 FL (80-99); MONOCYTES % (AUTO) 6.9 % (1.0-10.0); NEUTROPHILS % (AUTO) 70.4 % (45.0-75.0); PLATELET COUNT 162 K/UL (150-450); RED BLOOD COUNT 4.55 M/UL (4.70-6.10); WHITE BLOOD COUNT 9.8 K/UL (4.8-10.8)
[2019-12-29 07:08] LABS: ANION GAP 7 mmol/L (5-15); BLOOD UREA NITROGEN 9 mg/dL (7-18); CALCIUM 9.1 MG/DL (8.5-10.1); CARBON DIOXIDE 29 MMOL/L (21-32); CHLORIDE 100 MMOL/L (98-107); CREATININE 1.3 MG/DL (0.55-1.30); POTASSIUM 3.8 MMOL/L (3.5-5.1); SODIUM 136 MMOL/L (136-145)
--- NOTE | 2019-12-29 07:35 | NUR ---
HAND-OFF: Report given to Madie MONIQUE.
--- NOTE | 2019-12-29 07:56 | NUR ---
NURSE NOTES: Received report ENEIDA Henao. Pt A/O x4. No s/s of acute respiratory and cardiac distress. On room air. IVF infusing on left FA, asymptomatic, patent and intact. Bed in low position, side rails up x2 and call light within reach. Will continue to monitor.
[2019-12-29 08:00] VITALS: BP 120/82
[2019-12-29] MEDS: Aspirin EC 81mg tab ORAL SCH (09:11)
[2019-12-29] MEDS: Eliquis 5mg tablet ORAL SCH (09:11)
[2019-12-29] MEDS: Lisinopril 20mg tab ORAL SCH (09:12)
[2019-12-29] MEDS: Metoprolol Tartrate 100mg tab ORAL SCH (09:12)
[2019-12-29] MEDS: D5 1/2NS 1,000 ML IV SCH (09:22)
--- NOTE | 2019-12-29 10:10 | NUR ---
PHYSICIAN SCIENTIST NOTES SPOKE WITH CHEN VIERA FROM [place], MADE AWARE OF PT DC TODAY.PER CHEN SHE WILL FOLLOW UP WITH THE PATIENT.
--- NOTE | 2019-12-29 10:15 | NUR ---
NURSE NOTES: Pt to be discharged home today. PT walked with him and pt is unsteady. Physical therapist suggest transfer to SNF. Informed Dr. Mederos about it and he order d/c planning to SNF. Pt refuse to go to SNF and want to go home despite of recommendation. He states he has a lady that comes in to help him out at home for as long as he needs her. Informed Dr. Mederos and dependency case manager, Jannette. Dr. Mederos is coming in to hospital to see him and clear him himself.
--- NOTE | 2019-12-29 10:18 | Cardiac Electrophysiology PN ---
Assessment/Plan Assessment/Plan 1. Chest pain due to atrial fibrillation with rapid ventricular response. Ruled out for [place]. No more CP 2. Atrial fibrillation with rapid ventricular response due to alcohol use and noncompliance with medication. On metoprolol 100 mg bid and Eliquis 5 mg b.i.d. Echo EF 55% 3. Hypertension, on metoprolol 100 mg bid, lisinopril 20 mg daily. 4. History of heavy alcohol use, on folic acid and thiamine. 5. History of seizure disorder, on Dilantin. GABRIELLA RN, Case management and Dr. Lane OKed to DC yesterday Subjective Subjective In atrial fib with controlled V response. Alert. Supposed to be DCed yesterday Objective Last 24 Hour Vital Signs Date Time Temp Pulse Resp B/P (MAP) Pulse Ox O2 Delivery O2 Flow Rate FiO2 12/29/19 09:12 97 120/82 12/29/19 09:12 120/82 12/29/19 08:00 99.9 87 20 120/82 (95) 100 12/29/19 08:00 97 12/29/19 04:30 98.2 12/29/19 04:00 81 12/29/19 04:00 98.2 81 18 103/66 (78) 98 12/29/19 00:00 79 12/29/19 00:00 97.6 66 17 110/71 (84) 99 12/28/19 22:26 68 104/69 12/28/19 21:00 Room Air 12/28/19 20:00 83 12/28/19 20:00 97.7 68 17 104/69 (81) 100 12/28/19 16:00 80 12/28/19 15:13 98.6 82 18 110/70 (83) 98 12/28/19 12:00 87 12/28/19 12:00 98.8 99 20 104/72 (83) 99 Intake and Output 12/28/19 12/29/19 19:00 07:00 Intake Total 1020 ml Output Total 400 ml 1100 ml Balance 620 ml -1100 ml Intake Oral 360 ml IV Total 660 ml Output Urine Total 400 ml 1100 ml # Voids 2 # Bowel Movements 2 1 Laboratory Tests Test 12/29/19 05:35 White Blood Count 9.8 K/UL (4.8-10.8) # Red Blood Count 4.55 M/UL (4.70-6.10) L Hemoglobin 14.1 G/DL (14.2-18.0) L Hematocrit 44.1 % (42.0-52.0) Mean Corpuscular Volume 97 FL (80-99) Mean Corpuscular Hemoglobin 30.9 PG (27.0-31.0) Mean Corpuscular Hemoglobin Concent 31.9 G/DL (32.0-36.0) L Red Cell Distribution Width 16.0 % (11.6-14.8) H Platelet Count 162 K/UL (150-450) Mean Platelet Volume 6.8 FL (6.5-10.1) Neutrophils (%) (Auto) 70.4 % (45.0-75.0) Lymphocytes (%) (Auto) 18.3 % (20.0-45.0) L Monocytes (%) (Auto) 6.9 % (1.0-10.0) Eosinophils (%) (Auto) 3.9 % (0.0-3.0) H Basophils (%) (Auto) 0.6 % (0.0-2.0) Sodium Level 136 MMOL/L (136-145) Potassium Level 3.8 MMOL/L (3.5-5.1) Chloride Level 100 MMOL/L (98-107) Carbon Dioxide Level 29 MMOL/L (21-32) Anion Gap 7 mmol/L (5-15) Blood Urea Nitrogen 9 mg/dL (7-18) Creatinine 1.3 MG/DL (0.55-1.30) Estimat Glomerular Filtration Rate > 60 mL/min (>60) Glucose Level 79 MG/DL (74-106) Calcium Level 9.1 MG/DL (8.5-10.1) Objective NECK: No JVD. LUNGS: Coarse rhonchi. CARDIOVASCULAR: Irregular S1 and S2 with no gallop or murmur and tachycardic. ABDOMEN: Soft. EXTREMITIES: No pitting edema. Jose Carrasco MD Dec 29, 2019 10:18
--- NOTE | 2019-12-29 10:28 | NUR ---
Discharge planned: Patient declined [facility] @[id number]
[2019-12-29 12:00] VITALS: BP 117/66
--- NOTE | 2019-12-29 12:17 | General Progress Note ---
Assessment/Plan Problem List: (1) CHF (congestive heart failure) ICD Codes: I50.9 - Heart failure, unspecified SNOMED: 33027689 (2) Afib ICD Codes: I48.91 - Unspecified atrial fibrillation SNOMED: 66866575 (3) Alcohol dependence ICD Codes: F10.20 - Alcohol dependence, uncomplicated SNOMED: 98349810 Status: stable, progressing Assessment/Plan: pt diet cardio f/u dc home w hh per pt request Subjective Constitutional: Reports: weakness Allergies: Coded Allergies: PENICILLIN (Verified Allergy, Severe, 06/19/17) LORAZEPAM (Verified Allergy, Unknown, 12/26/19) PENICILLINS (Unverified Allergy, Unknown, 07/17/19) All Systems: reviewed and negative except above Subjective calm in bed Objective Last 24 Hour Vital Signs Date Time Temp Pulse Resp B/P (MAP) Pulse Ox O2 Delivery O2 Flow Rate FiO2 12/29/19 12:00 98.6 84 17 117/66 (83) 97 12/29/19 09:12 97 120/82 12/29/19 09:12 120/82 12/29/19 09:00 Room Air 12/29/19 08:00 99.9 87 20 120/82 (95) 100 12/29/19 08:00 97 12/29/19 04:30 98.2 12/29/19 04:00 81 12/29/19 04:00 98.2 81 18 103/66 (78) 98 12/29/19 00:00 79 12/29/19 00:00 97.6 66 17 110/71 (84) 99 12/28/19 22:26 68 104/69 12/28/19 21:00 Room Air 12/28/19 20:00 83 12/28/19 20:00 97.7 68 17 104/69 (81) 100 12/28/19 16:00 80 12/28/19 15:13 98.6 82 18 110/70 (83) 98 Intake and Output 12/28/19 12/29/19 19:00 07:00 Intake Total 1020 ml Output Total 400 ml 1100 ml Balance 620 ml -1100 ml Intake Oral 360 ml IV Total 660 ml Output Urine Total 400 ml 1100 ml # Voids 2 # Bowel Movements 2 1 Laboratory Tests 12/29/19 05:35: White Blood Count 9.8#, Red Blood Count 4.55L, Hemoglobin 14.1L, Hematocrit 44.1 , Mean Corpuscular Volume 97, Mean Corpuscular Hemoglobin 30.9, Mean Corpuscular Hemoglobin Concent 31.9L, Red Cell Distribution Width 16.0H, Platelet Count 162, Mean Platelet Volume 6.8, Neutrophils (%) (Auto) 70.4, Lymphocytes (%) (Auto) 18.3L, Monocytes (%) (Auto) 6.9, Eosinophils (%) (Auto) 3.9H, Basophils (%) (Auto) 0.6, Sodium Level 136, Potassium Level 3.8, Chloride Level 100, Carbon Dioxide Level 29, Anion Gap 7, Blood Urea Nitrogen 9, Creatinine 1.3, Estimat Glomerular Filtration Rate > 60, Glucose Level 79, Calcium Level 9.1 Height (Feet): 5 Height (Inches): 5.00 Weight (Pounds): 138 General Appearance: lethargic EENT: normal ENT inspection Neck: normal alignment Cardiovascular: normal peripheral pulses, normal rate, regular rhythm Respiratory/Chest: chest wall non-tender, lungs clear, normal breath sounds Abdomen: normal bowel sounds, non tender, soft Extremities: normal inspection Edema: no edema noted Arm (L), no edema noted Arm (R), no edema noted Leg (L), no edema noted Leg (R), no edema noted Pedal (L), no edema noted Pedal (R), no edema noted Generalized Neurologic: responsive, motor weakness Skin: normal pigmentation, warm/dry Joshua Mederos DO Dec 29, 2019 12:17
--- NOTE | 2019-12-29 12:30 | NUR ---
NURSE NOTES: Pt has orders to be discharged home. Dr. Mederos came in and saw pt. Gave pt discharge instructions. Gave handouts of information about atrial fibrillation and alcohol intoxication. Pt verbalizes understanding. Removed saline lock and telemetry box. Awaiting to be picked up by ambulance.
--- NOTE | 2019-12-29 23:04 | Psych Consult Progress Note ---
Psychiatry Progress Note Psychiatry Progress Note Neurological/Psychiatric: Reports: anxiety, depressed, emotional problems Allergies: Coded Allergies: PENICILLIN (Verified Allergy, Severe, 06/19/17) LORAZEPAM (Verified Allergy, Unknown, 12/26/19) PENICILLINS (Unverified Allergy, Unknown, 07/17/19) Objective Data Height (Feet): 5 Height (Inches): 5.00 Weight (Pounds): 138 General Appearance: WD/WN, no apparent distress, alert, alert oriented x3 Additional Comments: The patient is oriented times self, place, and situation. Mood is anxious. Affect is flat. Thought process is concrete. Thought content, no suicidal or homicidal ideation. Cognition is intact. Insight and judgment is impaired. Assessment/Plan Status: stable, progressing Assessment/Plan: ASSESSMENT: [place] I Alcohol dependence. Alcohol withdrawal. [place] II Deferred. [place] III abd pain [place] IV Moderate. [place] V 50. PLAN: 1. Valium 10 mg p.r n. 2. To provide the patient with reality orientation and supportive therapy. We will continue to follow and readjust the medications Melchor Mejia MD Dec 29, 2019 23:04
--- NOTE | 2020-01-02 13:56 | Discharge Summary ---
Discharge Summary Discharge Summary _ DATE OF ADMISSION: 12/26/2019 DATE OF DISCHARGE: 12/29/2019 DISCHARGED BY: Dr Mederos REASON FOR ADMISSION: 64 years old male with past medical history of EtOH abuse, atrial fibrillation, diabetes mellitus, hypertension, PR, coronary artery disease, seizure disorder, presented with atrial fibrillation with a rapid ventricular response in the past. Patient apparently was noncompliant with his outpatient medications. He presented this time with complaint of few days of chest pain. He denied recent illness. No fever or chills. No cough or congestion. He admitted to drinking a lot of alcohol. On evaluation vital signs revealed tachycardia with heart rate 142, the rest of the vital signs were stable. Laboratory work-up revealed no leukocytosis,stable hemoglobin ,hematocrit and platelet count. Stable electrolytes. BUN 10, creatinine 1.3. Glucose 97. Stable LFT . Albumin 4.0. Troponin negative.EKG revealed atrial fibrillation with rapid ventricular response. Dilantin level less than 0.5 Serum alcohol 371. Urinalysis revealed +3 protein , no evidence of urinary tract infection. Urine toxicology screen was positive for marijuana. Chest x-ray revealed no acute cardiopulmonary pathology. Rapid COVID-19 was negative. In emergency department patient received Cardizem IV 10 mg x 1 and 5 mg another time, patient received 1 L liter of fluid. Patient started on IV Dilantin and received one dose of Ativan. Patient also received analgesic and beta-becky and admitted for further management. CONSULTANTS: location analyst Dr. Palomares psychiatrist [facility] COURSE: Patient admitted to telemetry floor. Jewel Bearing Grinder closely followed. Serial troponin were negative. EKG revealed no acute ischemic changes . Patient was ruled out for acute myocardial infarction. Pain management was addressed as needed. Chest pain resolved. Chest pain was likely due to atrial fibrillation with rapid ventricular response as per location analyst. Patient was encouraged compliance with medication at home. Patient was on beta-becky and Eliquis for rate control and anticoagulation correspondingly. Echocardiogram revealed preserved ejection fraction 55%. Blood pressure was managed with beta-becky and TRUDY inhibitor and remained stable. Folic acid and thiamine were added to existing regimen. a Patient was counseled on abstinence from alcohol. Seizure precaution maintained. Dilantin continued. Patient was provided with reality orientation and supportive therapy. Valium was on standby as needed for alcohol withdrawal symptoms. Patient was evaluated by physical therapist. Fall precaution maintained. Patient clinically stabilized and was ready for discharge. Patient denied placement and decided to go home. FINAL DIAGNOSES: Chest pain -due to atrial fibrillation with rapid ventricular response Atrial fibrillation with rapid ventricular response , due to alcohol use and noncompliance with medication Hypertension Heavy EtOH use Alcohol dependence Seizure disorder DISCHARGE MEDICATIONS: List medication was sent with patient. DISCHARGE INSTRUCTIONS: Patient was discharged home . Follow-up with a primary care provider in 1 week. Patient was counseled on ETOH cessation. Patient was counseled on compliance with medication regimen. I have been assigned to dictate discharge summary for this account. I was not involved in the patient's management. Faviola Khalil NP Jan 02, 2020 13:56
== END 2019-12-29 13:15 | disposition home or self-care (01) | DRG 201 ==
LOC: EDBD 09:18 → EMR 09:37 → CANBEDREQ 12:36 → 2E 13:26 → EDBEDREQ 13:31 → 2E 16:18
DX: I48.91 Unspecified atrial fibrillation (principal); E11.9 Type 2 diabetes mellitus without complications; G40.909 Epilepsy, unspecified, not intractable, without status epilepticus; F10.239 Alcohol dependence with withdrawal, unspecified; Z88.0 Allergy status to penicillin; Z88.8 Allergy status to other drugs, medicaments and biological substances; I25.10 Atherosclerotic heart disease of native coronary artery without angina pectoris; Z91.14 Patient's other noncompliance with medication regimen; I11.0 Hypertensive heart disease with heart failure; I50.9 Heart failure, unspecified
CPT/HCPCS: 36415; 71045; 80048; 80053; 80185; 80307; 81003; 84484; 85025; 85610; 85730; 93005; 93306; 96361; 96365; 96375; 96376; 99285; G0480; J1165; J7030; U0002

== ENCOUNTER 2020-08-04 10:47 | Emergency (ER) | payer MEDICAID, OTHER ==
[2020-08-04] VITALS (7 sets, daily range): BP systolic 110–135; BP diastolic 63–91
[~2020-08-04] VITALS: Ht 177.8 cm; Wt 74.8 kg
[~2020-08-04 10:47] MED LIST changes: +ASPIRIN EC81 MG ORAL; +DILANTIN100 MG ORAL
[2020-08-04] MEDS ORDERED: dilTIAZem HCl 25mg/5ml Inj IVP SCH (11:30)
--- NOTE | 2020-08-04 11:33 | Emergency Room Report ---
History of Present Illness General Chief Complaint: Alcohol Intoxication Source: Patient, EMS Present Illness HPI Patient is a 65-year-old male who presents to the ER complaining of alcohol intoxication. Patient states that he has been drinking nonstop for 5 days and feels very bad. He states that he fell several days ago and hit his head. He states that he fell because he was unsteady due to alcohol consumption. He denies any chest pain or shortness of breath but complains of diffuse abdominal pain. Patient was brought in by EMS. Patient tachycardic in triage and states that he does suffer from tachycardia and irregular heartbeat but is not on medications for it. Allergies: Coded Allergies: PENICILLIN (Verified Allergy, Severe, 06/19/17) LORAZEPAM (Verified Allergy, Unknown, 12/26/19) PENICILLINS (Unverified Allergy, Unknown, 07/17/19) COVID-19 Screening Contact w/high risk pt: No Experienced COVID-19 symptoms?: No COVID-19 Testing performed DEBURR OPERATOR: No Patient History Reviewed Nursing Documentation: PMH: Agreed; PSxH: Agreed Nursing Documentation-PMH Hx Cardiac Problems: Yes - A FIB Hx Hypertension: Yes Hx Diabetes: Yes Hx Cancer: No Hx Gastrointestinal Problems: No Hx Neurological Problems: No Hx Seizures: Yes Review of Systems All Other Systems: negative except mentioned in HPI Physical Exam Vital Signs Date Time Temp Pulse Resp B/P (MAP) Pulse Ox O2 Delivery O2 Flow Rate FiO2 08/04/20 10:52 97.7 130 18 140/80 (100) 98 Room Air 08/04/20 11:17 99 Sp02 EP Interpretation: reviewed, normal General Appearance: alert, GCS 15, non-toxic, mild distress Head: normocephalic, atraumatic Eyes: bilateral eye normal inspection, bilateral eye PERRL ENT: hearing grossly normal, normal pharynx, no angioedema, normal voice Neck: full range of motion, supple/symm/no masses Respiratory: chest non-tender, lungs clear, normal breath sounds, speaking full sentences Cardiovascular #1: tachycardia, irregularly irregular Gastrointestinal: other - mild diffuse abdominal tenderness no guarding or rebound Rectal: deferred Musculoskeletal: normal range of motion Neurologic: mission planner III-XII nml as tested Psychiatric: anxious Skin: no rash Lymphatic: no adenopathy Procedures Critical Care Time Critical Care Time Total critical care time: Approximately 35 minutes. Due to a high probability of clinically significant, life threatening deterioration, the patient required my highest level of preparedness to intervene emergently and I personally spent this critical care time directly and personally managing the patient. This critical care time included obtaining a history; examining the patient; pulse oximetry; ordering and review of studies; arranging urgent treatment with development of a management plan; evaluation of patient's response to treatment; frequent reassessment; and, discussions with other providers.This critical care time was performed to assess and manage the high probability of imminent, life- threatening deterioration that could result in multi-organ failure. It was exclusive of separately billable procedures and treating other patients and teaching time. Please see MDM section and the rest of the note for further information on patient assessment and treatment. Medical Decision Making Diagnostic Impression: Primary Impression: Afib Additional Impression: Alcohol dependence ER Course Patient presents with alcohol intoxication and atrial fibrillation with rapid ventricular response. Patient has a history of atrial fibrillation and is noncompliant with medications. Patient given 2 doses of IV Cardizem for rate control and an oral dose for sustained rate control. Patient's labs demonstrate no significant acute abnormalities. Patient will be admitted for further treatment and evaluation. EKG Diagnostic Results Troponin ordered: Yes When was troponin ordered?: Aug 04, 2020 EKG Time: 11:11 EP Interpretation: Corrina Trevino MD Rate: tachycardiac - Atrial fibrillation with rapid ventricular response [address] Segments: no acute changes ASA given to the pt in ED: No Rhythm Strip Diag. Results Rhythm Strip Time: 14:01 EP Interpretation: yes Rate: 125 bpm Rhythm: no PVC's, no ectopy, other - Atrial fibrillation with rapid ventricular response Chest X-Ray Diagnostic Results Chest X-Ray Diagnostic Results : Chest X-Ray Ordered: Yes # of Views/Limited/Complete: 1 View Indication: Other - Palpitations EP Interpretation: Yes Interpretation: no consolidation, no effusion, no pneumothorax, no acute cardiopulmonary disease Impression: No acute disease Electronically Signed by: Corrina Trevino MD Last Vital Signs Date Time Temp Pulse Resp B/P (MAP) Pulse Ox O2 Delivery O2 Flow Rate FiO2 08/04/20 11:17 133 20 135/91 99 Room Air 08/04/20 11:17 99 08/04/20 10:52 97.7 Disposition: ADMITTED INPATIENT - Telemetry Condition: Critical Referrals: [facility]ERR[facility] (PCP) Additional Instructions: Please note that this report is being documented using [employer] technology. This can lead to erroneous entry secondary to incorrect interpretation by the dictating instrument. Corrina Trevino M.D. Aug 04, 2020 11:33
[2020-08-04 11:40] LABS: ANION GAP 16 mmol/L (5-15); BLOOD UREA NITROGEN 9 mg/dL (7-18); CALCIUM 9.1 MG/DL (8.5-10.1); CARBON DIOXIDE 22 MMOL/L (21-32); CHLORIDE 104 MMOL/L (98-107); CREATININE 1.3 MG/DL (0.55-1.30); POTASSIUM 4.3 MMOL/L (3.5-5.1); SODIUM 142 MMOL/L (136-145)
[2020-08-04 11:53] LABS: ALANINE AMINOTRANSFERASE 14 U/L (12-78); ALBUMIN 4.1 G/DL (3.4-5.0); ALBUMIN/GLOBULIN RATIO 0.9 (1.0-2.7); ALKALINE PHOSPHATASE 103 U/L (46-116); ASPARTATE AMINO TRANSFERASE 32 U/L (15-37); BILIRUBIN,TOTAL 0.1 MG/DL (0.2-1.0)
[2020-08-04 11:55] LABS: BASOPHILS % (AUTO) 1.9 % (0.0-2.0); EOSINOPHILS % (AUTO) 3.4 % (0.0-3.0); HEMATOCRIT 45.1 % (42.0-52.0); HEMOGLOBIN 13.7 G/DL (14.2-18.0); LYMPHOCYTES % (AUTO) 47.6 % (20.0-45.0); MEAN CORPUSCULAR VOLUME 89 FL (80-99); MONOCYTES % (AUTO) 8.9 % (1.0-10.0); NEUTROPHILS % (AUTO) 38.2 % (45.0-75.0); PLATELET COUNT 298 K/UL (150-450); RED BLOOD COUNT 5.09 M/UL (4.70-6.10); WHITE BLOOD COUNT 5.1 K/UL (4.8-10.8)
[2020-08-04 12:07] LABS: INR 1.1 (0.9-1.1)
[2020-08-04] MEDS ORDERED: dilTIAZem HCl 90mg tab ORAL ONE (12:30)
--- NOTE | 2020-08-04 12:31 | NUR ---
1115: IV placed, pt on monitor, labs sent, pt medicated per eMAR. pt BIBA from home for etoh & tachycardia. pt hx afib, not compliant with medication. ekg completed, notified. pt taken to CT. 1200: pt has begbugs. moved to closed room 1230: cardizem given
--- NOTE | 2020-08-04 12:35 | NUR ---
1055: pt biba for palpitations and etoh. pt hx chf, htn, dm, afib, alcohol abuse
--- NOTE | 2020-08-04 13:03 | Diagnostic Imaging Report ---
EXAM: XR Chest, 1 View CLINICAL HISTORY: TRAUMA TECHNIQUE: Frontal view of the chest. COMPARISON: Chest radiograph on 12/26/2019 FINDINGS: Hardware: None. Lungs/pleura: Hyperinflation of the lungs is suggestive of COPD. Stable small calcifications in the left upper lobe. Left apical pleural thickening. No focal consolidation. No pleural effusion or pneumothorax. Heart/mediastinum: Normal. No cardiomegaly. Soft tissues: Unremarkable. Bones: No acute fracture. Mild curvature of the spine. Degenerative changes of the spine. Upper abdomen: Normal. IMPRESSION: COPD changes. No acute disease.
--- NOTE | 2020-08-04 13:20 | Diagnostic Imaging Report ---
EXAM: CT Abdomen and Pelvis Without Intravenous Contrast CLINICAL HISTORY: PAIN TECHNIQUE: Axial computed tomography images of the abdomen and pelvis without intravenous contrast. CTDI is 3.2 mGy and DLP is 165.1 mGy-cm. One or more of the following dose reduction techniques were used: automated exposure control, adjustment of the mA and/or kV according to patient size, use of iterative reconstruction technique. COMPARISON: None FINDINGS: Lung bases: Small calcified granulomas in the right lower lobe. ABDOMEN: Liver: Unremarkable. Gallbladder and bile ducts: Cholelithiasis. No ductal dilation. Pancreas: Unremarkable. No ductal dilation. Spleen: Small splenule. Adrenals: Thickened left adrenal gland with calcifications. Kidneys and ureters: Absent left kidney. No hydronephrosis or stone on the right. Stomach and bowel: Mildly prominent fluid and gas-filled small bowel loops may represent enteritis or ileus in the appropriate clinical setting. Evaluation of the stomach is limited by underdistention. Diverticulosis without evidence of diverticulitis. PELVIS: Appendix: Normal appendix. Bladder: Mild prominence of the bladder wall is nonspecific. Please correlate with urinalysis if concerned for cystitis. No stones. Reproductive: Calcifications along the penile shaft. ABDOMEN and PELVIS: Intraperitoneal space: Unremarkable. No free air. No significant fluid collection. Bones/joints: Degenerative changes of the spine. No acute fracture. No dislocation. Soft tissues: Unremarkable. Vasculature: Atherosclerotic changes of the vasculature. No aortic aneurysm. Phleboliths in the pelvis. Lymph nodes: Unremarkable. No enlarged lymph nodes. IMPRESSION: 1. Thickened left adrenal gland with calcifications. 2. Mildly prominent fluid and gas-filled small bowel loops may represent enteritis or ileus in the appropriate clinical setting. 3. Mild prominence of the bladder wall is nonspecific. Please correlate with urinalysis if concerned for cystitis. 4. Cholelithiasis.
--- NOTE | 2020-08-04 13:23 | Diagnostic Imaging Report ---
EXAM: CT Head Without Intravenous Contrast CLINICAL HISTORY: TRAUMA TECHNIQUE: Axial computed tomography images of the head/brain without intravenous contrast. CTDI is 53.4 mGy and DLP is 1018.8 mGy-cm. One or more of the following dose reduction techniques were used: automated exposure control, adjustment of the mA and/or kV according to patient size, use of iterative reconstruction technique. COMPARISON: CT head on 07/19/2019 FINDINGS: Brain: No acute infarct or hemorrhage identified. No extra-axial fluid collection. No mass effect or midline shift. Stable areas of hypoattenuation in the supratentorial white matter likely represent chronic small vessel ischemic changes. Ventricles and sulci: Stable prominence of the ventricles and sulci is likely secondary to cerebral volume loss. Bones: Normal. No bony lesion or acute fracture. Subcutaneous tissues: Normal. Sinuses: Normal. No air-fluid levels or mucosal thickening. Mastoid air cells: Normal. Orbits: Grossly unremarkable. Other: Atherosclerotic calcifications in the intracranial vasculature. IMPRESSION: 1. No acute intracranial abnormality. 2. Stable mild chronic small vessel ischemic changes and cerebral volume loss.
[2020-08-04] MEDS ORDERED: dilTIAZem HCl 25mg/5ml Inj IVP ONE (13:45)
[2020-08-04] MEDS ORDERED: Aspirin Baby 81mg ORAL ONE (13:45)
--- NOTE | 2020-08-04 14:24 | NUR ---
pt in room, refusing to stay on monitor. pt yelling for staff, no request when staff is there, pt just wanting to talk to staff and begins to cry.
[2020-08-04] MEDS ORDERED: Morphine Sulfate 4mg/ml Inj (IV USE ONLY) IVP ONE (15:15)
[2020-08-04] MEDS ORDERED: Ketorolac 30mg Inj IV ONE (15:15)
--- NOTE | 2020-08-04 15:28 | NUR ---
1500: pt ambulating out of room, pt instructed to go back in room, aware, pt cooperative but anxious. pt medicated per eMAR. pt placed back on continuous cardiac/O2 monitor.
--- NOTE | 2020-08-04 17:51 | NUR ---
1600: 1700: 1745: pt given warm blankets. requesting urine from pt. pt unable to give urine sample. pt on continuous cardiac/O2 monitor. will continue to monitor.
--- NOTE | 2020-08-04 18:46 | NUR ---
1745: requesting medication for pt for withdrawl. 1830: requesting medication for pt for withdrawl. pt urine sent to lab. pt cleared for food, given apple juice per md consent. pt on monitor.
--- NOTE | 2020-08-04 18:47 | NUR ---
pt signed consent for transfer.
[2020-08-04 18:53] LABS: APPEARANCE,URINE CLEAR; BILIRUBIN, URINE NEGATIVE (NEGATIVE); GLUCOSE, URINE (UA) NEGATIVE (NEGATIVE); KETONES,URINE NEGATIVE (NEGATIVE); LEUKOCYTE ESTERASE ,URINE NEGATIVE (NEGATIVE); NITRITE,URINE NEGATIVE (NEGATIVE); PH,URINE 5 (4.5-8.0); PROTEIN,URINE 3+ (NEGATIVE); UROBILINOGEN,URINE NORMAL MG/DL (0.0-1.0)
[2020-08-04 18:55] LABS: COLOR,URINE YELLOW
--- NOTE | 2020-08-04 19:22 | NUR ---
called report to Karla Brewster RN at [facility]. pt accepted to room 938. bedside report to [facility] with [facility].
== END 2020-08-04 19:30 | disposition short-term general hospital (02) ==
LOC: EDBD 10:47 → EMR 11:17
DX: I48.91 Unspecified atrial fibrillation (principal); I10 Essential (primary) hypertension; E11.9 Type 2 diabetes mellitus without complications; G40.909 Epilepsy, unspecified, not intractable, without status epilepticus; Z88.0 Allergy status to penicillin; Z88.8 Allergy status to other drugs, medicaments and biological substances; F10.229 Alcohol dependence with intoxication, unspecified
CPT/HCPCS: 36415; 70450; 71045; 74176; 80053; 80307; 81003; 83690; 83735; 84439; 84443; 84484; 85025; 85610; 85730; 93005; 96361; 96374; 96375; 96376; J1885; J2270; J7030; Z7502; 99291